=== PATIENT | female | born 1930 | race Caucasian/White ===

== ENCOUNTER 2018-06-17 11:48 | Emergency (ER) | payer MEDICARE, BC ==
--- NOTE | 2018-06-17 12:19 | EDM.PDOC ---
ED HPI GENERAL MEDICAL PROBLEM - General Chief Complaint: Upper Extremity Injury/Pain Stated Complaint: PT' LT ARM HURTS Time Seen by Provider: 06/17/18 11:54 Source of Information: Reports: Patient, Family History Limitations: Reports: No Limitations - History of Present Illness INITIAL COMMENTS - FREE TEXT/NARRATIVE: HISTORY AND PHYSICAL: History of present illness: Patient is 87-year-old female here with complaint of left wrist injury. She states that yesterday she was playing with her Thai bulldog when she must have tripped and she jammed her hand somehow, likely against the wall. She states that she did not fall and that she caught herself with a handrail. She denies any dizziness or syncope preceding the incident. Patient denies hitting her head. She denies any chest pain, shortness of breath, diaphoresis, dizziness , lightheadedness, nausea, vomiting, diarrhea, abdominal pain, black or bloody stools. She has a history of atrial fibrillation, CAD, hypertension, anemia. Patient sees Dr. Emanuel Constantino. Review of systems: As per history of present illness and below otherwise all systems reviewed and negative. Past medical history: As per history of present illness and as reviewed below otherwise noncontributory. Surgical history: As per history of present illness and as reviewed below otherwise noncontributory. Social history: No reported history of drug or alcohol abuse. Family history: As per history of present illness and as reviewed below otherwise noncontributory. Physical exam: General: Patient sitting comfortably in no acute distress and nontoxic appearing HEENT: Atraumatic, normocephalic, pupils reactive, negative for conjunctival pallor or scleral icterus, mucous membranes moist, throat clear, neck supple, nontender, trachea midline. No meningeal signs. Lungs: Clear to auscultation, breath sounds equal bilaterally, chest nontender. Heart: S1S2, irregular negative for clicks, rubs,systolic murmur noted Abdomen: Soft, nondistended, nontender. Negative for masses or hepatosplenomegaly. Negative for costovertebral tenderness. Pelvis: Stable nontender. 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: Deferred. Rectal: Deferred. Extremity: The left hand is swollen from wrist to fingers but most prominent at the radial side of the wrist. She had no tenderness in the hand or fingers but pain to palpation of the distal radius. Normal ROM of fingers. Pain with flexion and extension of the wrist. negative for cords or calf pain. Neurovascular unremarkable. Neuro: Awake, alert, oriented. Cranial nerves II through XII unremarkable. Cerebellum unremarkable. Motor and sensory unremarkable throughout. Exam nonfocal. Notes: Diagnostics CBC, CMP, UA, UC, EKG, left wrist x-ray Therapeutics: Left wrist splint Prescriptions: None Impression: Left distal radius and ulnar fracture Plan: 1. Ice, elevate, and motrin as needed 2. Follow up with orthopedics in the next week. Please see your primary care provider regarding your anemia. 3. Return to ED as needed as discussed. Definitive disposition and diagnosis as appropriate pending reevaluation and review of above. left wrist Pain Score (Numeric/FACES): 5 - Related Data Allergies Allergy/AdvReac Type Severity Reaction Status Date / Time adhesive tape Allergy Rash Verified 06/17/18 11:55 amoxicillin Allergy Hives Verified 06/17/18 11:55 latex Allergy Rash Verified 06/17/18 11:55 Penicillins Allergy Hives Verified 06/17/18 11:55 metal Allergy Rash Uncoded 06/17/18 11:55 Home Meds: Home Meds Aspirin [Adult Low Dose Aspirin EC] 4 tab PO DAILY 10/23/16 [History] Dextran 70/Hypromellose [Artificial Tears] 1 drop EYEBOTH BID 10/23/16 [History] Furosemide 1 tab PO DAILY 10/23/16 [History] Isosorbide Mononitrate 10 mg PO BID 10/23/16 [History] Lisinopril 1 tab PO DAILY 10/23/16 [History] Sertraline HCl 1 tab PO DAILY 10/23/16 [History] Simvastatin [Zocor] 1 tab PO BEDTIME 10/23/16 [History] Spironolactone [Aldactone] 1 tab PO DAILY 10/23/16 [History] Vit B12/Fa/Pyridoxine HCl/AA15 [Glycotrol] 500 mcg PO DAILY 10/23/16 [History] Warfarin [Coumadin] 1 tab PO ASDIRECTED 10/23/16 [History] Warfarin [Coumadin] 1 tab PO DAILY 10/23/16 [History] Past Medical History HEENT History: Reports: Cataract Other HEENT History: wears glasses, has upper denture Cardiovascular History: Reports: Afib, CAD, High Cholesterol, Hypertension, [place], Other (See Below) Other Cardiovascular History: hx of bradycardia Respiratory History: Reports: Sleep Apnea Other Respiratory History: uses CPAP Gastrointestinal History: Reports: None 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 History: Reports: None 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: Musculoskeletal History: Reports: Arthritis, Fracture 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, hx of fx left hip and right wrist Neurological History: Reports: None Psychiatric History: Reports: Anxiety, Depression Endocrine/Metabolic History: Reports: None Hematologic History: Reports: None Immunologic History: Reports: None Oncologic (Cancer) History: Reports: None Other Dermatologic History: very sensitive to scented lotions, gets a rash - Infectious Disease History Infectious Disease History: Reports: Chicken Pox, Measles, Mumps - Past Surgical History Head Surgeries/Procedures: Reports: None HEENT Surgical History: Reports: Cataract Surgery Cardiovascular Surgical History: Reports: Coronary Artery Bypass GI Surgical History: Reports: None Female Surgical History: Reports: None Endocrine Surgical History: Reports: None Neurological Surgical History: Reports: None Musculoskeletal Surgical History: Reports: Hip Replacement Oncologic Surgical History: Reports: None Dermatological Surgical History: Reports: None Social & Family History - Family History Family Medical History: Noncontributory - Tobacco Use Smoking Status *Q: Never Smoker - Recreational Drug Use Recreational Drug Use: No Review of Systems - Review of Systems Review Of Systems: ROS reveals no pertinent complaints other than HPI. ED EXAM, GENERAL - Physical Exam Exam: See Below (see dictation) Course - Vital Signs Last Recorded V/S: Last Vital Signs Temp 35.9 C 06/17/18 11:55 Pulse 64 06/17/18 11:55 Resp 18 06/17/18 11:55 BP 139/50 L 06/17/18 11:55 Pulse Ox 95 06/17/18 11:55 - Orders/Labs/Meds Orders: Active Orders 24 hr Category Date Time Status EKG Documentation Completion [RC] STAT Care 06/17/18 12:17 Active CULTURE URINE [RM] Stat Lab 06/17/18 12:20 Ordered UA W/MICROSCOPIC [URIN] Stat Lab 06/17/18 12:20 Ordered Labs: Laboratory Tests 06/17/18 06/17/18 06/17/18 Range/Units 12:20 12:40 12:40 WBC 6.58 (4.0-11.0) K/uL RBC 3.32 L (4.30-5.90) M/uL Hgb 9.0 L (12.0-16.0) g/dL Hct 28.4 L (36.0-46.0) % MCV 85.5 (80.0-98.0) fL MCH 27.1 (27.0-32.0) pg MCHC 31.7 (31.0-37.0) g/dL RDW Std Deviation 54.0 (28.0-62.0) fl RDW Coeff of Aleksandr 17 H (11.0-15.0) % Plt Count 165 (150-400) K/uL MPV 9.20 (7.40-12.00) fL Neut % (Auto) 64.5 (48.0-80.0) % Lymph % (Auto) 20.2 (16.0-40.0) % [place] % (Auto) 14.4 (0.0-15.0) % Eos % (Auto) 0.6 (0.0-7.0) % Baso % (Auto) 0.3 (0.0-1.5) % Neut # (Auto) 4.2 (1.4-5.7) K/uL Lymph # (Auto) 1.3 (0.6-2.4) K/uL [place] # (Auto) 1.0 H (0.0-0.8) K/uL Eos # (Auto) 0.0 (0.0-0.7) K/uL Baso # (Auto) 0.0 (0.0-0.1) K/uL Nucleated RBC % 0.0 /100WBC Nucleated RBCs # 0 K/uL INR Sodium 139 (136-145) mmol/L Potassium 4.3 (3.5-5.1) mmol/L Chloride 105 (98-107) mmol/L Carbon Dioxide 21.7 (21.0-32.0) mmol/L BUN 23 H (7.0-18.0) mg/dL Creatinine 1.2 H (0.6-1.0) mg/dL Est Cr Clr Drug Dosing 25.39 mL/min Estimated GFR (MDRD) 42.6 ml/min Glucose 107 H (74-106) mg/dL Calcium 9.0 (8.5-10.1) mg/dL Total Bilirubin 0.7 (0.2-1.0) mg/dL AST 17 (15-37) IU/L ALT 14 (14-63) IU/L Alkaline Phosphatase 96 (46-116) U/L Troponin I < 0.050 (0.000-0.056) ng/mL Total Protein 7.3 (6.4-8.2) g/dL Albumin 3.6 (3.4-5.0) g/dL Globulin 3.7 H (2.0-3.5) g/dL Albumin/Globulin Ratio 1.0 L (1.3-2.8) Urine Color YELLOW Urine Appearance CLEAR Urine pH 5.5 (5.0-8.0) Ur Specific [place] 1.010 (1.001-1.035) Urine Protein NEGATIVE (NEGATIVE) mg/dL Urine Glucose (UA) NEGATIVE (NEGATIVE) mg/dL Urine Ketones NEGATIVE (NEGATIVE) mg/dL Urine Occult Blood NEGATIVE (NEGATIVE) Urine Nitrite NEGATIVE (NEGATIVE) Urine Bilirubin NEGATIVE (NEGATIVE) Urine Urobilinogen 0.2 (<2.0) EU/dL Ur Leukocyte Esterase NEGATIVE (NEGATIVE) Urine RBC 0-1 (0-2/HPF) Urine WBC 0-1 (0-5/HPF) Ur Epithelial Cells RARE (NONE-FEW) Urine Bacteria RARE (NEGATIVE) 06/17/18 Range/Units 13:55 WBC (4.0-11.0) K/uL RBC (4.30-5.90) M/uL Hgb (12.0-16.0) g/dL Hct (36.0-46.0) % MCV (80.0-98.0) fL MCH (27.0-32.0) pg MCHC (31.0-37.0) g/dL RDW Std Deviation (28.0-62.0) fl RDW Coeff of Aleksandr (11.0-15.0) % Plt Count (150-400) K/uL MPV (7.40-12.00) fL Neut % (Auto) (48.0-80.0) % Lymph % (Auto) (16.0-40.0) % [place] % (Auto) (0.0-15.0) % Eos % (Auto) (0.0-7.0) % Baso % (Auto) (0.0-1.5) % Neut # (Auto) (1.4-5.7) K/uL Lymph # (Auto) (0.6-2.4) K/uL [place] # (Auto) (0.0-0.8) K/uL Eos # (Auto) (0.0-0.7) K/uL Baso # (Auto) (0.0-0.1) K/uL Nucleated RBC % /100WBC Nucleated RBCs # K/uL INR 1.75 Sodium (136-145) mmol/L Potassium (3.5-5.1) mmol/L Chloride (98-107) mmol/L Carbon Dioxide (21.0-32.0) mmol/L BUN (7.0-18.0) mg/dL Creatinine (0.6-1.0) mg/dL Est Cr Clr Drug Dosing mL/min Estimated GFR (MDRD) ml/min Glucose (74-106) mg/dL Calcium (8.5-10.1) mg/dL Total Bilirubin (0.2-1.0) mg/dL AST (15-37) IU/L ALT (14-63) IU/L Alkaline Phosphatase (46-116) U/L Troponin I (0.000-0.056) ng/mL Total Protein (6.4-8.2) g/dL Albumin (3.4-5.0) g/dL Globulin (2.0-3.5) g/dL Albumin/Globulin Ratio (1.3-2.8) Urine Color Urine Appearance Urine pH (5.0-8.0) Ur Specific [place] (1.001-1.035) Urine Protein (NEGATIVE) mg/dL Urine Glucose (UA) (NEGATIVE) mg/dL Urine Ketones (NEGATIVE) mg/dL Urine Occult Blood (NEGATIVE) Urine Nitrite (NEGATIVE) Urine Bilirubin (NEGATIVE) Urine Urobilinogen (<2.0) EU/dL Ur Leukocyte Esterase (NEGATIVE) Urine RBC (0-2/HPF) Urine WBC (0-5/HPF) Ur Epithelial Cells (NONE-FEW) Urine Bacteria (NEGATIVE) Departure - Departure Time of Disposition: 14:22 Disposition: Home, Self-Care 01 Condition: Good Clinical Impression: Left wrist fracture - Discharge Information Referrals: PCP,None [Primary Care Provider] - Forms: ED Department Discharge Additional Instructions: The following information is given to patients seen in the emergency department who are being discharged to home. This information is to outline your options for follow-up care. We provide all patients seen in our emergency department with a follow-up referral. The need for follow-up, as well as the timing and circumstances, are variable depending upon the specifics of your emergency department visit. If you don't have a primary care physician on staff, we will provide you with a referral. We always advise you to contact your personal physician following an emergency department visit to inform them of the circumstance of the visit and for follow-up with them and/or the need for any referrals to a consulting specialist. The emergency department will also refer you to a specialist when appropriate. This referral assures that you have the opportunity for follow-up care with a specialist. All of these measure are taken in an effort to provide you with optimal care, which includes your follow-up. Under all circumstances we always encourage you to contact your private physician who remains a resource for coordinating your care. When calling for follow-up care, please make the office aware that this follow-up is from your recent emergency room visit. If for any reason you are refused follow-up, please contact the [facility] Emergency Department at and asked to speak to the emergency department charge nurse. [facility] [address], [facility] [address] [place] [address] [place] [address] 1. Ice, elevate, and motrin as needed 2. Follow up with orthopedics in the next week. Please see your primary care provider regarding your anemia. 3. Return to ED as needed as discussed. - My Orders Last 24 Hours: My Active Orders 06/17/18 12:17 EKG Documentation Completion [RC] STAT 06/17/18 12:20 CULTURE URINE [RM] Stat UA W/MICROSCOPIC [URIN] Stat - Assessment/Plan Last 24 Hours: My Active Orders 06/17/18 12:17 EKG Documentation Completion [RC] STAT 06/17/18 12:20 CULTURE URINE [RM] Stat UA W/MICROSCOPIC [URIN] Stat
--- NOTE | 2018-06-17 13:07 | CR ---
EXAM DATE: 06/17/18 PATIENT'S AGE: 87 Patient: PETER BRIAN Facility: [place], [place] Site . Site : [id number] Study: XRay Extremity Left WRIST [id number]/[id number] 12:42:17 PM Ordering Physician: Doctor Chaparro Final Report: INDICATION: Pain. COMPARISON: None. FINDINGS: Distal intra-articular transverse fracture is noted of the left radius with fracture fragment overlap of approximately 0.8 cm. There is an associated ulnar styloid fracture. The bones diffusely demineralized and degenerative changes are noted of the of the left wrist, particularly the left 1st metacarpal/carpal joint space. The soft tissues are swollen/edematous and metallic clips overlie the radial artery. Impression : 1. Distal intra-articular left radial fracture with associated ulnar styloid fracture. 2. Bony demineralization and degenerative changes left wrist. Dictated by Agnes Turner MD @ Jun 17 2018 12:46PM (Electronic Signature) Report Signed by Proxy. XENA
[2018-06-17 14:03] LABS: CHLORIDE,CL 105 mmol/L (98-107); SODIUM,NA 139 mmol/L (136-145)
[2018-06-17 14:34] VITALS: BP 119/63
== END 2018-06-17 14:28 | disposition home or self-care (01) ==
LOC: MW.ED 11:48
DX: S52.572A Other intraarticular fracture of lower end of left radius, initial encounter for closed fracture (principal); S52.612A Displaced fracture of left ulna styloid process, initial encounter for closed fracture; I10 Essential (primary) hypertension; Z88.0 Allergy status to penicillin; Z88.1 Allergy status to other antibiotic agents; Z91.040 Latex allergy status; Z91.09 Other allergy status, other than to drugs and biological substances; Z79.82 Long term (current) use of aspirin; Z79.01 Long term (current) use of anticoagulants; Z79.899 Other long term (current) drug therapy; W23.1XXA Caught, crushed, jammed, or pinched between stationary objects, initial encounter
CPT/HCPCS: 36415; 73100-26-LT; 73100-LT; 80053; 81001; 84484; 85025; 85610; 87086; 93005; 99284-25

== ENCOUNTER 2018-11-17 21:08 | Inpatient (IN) | payer MEDICARE, BC ==
--- NOTE | 2018-11-17 21:22 | EDM.PDOC ---
<Lopez Garcia E - Last Filed: 11/17/18 22:10> ED HPI GENERAL MEDICAL PROBLEM - General Chief Complaint: Lower Extremity Injury/Pain Stated Complaint: FELL Time Seen by Provider: 11/17/18 21:19 Source of Information: Reports: Patient History Limitations: Reports: No Limitations - History of Present Illness INITIAL COMMENTS - FREE TEXT/NARRATIVE: HISTORY AND PHYSICAL: Fall - Trauma Alert was called on this patient. Dr Navarro was involved in this case. History of present illness: Patient is an 88-year-old female who presents to the emergency room with complaints of right upper thigh and hip pain post fall. Patient was going up the stairs when she tripped over her dog landing forward on the stairs. She denies hitting her head or any loss of consciousness. She states she has broken her left hip previously and believes that the pain is similar that she is now experiencing on the right. She denies any numbness or tingling to the affected extremity. She does take Coumadin and follows closely with Dr. Emanuel Constantino at [facility]. She denies any fever, chills, chest pain, shortness of breath or cough. Denies any GI or symptoms. Review of systems: As per history of present illness and below otherwise all systems reviewed and negative. Past medical history: As per history of present illness and as reviewed below otherwise noncontributory. Surgical history: As per history of present illness and as reviewed below otherwise noncontributory. Social history: See social history for further information Family history: As per history of present illness and as reviewed below otherwise noncontributory. Physical exam: General: Well-developed and well-nourished 88-year-old female. Alert and oriented. Nontoxic appearing and in no acute distress. HEENT: Nontender with palpation, normocephalic, pupils equal and reactive bilaterally, negative for conjunctival pallor or scleral icterus, mucous membranes moist, TMs normal bilaterally, throat clear, neck supple, nontender, trachea midline. No drooling or trismus noted. No meningeal signs. No hot potato voice noted. Lungs: Clear to auscultation, breath sounds equal bilaterally, chest nontender. Heart: S1S2, regular rate and rhythm without overt murmur Abdomen: Soft, nondistended, nontender. Negative for masses or hepatosplenomegaly. Negative for costovertebral tenderness. Pelvis: Stable nontender. 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: Deferred. Rectal: Deferred. Skin: Intact, warm, dry. No lesions or rashes noted. Extremities: Pain to the right lateral hip going into her groin. Shortening and external rotation noted of right leg. Strong pedal pulses. +CMS of the lower extremity. No knee, tib-fib, ankle or foot pain. She is negative for cords or calf pain. Neurovascular unremarkable. C-spine/Back: No pinpoint vertebral tenderness upon palpation. No crepitus, step -offs or obvious deformities. She is able to move all 4 extremities. Denies any numbness or tingling to her distal extremities. Denies any urinary or fecal incontinence. Neuro: Awake, alert, oriented. Cranial nerves II through XII unremarkable. Cerebellum unremarkable. Motor and sensory unremarkable throughout. Exam nonfocal. Notes: Due to the patient's age and mechanism of injury along with her Coumadin, I am going to CT her head and neck for thoroughness. Head CT shows no acute findings, mild maxillary sinus disease. Dr Quick was consulted on this case. Dr Navarro has been briefed on this patient and will follow the patient's labs. Diagnostics: Head CT, cervical spine CT, right hip/pelvis, CBC, CMP, PT/INR Therapeutics: IV morphine, Zofran, Elevated and positioned for comfort Definitive disposition and diagnosis as appropriate pending reevaluation and review of above. Right Upper Leg Pain Score (Numeric/FACES): 8 - Related Data Allergies Allergy/AdvReac Type Severity Reaction Status Date / Time adhesive tape Allergy Rash Verified 11/17/18 21:13 amoxicillin Allergy Hives Verified 11/17/18 21:13 latex Allergy Rash Verified 11/17/18 21:13 Penicillins Allergy Hives Verified 11/17/18 21:13 metal Allergy Rash Uncoded 11/17/18 21:13 Home Meds: Home Meds Aspirin [Adult Low Dose Aspirin EC] 4 tab PO DAILY 10/23/16 [History] Dextran 70/Hypromellose [Artificial Tears] 1 drop EYEBOTH BID 10/23/16 [History] Furosemide 1 tab PO DAILY 10/23/16 [History] Isosorbide Mononitrate 10 mg PO BID 10/23/16 [History] Lisinopril 1 tab PO DAILY 10/23/16 [History] Sertraline HCl 1 tab PO DAILY 10/23/16 [History] Simvastatin [Zocor] 1 tab PO BEDTIME 10/23/16 [History] Spironolactone [Aldactone] 25 mg PO DAILY 10/23/16 [History] Vit B12/Fa/Pyridoxine HCl/AA15 [Glycotrol] 500 mcg PO DAILY 10/23/16 [History] Warfarin [Coumadin] 6 mg PO DAILY 10/23/16 [History] Past Medical History HEENT History: Reports: Cataract Other HEENT History: wears glasses, has upper denture Cardiovascular History: Reports: Afib, CAD, High Cholesterol, Hypertension, [place], Other (See Below) Other Cardiovascular History: hx of bradycardia Respiratory History: Reports: Sleep Apnea Other Respiratory History: uses CPAP Gastrointestinal History: Reports: None 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 History: Reports: 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: Musculoskeletal History: Reports: Arthritis, Fracture 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, hx of fx left hip and right wrist Neurological History: Reports: None Psychiatric History: Reports: Anxiety, Depression Endocrine/Metabolic History: Reports: None Hematologic History: Reports: None Immunologic History: Reports: None Oncologic (Cancer) History: Reports: None Other Dermatologic History: very sensitive to scented lotions, gets a rash - Infectious Disease History Infectious Disease History: Reports: Chicken Pox, Measles, Mumps - Past Surgical History Head Surgeries/Procedures: Reports: None HEENT Surgical History: Reports: Cataract Surgery Cardiovascular Surgical History: Reports: Coronary Artery Bypass GI Surgical History: Reports: None Female Surgical History: Reports: None Endocrine Surgical History: Reports: None Neurological Surgical History: Reports: None Musculoskeletal Surgical History: Reports: Hip Replacement Oncologic Surgical History: Reports: None Dermatological Surgical History: Reports: None Social & Family History - Family History Family Medical History: Noncontributory - Tobacco Use Smoking Status *Q: Never Smoker - Recreational Drug Use Recreational Drug Use: No Review of Systems - Review of Systems Review Of Systems: ROS reveals no pertinent complaints other than HPI. ED EXAM, GENERAL - Physical Exam Exam: See Below (See dictation) Course - Vital Signs Last Recorded V/S: Last Vital Signs Temp 97.3 F 11/17/18 21:09 Pulse 58 L 11/17/18 21:09 Resp 18 11/17/18 21:09 BP 163/52 H 11/17/18 21:09 Pulse Ox 97 11/17/18 21:09 - Orders/Labs/Meds Orders: Active Orders 24 hr Category Date Time Status Admission Status [Patient Status] [ADT] Stat ADT 11/17/18 21:54 Active EKG Documentation Completion [RC] STAT Care 11/17/18 23:56 Active Sodium Chloride 0.9% [Normal Saline] 1,000 ml Med 11/17/18 23:45 Active IV STAT Sodium Chloride 0.9% [Saline Flush] Med 11/17/18 21:54 Active 10 ml FLUSH ASDIRECTED PRN Sodium Chloride 0.9% [Saline Flush] Med 11/17/18 21:54 Active 2.5 ml FLUSH ASDIRECTED PRN Saline Lock Insert [OM.PC] Stat Oth 11/17/18 21:54 Ordered Medication Orders Sodium Chloride (Normal Saline) 1,000 mls @ 125 mls/hr IV STAT [place] Sodium Chloride (Saline Flush) 10 ml FLUSH ASDIRECTED PRN PRN Reason: Keep Vein Open Sodium Chloride (Saline Flush) 2.5 ml FLUSH ASDIRECTED PRN PRN Reason: Keep Vein Open Labs: Laboratory Tests 11/17/18 11/17/18 11/17/18 Range/Units 22:38 22:38 22:55 WBC 7.57 (4.0-11.0) K/uL RBC 3.57 L (4.30-5.90) M/uL Hgb 11.0 L (12.0-16.0) g/dL Hct 34.5 L (36.0-46.0) % MCV 96.6 (80.0-98.0) fL MCH 30.8 (27.0-32.0) pg MCHC 31.9 (31.0-37.0) g/dL RDW Std Deviation 52.8 (28.0-62.0) fl RDW Coeff of Aleksandr 15 (11.0-15.0) % Plt Count 144 L (150-400) K/uL MPV 10.10 (7.40-12.00) fL Neut % (Auto) 67.3 (48.0-80.0) % Lymph % (Auto) 20.5 (16.0-40.0) % [place] % (Auto) 9.4 (0.0-15.0) % Eos % (Auto) 2.4 (0.0-7.0) % Baso % (Auto) 0.4 (0.0-1.5) % Neut # (Auto) 5.1 (1.4-5.7) K/uL Lymph # (Auto) 1.6 (0.6-2.4) K/uL [place] # (Auto) 0.7 (0.0-0.8) K/uL Eos # (Auto) 0.2 (0.0-0.7) K/uL Baso # (Auto) 0.0 (0.0-0.1) K/uL Nucleated RBC % 0.0 /100WBC Nucleated RBCs # 0 K/uL INR 1.14 Sodium 141 (136-145) mmol/L Potassium 4.7 (3.5-5.1) mmol/L Chloride 108 H (98-107) mmol/L Carbon Dioxide 22.0 (21.0-32.0) mmol/L BUN 33 H (7.0-18.0) mg/dL Creatinine 1.6 H (0.6-1.0) mg/dL Est Cr Clr Drug Dosing 18.69 mL/min Estimated GFR (MDRD) 30.5 ml/min Glucose 125 H (74-106) mg/dL Calcium 9.5 (8.5-10.1) mg/dL Total Bilirubin 0.5 (0.2-1.0) mg/dL AST 13 L (15-37) IU/L ALT 9 L (14-63) IU/L Alkaline Phosphatase 73 (46-116) U/L Total Protein 7.0 (6.4-8.2) g/dL Albumin 3.8 (3.4-5.0) g/dL Globulin 3.2 (2.6-4.0) g/dL Albumin/Globulin Ratio 1.2 (0.9-1.6) Meds: Medications Generic Name Dose Route Start Last Admin Trade Name Freq PRN Reason Stop Dose Admin Sodium Chloride 1,000 mls @ 125 mls/hr 11/17/18 23:45 Normal Saline IV STAT [place] Sodium Chloride 10 ml 11/17/18 21:54 Saline Flush FLUSH ASDIRECTED PRN Keep Vein Open Sodium Chloride 2.5 ml 11/17/18 21:54 Saline Flush FLUSH ASDIRECTED PRN Keep Vein Open Discontinued Medications Generic Name Dose Route Start Last Admin Trade Name Jd PRN Reason Stop Dose Admin Morphine Sulfate 2 mg 11/17/18 22:09 11/17/18 22:42 Morphine IVPUSH 11/17/18 22:10 2 mg ONETIME ONE Administration Ondansetron HCl 4 mg 11/17/18 22:09 11/17/18 22:41 Zofran IVPUSH 11/17/18 22:10 4 mg ONETIME ONE Administration Departure - Departure Disposition: Refer to Observation Clinical Impression: Intertrochanteric fracture, hip - Discharge Information Referrals: Emanuel Constantino MD [Primary Care Provider] - Forms: ED Department Discharge - My Orders Last 24 Hours: My Active Orders 11/17/18 23:45 Sodium Chloride 0.9% [Normal Saline] 1,000 ml IV STAT 11/17/18 23:56 EKG Documentation Completion [RC] STAT - Assessment/Plan Last 24 Hours: My Active Orders 11/17/18 23:45 Sodium Chloride 0.9% [Normal Saline] 1,000 ml IV STAT 11/17/18 23:56 EKG Documentation Completion [RC] STAT <Mario Alberto Navarro - Last Filed: 11/18/18 00:08> ED HPI GENERAL MEDICAL PROBLEM - History of Present Illness INITIAL COMMENTS - FREE TEXT/NARRATIVE: I've seen and examined the patient and agree with the above Patient does have an intertrochanteric fracture on the right Spoken with Dr. Quick as well as Dr. Stein patient will be admitted nothing by mouth after midnight Departure - Departure Time of Disposition: 00:08 Condition: Fair
[2018-11-17] MEDS ORDERED: Sodium Chloride 0.9% 10 ML Syringe FLUSH PRN (21:54)
[2018-11-17] MEDS ORDERED: Sodium Chloride 0.9% 2.5 ML Syringe FLUSH PRN (21:54)
--- NOTE | 2018-11-17 22:05 | CT ---
INDICATION: Fall. Pain TECHNIQUE: CT head without contrast. COMPARISON: None available FINDINGS: There is age-related cortical atrophy with proportionate ventriculomegaly. There is no mass effect or midline shift. 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 White matter hypodensities are suggestive of chronic small vessel ischemic changes. There is no loss of myers-white differentiation. There is no evidence of an acute intracranial hemorrhage. No acute calvarial fracture is seen. There is moderate right maxillary sinus mucosal thickening with an air-fluid level, and an apparent mucosal retention cyst or polyp in the left maxillary sinus. There is opacification of some right mastoid tip air cells. Post cataract surgery changes are seen. IMPRESSION: No evidence of an acute intracranial hemorrhage, mass effect or loss of myers-white differentiation. Atrophy and chronic ischemic changes with old infarcts. Maxillary sinus disease with a right maxillary sinus air-fluid level. Dictated by Emmanuel Gruber MD @ 11/17/2018 10:03:47 PM Please note that all CT scans at this facility use dose modulation, iterative reconstruction, and/or weight-based dosing when appropriate to reduce radiation dose to as low as reasonably achievable. Dictated by: Emmanuel Gruber MD @ 11/17/2018 22:03:53 (Electronically Signed)
[2018-11-17] MEDS ORDERED: Ondansetron 4 MG/2 ML SDV IVPUSH ONE (22:09)
[2018-11-17] MEDS ORDERED: Morphine 2 MG/ML Syringe IVPUSH ONE (22:09)
--- NOTE | 2018-11-17 22:15 | CR ---
Indication: Pain after fall Technique: Pelvis and right hip 3 views Comparison: None Findings: Bones: There is an intertrochanteric fracture of the right proximal femur with 9 millimeters posterior displacement of the distal fracture fragment. Joint spaces: No dislocation right hip. Status post left total hip replacement. Soft tissues: Unremarkable. Impression: Intertrochanteric fracture right proximal femur with mild posterior displacement. Dictated by Paxton Pang MD @ Nov 17 2018 10:11PM Signed by Dr. Paxton Pang @ Nov 17 2018 10:13PM
--- NOTE | 2018-11-17 22:24 | CT ---
INDICATION: Pain after fall TECHNIQUE: CT cervical spine without contrast. COMPARISON: None FINDINGS: Vertebral alignment: Alignment is normal. Vertebrae: Osteopenia. There are no fractures or suspicious bony lesions. There is partial bony fusion of C2 and C3. Discs and facet joints: There are moderate to severe multilevel degenerative disc and facet changes. Extraspinal findings: Paraspinous soft tissues are unremarkable. IMPRESSION: 1. No sign of acute injury. 2. Multilevel degenerative spondylosis. Please note that all CT scans at this facility use dose modulation, iterative reconstruction, and/or weight-based dosing when appropriate to reduce radiation dose to as low as reasonably achievable. Dictated by Agnes Garcia MD @ Nov 17 2018 10:19PM Signed by Dr. Agnes Garcia @ Nov 17 2018 10:23PM
[2018-11-17] MEDS ORDERED: Sodium Chloride 0.9% 1,000 ML IV SCH (23:45)
[2018-11-18] MEDS ORDERED: Ondansetron 4 MG/2 ML SDV IVPUSH PRN (00:43)
[2018-11-18] MEDS ORDERED: Acetaminophen 325 MG Tab PO PRN (00:43)
[2018-11-18] MEDS ORDERED: HYDROmorphone 2 MG/ML SDV IVPUSH PRN (00:43)
[2018-11-18] MEDS ORDERED: Heparin Sodium 5,000 Units/ML Vial SUBCUT SCH ×2 (00:45→09:30)
--- NOTE | 2018-11-18 00:56 | PCM.HP ---
H&P History of Present Illness - General Date of Service: 11/18/18 Admit Problem/Dx: Admission Diagnosis/Problem Admission Diagnosis/Problem Traumatic AND/OR non-traumatic injury Source of Information: Patient - History of Present Illness Initial Comments - Free Text/Narative: Patient is a 88-year-old female with a history of chronic atrial fibrillation on Coumadin, history of myocardial infarction, status post CABG as per patient, and a high blood pressure who presented to the ER with right hip pain immediately after fall this afternoon at about 8:30. Pt was going to up the stairs when she tripped over her dog landing forward on hte stairs. She denies hitting her head or any loss of consciousness. She denies any numbness or tingling to the affected leg. Patient also denies of headache, dizziness, chest pain, shortness of breath, abdominal pain, nausea, vomiting, or change in vision. In the ER, x-ray showed right femur fracture. Duration of Symptoms: Reports: Day(s): Quality: Reports: Dull Right Upper Leg Pain Score (Numeric/FACES): 8 - Related Data Allergies/Adverse Reactions: Allergies Allergy/AdvReac Type Severity Reaction Status Date / Time adhesive tape Allergy Rash Verified 11/17/18 21:13 amoxicillin Allergy Hives Verified 11/17/18 21:13 latex Allergy Rash Verified 11/17/18 21:13 Penicillins Allergy Hives Verified 11/17/18 21:13 metal Allergy Rash Uncoded 11/17/18 21:13 Home Medications: Home Meds Aspirin [Adult Low Dose Aspirin EC] 4 tab PO DAILY 10/23/16 [History] Dextran 70/Hypromellose [Artificial Tears] 1 drop EYEBOTH BID 10/23/16 [History] Furosemide 1 tab PO DAILY 10/23/16 [History] Isosorbide Mononitrate 10 mg PO BID 10/23/16 [History] Lisinopril 1 tab PO DAILY 10/23/16 [History] Sertraline HCl 1 tab PO DAILY 10/23/16 [History] Simvastatin [Zocor] 1 tab PO BEDTIME 10/23/16 [History] Spironolactone [Aldactone] 25 mg PO DAILY 10/23/16 [History] Vit B12/Fa/Pyridoxine HCl/AA15 [Glycotrol] 500 mcg PO DAILY 10/23/16 [History] Warfarin [Coumadin] 6 mg PO DAILY 10/23/16 [History] Past Medical History HEENT History: Reports: Cataract Other HEENT History: wears glasses, has upper denture Cardiovascular History: Reports: Afib, CAD, High Cholesterol, Hypertension, MO, Other (See Below) Other Cardiovascular History: hx of bradycardia Respiratory History: Reports: Sleep Apnea Other Respiratory History: uses CPAP Gastrointestinal History: Reports: None 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 History: Reports: None 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: Musculoskeletal History: Reports: Arthritis, Fracture 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, hx of fx left hip and right wrist Neurological History: Reports: None Psychiatric History: Reports: Anxiety, Depression Endocrine/Metabolic History: Reports: None Hematologic History: Reports: None Immunologic History: Reports: None Oncologic (Cancer) History: Reports: None Other Dermatologic History: very sensitive to scented lotions, gets a rash - Infectious Disease History Infectious Disease History: Reports: Chicken Pox, Measles, Mumps - Past Surgical History Head Surgeries/Procedures: Reports: None HEENT Surgical History: Reports: Cataract Surgery Cardiovascular Surgical History: Reports: Coronary Artery Bypass GI Surgical History: Reports: None Female Surgical History: Reports: None Endocrine Surgical History: Reports: None Neurological Surgical History: Reports: None Musculoskeletal Surgical History: Reports: Hip Replacement Oncologic Surgical History: Reports: None Dermatological Surgical History: Reports: None Social & Family History - Family History Family Medical History: Noncontributory (Mother had diabetes and heart disease; father had a heart disease) - Tobacco Use Smoking Status *Q: Never Smoker - Recreational Drug Use Recreational Drug Use: No H&P Review of Systems - Review of Systems: Review Of Systems: See Below General: Reports: No Symptoms, Other HEENT: Reports: No Symptoms Pulmonary: Reports: No Symptoms Cardiovascular: Reports: No Symptoms Gastrointestinal: Reports: No Symptoms Musculoskeletal: Reports: Other (Rather significant) Skin: Reports: No Symptoms Psychiatric: Reports: No Symptoms Neurological: Reports: No Symptoms Hematologic/Lymphatic: Reports: No Symptoms Exam - Exam Exam: See Below - Vital Signs Vital Signs: Last Vital Signs Temp 36.3 C 11/17/18 21:09 Pulse 58 L 11/17/18 21:09 Resp 18 11/17/18 21:09 BP 163/52 H 11/17/18 21:09 Pulse Ox 97 11/17/18 21:09 Weight: 62.142 kg - Exam Quality Assessment: DVT Prophylaxis General: Alert, Oriented, Cooperative HEENT: Conjunctiva Clear, EOMI, Pupils Equal, Pupils Reactive Neck: Supple, Trachea Midline, Full Range of Motion Lungs: Clear to Auscultation, Normal Respiratory Effort Cardiovascular: Normal S1, Normal S2, Irregular Rhythm GI/Abdominal Exam: Normal Bowel Sounds, Soft, Non-Tender, No Organomegaly Extremities: Other (Right hip edema and tenderness. both feet warm and sensation intact) Neurological: Cranial Nerves Intact, Reflexes Equal Bilateral, Strength Equal Bilateral Neuro Extensive - Mental Status: Normal Mood/Affect Neuro Extensive - Motor, Sensory, Reflexes: CN II-XII Intact, Normal Reflexes - Patient Data Lab Results Last 24 hrs: Laboratory Results - last 24 hr 11/17/18 11/17/18 11/17/18 Range/Units 22:38 22:38 22:55 WBC 7.57 (4.0-11.0) K/uL RBC 3.57 L (4.30-5.90) M/uL Hgb 11.0 L (12.0-16.0) g/dL Hct 34.5 L (36.0-46.0) % MCV 96.6 (80.0-98.0) fL MCH 30.8 (27.0-32.0) pg MCHC 31.9 (31.0-37.0) g/dL RDW Std Deviation 52.8 (28.0-62.0) fl RDW Coeff of Aleksandr 15 (11.0-15.0) % Plt Count 144 L (150-400) K/uL MPV 10.10 (7.40-12.00) fL Neut % (Auto) 67.3 (48.0-80.0) % Lymph % (Auto) 20.5 (16.0-40.0) % [place] % (Auto) 9.4 (0.0-15.0) % Eos % (Auto) 2.4 (0.0-7.0) % Baso % (Auto) 0.4 (0.0-1.5) % Neut # (Auto) 5.1 (1.4-5.7) K/uL Lymph # (Auto) 1.6 (0.6-2.4) K/uL [place] # (Auto) 0.7 (0.0-0.8) K/uL Eos # (Auto) 0.2 (0.0-0.7) K/uL Baso # (Auto) 0.0 (0.0-0.1) K/uL Nucleated RBC % 0.0 /100WBC Nucleated RBCs # 0 K/uL INR 1.14 Sodium 141 (136-145) mmol/L Potassium 4.7 (3.5-5.1) mmol/L Chloride 108 H (98-107) mmol/L Carbon Dioxide 22.0 (21.0-32.0) mmol/L BUN 33 H (7.0-18.0) mg/dL Creatinine 1.6 H (0.6-1.0) mg/dL Est Cr Clr Drug Dosing 18.69 mL/min Estimated GFR (MDRD) 30.5 ml/min Glucose 125 H (74-106) mg/dL Calcium 9.5 (8.5-10.1) mg/dL Total Bilirubin 0.5 (0.2-1.0) mg/dL AST 13 L (15-37) IU/L ALT 9 L (14-63) IU/L Alkaline Phosphatase 73 (46-116) U/L Total Protein 7.0 (6.4-8.2) g/dL Albumin 3.8 (3.4-5.0) g/dL Globulin 3.2 (2.6-4.0) g/dL Albumin/Globulin Ratio 1.2 (0.9-1.6) Result Diagrams: 11/17/18 22:38 11/17/18 22:38 Problem List Initiated/Reviewed/Updated: Yes Orders Last 24hrs: Active Orders 24 hr Category Date Time Status Admission Status [Patient Status] [ADT] Stat ADT 11/17/18 21:54 Active Admission Status [Patient Status] [ADT] Stat ADT 11/18/18 00:08 Active Intake and Output [RC] QSHIFT Care 11/18/18 00:44 Ordered Oxygen Therapy [RC] PRN Care 11/18/18 00:43 Ordered Up ad Tammy [RC] ASDIRECTED Care 11/18/18 00:43 Ordered VTE/DVT Education [RC] PER UNIT ROUTINE Care 11/18/18 00:43 Ordered Vital Signs [RC] Q4H Care 11/18/18 00:43 Ordered Nothing per Oral After Midnight Diet [DIET] Diet 11/18/18 Dinner Ordered Nothing per Oral Now Diet [DIET] Diet 11/18/18 Breakfast Ordered CBC WITH AUTO DIFF [HEME] AM Lab 11/18/18 05:11 Ordered CBC WITH AUTO DIFF [HEME] AM Lab 11/19/18 05:11 Ordered CBC WITH AUTO DIFF [HEME] AM Lab 11/20/18 05:11 Ordered CBC WITH AUTO DIFF [HEME] AM Lab 11/21/18 05:11 Ordered CKMB [CHEM] AM Lab 11/18/18 05:11 Ordered COMPREHENSIVE METABOLIC PN,CMP [CHEM] AM Lab 11/18/18 05:11 Ordered COMPREHENSIVE METABOLIC PN,CMP [CHEM] AM Lab 11/19/18 05:11 Ordered COMPREHENSIVE METABOLIC PN,CMP [CHEM] AM Lab 11/20/18 05:11 Ordered COMPREHENSIVE METABOLIC PN,CMP [CHEM] AM Lab 11/21/18 05:11 Ordered Acetaminophen [Tylenol] Med 11/18/18 00:43 Ordered 650 mg PO Q4H PRN Dextran 70/Hypromellose [Artificial Tears] Med 11/18/18 01:00 Ordered 1 drop EYEBOTH BID HYDROmorphone [Dilaudid] Med 11/18/18 00:43 Ordered 0.5 mg IVPUSH Q4H PRN Heparin Sodium Med 11/18/18 00:45 Ordered 5,000 units SUBCUT Q8H Isosorbide Mononitrate Med 11/18/18 01:00 Ordered 10 mg PO BID Ondansetron [Zofran] Med 11/18/18 00:43 Ordered 4 mg IVPUSH Q4H PRN Sertraline [Zoloft] Med 11/18/18 01:00 Ordered 1 tab PO DAILY Simvastatin [Zocor] Med 11/18/18 21:00 Ordered 1 tab PO BEDTIME Sodium Chloride 0.9% [Normal Saline] 1,000 ml Med 11/18/18 00:45 Ordered IV ASDIRECTED Sodium Chloride 0.9% [Normal Saline] 1,000 ml Med 11/17/18 23:45 Active IV STAT Sodium Chloride 0.9% [Saline Flush] Med 11/17/18 21:54 Active 10 ml FLUSH ASDIRECTED PRN Sodium Chloride 0.9% [Saline Flush] Med 11/17/18 21:54 Active 2.5 ml FLUSH ASDIRECTED PRN Spironolactone [Aldactone] Med 11/18/18 01:00 Ordered 25 mg PO DAILY Vit B12/Fa/Pyridoxine HCl/AA15 [Glycotrol] Med 11/18/18 01:00 Ordered 500 mcg PO DAILY oxyCODONE Med 11/18/18 00:43 Ordered 5 mg PO Q4H PRN Saline Lock Insert [OM.PC] Stat Oth 11/17/18 21:54 Ordered Resuscitation Status Routine Resus Stat 11/18/18 00:43 Ordered Medication Orders Acetaminophen (Tylenol) 650 mg PO Q4H PRN PRN Reason: Pain (Mild 1-3)/fever Heparin Sodium (Porcine) (Heparin Sodium) 5,000 units SUBCUT Q8H [place] Hydromorphone HCl (Dilaudid) 0.5 mg IVPUSH Q4H PRN PRN Reason: Pain (severe 7-10) Sodium Chloride (Normal Saline) 1,000 mls @ 125 mls/hr IV STAT [place] Last Admin: 11/18/18 00:36 Dose: 125 mls/hr Sodium Chloride (Normal Saline) 1,000 mls @ 50 mls/hr IV ASDIRECTED [place] Ondansetron HCl (Zofran) 4 mg IVPUSH Q4H PRN PRN Reason: Nausea/Vomiting Oxycodone HCl (Oxycodone) 5 mg PO Q4H PRN PRN Reason: Pain (moderate 4-6) Sodium Chloride (Saline Flush) 10 ml FLUSH ASDIRECTED PRN PRN Reason: Keep Vein Open Sodium Chloride (Saline Flush) 2.5 ml FLUSH ASDIRECTED PRN PRN Reason: Keep Vein Open Assessment/Plan Comment:: Assessment: Acute closed right hip fracture Chronic atrial fibrillation on coumadin Subtherapeutic INR CAD, hx of MO, s/p CABG as per Patient Mechanical fall HTN Anemia Thrombocytopenia [place] Plan: Admitted to [facility] Vital signs IVF npo after midnight Orth consulted Held coumadin, lasix and aspirin Continue spironolactone, imdur, DVT prophylaxis Heparin CODE STATUS: full
[2018-11-18] MEDS: oxyCODONE 5 MG Tab PO PRN ×2 (02:28→22:16)
[2018-11-18] MEDS: Sertraline 50 MG Tab PO SCH ×2 (02:29→11:26)
[2018-11-18] MEDS: Spironolactone 25 MG Tab PO SCH ×2 (02:29→11:26)
[2018-11-18] MEDS ORDERED: HYDROmorphone 1 MG/ML Syringe IV PRN (02:30)
[2018-11-18] MEDS: Carboxymethylcellulose Sodium 0.5% Ophth Soln 0.4 ML UD Box of 30 EYEBOTH SCH ×3 (02:30→21:26)
--- NOTE | 2018-11-18 09:20 | PCM.PN ---
- General Info Date of Service: 11/18/18 Subjective Update: 88F admitted for R proximal femur fracture. Ortho has been consulted. Patient has no complaints currently aside from pain at the hip region. - Review of Systems General: Reports: Other (negative except for HPI) - Patient Data Vitals - Most Recent: Last Vital Signs Temp 36.4 C 11/18/18 05:00 Pulse 57 L 11/18/18 05:00 Resp 17 11/18/18 05:00 BP 112/52 L 11/18/18 05:00 Pulse Ox 93 L 11/18/18 05:00 Weight - Most Recent: 62.142 kg I&O - Last 24 Hours: Intake & Output 11/17/18 11/18/18 11/18/18 22:59 06:59 14:59 Output Total 300 Balance -300 Lab Results Last 24 Hours: Laboratory Results - last 24 hr 11/17/18 11/17/18 11/17/18 Range/Units 22:38 22:38 22:55 WBC 7.57 (4.0-11.0) K/uL RBC 3.57 L (4.30-5.90) M/uL Hgb 11.0 L (12.0-16.0) g/dL Hct 34.5 L (36.0-46.0) % MCV 96.6 (80.0-98.0) fL MCH 30.8 (27.0-32.0) pg MCHC 31.9 (31.0-37.0) g/dL RDW Std Deviation 52.8 (28.0-62.0) fl RDW Coeff of Aleksandr 15 (11.0-15.0) % Plt Count 144 L (150-400) K/uL MPV 10.10 (7.40-12.00) fL Neut % (Auto) 67.3 (48.0-80.0) % Lymph % (Auto) 20.5 (16.0-40.0) % [place] % (Auto) 9.4 (0.0-15.0) % Eos % (Auto) 2.4 (0.0-7.0) % Baso % (Auto) 0.4 (0.0-1.5) % Neut # (Auto) 5.1 (1.4-5.7) K/uL Lymph # (Auto) 1.6 (0.6-2.4) K/uL [place] # (Auto) 0.7 (0.0-0.8) K/uL Eos # (Auto) 0.2 (0.0-0.7) K/uL Baso # (Auto) 0.0 (0.0-0.1) K/uL Nucleated RBC % 0.0 /100WBC Nucleated RBCs # 0 K/uL INR 1.14 Sodium 141 (136-145) mmol/L Potassium 4.7 (3.5-5.1) mmol/L Chloride 108 H (98-107) mmol/L Carbon Dioxide 22.0 (21.0-32.0) mmol/L BUN 33 H (7.0-18.0) mg/dL Creatinine 1.6 H (0.6-1.0) mg/dL Est Cr Clr Drug Dosing 18.69 mL/min Estimated GFR (MDRD) 30.5 ml/min Glucose 125 H (74-106) mg/dL Calcium 9.5 (8.5-10.1) mg/dL Total Bilirubin 0.5 (0.2-1.0) mg/dL AST 13 L (15-37) IU/L ALT 9 L (14-63) IU/L Alkaline Phosphatase 73 (46-116) U/L CK-MB (CK-2) (0-3.6) ng/mL Total Protein 7.0 (6.4-8.2) g/dL Albumin 3.8 (3.4-5.0) g/dL Globulin 3.2 (2.6-4.0) g/dL Albumin/Globulin Ratio 1.2 (0.9-1.6) 11/18/18 11/18/18 Range/Units 05:00 05:00 WBC 8.64 (4.0-11.0) K/uL RBC 3.15 L (4.30-5.90) M/uL Hgb 9.9 L (12.0-16.0) g/dL Hct 30.6 L (36.0-46.0) % MCV 97.1 (80.0-98.0) fL MCH 31.4 (27.0-32.0) pg MCHC 32.4 (31.0-37.0) g/dL RDW Std Deviation 53.2 (28.0-62.0) fl RDW Coeff of Aleksandr 15 (11.0-15.0) % Plt Count 137 L (150-400) K/uL MPV 10.00 (7.40-12.00) fL Neut % (Auto) 79.7 (48.0-80.0) % Lymph % (Auto) 11.9 L (16.0-40.0) % [place] % (Auto) 8.3 (0.0-15.0) % Eos % (Auto) 0.0 (0.0-7.0) % Baso % (Auto) 0.1 (0.0-1.5) % Neut # (Auto) 6.9 H (1.4-5.7) K/uL Lymph # (Auto) 1.0 (0.6-2.4) K/uL [place] # (Auto) 0.7 (0.0-0.8) K/uL Eos # (Auto) 0.0 (0.0-0.7) K/uL Baso # (Auto) 0.0 (0.0-0.1) K/uL Nucleated RBC % 0.0 /100WBC Nucleated RBCs # 0 K/uL INR Sodium 143 (136-145) mmol/L Potassium 4.8 (3.5-5.1) mmol/L Chloride 110 H (98-107) mmol/L Carbon Dioxide 22.6 (21.0-32.0) mmol/L BUN 29 H (7.0-18.0) mg/dL Creatinine 1.4 H (0.6-1.0) mg/dL Est Cr Clr Drug Dosing 21.39 mL/min Estimated GFR (MDRD) 35.6 ml/min Glucose 136 H (74-106) mg/dL Calcium 9.4 (8.5-10.1) mg/dL Total Bilirubin 0.5 (0.2-1.0) mg/dL AST 11 L (15-37) IU/L ALT 8 L (14-63) IU/L Alkaline Phosphatase 58 (46-116) U/L CK-MB (CK-2) 1.2 (0-3.6) ng/mL Total Protein 6.3 L (6.4-8.2) g/dL Albumin 3.4 (3.4-5.0) g/dL Globulin 2.9 (2.6-4.0) g/dL Albumin/Globulin Ratio 1.2 (0.9-1.6) Med Orders - Current: Current Medications Acetaminophen (Tylenol) 650 mg PO Q4H PRN PRN Reason: Pain (Mild 1-3)/fever Artificial Tears (Refresh Plus 0.5%) 0 each EYEBOTH BID [facility] Last Admin: 11/18/18 02:30 Dose: 1 drop Hydromorphone HCl (Dilaudid) 0.5 mg IV Q4H PRN PRN Reason: Pain (severe 7-10) Last Admin: 11/18/18 06:26 Dose: 0.5 mg Sodium Chloride (Normal Saline) 1,000 mls @ 50 mls/hr IV ASDIRECTED [facility] Non-Formulary Medication (Isosorbide Mononitrate) 10 mg PO BID [facility] Non-Formulary Medication (Vit B12/Fa/Pyridoxine Hcl/Aa15 [Glycotrol]) 500 mcg PO DAILY [facility] Ondansetron HCl (Zofran) 4 mg IVPUSH Q4H PRN PRN Reason: Nausea/Vomiting Oxycodone HCl (Oxycodone) 5 mg PO Q4H PRN PRN Reason: Pain (moderate 4-6) Last Admin: 11/18/18 02:28 Dose: 5 mg Sertraline HCl (Zoloft) 50 mg PO DAILY [facility] Last Admin: 11/18/18 02:29 Dose: 50 mg Simvastatin (Zocor) 40 mg PO BEDTIME [facility] Sodium Chloride (Saline Flush) 10 ml FLUSH ASDIRECTED PRN PRN Reason: Keep Vein Open Sodium Chloride (Saline Flush) 2.5 ml FLUSH ASDIRECTED PRN PRN Reason: Keep Vein Open Spironolactone (Aldactone) 25 mg PO DAILY [facility] Last Admin: 11/18/18 02:29 Dose: 25 mg Discontinued Medications Heparin Sodium (Porcine) (Heparin Sodium) 5,000 units SUBCUT Q8H [facility] Last Admin: 11/18/18 01:20 Dose: Not Given Hydromorphone HCl (Dilaudid) 0.5 mg IVPUSH Q4H PRN PRN Reason: Pain (severe 7-10) Sodium Chloride (Normal Saline) 1,000 mls @ 125 mls/hr IV STAT [place] Last Admin: 11/18/18 00:36 Dose: 125 mls/hr Morphine Sulfate (Morphine) 2 mg IVPUSH ONETIME ONE Stop: 11/17/18 22:10 Last Admin: 11/17/18 22:42 Dose: 2 mg Ondansetron HCl (Zofran) 4 mg IVPUSH ONETIME ONE Stop: 11/17/18 22:10 Last Admin: 11/17/18 22:41 Dose: 4 mg - Exam General: Alert, Oriented HEENT: Pupils Equal, Pupils Reactive, EOMI, Mucous Membr. Moist/[place] Neck: Supple Lungs: Clear to Auscultation, Normal Respiratory Effort Cardiovascular: Regular Rate, Regular Rhythm GI/Abdominal Exam: Normal Bowel Sounds, Soft, Non-Tender, No Organomegaly, No Distention, No Abnormal Bruit, No Mass, Pelvis Stable Extremities: Other (R externally rotated leg and shortened. distal pulses intact. sensation intact) - Problem List Review Problem List Initiated/Reviewed/Updated: Yes - My Orders Last 24 Hours: My Active Orders 11/18/18 00:08 Admission Status [Patient Status] [ADT] Routine 11/18/18 08:44 Echo Comp wo Cont [US] Urgent 11/18/18 09:05 Notify Provider Consults [RC] ASDIRECTED Consult to Physician [CONS] Routine - Plan Plan:: Assessment: #1. Acute closed R hip fracture #2. Hx of Atrial fibrillation on coumadin. Hx of CAD, CABG. #3. Subtherapeutic INR #4. Possible underlying CHF #5. Thrombocytopenia Plan: #1. Obtain echocardiogram, consult cardiology for clearance prior to surgery. #2. Orthopedics on board. #3. Continue heparin for DVT prophylaxis for now given the patient's hx of A. Fib and subtherapeutic INR. #4. Follow up on echocardiogram results and proceed accordingly.
--- NOTE | 2018-11-18 11:05 | PCM.CONS ---
H&P History of Present Illness - General Date of Service: 11/18/18 Admit Problem/Dx: Admission Diagnosis/Problem Right hip fracture Source of Information: Patient History Limitations: Reports: No Limitations - History of Present Illness Initial Comments - Free Text/Narative: Patient is an 88-year-old female who is an independent ambulator. She states she was going up some stairs yesterday when she tripped on a dog. She states she fell, landing on her right hip. She complained of immediate pain. She denies any other injury or loss of consciousness. She did call EMS and was taken to the emergency room. X-rays were obtained which showed a right intertrochanteric hip fracture. She was subsequently admitted for evaluation. She denies any previous history of right hip pain. She denies distal paralysis or paresthesias. She has been recently seen in the orthopedic clinic for a wrist fracture. This has healed uneventfully. She does have a previous history of a left hip fracture which was treated with a hemiarthroplasty. She states this was performed approximately 10 years ago. She has done well with the left and has had no complaints. She is on Coumadin for her atrial fibrillation however her INR shows a subtherapeutic level. Quality: Reports: Sharp, Stabbing Improves with: Reports: Immobilization Worsens with: Reports: Movement Context: Reports: Trauma Associated Symptoms: Reports: No Other Symptoms Right Upper Leg Pain Score (Numeric/FACES): 8 Right Hip Pain Score (Numeric/FACES): 8 - Related Data Allergies/Adverse Reactions: Allergies Allergy/AdvReac Type Severity Reaction Status Date / Time adhesive tape Allergy Rash Verified 11/17/18 21:13 amoxicillin Allergy Hives Verified 11/17/18 21:13 latex Allergy Rash Verified 11/17/18 21:13 Penicillins Allergy Hives Verified 11/17/18 21:13 metal Allergy Rash Uncoded 11/17/18 21:13 Home Medications: Home Meds Aspirin [Adult Low Dose Aspirin EC] 4 tab PO DAILY 10/23/16 [History] Dextran 70/Hypromellose [Artificial Tears] 1 drop EYEBOTH BID 10/23/16 [History] Furosemide 1 tab PO DAILY 10/23/16 [History] Isosorbide Mononitrate 10 mg PO BID 10/23/16 [History] Lisinopril 1 tab PO DAILY 10/23/16 [History] Sertraline HCl 1 tab PO DAILY 10/23/16 [History] Simvastatin [Zocor] 1 tab PO BEDTIME 10/23/16 [History] Spironolactone [Aldactone] 25 mg PO DAILY 10/23/16 [History] Vit B12/Fa/Pyridoxine HCl/AA15 [Glycotrol] 500 mcg PO DAILY 10/23/16 [History] Warfarin [Coumadin] 6 mg PO DAILY 10/23/16 [History] Past Medical History HEENT History: Reports: Cataract Other HEENT History: wears glasses, has upper denture Cardiovascular History: Reports: Afib, CAD, High Cholesterol, Hypertension, [place], Other (See Below) Other Cardiovascular History: hx of bradycardia Respiratory History: Reports: Sleep Apnea Other Respiratory History: uses CPAP Gastrointestinal History: Reports: None 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 History: Reports: None 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 TENDER 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: 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: Musculoskeletal History: Reports: Arthritis, Fracture 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, hx of fx left hip and right wrist Neurological History: Reports: None Psychiatric History: Reports: Anxiety, Depression Endocrine/Metabolic History: Reports: None Hematologic History: Reports: None Immunologic History: Reports: None Oncologic (Cancer) History: Reports: None Other Dermatologic History: very sensitive to scented lotions, gets a rash - Infectious Disease History Infectious Disease History: Reports: Chicken Pox, Measles, Mumps - Past Surgical History Head Surgeries/Procedures: Reports: None HEENT Surgical History: Reports: Cataract Surgery Cardiovascular Surgical History: Reports: Coronary Artery Bypass GI Surgical History: Reports: None Female Surgical History: Reports: None Endocrine Surgical History: Reports: None Neurological Surgical History: Reports: None Musculoskeletal Surgical History: Reports: Hip Replacement (left hip hemiarthroplasty for fracture) Oncologic Surgical History: Reports: None Dermatological Surgical History: Reports: None Social & Family History - Family History Family Medical History: Noncontributory - Tobacco Use Smoking Status *Q: Never Smoker - Caffeine Use Caffeine Use: Reports: Coffee - Recreational Drug Use Recreational Drug Use: No - Living Situation & Occupation Living situation: Reports: with Family ([place] H&P Review of Systems - Review of Systems: Review Of Systems: See Below General: Reports: No Symptoms HEENT: Reports: No Symptoms Pulmonary: Reports: No Symptoms Cardiovascular: Reports: No Symptoms Gastrointestinal: Reports: No Symptoms 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: Reports: No Symptoms Skin: Reports: No Symptoms Psychiatric: Reports: No Symptoms Neurological: Reports: No Symptoms Hematologic/Lymphatic: Reports: No Symptoms Immunologic: Reports: No Symptoms Exam - Exam Exam: See Below - Vital Signs Vital Signs: Last Vital Signs Temp 97.9 F 11/18/18 09:00 Pulse 58 L 11/18/18 09:00 Resp 20 11/18/18 09:00 BP 113/58 L 11/18/18 09:00 Pulse Ox 92 L 11/18/18 09:00 Weight: 62.142 kg - Exam General: Alert, Oriented, 4 HEENT: Conjunctiva Clear, Hearing Intact, Nares Patent Neck: Supple, Trachea Midline, 2 Lungs: Normal Respiratory Effort Cardiovascular: Irregular Rhythm GI/Abdominal Exam: Soft Physical Exam Comments:: Exam of the right lower extremity shows the lower extremity be shortened and externally rotated. The skin integrity is intact. She does complain of pain in the right hip region with gentle log rolling of the hip. She has no palpable tenderness around the knee or ankle. AT/EHL/gastroc 5/5. Sensation grossly intact. DP/PT pulses 2+. - Patient Data Lab Results Last 24 hrs: Laboratory Results - last 24 hr 11/17/18 11/17/18 11/17/18 Range/Units 22:38 22:38 22:55 WBC 7.57 (4.0-11.0) K/uL RBC 3.57 L (4.30-5.90) M/uL Hgb 11.0 L (12.0-16.0) g/dL Hct 34.5 L (36.0-46.0) % MCV 96.6 (80.0-98.0) fL MCH 30.8 (27.0-32.0) pg MCHC 31.9 (31.0-37.0) g/dL RDW Std Deviation 52.8 (28.0-62.0) fl RDW Coeff of Aleksandr 15 (11.0-15.0) % Plt Count 144 L (150-400) K/uL MPV 10.10 (7.40-12.00) fL Neut % (Auto) 67.3 (48.0-80.0) % Lymph % (Auto) 20.5 (16.0-40.0) % [place] % (Auto) 9.4 (0.0-15.0) % Eos % (Auto) 2.4 (0.0-7.0) % Baso % (Auto) 0.4 (0.0-1.5) % Neut # (Auto) 5.1 (1.4-5.7) K/uL Lymph # (Auto) 1.6 (0.6-2.4) K/uL [place] # (Auto) 0.7 (0.0-0.8) K/uL Eos # (Auto) 0.2 (0.0-0.7) K/uL Baso # (Auto) 0.0 (0.0-0.1) K/uL Nucleated RBC % 0.0 /100WBC Nucleated RBCs # 0 K/uL INR 1.14 Sodium 141 (136-145) mmol/L Potassium 4.7 (3.5-5.1) mmol/L Chloride 108 H (98-107) mmol/L Carbon Dioxide 22.0 (21.0-32.0) mmol/L BUN 33 H (7.0-18.0) mg/dL Creatinine 1.6 H (0.6-1.0) mg/dL Est Cr Clr Drug Dosing 18.69 mL/min Estimated GFR (MDRD) 30.5 ml/min Glucose 125 H (74-106) mg/dL Calcium 9.5 (8.5-10.1) mg/dL Total Bilirubin 0.5 (0.2-1.0) mg/dL AST 13 L (15-37) IU/L ALT 9 L (14-63) IU/L Alkaline Phosphatase 73 (46-116) U/L CK-MB (CK-2) (0-3.6) ng/mL Total Protein 7.0 (6.4-8.2) g/dL Albumin 3.8 (3.4-5.0) g/dL Globulin 3.2 (2.6-4.0) g/dL Albumin/Globulin Ratio 1.2 (0.9-1.6) 11/18/18 11/18/18 Range/Units 05:00 05:00 WBC 8.64 (4.0-11.0) K/uL RBC 3.15 L (4.30-5.90) M/uL Hgb 9.9 L (12.0-16.0) g/dL Hct 30.6 L (36.0-46.0) % MCV 97.1 (80.0-98.0) fL MCH 31.4 (27.0-32.0) pg MCHC 32.4 (31.0-37.0) g/dL RDW Std Deviation 53.2 (28.0-62.0) fl RDW Coeff of Aleksandr 15 (11.0-15.0) % Plt Count 137 L (150-400) K/uL MPV 10.00 (7.40-12.00) fL Neut % (Auto) 79.7 (48.0-80.0) % Lymph % (Auto) 11.9 L (16.0-40.0) % [place] % (Auto) 8.3 (0.0-15.0) % Eos % (Auto) 0.0 (0.0-7.0) % Baso % (Auto) 0.1 (0.0-1.5) % Neut # (Auto) 6.9 H (1.4-5.7) K/uL Lymph # (Auto) 1.0 (0.6-2.4) K/uL [place] # (Auto) 0.7 (0.0-0.8) K/uL Eos # (Auto) 0.0 (0.0-0.7) K/uL Baso # (Auto) 0.0 (0.0-0.1) K/uL Nucleated RBC % 0.0 /100WBC Nucleated RBCs # 0 K/uL INR Sodium 143 (136-145) mmol/L Potassium 4.8 (3.5-5.1) mmol/L Chloride 110 H (98-107) mmol/L Carbon Dioxide 22.6 (21.0-32.0) mmol/L BUN 29 H (7.0-18.0) mg/dL Creatinine 1.4 H (0.6-1.0) mg/dL Est Cr Clr Drug Dosing 21.39 mL/min Estimated GFR (MDRD) 35.6 ml/min Glucose 136 H (74-106) mg/dL Calcium 9.4 (8.5-10.1) mg/dL Total Bilirubin 0.5 (0.2-1.0) mg/dL AST 11 L (15-37) IU/L ALT 8 L (14-63) IU/L Alkaline Phosphatase 58 (46-116) U/L CK-MB (CK-2) 1.2 (0-3.6) ng/mL Total Protein 6.3 L (6.4-8.2) g/dL Albumin 3.4 (3.4-5.0) g/dL Globulin 2.9 (2.6-4.0) g/dL Albumin/Globulin Ratio 1.2 (0.9-1.6) Result Diagrams: 11/18/18 05:00 11/18/18 05:00 Imaging Impressions Last 24 hrs: X-rays of the right hip and pelvis were reviewed. This does show evidence of a prior left hip hemiarthroplasty. There is a displaced right intertrochanteric hip fracture. Consult PN Assessment/Plan Procedures: Procedures APPLICATION OF FOREARM CAST (07/16/18) APPLY FOREARM SPLINT (06/17/18) ASSAY OF TROPONIN QUANT (06/17/18) COMPLETE CBC W/AUTO DIFF WBC (06/17/18) COMPREHEN METABOLIC PANEL (06/17/18) ELECTROCARDIOGRAM TRACING (06/17/18) EMERGENCY DEPT VISIT (06/17/18) EXC TR-EXT B9+COMPA 1.1-2 CM (10/25/16) OFFICE/OUTPATIENT VISIT EST (11/03/18) POLYSOM 6/> YRS 4/> GUERDA (02/10/14) POLYSOM 6/>YRS CPAP 4/> PARM (02/16/14) PROTHROMBIN TIME (06/17/18) ROUTINE VENIPUNCTURE (06/17/18) TISSUE EXAM BY PATHOLOGIST (10/25/16) URINALYSIS AUTO W/SCOPE (06/17/18) URINE CULTURE/COLONY COUNT (06/17/18) X-RAY EXAM OF WRIST (11/03/18) (1) Intertrochanteric fracture, hip SNOMED Code(s): 674878569 Code(s): S72.143A - DISPLACED INTERTROCHANTERIC FRACTURE OF UNSP FEMUR, INIT Current Visit: Yes Problem List Initiated/Reviewed/Updated: Yes Plan: At this time treatment options were discussed with the patient. With the displacement of the fracture, I'm recommending that she undergo closed reduction of the right hip with insertion of a cephalo-medullary nail. The procedure along with postoperative course was discussed. Risks of the procedure were discussed which include, but are not limited to, infection, neurovascular injury, stiffness, continued pain, blood clots, need for future surgery, hardware irritation, medical complications including , and anesthetic complications. Patient seems to understand these risks and would like to proceed with surgery. Will plan on scheduling it when she obtains full medical evaluation. She does have extensive medical comorbidities. We will be able to restart her Coumadin on postoperative day #1. She will need social service evaluation for consideration of usp placement following the procedure.
[2018-11-18] MEDS ORDERED: Clindamycin Phosphate in D5W 600 MG in Premix Bag 50 BAG IV ONE ×2 (11:11)
[2018-11-18] MEDS: CYANOCOBALAMIN 500 MCG PO SCH (12:56)
--- NOTE | 2018-11-18 14:12 | CONS ---
DATE OF CONSULTATION: DATE OF : 1930 PRIMARY CARE PHYSICIAN: Emanuel Constantino M.D. 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 She came into the hospital at this time with a right hip pain after the fall this afternoon. She tripped over her dog landing on the stairs. Denied any trauma or the syncope. The x-ray in the emergency room showed a right femur fracture. She was seen by Orthopedics, recommended urgent right total hip replacement, and then she consulted me for cardiac clearance. PAST MEDICAL HISTORY: Including CAD, status post CABG in 2013; chronic atrial fibrillation, on Coumadin; permanent atrial fibrillation; hypertension; sleep apnea; high cholesterol; and history of WI. MEDICATIONS: Home medications includin. Aspirin 4. 2. Lasix 1 tablet p.o. daily. 3. Isosorbide 10 mg twice a day. 4. Lisinopril 1 tablet p.o. once a day. 5. Simvastatin 1 tablet p.o. once a day. 6. Aldactone 25 mg once a day. 7. Coumadin. SOCIAL HISTORY: She denies smoking, drug use, or alcohol consumption. FAMILY HISTORY: None pertinent. REVIEW OF SYSTEMS: Indicated in the HPI, otherwise, has been negative. PHYSICAL EXAMINATION: VITAL SIGNS: Initial blood pressure 139/62, current blood pressure is 116/56; heart rate is 50 to 60; O2 saturation is 93% on room air; respirations are 17 to 20; and temperature 36.3. HEENT: No pallor. No jaundice. No JVD. HEART: Normal. S1 and S2. No murmur. Totally irregular. LUNGS: Clear. ABDOMEN: Soft and nontender. Bowel sounds are present. No hepatosplenomegaly. PELVIC: The right hip is tender, swollen, and painful. INVESTIGATIONS: The x-ray of the right hip fracture. CBC showed WBC 8, hematocrit 30, and platelets 137. INR 1.1. Sodium 143, potassium 4.8, chloride 110, bicarb 22. BUN 29; creatinine 1.4, and the last one was in May of last year 1.2; glucose 136. Liver function test is normal. A telemetry showed atrial fibrillation. An echo prelim report showing preserved ejection fraction 55% to 60% and also mild TR, mild MR, RV dilatation; but RV systolic function is normal. ASSESSMENT AND PLAN: This is an 88-year-old female with history of high cholesterol; hypertension; history of myocardial infarction and triple-vessel disease, status post coronary artery bypass grafting in 2013; presented to the hospital with mechanical fall with a right hip fracture requiring the urgent hip fracture, consulted to me for cardiac clearance. The echo prelim report showed preserved ejection fraction, not in heart failure on my examination, and there is no significant valve disease that prevents her from having a surgery. Due to the urgent nature of the hip surgery, she should go ahead and have the surgery done. She should not wait for the cardiac testing, and I explained to her the risk from WI or from having this surgery, [id number] risk; but I personally think she should not wait to have the cardiac testing prior to the surgery due to the urgent nature of the surgery. Other than that, after this surgery, if she is cleared from a surgical standpoint, the Coumadin should be resumed as soon as possible; and her cardiac medication including the Lasix and isosorbide 10 mg as well as Aldactone and also lisinopril should be continued and resumed as soon as possible as well. KAREN / DANIEL /[id number]
--- NOTE | 2018-11-18 15:19 | PCM.PREANE ---
Preanesthetic Assessment - Anesthesia/Transfusion/Family Hx Anesthesia History: Prior Anesthesia Without Reaction Family History of Anesthesia Reaction: No Transfusion History: No Prior Transfusion(s) Intubation History: Unknown - Review of Systems General: No Symptoms Pulmonary: No Symptoms Cardiovascular: No Symptoms Gastrointestinal: No Symptoms Neurological: No Symptoms Other: Reports: None - Physical Assessment O2 Sat by Pulse Oximetry: 93 Respiratory Rate: 16 Vital Signs: Last Vital Signs Temp 36.7 C 11/18/18 12:35 Pulse 57 L 11/18/18 12:35 Resp 16 11/18/18 12:35 BP 116/56 L 11/18/18 12:35 Pulse Ox 93 L 11/18/18 12:35 Height: 1.55 m Weight: 62.142 kg ASA Class: 3 Mental Status: Alert & Oriented x3 Airway Class: Mallampati = 2 Dentition: Reports: Normal Dentition (grinded teeth at the bottom), Dentures ( upper) Thyro-Mental Finger Breadths: 3 Mouth Opening Finger Breadths: 2 ROM/Head Extension: Limited/Partial Lungs: Clear to Auscultation, Normal Respiratory Effort Cardiovascular: Irregular Rhythm - Lab Values: Laboratory Last Values WBC 8.64 K/uL (4.0-11.0) 11/18/18 05:00 RBC 3.15 M/uL (4.30-5.90) L 11/18/18 05:00 Hgb 9.9 g/dL (12.0-16.0) L 11/18/18 05:00 Hct 30.6 % (36.0-46.0) L 11/18/18 05:00 MCV 97.1 fL (80.0-98.0) 11/18/18 05:00 MCH 31.4 pg (27.0-32.0) 11/18/18 05:00 MCHC 32.4 g/dL (31.0-37.0) 11/18/18 05:00 RDW Std Deviation 53.2 fl (28.0-62.0) 11/18/18 05:00 RDW Coeff of Aleksandr 15 % (11.0-15.0) 11/18/18 05:00 Plt Count 137 K/uL (150-400) L 11/18/18 05:00 MPV 10.00 fL (7.40-12.00) 11/18/18 05:00 Neut % (Auto) 79.7 % (48.0-80.0) 11/18/18 05:00 Lymph % (Auto) 11.9 % (16.0-40.0) L 11/18/18 05:00 [place] % (Auto) 8.3 % (0.0-15.0) 11/18/18 05:00 Eos % (Auto) 0.0 % (0.0-7.0) 11/18/18 05:00 Baso % (Auto) 0.1 % (0.0-1.5) 11/18/18 05:00 Neut # (Auto) 6.9 K/uL (1.4-5.7) H 11/18/18 05:00 Lymph # (Auto) 1.0 K/uL (0.6-2.4) 11/18/18 05:00 [place] # (Auto) 0.7 K/uL (0.0-0.8) 11/18/18 05:00 Eos # (Auto) 0.0 K/uL (0.0-0.7) 11/18/18 05:00 Baso # (Auto) 0.0 K/uL (0.0-0.1) 11/18/18 05:00 Nucleated RBC % 0.0 /100WBC 11/18/18 05:00 Nucleated RBCs # 0 K/uL 11/18/18 05:00 INR 1.14 11/17/18 22:55 Sodium 143 mmol/L (136-145) 11/18/18 05:00 Potassium 4.8 mmol/L (3.5-5.1) 11/18/18 05:00 Chloride 110 mmol/L (98-107) H 11/18/18 05:00 Carbon Dioxide 22.6 mmol/L (21.0-32.0) 11/18/18 05:00 BUN 29 mg/dL (7.0-18.0) H 11/18/18 05:00 Creatinine 1.4 mg/dL (0.6-1.0) H 11/18/18 05:00 Est Cr Clr Drug Dosing 21.39 mL/min 11/18/18 05:00 Estimated GFR (MDRD) 35.6 ml/min 11/18/18 05:00 Glucose 136 mg/dL (74-106) H 11/18/18 05:00 Calcium 9.4 mg/dL (8.5-10.1) 11/18/18 05:00 Total Bilirubin 0.5 mg/dL (0.2-1.0) 11/18/18 05:00 AST 11 IU/L (15-37) L 11/18/18 05:00 ALT 8 IU/L (14-63) L 11/18/18 05:00 Alkaline Phosphatase 58 U/L (46-116) 11/18/18 05:00 CK-MB (CK-2) 1.2 ng/mL (0-3.6) 11/18/18 05:00 Total Protein 6.3 g/dL (6.4-8.2) L 11/18/18 05:00 Albumin 3.4 g/dL (3.4-5.0) 11/18/18 05:00 Globulin 2.9 g/dL (2.6-4.0) 11/18/18 05:00 Albumin/Globulin Ratio 1.2 (0.9-1.6) 11/18/18 05:00 Urine Color YELLOW 11/18/18 12:31 Urine Appearance CLEAR 11/18/18 12:31 Urine pH 5.5 (5.0-8.0) 11/18/18 12:31 Ur Specific [place] 1.025 (1.001-1.035) 11/18/18 12:31 Urine Protein 30 mg/dL (NEGATIVE) H 11/18/18 12:31 Urine Glucose (UA) NEGATIVE mg/dL (NEGATIVE) 11/18/18 12:31 Urine Ketones NEGATIVE mg/dL (NEGATIVE) 11/18/18 12:31 Urine Occult Blood LARGE (NEGATIVE) H 11/18/18 12:31 Urine Nitrite NEGATIVE (NEGATIVE) 11/18/18 12:31 Urine Bilirubin NEGATIVE (NEGATIVE) 11/18/18 12:31 Urine Urobilinogen 0.2 EU/dL (<2.0) 11/18/18 12:31 Ur Leukocyte Esterase SMALL (NEGATIVE) H 11/18/18 12:31 Urine RBC 20-25 (0-2/HPF) 11/18/18 12:31 Urine WBC 11-13 (0-5/HPF) 11/18/18 12:31 Ur Epithelial Cells FEW (NONE-FEW) 11/18/18 12:31 Urine Bacteria FEW (NEGATIVE) 11/18/18 12:31 Blood Type A POSITIVE 11/18/18 11:28 Antibody Screen NEGATIVE 11/18/18 11:28 - Allergies Allergies/Adverse Reactions: Allergies Allergy/AdvReac Type Severity Reaction Status Date / Time adhesive tape Allergy Rash Verified 11/17/18 21:13 amoxicillin Allergy Hives Verified 11/17/18 21:13 latex Allergy Rash Verified 11/17/18 21:13 Penicillins Allergy Hives Verified 11/17/18 21:13 metal Allergy Rash Uncoded 11/17/18 21:13 - Blood Blood Available: No - Anesthesia Plan Pre-Op Medication Ordered: None - Acknowledgements Anesthesia Type Planned: General Anesthesia Pt an Appropriate Candidate for the Planned Anesthesia: Yes Alternatives and Risks of Anesthesia Discussed w Pt/Guardian: Yes Pt/Guardian Understands and Agrees with Anesthesia Plan: Yes PreAnesthesia Questionnaire HEENT History: Reports: Cataract Other HEENT History: wears glasses, has upper denture Cardiovascular History: Reports: Afib, CAD, High Cholesterol, Hypertension, [place], Other (See Below) Other Cardiovascular History: hx of bradycardia Respiratory History: Reports: Sleep Apnea Other Respiratory History: uses CPAP Gastrointestinal History: Reports: None 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 History: Reports: None GAUGER DELIVERY History: Reports: Musculoskeletal History: Reports: Arthritis, Fracture (rt hip fracture at present time) 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, hx of fx left hip and right wrist Neurological History: Reports: None Psychiatric History: Reports: Anxiety, Depression Endocrine/Metabolic History: Reports: None Hematologic History: Reports: Anemia (H/H 11/34.5, platelets 144) Immunologic History: Reports: None Oncologic (Cancer) History: Reports: None Other Dermatologic History: very sensitive to scented lotions, gets a rash - Infectious Disease History Infectious Disease History: Reports: Chicken Pox, Measles, Mumps - Past Surgical History Head Surgeries/Procedures: Reports: None HEENT Surgical History: Reports: Cataract Surgery Cardiovascular Surgical History: Reports: Coronary Artery Bypass (x3 05/2014) GI Surgical History: Reports: None Female Surgical History: Reports: None Endocrine Surgical History: Reports: None Neurological Surgical History: Reports: None Musculoskeletal Surgical History: Reports: Hip Replacement (left hip hemiarthroplasty for fracture 2008 per patient) Oncologic Surgical History: Reports: None Dermatological Surgical History: Reports: None - SUBSTANCE USE Smoking Status *Q: Never Smoker Recreational Drug Use History: No - HOME MEDS Home Medications: Home Meds Aspirin [Adult Low Dose Aspirin EC] 4 tab PO DAILY 10/23/16 [History] Dextran 70/Hypromellose [Artificial Tears] 1 drop EYEBOTH BID 10/23/16 [History] Furosemide 1 tab PO DAILY 10/23/16 [History] Isosorbide Mononitrate 10 mg PO BID 10/23/16 [History] Lisinopril 1 tab PO DAILY 10/23/16 [History] Sertraline HCl 1 tab PO DAILY 10/23/16 [History] Simvastatin [Zocor] 1 tab PO BEDTIME 10/23/16 [History] Spironolactone [Aldactone] 25 mg PO DAILY 10/23/16 [History] Vit B12/Fa/Pyridoxine HCl/AA15 [Glycotrol] 500 mcg PO DAILY 10/23/16 [History] Warfarin [Coumadin] 6 mg PO DAILY 10/23/16 [History] - CURRENT (IN HOUSE) MEDS Current Meds: Current Medications Acetaminophen (Tylenol) 650 mg PO Q4H PRN PRN Reason: Pain (Mild 1-3)/fever Artificial Tears (Refresh Plus 0.5%) 0 each EYEBOTH BID [facility] Last Admin: 11/18/18 11:27 Dose: 1 drop Hydromorphone HCl (Dilaudid) 0.5 mg IV Q4H PRN PRN Reason: Pain (severe 7-10) Last Admin: 11/18/18 06:26 Dose: 0.5 mg Sodium Chloride (Normal Saline) 1,000 mls @ 50 mls/hr IV ASDIRECTED [facility] Ondansetron HCl (Zofran) 4 mg IVPUSH Q4H PRN PRN Reason: Nausea/Vomiting Oxycodone HCl (Oxycodone) 5 mg PO Q4H PRN PRN Reason: Pain (moderate 4-6) Last Admin: 11/18/18 02:28 Dose: 5 mg Isosorbide (Mononitrate 10 Mg) 1 each PO BID [facility] Last Admin: 11/18/18 12:57 Dose: Not Given Vit B12/Fa/Pyridoxine Hcl/Aa15 [Glycotrol] 500 Mcg 1 each PO DAILY [facility] Last Admin: 11/18/18 12:56 Dose: Not Given Sertraline HCl (Zoloft) 50 mg PO DAILY [facility] Last Admin: 11/18/18 11:26 Dose: Not Given Simvastatin (Zocor) 40 mg PO BEDTIME [facility] Sodium Chloride (Saline Flush) 10 ml FLUSH ASDIRECTED PRN PRN Reason: Keep Vein Open Sodium Chloride (Saline Flush) 2.5 ml FLUSH ASDIRECTED PRN PRN Reason: Keep Vein Open Spironolactone (Aldactone) 25 mg PO DAILY [facility] Last Admin: 11/18/18 11:26 Dose: Not Given Discontinued Medications Heparin Sodium (Porcine) (Heparin Sodium) 5,000 units SUBCUT Q8H [facility] Last Admin: 11/18/18 01:20 Dose: Not Given Heparin Sodium (Porcine) (Heparin Sodium) 5,000 units SUBCUT Q8H [facility] Last Admin: 11/18/18 11:28 Dose: Not Given Hydromorphone HCl (Dilaudid) 0.5 mg IVPUSH Q4H PRN PRN Reason: Pain (severe 7-10) Sodium Chloride (Normal Saline) 1,000 mls @ 125 mls/hr IV STAT [facility] Last Admin: 11/18/18 00:36 Dose: 125 mls/hr Clindamycin Phosphate 600 mg/ (Premix) 50 mls @ 100 mls/hr IV ONETIME ONE Stop: 11/18/18 11:40 Morphine Sulfate (Morphine) 2 mg IVPUSH ONETIME ONE Stop: 11/17/18 22:10 Last Admin: 11/17/18 22:42 Dose: 2 mg Ondansetron HCl (Zofran) 4 mg IVPUSH ONETIME ONE Stop: 11/17/18 22:10 Last Admin: 11/17/18 22:41 Dose: 4 mg
[2018-11-18] MEDS ORDERED: fentaNYL 100 MCG/2 ML SDV IVPUSH PRN (15:43)
[2018-11-18] MEDS ORDERED: HYDROmorphone 1 MG/ML Syringe IVPUSH PRN (15:43)
[2018-11-18] MEDS ORDERED: Meperidine PF 25 MG/ML Syringe IVPUSH SCH (15:45)
[2018-11-18] MEDS ORDERED: Ondansetron 4 MG/2 ML SDV IVPUSH SCH (15:45)
[2018-11-18] MEDS: cefTRIAXone 1 GM in Sodium Chloride 0.9% 50 ML IV SCH (17:08)
[2018-11-18] MEDS ORDERED: Lidocaine 2% 5 ML SDV ONE (17:42)
[2018-11-18] MEDS ORDERED: Rocuronium 10 MG/ML 10 ML Syringe ONE (17:42)
[2018-11-18] MEDS ORDERED: Ondansetron 4 MG/2 ML SDV ONE (17:42)
[2018-11-18] MEDS ORDERED: Succinylcholine 200 MG/10 ML MDV ONE (17:42)
[2018-11-18] MEDS ORDERED: Midazolam 1 MG/ML 2 ML SDV ONE (17:43)
[2018-11-18] MEDS ORDERED: fentaNYL 250 MCG/5 ML SDV ONE (17:43)
[2018-11-18] MEDS ORDERED: Propofol 200 MG/20 ML SDV ONE (17:43)
[2018-11-18] MEDS ORDERED: Clindamycin Phosphate in D5W 50 ML ONE (17:55)
--- NOTE | 2018-11-18 20:22 | PCM.OPNOTE ---
- General Post-Op/Procedure Note Date of Surgery/Procedure: 11/18/18 Operative Procedure(s): R hip CM nail Post-Op Diagnosis: R IT hip fracture Anesthesia Technique: General ET Tube Primary Surgeon: Dedra Quick Circle Edger: Stefany Fernandez in mLs: 100 Condition: Good Free Text/Narrative:: #[id number] Intake & Output 11/18/18 11/18/18 11/18/18 06:59 14:59 22:59 Intake Total 740 Output Total 300 400 Balance -300 340
--- NOTE | 2018-11-18 20:44 | PCM.POSTAN ---
POST ANESTHESIA ASSESSMENT - MENTAL STATUS Mental Status: Alert, Oriented - VITAL SIGNS Pulse Rate: 66 SaO2: 99 Resp Rate: 12 Blood Pressure: 136/58 - RESPIRATORY Respiratory Status: Respiratory Rate WNL, Airway Patent, O2 Saturation Stable - CARDIOVASCULAR CV Status: Pulse Rate WNL, Blood Pressure Stable - GASTROINTESTINAL GI Status: No Symptoms - PAIN Pain Score: 1 - POST OP HYDRATION Hydration Status: Adequate & Stable
[2018-11-18] MEDS: Simvastatin 40 MG Tab PO SCH (21:26)
[2018-11-19] MEDS: Sodium Chloride 0.9% 1,000 ML IV SCH ×2 (00:39→22:52)
--- NOTE | 2018-11-19 01:51 | OR ---
SURGEON: Dedra Quick MD DATE OF PROCEDURE: 11/18/2018 PREOPERATIVE DIAGNOSIS: Right intertrochanteric hip fracture, unstable. POSTOPERATIVE DIAGNOSIS: Right intertrochanteric hip fracture, unstable. PROCEDURE: Closed reduction of right hip with insertion of cephalomedullary nail STOVE TENDER: Stefany Fernandez PA-C. ANESTHESIA: General. ESTIMATED BLOOD LOSS: 100 mL. TOURNIQUET TIME: 0 minutes. COMPLICATIONS: None. DVT PROPHYLAXIS: PAS boot to the nonoperative leg. IMPLANTS USED: Beverly 125 degree short gamma nail with 95 mm lag screw and 35 mm x 5.0 mm distal interlocking screw. BRIEF HISTORY: Any is an 88-year-old female who tripped going upstairs yesterday. She complained of pain in her right hip. She was evaluated in the emergency room and was admitted with the diagnosis of a right intertrochanteric hip fracture. Due to the displaced and unstable nature of the fracture, I did recommend surgical intervention. The risks and goals of the procedure were discussed with the patient and were documented preoperatively. She did have a preoperative medical evaluation by the hospitalist as well as the portfolio assistant and it was felt that she was stable to undergo surgical treatment. DESCRIPTION OF PROCEDURE: The patient was properly identified and brought to the operating room. General anesthesia was administered on her hospital bed. She was then transferred to the fracture table. A well-padded perineal post was placed between her legs. The right foot was padded well and placed into a fracture/traction boot. The left lower extremity was placed in a well leg garcia with the hip and knee flexed to approximately 90 degrees. Gentle abduction was also performed. She was carefully put into this position due to her known history of a previous left hip hemiarthroplasty. Once the fracture was brought out to length, the right lower extremity was adducted and internally rotated. C-arm imaging confirmed acceptable reduction of the fracture. It was noted that the greater trochanter was somewhat displaced and elected to keep this in place. The right lower extremity was then prepped in the standard fashion using ChloraPrep solution. It was then sterilely draped. An incision was made just superior and slightly posterior to the greater trochanter. The subcutaneous tissues and fascia were incised. The tip of the greater trochanter was palpated. A guide pin was then placed just posterior to the center portion of the tip of the greater trochanter. Its position was checked with C-arm fluoroscopy and once acceptable position was achieved, it was passed into the proximal femur. It was then over reamed with an 11 mm entry reamer. We elected to proceed with a short nail. This was assembled to the insertion device on the back table. The short nail was then inserted without difficulty. The lag screw trocar was then placed. A skin incision was made and the subcutaneous and fascial tissue was spread with a Moreno scissor. The guide pin and cannula were then passed down to the bone. A guide pin was then placed in a proper position, both in the AP and lateral planes. It was then measured. I elected to proceed with a 95 mm lag screw. This was over drilled with the triple reamer. The lag screw was then placed without difficulty. It was locked in place with the set screw to the gregorio. I then turned my attention to the distal interlocking screw. The insertion guide was adjusted and a triple cannula was placed through the insertion guide. A small incision was made distally and the soft tissue and iliotibial band was spread with the Moreno scissors. The triple cannula was then placed next to the bone. A drill was used and a 35 mm x 5.0 mm screw was then placed without difficulty. Final C-arm images confirmed acceptable reduction of the fracture with good placement of the hardware. The wounds were then copiously irrigated with saline solution. The insertion device was removed. The subcutaneous tissues were closed with 2-0 Vicryl and the skin was closed with norm. Aquacel dressings were placed over this. Traction was released from the right lower extremity and she was transferred from the fracture table to the hospital bed. She was awakened from her anesthetic and transferred to the recovery room. All needle and sponge counts were correct. DREAD / DANIEL /[id number]
[2018-11-19] MEDS: Clindamycin Phosphate in D5W 600 MG in Premix Bag 1 BAG IV SCH ×4 (02:43→09:08)
[2018-11-19] MEDS: oxyCODONE 5 MG Tab PO PRN ×3 (05:35→17:53)
--- NOTE | 2018-11-19 08:18 | PCM.SURGPN ---
<Stefany Fernandez R - Last Filed: 11/19/18 08:14> - General Info Date of Service: 11/19/18 Date of Surgery/Procedure: 11/18/18 POD#: 1 Functional Status: Reports: Pain Controlled, Tolerating Diet - Review of Systems General: Reports: No Symptoms Pulmonary: Denies: Shortness of Breath Cardiovascular: Denies: Chest Pain, Palpitations Gastrointestinal: Denies: Nausea, Vomiting Systems Review Comment:: pt up in bed eating breakfast tolerating PO intake well pain controlled with PO pain medications has not been OOB yet no specific concerns today d/w case management that family would like her to return home vs SNF placement for rehab - Patient Data Vitals - Most Recent: Last Vital Signs Temp 99.1 F 11/19/18 07:00 Pulse 63 11/19/18 07:00 Resp 18 11/19/18 07:00 BP 106/53 L 11/19/18 07:00 Pulse Ox 93 L 11/19/18 07:00 Weight - Most Recent: 62.142 kg I&O - Last 24 Hours: Intake & Output 11/18/18 11/19/18 11/19/18 22:59 06:59 14:59 Intake Total 1440 720 Output Total 400 300 Balance 1040 420 Lab Results Last 24 Hrs: Laboratory Results - last 24 hr 11/18/18 11/18/18 11/19/18 Range/Units 11:28 12:31 05:28 WBC 8.93 (4.0-11.0) K/uL RBC 2.80 L (4.30-5.90) M/uL Hgb 8.7 L (12.0-16.0) g/dL Hct 27.7 L (36.0-46.0) % MCV 98.9 H (80.0-98.0) fL MCH 31.1 (27.0-32.0) pg MCHC 31.4 (31.0-37.0) g/dL RDW Std Deviation 55.4 (28.0-62.0) fl RDW Coeff of Aleksandr 15 (11.0-15.0) % Plt Count 108 L (150-400) K/uL MPV 9.60 (7.40-12.00) fL Neut % (Auto) 73.7 (48.0-80.0) % Lymph % (Auto) 13.4 L (16.0-40.0) % [place] % (Auto) 12.0 (0.0-15.0) % Eos % (Auto) 0.8 (0.0-7.0) % Baso % (Auto) 0.1 (0.0-1.5) % Neut # (Auto) 6.6 H (1.4-5.7) K/uL Lymph # (Auto) 1.2 (0.6-2.4) K/uL [place] # (Auto) 1.1 H (0.0-0.8) K/uL Eos # (Auto) 0.1 (0.0-0.7) K/uL Baso # (Auto) 0.0 (0.0-0.1) K/uL Nucleated RBC % 0.0 /100WBC Nucleated RBCs # 0 K/uL Sodium (136-145) mmol/L Potassium (3.5-5.1) mmol/L Chloride (98-107) mmol/L Carbon Dioxide (21.0-32.0) mmol/L BUN (7.0-18.0) mg/dL Creatinine (0.6-1.0) mg/dL Est Cr Clr Drug Dosing mL/min Estimated GFR (MDRD) ml/min Glucose (74-106) mg/dL Calcium (8.5-10.1) mg/dL Total Bilirubin (0.2-1.0) mg/dL AST (15-37) IU/L ALT (14-63) IU/L Alkaline Phosphatase (46-116) U/L Total Protein (6.4-8.2) g/dL Albumin (3.4-5.0) g/dL Globulin (2.6-4.0) g/dL Albumin/Globulin Ratio (0.9-1.6) Urine Color YELLOW Urine Appearance CLEAR Urine pH 5.5 (5.0-8.0) Ur Specific [place] 1.025 (1.001-1.035) Urine Protein 30 H (NEGATIVE) mg/dL Urine Glucose (UA) NEGATIVE (NEGATIVE) mg/dL Urine Ketones NEGATIVE (NEGATIVE) mg/dL Urine Occult Blood LARGE H (NEGATIVE) Urine Nitrite NEGATIVE (NEGATIVE) Urine Bilirubin NEGATIVE (NEGATIVE) Urine Urobilinogen 0.2 (<2.0) EU/dL Ur Leukocyte Esterase SMALL H (NEGATIVE) Urine RBC 20-25 (0-2/HPF) Urine WBC 11-13 (0-5/HPF) Ur Epithelial Cells FEW (NONE-FEW) Urine Bacteria FEW (NEGATIVE) Blood Type A POSITIVE Antibody Screen NEGATIVE Crossmatch See Detail 11/19/18 Range/Units 05:28 WBC (4.0-11.0) K/uL RBC (4.30-5.90) M/uL Hgb (12.0-16.0) g/dL Hct (36.0-46.0) % MCV (80.0-98.0) fL MCH (27.0-32.0) pg MCHC (31.0-37.0) g/dL RDW Std Deviation (28.0-62.0) fl RDW Coeff of Aleksandr (11.0-15.0) % Plt Count (150-400) K/uL MPV (7.40-12.00) fL Neut % (Auto) (48.0-80.0) % Lymph % (Auto) (16.0-40.0) % [place] % (Auto) (0.0-15.0) % Eos % (Auto) (0.0-7.0) % Baso % (Auto) (0.0-1.5) % Neut # (Auto) (1.4-5.7) K/uL Lymph # (Auto) (0.6-2.4) K/uL [place] # (Auto) (0.0-0.8) K/uL Eos # (Auto) (0.0-0.7) K/uL Baso # (Auto) (0.0-0.1) K/uL Nucleated RBC % /100WBC Nucleated RBCs # K/uL Sodium 142 (136-145) mmol/L Potassium 4.7 (3.5-5.1) mmol/L Chloride 110 H (98-107) mmol/L Carbon Dioxide 22.2 (21.0-32.0) mmol/L BUN 23 H (7.0-18.0) mg/dL Creatinine 1.1 H (0.6-1.0) mg/dL Est Cr Clr Drug Dosing 27.22 mL/min Estimated GFR (MDRD) 47.0 ml/min Glucose 124 H (74-106) mg/dL Calcium 8.8 (8.5-10.1) mg/dL Total Bilirubin 0.8 (0.2-1.0) mg/dL AST 13 L (15-37) IU/L ALT 7 L (14-63) IU/L Alkaline Phosphatase 52 (46-116) U/L Total Protein 5.8 L (6.4-8.2) g/dL Albumin 3.0 L (3.4-5.0) g/dL Globulin 2.8 (2.6-4.0) g/dL Albumin/Globulin Ratio 1.1 (0.9-1.6) Urine Color Urine Appearance Urine pH (5.0-8.0) Ur Specific [place] (1.001-1.035) Urine Protein (NEGATIVE) mg/dL Urine Glucose (UA) (NEGATIVE) mg/dL Urine Ketones (NEGATIVE) mg/dL Urine Occult Blood (NEGATIVE) Urine Nitrite (NEGATIVE) Urine Bilirubin (NEGATIVE) Urine Urobilinogen (<2.0) EU/dL Ur Leukocyte Esterase (NEGATIVE) Urine RBC (0-2/HPF) Urine WBC (0-5/HPF) Ur Epithelial Cells (NONE-FEW) Urine Bacteria (NEGATIVE) Blood Type Antibody Screen Crossmatch Med Orders - Current: Current Medications Acetaminophen (Tylenol) 650 mg PO Q4H PRN PRN Reason: Pain (Mild 1-3)/fever Artificial Tears (Refresh Plus 0.5%) 0 each EYEBOTH BID [facility] Last Admin: 11/18/18 21:26 Dose: 1 drop Hydromorphone HCl (Dilaudid) 0.5 mg IV Q4H PRN PRN Reason: Pain (severe 7-10) Last Admin: 11/18/18 06:26 Dose: 0.5 mg Sodium Chloride (Normal Saline) 1,000 mls @ 50 mls/hr IV ASDIRECTED [facility] Last Admin: 11/19/18 00:39 Dose: 50 mls/hr Ceftriaxone Sodium 1 gm/ (Sodium Chloride) 50 mls @ 100 mls/hr IV Q24H [facility] Last Admin: 11/18/18 17:08 Dose: 100 mls/hr Clindamycin Phosphate 600 mg/ (Premix) 50 mls @ 100 mls/hr IV Q8H [facility] Stop: 11/19/18 10:29 Last Admin: 11/19/18 02:43 Dose: 100 mls/hr Morphine Sulfate (Morphine) 1 - 2 mg IVPUSH Q3H PRN PRN Reason: Pain Ondansetron HCl (Zofran) 4 mg IVPUSH Q4H PRN PRN Reason: Nausea/Vomiting Oxycodone HCl (Oxycodone) 5 mg PO Q4H PRN PRN Reason: Pain (moderate 4-6) Last Admin: 11/19/18 05:35 Dose: 5 mg Isosorbide (Mononitrate 10 Mg) 1 each PO BID [facility] Last Admin: 11/18/18 22:03 Dose: Not Given Vit B12/Fa/Pyridoxine Hcl/Aa15 [Glycotrol] 500 Mcg 1 each PO DAILY [facility] Last Admin: 11/18/18 12:56 Dose: Not Given Sertraline HCl (Zoloft) 50 mg PO DAILY [facility] Last Admin: 11/18/18 11:26 Dose: Not Given Simvastatin (Zocor) 40 mg PO BEDTIME [facility] Last Admin: 11/18/18 21:26 Dose: 40 mg Sodium Chloride (Saline Flush) 10 ml FLUSH ASDIRECTED PRN PRN Reason: Keep Vein Open Sodium Chloride (Saline Flush) 2.5 ml FLUSH ASDIRECTED PRN PRN Reason: Keep Vein Open Spironolactone (Aldactone) 25 mg PO DAILY [facility] Last Admin: 11/18/18 11:26 Dose: Not Given Discontinued Medications Fentanyl (Sublimaze) 25 mcg IVPUSH Q5M PRN PRN Reason: Pain (severe 7-10) Stop: 11/19/18 15:44 Fentanyl (Sublimaze) Confirm Administered Dose 250 mcg .ROUTE .STK-MED ONE Stop: 11/18/18 17:44 Heparin Sodium (Porcine) (Heparin Sodium) 5,000 units SUBCUT Q8H [facility] Last Admin: 11/18/18 01:20 Dose: Not Given Heparin Sodium (Porcine) (Heparin Sodium) 5,000 units SUBCUT Q8H [facility] Last Admin: 11/18/18 11:28 Dose: Not Given Hydromorphone HCl (Dilaudid) 0.5 mg IVPUSH Q4H PRN PRN Reason: Pain (severe 7-10) Hydromorphone HCl (Dilaudid) 0.25 mg IVPUSH Q10M PRN PRN Reason: Pain (severe 7-10) Stop: 11/19/18 15:44 Sodium Chloride (Normal Saline) 1,000 mls @ 125 mls/hr IV STAT [place] Last Admin: 11/18/18 00:36 Dose: 125 mls/hr Clindamycin Phosphate 600 mg/ (Premix) 50 mls @ 100 mls/hr IV ONETIME ONE Stop: 11/18/18 11:40 Last Admin: 11/18/18 18:00 Dose: Not Given Clindamycin Phosphate (Cleocin In D5w) Confirm Administered Dose 50 mls @ as directed .ROUTE .STK-MED ONE Stop: 11/18/18 17:56 Last Admin: 11/18/18 17:59 Dose: 100 mls/hr Lidocaine (Xylocaine-Mpf 2%) Confirm Administered Dose 5 ml .ROUTE .STK-MED ONE Stop: 11/18/18 17:43 Meperidine HCl (Demerol) 12.5 mg IVPUSH .ONCE [place] Midazolam HCl (Versed 1 Mg/Ml) Confirm Administered Dose 2 mg .ROUTE .STK-MED ONE Stop: 11/18/18 17:44 Morphine Sulfate (Morphine) 2 mg IVPUSH ONETIME ONE Stop: 11/17/18 22:10 Last Admin: 11/17/18 22:42 Dose: 2 mg Ondansetron HCl (Zofran) 4 mg IVPUSH ONETIME ONE Stop: 11/17/18 22:10 Last Admin: 11/17/18 22:41 Dose: 4 mg Ondansetron HCl (Zofran) 4 mg IVPUSH .ONCE [place] Ondansetron HCl (Zofran) Confirm Administered Dose 4 mg .ROUTE .STK-MED ONE Stop: 11/18/18 17:43 Propofol (Diprivan 20 Ml) Confirm Administered Dose 200 mg .ROUTE .STK-MED ONE Stop: 11/18/18 17:44 Rocuronium [place]ar[place] (Zemuron) Confirm Administered Dose 100 mg .ROUTE .STK-MED ONE Stop: 11/18/18 17:43 Succinylcholine Chloride (Quelicin) Confirm Administered Dose 200 mg .ROUTE .STK -MED ONE Stop: 11/18/18 17:43 - Exam Wound/Incisions: Dressing Dry and Intact, Drainage (minimal shadowing to aquacel dressing) General: Alert, Oriented Cardiovascular: Regular Rate, Regular Rhythm Extremities: Other (exam RLE - at/ehl/gastroc 5/5, dp 2+, sensation intact distally, thigh/calf soft) Physical Findings Comment:: vss, afeb uo 700mL hgb 8.7 - Problem List Review Problem List Initiated/Reviewed/Updated: Yes - My Orders Last 24 Hours: Active Orders 24 hr Category Date Time Status Antiembolic Devices [RC] PER UNIT ROUTINE Care 11/18/18 20:14 Active Neurovascular Check [RC] BID Care 11/18/18 20:13 Active Notify Provider Consults [RC] ASDIRECTED Care 11/18/18 09:05 Active Consult to Physician [CONS] Routine Cons 11/18/18 09:05 Active PT Evaluation and Treatment [CONS] Routine Cons 11/18/18 20:13 Active Echo Comp wo Cont [US] Stat Exams 11/18/18 09:47 Taken Fluoroscopy [Fluoro Up To 1Hr] [CR] Routine Exams 11/18/18 19:34 Taken CBC WITH AUTO DIFF [HEME] AM Lab 11/20/18 05:11 Ordered CBC WITH AUTO DIFF [HEME] AM Lab 11/21/18 05:11 Ordered COMPREHENSIVE METABOLIC PN,CMP [CHEM] AM Lab 11/20/18 05:11 Ordered COMPREHENSIVE METABOLIC PN,CMP [CHEM] AM Lab 11/21/18 05:11 Ordered CULTURE URINE [RM] Routine Lab 11/18/18 12:31 Received HEMOGLOBIN/HEMATOCRIT,HH [HEME] DAILY Lab 11/20/18 06:00 Ordered RED BLOOD CELLS LP [BBK] Stat Lab 11/18/18 11:28 Results TYPE AND SCREEN [BBK] Routine Lab 11/18/18 11:28 Results Clindamycin Phosphate in D5W [Cleocin in D5W] 600 mg Med 11/19/18 02:00 Active Premix Bag 1 bag IV Q8H Morphine Med 11/18/18 20:13 Active 1 - 2 mg IVPUSH Q3H PRN Patient's Own Medication [Ptom] Med 11/18/18 09:00 Active 1 each PO DAILY Simvastatin [Zocor] Med 11/18/18 21:00 Active 40 mg PO BEDTIME cefTRIAXone [Rocephin] 1 gm Med 11/18/18 16:30 Active Sodium Chloride 0.9% [Normal Saline] 50 ml IV Q24H Ice Therapy [OM.PC] Routine Oth 11/18/18 20:13 Ordered Sequential Compression Device [OM.PC] Routine Oth 11/18/18 20:13 Ordered Medication Orders Acetaminophen (Tylenol) 650 mg PO Q4H PRN PRN Reason: Pain (Mild 1-3)/fever Artificial Tears (Refresh Plus 0.5%) 0 each EYEBOTH BID [facility] Last Admin: 11/18/18 21:26 Dose: 1 drop Admin: 11/18/18 11:27 Dose: 1 drop Admin: 11/18/18 02:30 Dose: 1 drop Hydromorphone HCl (Dilaudid) 0.5 mg IV Q4H PRN PRN Reason: Pain (severe 7-10) Last Admin: 11/18/18 06:26 Dose: 0.5 mg Sodium Chloride (Normal Saline) 1,000 mls @ 50 mls/hr IV ASDIRECTED [facility] Last Admin: 11/19/18 00:39 Dose: 50 mls/hr Ceftriaxone Sodium 1 gm/ (Sodium Chloride) 50 mls @ 100 mls/hr IV Q24H [facility] Last Admin: 11/18/18 17:08 Dose: 100 mls/hr Clindamycin Phosphate 600 mg/ (Premix) 50 mls @ 100 mls/hr IV Q8H [facility] Stop: 11/19/18 10:29 Last Admin: 11/19/18 02:43 Dose: 100 mls/hr Morphine Sulfate (Morphine) 1 - 2 mg IVPUSH Q3H PRN PRN Reason: Pain Ondansetron HCl (Zofran) 4 mg IVPUSH Q4H PRN PRN Reason: Nausea/Vomiting Oxycodone HCl (Oxycodone) 5 mg PO Q4H PRN PRN Reason: Pain (moderate 4-6) Last Admin: 11/19/18 05:35 Dose: 5 mg Admin: 11/18/18 22:16 Dose: 5 mg Admin: 11/18/18 02:28 Dose: 5 mg Isosorbide (Mononitrate 10 Mg) 1 each PO BID [facility] Last Admin: 11/18/18 22:03 Dose: Admin: 11/18/18 12:57 Dose: Admin: 11/18/18 12:56 Dose: Vit B12/Fa/Pyridoxine Hcl/Aa15 [Glycotrol] 500 Mcg 1 each PO DAILY [facility] Last Admin: 11/18/18 12:56 Dose: Sertraline HCl (Zoloft) 50 mg PO DAILY [facility] Last Admin: 11/18/18 11:26 Dose: Admin: 11/18/18 02:29 Dose: 50 mg Simvastatin (Zocor) 40 mg PO BEDTIME [facility] Last Admin: 11/18/18 21:26 Dose: 40 mg Sodium Chloride (Saline Flush) 10 ml FLUSH ASDIRECTED PRN PRN Reason: Keep Vein Open Sodium Chloride (Saline Flush) 2.5 ml FLUSH ASDIRECTED PRN PRN Reason: Keep Vein Open Spironolactone (Aldactone) 25 mg PO DAILY [facility] Last Admin: 11/18/18 11:26 Dose: Admin: 11/18/18 02:29 Dose: 25 mg - Assessment Assessment (Free Text/Narrative):: POD#1 CR IM nail R hip anemia - Plan Plan (Free Text/Narrative):: continue pain management continue home coumadin as DVT prophylaxis PT today, WBAT RLE with FWW will continue to follow during hospital course <Dedra Quick R - Last Filed: 11/19/18 14:12> - Patient Data Vitals - Most Recent: Last Vital Signs Temp 99.1 F 11/19/18 11:00 Pulse 60 11/19/18 11:00 Resp 16 11/19/18 11:00 BP 104/52 L 11/19/18 11:00 Pulse Ox 91 L 11/19/18 11:00 I&O - Last 24 Hours: Intake & Output 11/18/18 11/19/18 11/19/18 22:59 06:59 14:59 Intake Total 1440 720 Output Total 400 300 Balance 1040 420 Lab Results Last 24 Hrs: Laboratory Results - last 24 hr 11/18/18 11/19/18 11/19/18 Range/Units 11:28 05:28 05:28 WBC 8.93 (4.0-11.0) K/uL RBC 2.80 L (4.30-5.90) M/uL Hgb 8.7 L (12.0-16.0) g/dL Hct 27.7 L (36.0-46.0) % MCV 98.9 H (80.0-98.0) fL MCH 31.1 (27.0-32.0) pg MCHC 31.4 (31.0-37.0) g/dL RDW Std Deviation 55.4 (28.0-62.0) fl RDW Coeff of Aleksandr 15 (11.0-15.0) % Plt Count 108 L (150-400) K/uL MPV 9.60 (7.40-12.00) fL Neut % (Auto) 73.7 (48.0-80.0) % Lymph % (Auto) 13.4 L (16.0-40.0) % [place] % (Auto) 12.0 (0.0-15.0) % Eos % (Auto) 0.8 (0.0-7.0) % Baso % (Auto) 0.1 (0.0-1.5) % Neut # (Auto) 6.6 H (1.4-5.7) K/uL Lymph # (Auto) 1.2 (0.6-2.4) K/uL [place] # (Auto) 1.1 H (0.0-0.8) K/uL Eos # (Auto) 0.1 (0.0-0.7) K/uL Baso # (Auto) 0.0 (0.0-0.1) K/uL Nucleated RBC % 0.0 /100WBC Nucleated RBCs # 0 K/uL Sodium 142 (136-145) mmol/L Potassium 4.7 (3.5-5.1) mmol/L Chloride 110 H (98-107) mmol/L Carbon Dioxide 22.2 (21.0-32.0) mmol/L BUN 23 H (7.0-18.0) mg/dL Creatinine 1.1 H (0.6-1.0) mg/dL Est Cr Clr Drug Dosing 27.22 mL/min Estimated GFR (MDRD) 47.0 ml/min Glucose 124 H (74-106) mg/dL Calcium 8.8 (8.5-10.1) mg/dL Total Bilirubin 0.8 (0.2-1.0) mg/dL AST 13 L (15-37) IU/L ALT 7 L (14-63) IU/L Alkaline Phosphatase 52 (46-116) U/L Total Protein 5.8 L (6.4-8.2) g/dL Albumin 3.0 L (3.4-5.0) g/dL Globulin 2.8 (2.6-4.0) g/dL Albumin/Globulin Ratio 1.1 (0.9-1.6) Blood Type A POSITIVE Antibody Screen NEGATIVE Crossmatch See Detail Med Orders - Current: Current Medications Acetaminophen (Tylenol) 650 mg PO Q4H PRN PRN Reason: Pain (Mild 1-3)/fever Artificial Tears (Refresh Plus 0.5%) 0 each EYEBOTH BID [facility] Last Admin: 11/19/18 09:07 Dose: 2 drop Heparin Sodium (Porcine) (Heparin Sodium) 5,000 units SUBCUT Q8H [facility] Last Admin: 11/19/18 09:27 Dose: 5,000 units Hydromorphone HCl (Dilaudid) 0.5 mg IV Q4H PRN PRN Reason: Pain (severe 7-10) Last Admin: 11/18/18 06:26 Dose: 0.5 mg Sodium Chloride (Normal Saline) 1,000 mls @ 50 mls/hr IV ASDIRECTED [facility] Last Admin: 11/19/18 00:39 Dose: 50 mls/hr Ceftriaxone Sodium 1 gm/ (Sodium Chloride) 50 mls @ 100 mls/hr IV Q24H [facility] Last Admin: 11/18/18 17:08 Dose: 100 mls/hr Morphine Sulfate (Morphine) 1 - 2 mg IVPUSH Q3H PRN PRN Reason: Pain Last Admin: 11/19/18 12:23 Dose: 1 mg Ondansetron HCl (Zofran) 4 mg IVPUSH Q4H PRN PRN Reason: Nausea/Vomiting Oxycodone HCl (Oxycodone) 5 mg PO Q4H PRN PRN Reason: Pain (moderate 4-6) Last Admin: 11/19/18 13:36 Dose: 5 mg Vit B12 500 Mcg 1 each PO DAILY [facility] Last Admin: 11/19/18 13:36 Dose: 1 each Isosorbide (Mononitrate 10 Mg) 1 each PO BID [facility] Sertraline HCl (Zoloft) 50 mg PO DAILY [facility] Last Admin: 11/19/18 09:07 Dose: 50 mg Simvastatin (Zocor) 40 mg PO BEDTIME [facility] Last Admin: 11/18/18 21:26 Dose: 40 mg Sodium Chloride (Saline Flush) 10 ml FLUSH ASDIRECTED PRN PRN Reason: Keep Vein Open Sodium Chloride (Saline Flush) 2.5 ml FLUSH ASDIRECTED PRN PRN Reason: Keep Vein Open Spironolactone (Aldactone) 25 mg PO DAILY [facility] Last Admin: 11/19/18 09:07 Dose: 25 mg Warfarin Sodium (Coumadin) 6 mg PO DAILY@1400 [facility] Last Admin: 11/19/18 13:37 Dose: 6 mg Discontinued Medications Fentanyl (Sublimaze) 25 mcg IVPUSH Q5M PRN PRN Reason: Pain (severe 7-10) Stop: 11/19/18 15:44 Fentanyl (Sublimaze) Confirm Administered Dose 250 mcg .ROUTE .STK-MED ONE Stop: 11/18/18 17:44 Heparin Sodium (Porcine) (Heparin Sodium) 5,000 units SUBCUT Q8H [facility] Last Admin: 11/18/18 01:20 Dose: Not Given Heparin Sodium (Porcine) (Heparin Sodium) 5,000 units SUBCUT Q8H [facility] Last Admin: 11/18/18 11:28 Dose: Not Given Hydromorphone HCl (Dilaudid) 0.5 mg IVPUSH Q4H PRN PRN Reason: Pain (severe 7-10) Hydromorphone HCl (Dilaudid) 0.25 mg IVPUSH Q10M PRN PRN Reason: Pain (severe 7-10) Stop: 11/19/18 15:44 Sodium Chloride (Normal Saline) 1,000 mls @ 125 mls/hr IV STAT [facility] Last Admin: 11/18/18 00:36 Dose: 125 mls/hr Clindamycin Phosphate 600 mg/ (Premix) 50 mls @ 100 mls/hr IV ONETIME ONE Stop: 11/18/18 11:40 Last Admin: 11/18/18 18:00 Dose: Not Given Clindamycin Phosphate (Cleocin In D5w) Confirm Administered Dose 50 mls @ as directed .ROUTE .STK-MED ONE Stop: 11/18/18 17:56 Last Admin: 11/18/18 17:59 Dose: 100 mls/hr Clindamycin Phosphate 600 mg/ (Premix) 50 mls @ 100 mls/hr IV Q8H [facility] Stop: 11/19/18 10:29 Last Admin: 11/19/18 09:08 Dose: 100 mls/hr Lidocaine (Xylocaine-Mpf 2%) Confirm Administered Dose 5 ml .ROUTE .STK-MED ONE Stop: 11/18/18 17:43 Meperidine HCl (Demerol) 12.5 mg IVPUSH .ONCE [place] Midazolam HCl (Versed 1 Mg/Ml) Confirm Administered Dose 2 mg .ROUTE .STK-MED ONE Stop: 11/18/18 17:44 Morphine Sulfate (Morphine) 2 mg IVPUSH ONETIME ONE Stop: 11/17/18 22:10 Last Admin: 11/17/18 22:42 Dose: 2 mg Ondansetron HCl (Zofran) 4 mg IVPUSH ONETIME ONE Stop: 11/17/18 22:10 Last Admin: 11/17/18 22:41 Dose: 4 mg Ondansetron HCl (Zofran) 4 mg IVPUSH .ONCE [facility] Ondansetron HCl (Zofran) Confirm Administered Dose 4 mg .ROUTE .STK-MED ONE Stop: 11/18/18 17:43 Isosorbide (Mononitrate 10 Mg) 1 each PO BID [facility] Last Admin: 11/19/18 09:14 Dose: Not Given Vit B12 500 Mcg 1 each PO DAILY [facility] Last Admin: 11/19/18 09:14 Dose: Not Given Propofol (Diprivan 20 Ml) Confirm Administered Dose 200 mg .ROUTE .STK-MED ONE Stop: 11/18/18 17:44 Rocuronium [place]ar[place] (Zemuron) Confirm Administered Dose 100 mg .ROUTE .STK-MED ONE Stop: 11/18/18 17:43 Succinylcholine Chloride (Quelicin) Confirm Administered Dose 200 mg .ROUTE .STK -MED ONE Stop: 11/18/18 17:43 - Problem List & Annotations (1) Intertrochanteric fracture, hip SNOMED Code(s): 333888937 Code(s): S72.143A - DISPLACED INTERTROCHANTERIC FRACTURE OF UNSP FEMUR, INIT Status: Acute Current Visit: Yes - My Orders Last 24 Hours: Active Orders 24 hr Category Date Time Status Antiembolic Devices [RC] PER UNIT ROUTINE Care 11/18/18 20:14 Active Neurovascular Check [RC] BID Care 11/18/18 20:13 Active Remove Sp[place]y Catheter [Urinary Catheter Removal] [RC] Care 11/19/18 09:29 Active Per Unit Routine Telemetry Monitoring [Cardiac Monitoring] [RC] . Care 11/19/18 08:46 Active DIRECTED PT Evaluation and Treatment [CONS] Routine Cons 11/18/18 20:13 Active CBC WITH AUTO DIFF [HEME] AM Lab 11/20/18 05:11 Ordered CBC WITH AUTO DIFF [HEME] AM Lab 11/21/18 05:11 Ordered COMPREHENSIVE METABOLIC PN,CMP [CHEM] AM Lab 11/20/18 05:11 Ordered COMPREHENSIVE METABOLIC PN,CMP [CHEM] AM Lab 11/21/18 05:11 Ordered HEMOGLOBIN/HEMATOCRIT,HH [HEME] DAILY Lab 11/20/18 06:00 Ordered HEMOGLOBIN/HEMATOCRIT,HH [HEME] Routine Lab 11/19/18 15:00 Ordered INR,PT,PROTHROMBIN TIME [COAG] AM Lab 11/20/18 05:11 Ordered Heparin Sodium Med 11/19/18 09:00 Active 5,000 units SUBCUT Q8H Morphine Med 11/18/18 20:13 Active 1 - 2 mg IVPUSH Q3H PRN Patient's Own Medication [Ptom] Med 11/19/18 21:00 Active 1 each PO BID Patient's Own Medication [Ptom] Med 11/19/18 13:00 Active 1 each PO DAILY Simvastatin [Zocor] Med 11/18/18 21:00 Active 40 mg PO BEDTIME Warfarin [Coumadin] Med 11/19/18 14:00 Active 6 mg PO DAILY@1400 cefTRIAXone [Rocephin] 1 gm Med 11/18/18 16:30 Active Sodium Chloride 0.9% [Normal Saline] 50 ml IV Q24H Ice Therapy [OM.PC] Routine Oth 11/18/18 20:13 Ordered Sequential Compression Device [OM.PC] Routine Oth 11/18/18 20:13 Ordered Medication Orders Acetaminophen (Tylenol) 650 mg PO Q4H PRN PRN Reason: Pain (Mild 1-3)/fever Artificial Tears (Refresh Plus 0.5%) 0 each EYEBOTH BID [place] Last Admin: 11/19/18 09:07 Dose: 2 drop Admin: 11/18/18 21:26 Dose: 1 drop Admin: 11/18/18 11:27 Dose: 1 drop Admin: 11/18/18 02:30 Dose: 1 drop Heparin Sodium (Porcine) (Heparin Sodium) 5,000 units SUBCUT Q8H [facility] Last Admin: 11/19/18 09:27 Dose: 5,000 units Hydromorphone HCl (Dilaudid) 0.5 mg IV Q4H PRN PRN Reason: Pain (severe 7-10) Last Admin: 11/18/18 06:26 Dose: 0.5 mg Sodium Chloride (Normal Saline) 1,000 mls @ 50 mls/hr IV ASDIRECTED [facility] Last Admin: 11/19/18 00:39 Dose: 50 mls/hr Ceftriaxone Sodium 1 gm/ (Sodium Chloride) 50 mls @ 100 mls/hr IV Q24H [facility] Last Admin: 11/18/18 17:08 Dose: 100 mls/hr Morphine Sulfate (Morphine) 1 - 2 mg IVPUSH Q3H PRN PRN Reason: Pain Last Admin: 11/19/18 12:23 Dose: 1 mg Ondansetron HCl (Zofran) 4 mg IVPUSH Q4H PRN PRN Reason: Nausea/Vomiting Oxycodone HCl (Oxycodone) 5 mg PO Q4H PRN PRN Reason: Pain (moderate 4-6) Last Admin: 11/19/18 13:36 Dose: 5 mg Admin: 11/19/18 05:35 Dose: 5 mg Admin: 11/18/18 22:16 Dose: 5 mg Admin: 11/18/18 02:28 Dose: 5 mg Vit B12 500 Mcg 1 each PO DAILY [facility] Last Admin: 11/19/18 13:36 Dose: 1 each Isosorbide (Mononitrate 10 Mg) 1 each PO BID [facility] Sertraline HCl (Zoloft) 50 mg PO DAILY [facility] Last Admin: 11/19/18 09:07 Dose: 50 mg Admin: 11/18/18 11:26 Dose: Admin: 11/18/18 02:29 Dose: 50 mg Simvastatin (Zocor) 40 mg PO BEDTIME [facility] Last Admin: 11/18/18 21:26 Dose: 40 mg Sodium Chloride (Saline Flush) 10 ml FLUSH ASDIRECTED PRN PRN Reason: Keep Vein Open Sodium Chloride (Saline Flush) 2.5 ml FLUSH ASDIRECTED PRN PRN Reason: Keep Vein Open Spironolactone (Aldactone) 25 mg PO DAILY [facility] Last Admin: 11/19/18 09:07 Dose: 25 mg Admin: 11/18/18 11:26 Dose: Admin: 11/18/18 02:29 Dose: 25 mg Warfarin Sodium (Coumadin) 6 mg PO DAILY@1400 [facility] Last Admin: 11/19/18 13:37 Dose: 6 mg
[2018-11-19] MEDS: Sertraline 50 MG Tab PO SCH (09:07)
[2018-11-19] MEDS: Spironolactone 25 MG Tab PO SCH (09:07)
[2018-11-19] MEDS: Carboxymethylcellulose Sodium 0.5% Ophth Soln 0.4 ML UD Box of 30 EYEBOTH SCH ×2 (09:07→20:58)
[2018-11-19] MEDS: CYANOCOBALAMIN 500 MCG PO SCH ×2 (09:14→13:36)
[2018-11-19] MEDS: Heparin Sodium 5,000 Units/ML Vial SUBCUT SCH ×2 (09:27→17:03)
--- NOTE | 2018-11-19 10:29 | PCM.PN ---
- General Info Date of Service: 11/19/18 Subjective Update: Feels comfortable this morning. Seen sitting in chair. Has no complaints, denying chest pain, shortness of breath. - Review of Systems General: Reports: Other (negative except for hpi) - Patient Data Vitals - Most Recent: Last Vital Signs Temp 37.3 C 11/19/18 07:00 Pulse 63 11/19/18 07:00 Resp 18 11/19/18 07:00 BP 106/53 L 11/19/18 07:00 Pulse Ox 93 L 11/19/18 07:00 Weight - Most Recent: 62.142 kg I&O - Last 24 Hours: Intake & Output 11/18/18 11/19/18 11/19/18 22:59 06:59 14:59 Intake Total 1440 720 Output Total 400 300 Balance 1040 420 Lab Results Last 24 Hours: Laboratory Results - last 24 hr 11/18/18 11/18/18 11/19/18 Range/Units 11:28 12:31 05:28 WBC 8.93 (4.0-11.0) K/uL RBC 2.80 L (4.30-5.90) M/uL Hgb 8.7 L (12.0-16.0) g/dL Hct 27.7 L (36.0-46.0) % MCV 98.9 H (80.0-98.0) fL MCH 31.1 (27.0-32.0) pg MCHC 31.4 (31.0-37.0) g/dL RDW Std Deviation 55.4 (28.0-62.0) fl RDW Coeff of Aleksandr 15 (11.0-15.0) % Plt Count 108 L (150-400) K/uL MPV 9.60 (7.40-12.00) fL Neut % (Auto) 73.7 (48.0-80.0) % Lymph % (Auto) 13.4 L (16.0-40.0) % [place] % (Auto) 12.0 (0.0-15.0) % Eos % (Auto) 0.8 (0.0-7.0) % Baso % (Auto) 0.1 (0.0-1.5) % Neut # (Auto) 6.6 H (1.4-5.7) K/uL Lymph # (Auto) 1.2 (0.6-2.4) K/uL [place] # (Auto) 1.1 H (0.0-0.8) K/uL Eos # (Auto) 0.1 (0.0-0.7) K/uL Baso # (Auto) 0.0 (0.0-0.1) K/uL Nucleated RBC % 0.0 /100WBC Nucleated RBCs # 0 K/uL Sodium (136-145) mmol/L Potassium (3.5-5.1) mmol/L Chloride (98-107) mmol/L Carbon Dioxide (21.0-32.0) mmol/L BUN (7.0-18.0) mg/dL Creatinine (0.6-1.0) mg/dL Est Cr Clr Drug Dosing mL/min Estimated GFR (MDRD) ml/min Glucose (74-106) mg/dL Calcium (8.5-10.1) mg/dL Total Bilirubin (0.2-1.0) mg/dL AST (15-37) IU/L ALT (14-63) IU/L Alkaline Phosphatase (46-116) U/L Total Protein (6.4-8.2) g/dL Albumin (3.4-5.0) g/dL Globulin (2.6-4.0) g/dL Albumin/Globulin Ratio (0.9-1.6) Urine Color YELLOW Urine Appearance CLEAR Urine pH 5.5 (5.0-8.0) Ur Specific [place] 1.025 (1.001-1.035) Urine Protein 30 H (NEGATIVE) mg/dL Urine Glucose (UA) NEGATIVE (NEGATIVE) mg/dL Urine Ketones NEGATIVE (NEGATIVE) mg/dL Urine Occult Blood LARGE H (NEGATIVE) Urine Nitrite NEGATIVE (NEGATIVE) Urine Bilirubin NEGATIVE (NEGATIVE) Urine Urobilinogen 0.2 (<2.0) EU/dL Ur Leukocyte Esterase SMALL H (NEGATIVE) Urine RBC 20-25 (0-2/HPF) Urine WBC 11-13 (0-5/HPF) Ur Epithelial Cells FEW (NONE-FEW) Urine Bacteria FEW (NEGATIVE) Blood Type A POSITIVE Antibody Screen NEGATIVE Crossmatch See Detail 11/19/18 Range/Units 05:28 WBC (4.0-11.0) K/uL RBC (4.30-5.90) M/uL Hgb (12.0-16.0) g/dL Hct (36.0-46.0) % MCV (80.0-98.0) fL MCH (27.0-32.0) pg MCHC (31.0-37.0) g/dL RDW Std Deviation (28.0-62.0) fl RDW Coeff of Aleksandr (11.0-15.0) % Plt Count (150-400) K/uL MPV (7.40-12.00) fL Neut % (Auto) (48.0-80.0) % Lymph % (Auto) (16.0-40.0) % [place] % (Auto) (0.0-15.0) % Eos % (Auto) (0.0-7.0) % Baso % (Auto) (0.0-1.5) % Neut # (Auto) (1.4-5.7) K/uL Lymph # (Auto) (0.6-2.4) K/uL [place] # (Auto) (0.0-0.8) K/uL Eos # (Auto) (0.0-0.7) K/uL Baso # (Auto) (0.0-0.1) K/uL Nucleated RBC % /100WBC Nucleated RBCs # K/uL Sodium 142 (136-145) mmol/L Potassium 4.7 (3.5-5.1) mmol/L Chloride 110 H (98-107) mmol/L Carbon Dioxide 22.2 (21.0-32.0) mmol/L BUN 23 H (7.0-18.0) mg/dL Creatinine 1.1 H (0.6-1.0) mg/dL Est Cr Clr Drug Dosing 27.22 mL/min Estimated GFR (MDRD) 47.0 ml/min Glucose 124 H (74-106) mg/dL Calcium 8.8 (8.5-10.1) mg/dL Total Bilirubin 0.8 (0.2-1.0) mg/dL AST 13 L (15-37) IU/L ALT 7 L (14-63) IU/L Alkaline Phosphatase 52 (46-116) U/L Total Protein 5.8 L (6.4-8.2) g/dL Albumin 3.0 L (3.4-5.0) g/dL Globulin 2.8 (2.6-4.0) g/dL Albumin/Globulin Ratio 1.1 (0.9-1.6) Urine Color Urine Appearance Urine pH (5.0-8.0) Ur Specific [place] (1.001-1.035) Urine Protein (NEGATIVE) mg/dL Urine Glucose (UA) (NEGATIVE) mg/dL Urine Ketones (NEGATIVE) mg/dL Urine Occult Blood (NEGATIVE) Urine Nitrite (NEGATIVE) Urine Bilirubin (NEGATIVE) Urine Urobilinogen (<2.0) EU/dL Ur Leukocyte Esterase (NEGATIVE) Urine RBC (0-2/HPF) Urine WBC (0-5/HPF) Ur Epithelial Cells (NONE-FEW) Urine Bacteria (NEGATIVE) Blood Type Antibody Screen Crossmatch Med Orders - Current: Current Medications Acetaminophen (Tylenol) 650 mg PO Q4H PRN PRN Reason: Pain (Mild 1-3)/fever Artificial Tears (Refresh Plus 0.5%) 0 each EYEBOTH BID [facility] Last Admin: 11/19/18 09:07 Dose: 2 drop Heparin Sodium (Porcine) (Heparin Sodium) 5,000 units SUBCUT Q8H [facility] Last Admin: 11/19/18 09:27 Dose: 5,000 units Hydromorphone HCl (Dilaudid) 0.5 mg IV Q4H PRN PRN Reason: Pain (severe 7-10) Last Admin: 11/18/18 06:26 Dose: 0.5 mg Sodium Chloride (Normal Saline) 1,000 mls @ 50 mls/hr IV ASDIRECTED [facility] Last Admin: 11/19/18 00:39 Dose: 50 mls/hr Ceftriaxone Sodium 1 gm/ (Sodium Chloride) 50 mls @ 100 mls/hr IV Q24H [facility] Last Admin: 11/18/18 17:08 Dose: 100 mls/hr Clindamycin Phosphate 600 mg/ (Premix) 50 mls @ 100 mls/hr IV Q8H [facility] Stop: 11/19/18 10:29 Last Admin: 11/19/18 09:08 Dose: 100 mls/hr Morphine Sulfate (Morphine) 1 - 2 mg IVPUSH Q3H PRN PRN Reason: Pain Ondansetron HCl (Zofran) 4 mg IVPUSH Q4H PRN PRN Reason: Nausea/Vomiting Oxycodone HCl (Oxycodone) 5 mg PO Q4H PRN PRN Reason: Pain (moderate 4-6) Last Admin: 11/19/18 05:35 Dose: 5 mg Isosorbide (Mononitrate 10 Mg) 1 each PO BID [facility] Last Admin: 11/19/18 09:14 Dose: Not Given Vit B12/Fa/Pyridoxine Hcl/Aa15 [Glycotrol] 500 Mcg 1 each PO DAILY [facility] Last Admin: 11/19/18 09:14 Dose: Not Given Sertraline HCl (Zoloft) 50 mg PO DAILY [facility] Last Admin: 11/19/18 09:07 Dose: 50 mg Simvastatin (Zocor) 40 mg PO BEDTIME [facility] Last Admin: 11/18/18 21:26 Dose: 40 mg Sodium Chloride (Saline Flush) 10 ml FLUSH ASDIRECTED PRN PRN Reason: Keep Vein Open Sodium Chloride (Saline Flush) 2.5 ml FLUSH ASDIRECTED PRN PRN Reason: Keep Vein Open Spironolactone (Aldactone) 25 mg PO DAILY [facility] Last Admin: 11/19/18 09:07 Dose: 25 mg Warfarin Sodium (Coumadin) 6 mg PO DAILY@1400 [facility] Discontinued Medications Fentanyl (Sublimaze) 25 mcg IVPUSH Q5M PRN PRN Reason: Pain (severe 7-10) Stop: 11/19/18 15:44 Fentanyl (Sublimaze) Confirm Administered Dose 250 mcg .ROUTE .STK-MED ONE Stop: 11/18/18 17:44 Heparin Sodium (Porcine) (Heparin Sodium) 5,000 units SUBCUT Q8H [facility] Last Admin: 11/18/18 01:20 Dose: Not Given Heparin Sodium (Porcine) (Heparin Sodium) 5,000 units SUBCUT Q8H [facility] Last Admin: 11/18/18 11:28 Dose: Not Given Hydromorphone HCl (Dilaudid) 0.5 mg IVPUSH Q4H PRN PRN Reason: Pain (severe 7-10) Hydromorphone HCl (Dilaudid) 0.25 mg IVPUSH Q10M PRN PRN Reason: Pain (severe 7-10) Stop: 11/19/18 15:44 Sodium Chloride (Normal Saline) 1,000 mls @ 125 mls/hr IV STAT [facility] Last Admin: 11/18/18 00:36 Dose: 125 mls/hr Clindamycin Phosphate 600 mg/ (Premix) 50 mls @ 100 mls/hr IV ONETIME ONE Stop: 11/18/18 11:40 Last Admin: 11/18/18 18:00 Dose: Not Given Clindamycin Phosphate (Cleocin In D5w) Confirm Administered Dose 50 mls @ as directed .ROUTE .STK-MED ONE Stop: 11/18/18 17:56 Last Admin: 11/18/18 17:59 Dose: 100 mls/hr Lidocaine (Xylocaine-Mpf 2%) Confirm Administered Dose 5 ml .ROUTE .STK-MED ONE Stop: 11/18/18 17:43 Meperidine HCl (Demerol) 12.5 mg IVPUSH .ONCE [place] Midazolam HCl (Versed 1 Mg/Ml) Confirm Administered Dose 2 mg .ROUTE .STK-MED ONE Stop: 11/18/18 17:44 Morphine Sulfate (Morphine) 2 mg IVPUSH ONETIME ONE Stop: 11/17/18 22:10 Last Admin: 11/17/18 22:42 Dose: 2 mg Ondansetron HCl (Zofran) 4 mg IVPUSH ONETIME ONE Stop: 11/17/18 22:10 Last Admin: 11/17/18 22:41 Dose: 4 mg Ondansetron HCl (Zofran) 4 mg IVPUSH .ONCE [place] Ondansetron HCl (Zofran) Confirm Administered Dose 4 mg .ROUTE .STK-MED ONE Stop: 11/18/18 17:43 Propofol (Diprivan 20 Ml) Confirm Administered Dose 200 mg .ROUTE .STK-MED ONE Stop: 11/18/18 17:44 Rocuronium [employer] (Zemuron) Confirm Administered Dose 100 mg .ROUTE .STK-MED ONE Stop: 11/18/18 17:43 Succinylcholine Chloride (Quelicin) Confirm Administered Dose 200 mg .ROUTE .STK -MED ONE Stop: 11/18/18 17:43 - Exam General: Alert, Oriented Lungs: Clear to Auscultation, Normal Respiratory Effort Cardiovascular: Regular Rate, Regular Rhythm GI/Abdominal Exam: Normal Bowel Sounds, Soft, Non-Tender, No Organomegaly, No Distention, No Abnormal Bruit, No Mass, Pelvis Stable Extremities: Non-Tender, No Pedal Edema, Normal Capillary Refill Peripheral Pulses: 2+: Dorsalis Pedis (L), Dorsalis Pedis (R) Skin: Warm, Dry, Intact Psy/Mental Status: Alert, Normal Affect, Normal Mood - Problem List Review Problem List Initiated/Reviewed/Updated: Yes - My Orders Last 24 Hours: My Active Orders 11/18/18 09:47 Echo Comp wo Cont [US] Stat - Plan Plan:: Assessment: #1. Post-op day 1 R hip fixation #2. Post-op anemia #3. History of A. Fib, CAD, CABG Plan: #1. Will repeat an H/H this afternoon. Consider transfusion if Hgb <8 #2. Start heparin and coumadin. Will DC heparin once INR in therapeutic range #3. Patient/family would prefer the patient go home rather than SNF upon discharge #4. Anticipate discharge 1-2 days.
--- NOTE | 2018-11-19 10:53 | CR ---
EXAMINATION: Right hip HISTORY: Fracture COMPARISON: 11/17/2018 TECHNIQUE: 4 fluoroscopic images provided. 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
[2018-11-19] MEDS: Morphine 2 MG/ML Syringe IVPUSH PRN ×2 (12:23→21:26)
[2018-11-19] MEDS: Warfarin 2 MG Tab PO SCH (13:37)
[2018-11-19] MEDS: cefTRIAXone 1 GM in Sodium Chloride 0.9% 50 ML IV SCH (17:03)
[2018-11-19] MEDS: Simvastatin 40 MG Tab PO SCH (20:58)
[2018-11-20] MEDS: Heparin Sodium 5,000 Units/ML Vial SUBCUT SCH ×3 (00:49→17:41)
[2018-11-20] MEDS: oxyCODONE 5 MG Tab PO PRN ×4 (05:51→19:21)
[2018-11-20] MEDS: Morphine 2 MG/ML Syringe IVPUSH PRN (06:03)
--- NOTE | 2018-11-20 08:20 | PCM.SURGPN ---
- General Info Date of Service: 11/20/18 POD#: 2 Functional Status: Reports: Pain Controlled - Review of Systems General: Reports: No Symptoms HEENT: Reports: No Symptoms Pulmonary: Reports: No Symptoms Cardiovascular: Reports: No Symptoms Gastrointestinal: Reports: No Symptoms 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: Reports: No Symptoms Musculoskeletal: Reports: Leg Pain Skin: Reports: No Symptoms Neurological: Reports: No Symptoms Psychiatric: Reports: No Symptoms Systems Review Comment:: Patient sitting up in chair. States pain is well controlled with meds. Has been progressing with PT. No other complaints. - Patient Data Vitals - Most Recent: Last Vital Signs Temp 99.5 F 11/20/18 07:00 Pulse 65 11/20/18 07:00 Resp 18 11/20/18 07:00 BP 114/70 11/20/18 07:00 Pulse Ox 93 L 11/20/18 07:00 Weight - Most Recent: 62.142 kg I&O - Last 24 Hours: Intake & Output 11/19/18 11/20/18 11/20/18 22:59 06:59 14:59 Intake Total 1500 460 Output Total 75 500 Balance 1425 -40 Lab Results Last 24 Hrs: Laboratory Results - last 24 hr 11/19/18 11/20/18 11/20/18 Range/Units 15:10 04:50 04:50 WBC 10.42 (4.0-11.0) K/uL RBC 2.55 L (4.30-5.90) M/uL Hgb 8.9 L 8.0 L (12.0-16.0) g/dL Hct 27.9 L 25.3 L (36.0-46.0) % MCV 99.2 H (80.0-98.0) fL MCH 31.4 (27.0-32.0) pg MCHC 31.6 (31.0-37.0) g/dL RDW Std Deviation 53.8 (28.0-62.0) fl RDW Coeff of Aleksandr 15 (11.0-15.0) % Plt Count 107 L (150-400) K/uL MPV 10.30 (7.40-12.00) fL Neut % (Auto) 69.1 (48.0-80.0) % Lymph % (Auto) 15.4 L (16.0-40.0) % [place] % (Auto) 14.6 (0.0-15.0) % Eos % (Auto) 0.7 (0.0-7.0) % Baso % (Auto) 0.2 (0.0-1.5) % Neut # (Auto) 7.2 H (1.4-5.7) K/uL Lymph # (Auto) 1.6 (0.6-2.4) K/uL [place] # (Auto) 1.5 H (0.0-0.8) K/uL Eos # (Auto) 0.1 (0.0-0.7) K/uL Baso # (Auto) 0.0 (0.0-0.1) K/uL Nucleated RBC % 0.0 /100WBC Nucleated RBCs # 0 K/uL INR Sodium 139 (136-145) mmol/L Potassium 4.9 (3.5-5.1) mmol/L Chloride 107 (98-107) mmol/L Carbon Dioxide 22.4 (21.0-32.0) mmol/L BUN 29 H (7.0-18.0) mg/dL Creatinine 1.3 H (0.6-1.0) mg/dL Est Cr Clr Drug Dosing 23.03 mL/min Estimated GFR (MDRD) 38.7 ml/min Glucose 117 H (74-106) mg/dL Calcium 8.4 L (8.5-10.1) mg/dL Total Bilirubin 0.6 (0.2-1.0) mg/dL AST 14 L (15-37) IU/L ALT 9 L (14-63) IU/L Alkaline Phosphatase 51 (46-116) U/L Total Protein 5.2 L (6.4-8.2) g/dL Albumin 2.7 L (3.4-5.0) g/dL Globulin 2.5 L (2.6-4.0) g/dL Albumin/Globulin Ratio 1.1 (0.9-1.6) 11/20/18 Range/Units 04:50 WBC (4.0-11.0) K/uL RBC (4.30-5.90) M/uL Hgb (12.0-16.0) g/dL Hct (36.0-46.0) % MCV (80.0-98.0) fL MCH (27.0-32.0) pg MCHC (31.0-37.0) g/dL RDW Std Deviation (28.0-62.0) fl RDW Coeff of Aleksandr (11.0-15.0) % Plt Count (150-400) K/uL MPV (7.40-12.00) fL Neut % (Auto) (48.0-80.0) % Lymph % (Auto) (16.0-40.0) % [place] % (Auto) (0.0-15.0) % Eos % (Auto) (0.0-7.0) % Baso % (Auto) (0.0-1.5) % Neut # (Auto) (1.4-5.7) K/uL Lymph # (Auto) (0.6-2.4) K/uL [place] # (Auto) (0.0-0.8) K/uL Eos # (Auto) (0.0-0.7) K/uL Baso # (Auto) (0.0-0.1) K/uL Nucleated RBC % /100WBC Nucleated RBCs # K/uL INR 1.15 Sodium (136-145) mmol/L Potassium (3.5-5.1) mmol/L Chloride (98-107) mmol/L Carbon Dioxide (21.0-32.0) mmol/L BUN (7.0-18.0) mg/dL Creatinine (0.6-1.0) mg/dL Est Cr Clr Drug Dosing mL/min Estimated GFR (MDRD) ml/min Glucose (74-106) mg/dL Calcium (8.5-10.1) mg/dL Total Bilirubin (0.2-1.0) mg/dL AST (15-37) IU/L ALT (14-63) IU/L Alkaline Phosphatase (46-116) U/L Total Protein (6.4-8.2) g/dL Albumin (3.4-5.0) g/dL Globulin (2.6-4.0) g/dL Albumin/Globulin Ratio (0.9-1.6) Med Orders - Current: Current Medications Acetaminophen (Tylenol) 650 mg PO Q4H PRN PRN Reason: Pain (Mild 1-3)/fever Artificial Tears (Refresh Plus 0.5%) 0 each EYEBOTH BID [facility] Last Admin: 11/19/18 20:58 Dose: 1 drop Heparin Sodium (Porcine) (Heparin Sodium) 5,000 units SUBCUT Q8H [facility] Last Admin: 11/20/18 00:49 Dose: Not Given Hydromorphone HCl (Dilaudid) 0.5 mg IV Q4H PRN PRN Reason: Pain (severe 7-10) Last Admin: 11/18/18 06:26 Dose: 0.5 mg Sodium Chloride (Normal Saline) 1,000 mls @ 50 mls/hr IV ASDIRECTED [facility] Last Admin: 11/19/18 22:52 Dose: 50 mls/hr Ceftriaxone Sodium 1 gm/ (Sodium Chloride) 50 mls @ 100 mls/hr IV Q24H [facility] Last Admin: 11/19/18 17:03 Dose: 100 mls/hr Morphine Sulfate (Morphine) 1 - 2 mg IVPUSH Q3H PRN PRN Reason: Pain Last Admin: 11/20/18 06:03 Dose: 2 mg Ondansetron HCl (Zofran) 4 mg IVPUSH Q4H PRN PRN Reason: Nausea/Vomiting Oxycodone HCl (Oxycodone) 5 mg PO Q4H PRN PRN Reason: Pain (moderate 4-6) Last Admin: 11/20/18 05:51 Dose: 5 mg Vit B12 500 Mcg 1 each PO DAILY [facility] Last Admin: 11/19/18 13:36 Dose: 1 each Isosorbide (Mononitrate 10 Mg) 1 each PO BID [facility] Last Admin: 11/19/18 20:59 Dose: 1 each Sertraline HCl (Zoloft) 50 mg PO DAILY [facility] Last Admin: 11/19/18 09:07 Dose: 50 mg Simvastatin (Zocor) 40 mg PO BEDTIME [facility] Last Admin: 11/19/18 20:58 Dose: 40 mg Sodium Chloride (Saline Flush) 10 ml FLUSH ASDIRECTED PRN PRN Reason: Keep Vein Open Sodium Chloride (Saline Flush) 2.5 ml FLUSH ASDIRECTED PRN PRN Reason: Keep Vein Open Spironolactone (Aldactone) 25 mg PO DAILY [facility] Last Admin: 11/19/18 09:07 Dose: 25 mg Warfarin Sodium (Coumadin) 6 mg PO DAILY@1400 [facility] Last Admin: 11/19/18 13:37 Dose: 6 mg Discontinued Medications Fentanyl (Sublimaze) 25 mcg IVPUSH Q5M PRN PRN Reason: Pain (severe 7-10) Stop: 11/19/18 15:44 Fentanyl (Sublimaze) Confirm Administered Dose 250 mcg .ROUTE .STK-MED ONE Stop: 11/18/18 17:44 Heparin Sodium (Porcine) (Heparin Sodium) 5,000 units SUBCUT Q8H [facility] Last Admin: 11/18/18 01:20 Dose: Not Given Heparin Sodium (Porcine) (Heparin Sodium) 5,000 units SUBCUT Q8H [facility] Last Admin: 11/18/18 11:28 Dose: Not Given Hydromorphone HCl (Dilaudid) 0.5 mg IVPUSH Q4H PRN PRN Reason: Pain (severe 7-10) Hydromorphone HCl (Dilaudid) 0.25 mg IVPUSH Q10M PRN PRN Reason: Pain (severe 7-10) Stop: 11/19/18 15:44 Sodium Chloride (Normal Saline) 1,000 mls @ 125 mls/hr IV STAT [facility] Last Admin: 11/18/18 00:36 Dose: 125 mls/hr Clindamycin Phosphate 600 mg/ (Premix) 50 mls @ 100 mls/hr IV ONETIME ONE Stop: 11/18/18 11:40 Last Admin: 11/18/18 18:00 Dose: Not Given Clindamycin Phosphate (Cleocin In D5w) Confirm Administered Dose 50 mls @ as directed .ROUTE .STK-MED ONE Stop: 11/18/18 17:56 Last Admin: 11/18/18 17:59 Dose: 100 mls/hr Clindamycin Phosphate 600 mg/ (Premix) 50 mls @ 100 mls/hr IV Q8H [facility] Stop: 11/19/18 10:29 Last Admin: 11/19/18 09:08 Dose: 100 mls/hr Lidocaine (Xylocaine-Mpf 2%) Confirm Administered Dose 5 ml .ROUTE .STK-MED ONE Stop: 11/18/18 17:43 Meperidine HCl (Demerol) 12.5 mg IVPUSH .ONCE [facility] Midazolam HCl (Versed 1 Mg/Ml) Confirm Administered Dose 2 mg .ROUTE .STK-MED ONE Stop: 11/18/18 17:44 Morphine Sulfate (Morphine) 2 mg IVPUSH ONETIME ONE Stop: 11/17/18 22:10 Last Admin: 11/17/18 22:42 Dose: 2 mg Ondansetron HCl (Zofran) 4 mg IVPUSH ONETIME ONE Stop: 11/17/18 22:10 Last Admin: 11/17/18 22:41 Dose: 4 mg Ondansetron HCl (Zofran) 4 mg IVPUSH .ONCE [place] Ondansetron HCl (Zofran) Confirm Administered Dose 4 mg .ROUTE .STK-MED ONE Stop: 11/18/18 17:43 Isosorbide (Mononitrate 10 Mg) 1 each PO BID [facility] Last Admin: 11/19/18 09:14 Dose: Not Given Vit B12 500 Mcg 1 each PO DAILY [facility] Last Admin: 11/19/18 09:14 Dose: Not Given Propofol (Diprivan 20 Ml) Confirm Administered Dose 200 mg .ROUTE .STK-MED ONE Stop: 11/18/18 17:44 Rocuronium [place] (Zemuron) Confirm Administered Dose 100 mg .ROUTE .STK-MED ONE Stop: 11/18/18 17:43 Succinylcholine Chloride (Quelicin) Confirm Administered Dose 200 mg .ROUTE .STK -MED ONE Stop: 11/18/18 17:43 - Exam General: Alert, Oriented Neck: Supple Lungs: Normal Respiratory Effort Neurological: No New Focal Deficit Psy/Mental Status: Alert, Normal Affect, Normal Mood Physical Findings Comment:: Exam of RLE shows dressings intact. Small amount of serosanguinous drainage on dressing. Thigh soft. No calf TTP. AT/EHL/gastroc 5/5. Sensation intact. DP 2+. - Problem List & Annotations (1) Intertrochanteric fracture, hip SNOMED Code(s): 999632994 Code(s): S72.143A - DISPLACED INTERTROCHANTERIC FRACTURE OF UNSP FEMUR, INIT Status: Acute Current Visit: Yes - Problem List Review Problem List Initiated/Reviewed/Updated: Yes - My Orders Last 24 Hours: Active Orders 24 hr Category Date Time Status Remove Spivey Catheter [Urinary Catheter Removal] [] Care 11/19/18 09:29 Active Per Unit Routine Telemetry Monitoring [Cardiac Monitoring] [RC] Q8H Care 11/19/18 08:46 Active CBC WITH AUTO DIFF [HEME] AM Lab 11/21/18 05:11 Ordered COMPREHENSIVE METABOLIC PN,CMP [CHEM] AM Lab 11/21/18 05:11 Ordered Heparin Sodium Med 11/19/18 09:00 Active 5,000 units SUBCUT Q8H Patient's Own Medication [Ptom] Med 11/19/18 21:00 Active 1 each PO BID Patient's Own Medication [Ptom] Med 11/19/18 13:00 Active 1 each PO DAILY Warfarin [Coumadin] Med 11/19/18 14:00 Active 6 mg PO DAILY@1400 Transfuse PRBC [Transfuse Red Blood Cells] [COMM] Oth 11/20/18 08:03 Ordered Routine Medication Orders Acetaminophen (Tylenol) 650 mg PO Q4H PRN PRN Reason: Pain (Mild 1-3)/fever Artificial Tears (Refresh Plus 0.5%) 0 each EYEBOTH BID [facility] Last Admin: 11/19/18 20:58 Dose: 1 drop Admin: 11/19/18 09:07 Dose: 2 drop Admin: 11/18/18 21:26 Dose: 1 drop Admin: 11/18/18 11:27 Dose: 1 drop Admin: 11/18/18 02:30 Dose: 1 drop Heparin Sodium (Porcine) (Heparin Sodium) 5,000 units SUBCUT Q8H [facility] Last Admin: 11/20/18 00:49 Dose: Admin: 11/19/18 17:03 Dose: 5,000 units Admin: 11/19/18 09:27 Dose: 5,000 units Hydromorphone HCl (Dilaudid) 0.5 mg IV Q4H PRN PRN Reason: Pain (severe 7-10) Last Admin: 11/18/18 06:26 Dose: 0.5 mg Sodium Chloride (Normal Saline) 1,000 mls @ 50 mls/hr IV ASDIRECTED [facility] Last Admin: 11/19/18 22:52 Dose: 50 mls/hr Infusion: 11/19/18 20:39 Dose: 50 mls/hr Admin: 11/19/18 00:39 Dose: 50 mls/hr Ceftriaxone Sodium 1 gm/ (Sodium Chloride) 50 mls @ 100 mls/hr IV Q24H [facility] Last Admin: 11/19/18 17:03 Dose: 100 mls/hr Infusion: 11/18/18 17:38 Dose: 100 mls/hr Admin: 11/18/18 17:08 Dose: 100 mls/hr Morphine Sulfate (Morphine) 1 - 2 mg IVPUSH Q3H PRN PRN Reason: Pain Last Admin: 11/20/18 06:03 Dose: 2 mg Admin: 11/19/18 21:26 Dose: 2 mg Admin: 11/19/18 12:23 Dose: 1 mg Ondansetron HCl (Zofran) 4 mg IVPUSH Q4H PRN PRN Reason: Nausea/Vomiting Oxycodone HCl (Oxycodone) 5 mg PO Q4H PRN PRN Reason: Pain (moderate 4-6) Last Admin: 11/20/18 05:51 Dose: 5 mg Admin: 11/19/18 17:53 Dose: 5 mg Admin: 11/19/18 13:36 Dose: 5 mg Admin: 11/19/18 05:35 Dose: 5 mg Admin: 11/18/18 22:16 Dose: 5 mg Admin: 11/18/18 02:28 Dose: 5 mg Vit B12 500 Mcg 1 each PO DAILY [facility] Last Admin: 11/19/18 13:36 Dose: 1 each Isosorbide (Mononitrate 10 Mg) 1 each PO BID [facility] Last Admin: 11/19/18 20:59 Dose: 1 each Sertraline HCl (Zoloft) 50 mg PO DAILY [facility] Last Admin: 11/19/18 09:07 Dose: 50 mg Admin: 11/18/18 11:26 Dose: Admin: 11/18/18 02:29 Dose: 50 mg Simvastatin (Zocor) 40 mg PO BEDTIME [facility] Last Admin: 11/19/18 20:58 Dose: 40 mg Admin: 11/18/18 21:26 Dose: 40 mg Sodium Chloride (Saline Flush) 10 ml FLUSH ASDIRECTED PRN PRN Reason: Keep Vein Open Sodium Chloride (Saline Flush) 2.5 ml FLUSH ASDIRECTED PRN PRN Reason: Keep Vein Open Spironolactone (Aldactone) 25 mg PO DAILY [facility] Last Admin: 11/19/18 09:07 Dose: 25 mg Admin: 11/18/18 11:26 Dose: Admin: 11/18/18 02:29 Dose: 25 mg Warfarin Sodium (Coumadin) 6 mg PO DAILY@1400 [place] Last Admin: 11/19/18 13:37 Dose: 6 mg - Plan Plan (Free Text/Narrative):: 1. continue PT and mobilization--WBAT RLE 2. DVT prophylaxis--resumed home Coumadin, PAS boots 3. continue current pain meds 4. acute posthemorrhagic anemia (hgb 8.0)--medicine has ordered blood transfusion today 5. OK to discharge after blood transfusion from ortho standpoint--may need home health care 6. Ortho will sign off, as patient is stable orthopedically--follow up instructions in discharge plan--please reconsult or call if any questions/ concerns
[2018-11-20] MEDS: Spironolactone 25 MG Tab PO SCH (08:38)
[2018-11-20] MEDS: Sertraline 50 MG Tab PO SCH (08:38)
[2018-11-20] MEDS: Carboxymethylcellulose Sodium 0.5% Ophth Soln 0.4 ML UD Box of 30 EYEBOTH SCH ×2 (08:40→21:07)
[2018-11-20] MEDS: CYANOCOBALAMIN 500 MCG PO SCH (08:41)
[2018-11-20] MEDS: Lisinopril 10 MG Tab PO SCH (08:49)
--- NOTE | 2018-11-20 09:30 | PCM.PN ---
<Gary Osei - Last Filed: 11/20/18 09:29> - General Info Date of Service: 11/20/18 Subjective Update: Feels comfortable today, denying pain, sob, bleeding. - Review of Systems General: Reports: Other (see hpi, otherwise negative ) - Patient Data Vitals - Most Recent: Last Vital Signs Temp 37.5 C 11/20/18 09:17 Pulse 67 11/20/18 09:17 Resp 18 11/20/18 09:17 BP 144/61 H 11/20/18 09:17 Pulse Ox 92 L 11/20/18 09:17 Weight - Most Recent: 62.142 kg I&O - Last 24 Hours: Intake & Output 11/19/18 11/20/18 11/20/18 22:59 06:59 14:59 Intake Total 1500 460 0 Output Total 75 500 Balance 1425 -40 0 Lab Results Last 24 Hours: Laboratory Results - last 24 hr 11/18/18 11/19/18 11/20/18 Range/Units 11:28 15:10 04:50 WBC 10.42 (4.0-11.0) K/uL RBC 2.55 L (4.30-5.90) M/uL Hgb 8.9 L 8.0 L (12.0-16.0) g/dL Hct 27.9 L 25.3 L (36.0-46.0) % MCV 99.2 H (80.0-98.0) fL MCH 31.4 (27.0-32.0) pg MCHC 31.6 (31.0-37.0) g/dL RDW Std Deviation 53.8 (28.0-62.0) fl RDW Coeff of Aleksandr 15 (11.0-15.0) % Plt Count 107 L (150-400) K/uL MPV 10.30 (7.40-12.00) fL Neut % (Auto) 69.1 (48.0-80.0) % Lymph % (Auto) 15.4 L (16.0-40.0) % Sully % (Auto) 14.6 (0.0-15.0) % Eos % (Auto) 0.7 (0.0-7.0) % Baso % (Auto) 0.2 (0.0-1.5) % Neut # (Auto) 7.2 H (1.4-5.7) K/uL Lymph # (Auto) 1.6 (0.6-2.4) K/uL Sully # (Auto) 1.5 H (0.0-0.8) K/uL Eos # (Auto) 0.1 (0.0-0.7) K/uL Baso # (Auto) 0.0 (0.0-0.1) K/uL Nucleated RBC % 0.0 /100WBC Nucleated RBCs # 0 K/uL INR Sodium (136-145) mmol/L Potassium (3.5-5.1) mmol/L Chloride (98-107) mmol/L Carbon Dioxide (21.0-32.0) mmol/L BUN (7.0-18.0) mg/dL Creatinine (0.6-1.0) mg/dL Est Cr Clr Drug Dosing mL/min Estimated GFR (MDRD) ml/min Glucose (74-106) mg/dL Calcium (8.5-10.1) mg/dL Total Bilirubin (0.2-1.0) mg/dL AST (15-37) IU/L ALT (14-63) IU/L Alkaline Phosphatase (46-116) U/L Total Protein (6.4-8.2) g/dL Albumin (3.4-5.0) g/dL Globulin (2.6-4.0) g/dL Albumin/Globulin Ratio (0.9-1.6) Blood Type A POSITIVE Antibody Screen NEGATIVE Crossmatch See Detail 11/20/18 11/20/18 Range/Units 04:50 04:50 WBC (4.0-11.0) K/uL RBC (4.30-5.90) M/uL Hgb (12.0-16.0) g/dL Hct (36.0-46.0) % MCV (80.0-98.0) fL MCH (27.0-32.0) pg MCHC (31.0-37.0) g/dL RDW Std Deviation (28.0-62.0) fl RDW Coeff of Aleksandr (11.0-15.0) % Plt Count (150-400) K/uL MPV (7.40-12.00) fL Neut % (Auto) (48.0-80.0) % Lymph % (Auto) (16.0-40.0) % Sully % (Auto) (0.0-15.0) % Eos % (Auto) (0.0-7.0) % Baso % (Auto) (0.0-1.5) % Neut # (Auto) (1.4-5.7) K/uL Lymph # (Auto) (0.6-2.4) K/uL Sully # (Auto) (0.0-0.8) K/uL Eos # (Auto) (0.0-0.7) K/uL Baso # (Auto) (0.0-0.1) K/uL Nucleated RBC % /100WBC Nucleated RBCs # K/uL INR 1.15 Sodium 139 (136-145) mmol/L Potassium 4.9 (3.5-5.1) mmol/L Chloride 107 (98-107) mmol/L Carbon Dioxide 22.4 (21.0-32.0) mmol/L BUN 29 H (7.0-18.0) mg/dL Creatinine 1.3 H (0.6-1.0) mg/dL Est Cr Clr Drug Dosing 23.03 mL/min Estimated GFR (MDRD) 38.7 ml/min Glucose 117 H (74-106) mg/dL Calcium 8.4 L (8.5-10.1) mg/dL Total Bilirubin 0.6 (0.2-1.0) mg/dL AST 14 L (15-37) IU/L ALT 9 L (14-63) IU/L Alkaline Phosphatase 51 (46-116) U/L Total Protein 5.2 L (6.4-8.2) g/dL Albumin 2.7 L (3.4-5.0) g/dL Globulin 2.5 L (2.6-4.0) g/dL Albumin/Globulin Ratio 1.1 (0.9-1.6) Blood Type Antibody Screen Crossmatch Sunil Results Last 24 Hours: Microbiology 11/18/18 12:31 Urine Culture - Final Urine, Clean Catch No Growth Med Orders - Current: Current Medications Acetaminophen (Tylenol) 650 mg PO Q4H PRN PRN Reason: Pain (Mild 1-3)/fever Artificial Tears (Refresh Plus 0.5%) 0 each EYEBOTH BID [facility] Last Admin: 11/20/18 08:40 Dose: 1 drop Heparin Sodium (Porcine) (Heparin Sodium) 5,000 units SUBCUT Q8H [facility] Last Admin: 11/20/18 08:44 Dose: 5,000 units Hydromorphone HCl (Dilaudid) 0.5 mg IV Q4H PRN PRN Reason: Pain (severe 7-10) Last Admin: 11/18/18 06:26 Dose: 0.5 mg Sodium Chloride (Normal Saline) 1,000 mls @ 50 mls/hr IV ASDIRECTED [facility] Last Admin: 11/19/18 22:52 Dose: 50 mls/hr Ceftriaxone Sodium 1 gm/ (Sodium Chloride) 50 mls @ 100 mls/hr IV Q24H [facility] Last Admin: 11/19/18 17:03 Dose: 100 mls/hr Lisinopril (Prinivil) 10 mg PO DAILY [facility] Last Admin: 11/20/18 08:49 Dose: 10 mg Morphine Sulfate (Morphine) 1 - 2 mg IVPUSH Q3H PRN PRN Reason: Pain Last Admin: 11/20/18 06:03 Dose: 2 mg Ondansetron HCl (Zofran) 4 mg IVPUSH Q4H PRN PRN Reason: Nausea/Vomiting Oxycodone HCl (Oxycodone) 5 mg PO Q4H PRN PRN Reason: Pain (moderate 4-6) Last Admin: 11/20/18 05:51 Dose: 5 mg Vit B12 500 Mcg 1 each PO DAILY [facility] Last Admin: 11/20/18 08:41 Dose: 1 each Isosorbide (Mononitrate 10 Mg) 1 each PO BID [facility] Last Admin: 11/20/18 08:41 Dose: 1 each Sertraline HCl (Zoloft) 50 mg PO DAILY [facility] Last Admin: 11/20/18 08:38 Dose: 50 mg Simvastatin (Zocor) 40 mg PO BEDTIME [facility] Last Admin: 11/19/18 20:58 Dose: 40 mg Sodium Chloride (Saline Flush) 10 ml FLUSH ASDIRECTED PRN PRN Reason: Keep Vein Open Sodium Chloride (Saline Flush) 2.5 ml FLUSH ASDIRECTED PRN PRN Reason: Keep Vein Open Spironolactone (Aldactone) 25 mg PO DAILY [facility] Last Admin: 11/20/18 08:38 Dose: 25 mg Warfarin Sodium (Coumadin) 6 mg PO DAILY@1400 [facility] Last Admin: 11/19/18 13:37 Dose: 6 mg Discontinued Medications Fentanyl (Sublimaze) 25 mcg IVPUSH Q5M PRN PRN Reason: Pain (severe 7-10) Stop: 11/19/18 15:44 Fentanyl (Sublimaze) Confirm Administered Dose 250 mcg .ROUTE .STK-MED ONE Stop: 11/18/18 17:44 Heparin Sodium (Porcine) (Heparin Sodium) 5,000 units SUBCUT Q8H [facility] Last Admin: 11/18/18 01:20 Dose: Not Given Heparin Sodium (Porcine) (Heparin Sodium) 5,000 units SUBCUT Q8H [facility] Last Admin: 11/18/18 11:28 Dose: Not Given Hydromorphone HCl (Dilaudid) 0.5 mg IVPUSH Q4H PRN PRN Reason: Pain (severe 7-10) Hydromorphone HCl (Dilaudid) 0.25 mg IVPUSH Q10M PRN PRN Reason: Pain (severe 7-10) Stop: 11/19/18 15:44 Sodium Chloride (Normal Saline) 1,000 mls @ 125 mls/hr IV STAT [facility] Last Admin: 11/18/18 00:36 Dose: 125 mls/hr Clindamycin Phosphate 600 mg/ (Premix) 50 mls @ 100 mls/hr IV ONETIME ONE Stop: 11/18/18 11:40 Last Admin: 11/18/18 18:00 Dose: Not Given Clindamycin Phosphate (Cleocin In D5w) Confirm Administered Dose 50 mls @ as directed .ROUTE .STK-MED ONE Stop: 11/18/18 17:56 Last Admin: 11/18/18 17:59 Dose: 100 mls/hr Clindamycin Phosphate 600 mg/ (Premix) 50 mls @ 100 mls/hr IV Q8H [facility] Stop: 11/19/18 10:29 Last Admin: 11/19/18 09:08 Dose: 100 mls/hr Lidocaine (Xylocaine-Mpf 2%) Confirm Administered Dose 5 ml .ROUTE .STK-MED ONE Stop: 11/18/18 17:43 Meperidine HCl (Demerol) 12.5 mg IVPUSH .ONCE [place] Midazolam HCl (Versed 1 Mg/Ml) Confirm Administered Dose 2 mg .ROUTE .STK-MED ONE Stop: 11/18/18 17:44 Morphine Sulfate (Morphine) 2 mg IVPUSH ONETIME ONE Stop: 11/17/18 22:10 Last Admin: 11/17/18 22:42 Dose: 2 mg Ondansetron HCl (Zofran) 4 mg IVPUSH ONETIME ONE Stop: 11/17/18 22:10 Last Admin: 11/17/18 22:41 Dose: 4 mg Ondansetron HCl (Zofran) 4 mg IVPUSH .[place] Ondansetron HCl (Zofran) Confirm Administered Dose 4 mg .ROUTE .STK-MED ONE Stop: 11/18/18 17:43 Isosorbide (Mononitrate 10 Mg) 1 each PO BID [facility] Last Admin: 11/19/18 09:14 Dose: Not Given Vit B12 500 Mcg 1 each PO DAILY [facility] Last Admin: 11/19/18 09:14 Dose: Not Given Propofol (Diprivan 20 Ml) Confirm Administered Dose 200 mg .ROUTE .STK-MED ONE Stop: 11/18/18 17:44 Rocuronium Dewitt (Zemuron) Confirm Administered Dose 100 mg .ROUTE .STK-MED ONE Stop: 11/18/18 17:43 Succinylcholine Chloride (Quelicin) Confirm Administered Dose 200 mg .ROUTE .STK -MED ONE Stop: 11/18/18 17:43 - Exam General: Alert, Oriented HEENT: Pupils Equal, Pupils Reactive, EOMI, Mucous Membr. Moist/Platter Neck: Supple Lungs: Clear to Auscultation, Normal Respiratory Effort Cardiovascular: Regular Rate, Regular Rhythm GI/Abdominal Exam: Normal Bowel Sounds, Soft, Non-Tender, No Organomegaly, No Distention, No Abnormal Bruit, No Mass, Pelvis Stable Extremities: Normal Inspection, Normal Range of Motion, Non-Tender, No Pedal Edema, Normal Capillary Refill, Other (trace pedal edema ) Skin: Warm, Dry, Intact Psy/Mental Status: Alert, Normal Affect, Normal Mood - Problem List Review Problem List Initiated/Reviewed/Updated: Yes - My Orders Last 24 Hours: My Active Orders 11/20/18 09:00 Lisinopril [Prinivil] 10 mg PO DAILY - Plan Plan:: Assessment: #1. Post-op day 1 R hip fixation #2. Post-op anemia #3. History of A. Fib, CAD, CABG Plan: #1. Transfuse 2 units PRBC - recheck h/h after #2. Resume lisinopril, lasix home doses #3. Re-evaluate tomorrow, patient appears to be comfortable. Family would prefer patient to be discharged home vs. SNF. <John Howard - Last Filed: 11/20/18 16:30> - General Info Subjective Update: I have examined the patient independently of resident medical officer. I have discussed the case with the resident. I agree with the assessment and plan of care as outlined for this patient. Please see orders. - Patient Data Vitals - Most Recent: Last Vital Signs Temp 37.5 C 11/20/18 15:52 Pulse 65 11/20/18 15:52 Resp 20 11/20/18 15:52 BP 108/66 11/20/18 15:52 Pulse Ox 95 11/20/18 15:52 I&O - Last 24 Hours: Intake & Output 11/20/18 11/20/18 11/20/18 06:59 14:59 22:59 Intake Total 460 1249 1374 Output Total 500 200 Balance -40 1249 1174 Lab Results Last 24 Hours: Laboratory Results - last 24 hr 11/18/18 11/20/18 11/20/18 Range/Units 11:28 04:50 04:50 WBC 10.42 (4.0-11.0) K/uL RBC 2.55 L (4.30-5.90) M/uL Hgb 8.0 L (12.0-16.0) g/dL Hct 25.3 L (36.0-46.0) % MCV 99.2 H (80.0-98.0) fL MCH 31.4 (27.0-32.0) pg MCHC 31.6 (31.0-37.0) g/dL RDW Std Deviation 53.8 (28.0-62.0) fl RDW Coeff of Aleksandr 15 (11.0-15.0) % Plt Count 107 L (150-400) K/uL MPV 10.30 (7.40-12.00) fL Neut % (Auto) 69.1 (48.0-80.0) % Lymph % (Auto) 15.4 L (16.0-40.0) % Sully % (Auto) 14.6 (0.0-15.0) % Eos % (Auto) 0.7 (0.0-7.0) % Baso % (Auto) 0.2 (0.0-1.5) % Neut # (Auto) 7.2 H (1.4-5.7) K/uL Lymph # (Auto) 1.6 (0.6-2.4) K/uL Sully # (Auto) 1.5 H (0.0-0.8) K/uL Eos # (Auto) 0.1 (0.0-0.7) K/uL Baso # (Auto) 0.0 (0.0-0.1) K/uL Nucleated RBC % 0.0 /100WBC Nucleated RBCs # 0 K/uL INR Sodium 139 (136-145) mmol/L Potassium 4.9 (3.5-5.1) mmol/L Chloride 107 (98-107) mmol/L Carbon Dioxide 22.4 (21.0-32.0) mmol/L BUN 29 H (7.0-18.0) mg/dL Creatinine 1.3 H (0.6-1.0) mg/dL Est Cr Clr Drug Dosing 23.03 mL/min Estimated GFR (MDRD) 38.7 ml/min Glucose 117 H (74-106) mg/dL Calcium 8.4 L (8.5-10.1) mg/dL Total Bilirubin 0.6 (0.2-1.0) mg/dL AST 14 L (15-37) IU/L ALT 9 L (14-63) IU/L Alkaline Phosphatase 51 (46-116) U/L Total Protein 5.2 L (6.4-8.2) g/dL Albumin 2.7 L (3.4-5.0) g/dL Globulin 2.5 L (2.6-4.0) g/dL Albumin/Globulin Ratio 1.1 (0.9-1.6) Blood Type A POSITIVE Antibody Screen NEGATIVE Crossmatch See Detail 11/20/18 Range/Units 04:50 WBC (4.0-11.0) K/uL RBC (4.30-5.90) M/uL Hgb (12.0-16.0) g/dL Hct (36.0-46.0) % MCV (80.0-98.0) fL MCH (27.0-32.0) pg MCHC (31.0-37.0) g/dL RDW Std Deviation (28.0-62.0) fl RDW Coeff of Aleksandr (11.0-15.0) % Plt Count (150-400) K/uL MPV (7.40-12.00) fL Neut % (Auto) (48.0-80.0) % Lymph % (Auto) (16.0-40.0) % Sully % (Auto) (0.0-15.0) % Eos % (Auto) (0.0-7.0) % Baso % (Auto) (0.0-1.5) % Neut # (Auto) (1.4-5.7) K/uL Lymph # (Auto) (0.6-2.4) K/uL Sully # (Auto) (0.0-0.8) K/uL Eos # (Auto) (0.0-0.7) K/uL Baso # (Auto) (0.0-0.1) K/uL Nucleated RBC % /100WBC Nucleated RBCs # K/uL INR 1.15 Sodium (136-145) mmol/L Potassium (3.5-5.1) mmol/L Chloride (98-107) mmol/L Carbon Dioxide (21.0-32.0) mmol/L BUN (7.0-18.0) mg/dL Creatinine (0.6-1.0) mg/dL Est Cr Clr Drug Dosing mL/min Estimated GFR (MDRD) ml/min Glucose (74-106) mg/dL Calcium (8.5-10.1) mg/dL Total Bilirubin (0.2-1.0) mg/dL AST (15-37) IU/L ALT (14-63) IU/L Alkaline Phosphatase (46-116) U/L Total Protein (6.4-8.2) g/dL Albumin (3.4-5.0) g/dL Globulin (2.6-4.0) g/dL Albumin/Globulin Ratio (0.9-1.6) Blood Type Antibody Screen Crossmatch Sunil Results Last 24 Hours: Microbiology 11/18/18 12:31 Urine Culture - Final Urine, Clean Catch No Growth Med Orders - Current: Current Medications Acetaminophen (Tylenol) 650 mg PO Q4H PRN PRN Reason: Pain (Mild 1-3)/fever Artificial Tears (Refresh Plus 0.5%) 0 each EYEBOTH BID [facility] Last Admin: 11/20/18 08:40 Dose: 1 drop Furosemide (Lasix) 40 mg PO DAILY [facility] Last Admin: 11/20/18 10:09 Dose: 40 mg Heparin Sodium (Porcine) (Heparin Sodium) 5,000 units SUBCUT Q8H [facility] Last Admin: 11/20/18 08:44 Dose: 5,000 units Hydromorphone HCl (Dilaudid) 0.5 mg IV Q4H PRN PRN Reason: Pain (severe 7-10) Last Admin: 11/18/18 06:26 Dose: 0.5 mg Sodium Chloride (Normal Saline) 1,000 mls @ 50 mls/hr IV ASDIRECTED [facility] Last Admin: 11/19/18 22:52 Dose: 50 mls/hr Ceftriaxone Sodium 1 gm/ (Sodium Chloride) 50 mls @ 100 mls/hr IV Q24H [facility] Last Admin: 11/19/18 17:03 Dose: 100 mls/hr Lisinopril (Prinivil) 10 mg PO DAILY [facility] Last Admin: 11/20/18 08:49 Dose: 10 mg Morphine Sulfate (Morphine) 1 - 2 mg IVPUSH Q3H PRN PRN Reason: Pain Last Admin: 11/20/18 06:03 Dose: 2 mg Ondansetron HCl (Zofran) 4 mg IVPUSH Q4H PRN PRN Reason: Nausea/Vomiting Oxycodone HCl (Oxycodone) 5 mg PO Q4H PRN PRN Reason: Pain (moderate 4-6) Last Admin: 11/20/18 14:05 Dose: 5 mg Vit B12 500 Mcg 1 each PO DAILY [facility] Last Admin: 11/20/18 08:41 Dose: 1 each Isosorbide (Mononitrate 10 Mg) 1 each PO BID [facility] Last Admin: 11/20/18 08:41 Dose: 1 each Sertraline HCl (Zoloft) 50 mg PO DAILY [facility] Last Admin: 11/20/18 08:38 Dose: 50 mg Simvastatin (Zocor) 40 mg PO BEDTIME [facility] Last Admin: 11/19/18 20:58 Dose: 40 mg Sodium Chloride (Saline Flush) 10 ml FLUSH ASDIRECTED PRN PRN Reason: Keep Vein Open Sodium Chloride (Saline Flush) 2.5 ml FLUSH ASDIRECTED PRN PRN Reason: Keep Vein Open Spironolactone (Aldactone) 25 mg PO DAILY [facility] Last Admin: 11/20/18 08:38 Dose: 25 mg Warfarin Sodium (Coumadin) 6 mg PO DAILY@1400 [facility] Last Admin: 11/20/18 14:04 Dose: 6 mg Discontinued Medications Fentanyl (Sublimaze) 25 mcg IVPUSH Q5M PRN PRN Reason: Pain (severe 7-10) Stop: 11/19/18 15:44 Fentanyl (Sublimaze) Confirm Administered Dose 250 mcg .ROUTE .STK-MED ONE Stop: 11/18/18 17:44 Heparin Sodium (Porcine) (Heparin Sodium) 5,000 units SUBCUT Q8H [facility] Last Admin: 11/18/18 01:20 Dose: Not Given Heparin Sodium (Porcine) (Heparin Sodium) 5,000 units SUBCUT Q8H [facility] Last Admin: 11/18/18 11:28 Dose: Not Given Hydromorphone HCl (Dilaudid) 0.5 mg IVPUSH Q4H PRN PRN Reason: Pain (severe 7-10) Hydromorphone HCl (Dilaudid) 0.25 mg IVPUSH Q10M PRN PRN Reason: Pain (severe 7-10) Stop: 11/19/18 15:44 Sodium Chloride (Normal Saline) 1,000 mls @ 125 mls/hr IV STAT [facility] Last Admin: 11/18/18 00:36 Dose: 125 mls/hr Clindamycin Phosphate 600 mg/ (Premix) 50 mls @ 100 mls/hr IV ONETIME ONE Stop: 11/18/18 11:40 Last Admin: 11/18/18 18:00 Dose: Not Given Clindamycin Phosphate (Cleocin In D5w) Confirm Administered Dose 50 mls @ as directed .ROUTE .STK-MED ONE Stop: 11/18/18 17:56 Last Admin: 11/18/18 17:59 Dose: 100 mls/hr Clindamycin Phosphate 600 mg/ (Premix) 50 mls @ 100 mls/hr IV Q8H [facility] Stop: 11/19/18 10:29 Last Admin: 11/19/18 09:08 Dose: 100 mls/hr Lidocaine (Xylocaine-Mpf 2%) Confirm Administered Dose 5 ml .ROUTE .STK-MED ONE Stop: 11/18/18 17:43 Meperidine HCl (Demerol) 12.5 mg IVPUSH .ONCE [place] Midazolam HCl (Versed 1 Mg/Ml) Confirm Administered Dose 2 mg .ROUTE .STK-MED ONE Stop: 11/18/18 17:44 Morphine Sulfate (Morphine) 2 mg IVPUSH ONETIME ONE Stop: 11/17/18 22:10 Last Admin: 11/17/18 22:42 Dose: 2 mg Ondansetron HCl (Zofran) 4 mg IVPUSH ONETIME ONE Stop: 11/17/18 22:10 Last Admin: 11/17/18 22:41 Dose: 4 mg Ondansetron HCl (Zofran) 4 mg IVPUSH .[place] Ondansetron HCl (Zofran) Confirm Administered Dose 4 mg .ROUTE .STK-MED ONE Stop: 11/18/18 17:43 Isosorbide (Mononitrate 10 Mg) 1 each PO BID [facility] Last Admin: 11/19/18 09:14 Dose: Not Given Vit B12 500 Mcg 1 each PO DAILY [facility] Last Admin: 11/19/18 09:14 Dose: Not Given Propofol (Diprivan 20 Ml) Confirm Administered Dose 200 mg .ROUTE .STK-MED ONE Stop: 11/18/18 17:44 Rocuronium Dewitt (Zemuron) Confirm Administered Dose 100 mg .ROUTE .STK-MED ONE Stop: 11/18/18 17:43 Succinylcholine Chloride (Quelicin) Confirm Administered Dose 200 mg .ROUTE .STK -MED ONE Stop: 11/18/18 17:43
[2018-11-20] MEDS: Furosemide 40 MG Tab PO SCH (10:09)
[2018-11-20] MEDS: Warfarin 2 MG Tab PO SCH (14:04)
[2018-11-20] MEDS: cefTRIAXone 1 GM in Sodium Chloride 0.9% 50 ML IV SCH (17:34)
[2018-11-20] MEDS: Simvastatin 40 MG Tab PO SCH (21:07)
[2018-11-21] MEDS: Heparin Sodium 5,000 Units/ML Vial SUBCUT SCH ×3 (00:33→17:08)
[2018-11-21] MEDS: oxyCODONE 5 MG Tab PO PRN ×4 (00:34→22:42)
[2018-11-21] MEDS: Sodium Chloride 0.9% 1,000 ML IV SCH ×2 (00:38→22:28)
[2018-11-21] MEDS: Furosemide 40 MG Tab PO SCH (08:05)
[2018-11-21] MEDS: Spironolactone 25 MG Tab PO SCH (08:05)
[2018-11-21] MEDS: Lisinopril 10 MG Tab PO SCH (08:05)
[2018-11-21] MEDS: CYANOCOBALAMIN 500 MCG PO SCH (08:06)
[2018-11-21] MEDS: Sertraline 50 MG Tab PO SCH (08:08)
[2018-11-21] MEDS: Carboxymethylcellulose Sodium 0.5% Ophth Soln 0.4 ML UD Box of 30 EYEBOTH SCH ×2 (08:08→21:03)
--- NOTE | 2018-11-21 09:24 | PCM.PN ---
<Gary Osei - Last Filed: 11/21/18 09:29> - General Info Date of Service: 11/21/18 Subjective Update: She feels well today. Says shes only pain when she bears weight on her leg. Otherwise denies fever, chills, sob, chest pain. She was given 2 units of PRBC yesterday. Hgb this morning is 9.8 - Review of Systems General: Reports: Other (see hpi) - Patient Data Vitals - Most Recent: Last Vital Signs Temp 36.9 C 11/21/18 08:00 Pulse 75 11/21/18 08:00 Resp 18 11/21/18 08:00 BP 132/61 11/21/18 08:05 Pulse Ox 92 L 11/21/18 08:00 Weight - Most Recent: 62.142 kg I&O - Last 24 Hours: Intake & Output 11/20/18 11/21/18 11/21/18 22:59 06:59 14:59 Intake Total 1374 1299 Output Total 200 300 Balance 1174 999 Lab Results Last 24 Hours: Laboratory Results - last 24 hr 11/18/18 11/20/18 11/21/18 Range/Units 11:28 17:10 06:43 WBC 10.74 (4.0-11.0) K/uL RBC 3.24 L (4.30-5.90) M/uL Hgb 10.6 L 9.8 L (12.0-16.0) g/dL Hct 32.3 L 30.7 L (36.0-46.0) % MCV 94.8 (80.0-98.0) fL MCH 30.2 (27.0-32.0) pg MCHC 31.9 (31.0-37.0) g/dL RDW Std Deviation 57.2 (28.0-62.0) fl RDW Coeff of Aleksandr 17 H (11.0-15.0) % Plt Count 111 L (150-400) K/uL MPV 9.70 (7.40-12.00) fL Neut % (Auto) 63.9 (48.0-80.0) % Lymph % (Auto) 21.1 (16.0-40.0) % [place] % (Auto) 12.6 (0.0-15.0) % Eos % (Auto) 2.2 (0.0-7.0) % Baso % (Auto) 0.2 (0.0-1.5) % Neut # (Auto) 6.9 H (1.4-5.7) K/uL Lymph # (Auto) 2.3 (0.6-2.4) K/uL [place] # (Auto) 1.4 H (0.0-0.8) K/uL Eos # (Auto) 0.2 (0.0-0.7) K/uL Baso # (Auto) 0.0 (0.0-0.1) K/uL Nucleated RBC % 0.0 /100WBC Nucleated RBCs # 0 K/uL INR Sodium (136-145) mmol/L Potassium (3.5-5.1) mmol/L Chloride (98-107) mmol/L Carbon Dioxide (21.0-32.0) mmol/L BUN (7.0-18.0) mg/dL Creatinine (0.6-1.0) mg/dL Est Cr Clr Drug Dosing mL/min Estimated GFR (MDRD) ml/min Glucose (74-106) mg/dL Calcium (8.5-10.1) mg/dL Total Bilirubin (0.2-1.0) mg/dL AST (15-37) IU/L ALT (14-63) IU/L Alkaline Phosphatase (46-116) U/L Total Protein (6.4-8.2) g/dL Albumin (3.4-5.0) g/dL Globulin (2.6-4.0) g/dL Albumin/Globulin Ratio (0.9-1.6) Blood Type A POSITIVE Antibody Screen NEGATIVE Crossmatch See Detail 11/21/18 11/21/18 Range/Units 06:43 08:48 WBC (4.0-11.0) K/uL RBC (4.30-5.90) M/uL Hgb (12.0-16.0) g/dL Hct (36.0-46.0) % MCV (80.0-98.0) fL MCH (27.0-32.0) pg MCHC (31.0-37.0) g/dL RDW Std Deviation (28.0-62.0) fl RDW Coeff of Aleksandr (11.0-15.0) % Plt Count (150-400) K/uL MPV (7.40-12.00) fL Neut % (Auto) (48.0-80.0) % Lymph % (Auto) (16.0-40.0) % [place] % (Auto) (0.0-15.0) % Eos % (Auto) (0.0-7.0) % Baso % (Auto) (0.0-1.5) % Neut # (Auto) (1.4-5.7) K/uL Lymph # (Auto) (0.6-2.4) K/uL [place] # (Auto) (0.0-0.8) K/uL Eos # (Auto) (0.0-0.7) K/uL Baso # (Auto) (0.0-0.1) K/uL Nucleated RBC % /100WBC Nucleated RBCs # K/uL INR 1.22 Sodium 135 L (136-145) mmol/L Potassium 4.8 (3.5-5.1) mmol/L Chloride 104 (98-107) mmol/L Carbon Dioxide 21.0 (21.0-32.0) mmol/L BUN 38 H (7.0-18.0) mg/dL Creatinine 1.7 H (0.6-1.0) mg/dL Est Cr Clr Drug Dosing 17.61 mL/min Estimated GFR (MDRD) 28.4 ml/min Glucose 103 (74-106) mg/dL Calcium 8.6 (8.5-10.1) mg/dL Total Bilirubin 0.7 (0.2-1.0) mg/dL AST 14 L (15-37) IU/L ALT 9 L (14-63) IU/L Alkaline Phosphatase 52 (46-116) U/L Total Protein 6.0 L (6.4-8.2) g/dL Albumin 2.7 L (3.4-5.0) g/dL Globulin 3.3 (2.6-4.0) g/dL Albumin/Globulin Ratio 0.8 L (0.9-1.6) Blood Type Antibody Screen Crossmatch Sunil Results Last 24 Hours: Microbiology 11/18/18 12:31 Urine Culture - Final Urine, Clean Catch No Growth Med Orders - Current: Current Medications Acetaminophen (Tylenol) 650 mg PO Q4H PRN PRN Reason: Pain (Mild 1-3)/fever Artificial Tears (Refresh Plus 0.5%) 0 each EYEBOTH BID [facility] Last Admin: 11/21/18 08:08 Dose: 1 drop Heparin Sodium (Porcine) (Heparin Sodium) 5,000 units SUBCUT Q8H [facility] Last Admin: 11/21/18 08:05 Dose: 5,000 units Hydromorphone HCl (Dilaudid) 0.5 mg IV Q4H PRN PRN Reason: Pain (severe 7-10) Last Admin: 11/18/18 06:26 Dose: 0.5 mg Sodium Chloride (Normal Saline) 1,000 mls @ 50 mls/hr IV ASDIRECTED [facility] Last Admin: 11/21/18 00:38 Dose: 50 mls/hr Ceftriaxone Sodium 1 gm/ (Sodium Chloride) 50 mls @ 100 mls/hr IV Q24H [facility] Last Admin: 11/20/18 17:34 Dose: 100 mls/hr Lisinopril (Prinivil) 10 mg PO DAILY [facility] Last Admin: 11/21/18 08:05 Dose: 10 mg Morphine Sulfate (Morphine) 1 - 2 mg IVPUSH Q3H PRN PRN Reason: Pain Last Admin: 11/20/18 06:03 Dose: 2 mg Ondansetron HCl (Zofran) 4 mg IVPUSH Q4H PRN PRN Reason: Nausea/Vomiting Oxycodone HCl (Oxycodone) 5 mg PO Q4H PRN PRN Reason: Pain (moderate 4-6) Last Admin: 11/21/18 05:48 Dose: 5 mg Vit B12 500 Mcg 1 each PO DAILY [facility] Last Admin: 11/21/18 08:06 Dose: 1 each Isosorbide (Mononitrate 10 Mg) 1 each PO BID [facility] Last Admin: 11/21/18 08:06 Dose: 1 each Sertraline HCl (Zoloft) 50 mg PO DAILY [facility] Last Admin: 11/21/18 08:08 Dose: 50 mg Simvastatin (Zocor) 40 mg PO BEDTIME [facility] Last Admin: 11/20/18 21:07 Dose: 40 mg Sodium Chloride (Saline Flush) 10 ml FLUSH ASDIRECTED PRN PRN Reason: Keep Vein Open Sodium Chloride (Saline Flush) 2.5 ml FLUSH ASDIRECTED PRN PRN Reason: Keep Vein Open Spironolactone (Aldactone) 25 mg PO DAILY [facility] Last Admin: 11/21/18 08:05 Dose: 25 mg Warfarin Sodium (Coumadin) 6 mg PO DAILY@1400 [facility] Last Admin: 11/20/18 14:04 Dose: 6 mg Discontinued Medications Fentanyl (Sublimaze) 25 mcg IVPUSH Q5M PRN PRN Reason: Pain (severe 7-10) Stop: 11/19/18 15:44 Fentanyl (Sublimaze) Confirm Administered Dose 250 mcg .ROUTE .STK-MED [facility] Stop: 11/18/18 17:44 Furosemide (Lasix) 40 mg PO DAILY [facility] Last Admin: 11/21/18 08:05 Dose: 40 mg Heparin Sodium (Porcine) (Heparin Sodium) 5,000 units SUBCUT Q8H [facility] Last Admin: 11/18/18 01:20 Dose: Not Given Heparin Sodium (Porcine) (Heparin Sodium) 5,000 units SUBCUT Q8H [facility] Last Admin: 11/18/18 11:28 Dose: Not Given Hydromorphone HCl (Dilaudid) 0.5 mg IVPUSH Q4H PRN PRN Reason: Pain (severe 7-10) Hydromorphone HCl (Dilaudid) 0.25 mg IVPUSH Q10M PRN PRN Reason: Pain (severe 7-10) Stop: 11/19/18 15:44 Sodium Chloride (Normal Saline) 1,000 mls @ 125 mls/hr IV STAT [facility] Last Admin: 11/18/18 00:36 Dose: 125 mls/hr Clindamycin Phosphate 600 mg/ (Premix) 50 mls @ 100 mls/hr IV ONETIME ONE Stop: 11/18/18 11:40 Last Admin: 11/18/18 18:00 Dose: Not Given Clindamycin Phosphate (Cleocin In D5w) Confirm Administered Dose 50 mls @ as directed .ROUTE .STK-MED ONE Stop: 11/18/18 17:56 Last Admin: 11/18/18 17:59 Dose: 100 mls/hr Clindamycin Phosphate 600 mg/ (Premix) 50 mls @ 100 mls/hr IV Q8H [facility] Stop: 11/19/18 10:29 Last Admin: 11/19/18 09:08 Dose: 100 mls/hr Lidocaine (Xylocaine-Mpf 2%) Confirm Administered Dose 5 ml .ROUTE .ST-MED ONE Stop: 11/18/18 17:43 Meperidine HCl (Demerol) 12.5 mg IVPUSH .ONCE [place] Midazolam HCl (Versed 1 Mg/Ml) Confirm Administered Dose 2 mg .ROUTE .STK-MED ONE Stop: 11/18/18 17:44 Morphine Sulfate (Morphine) 2 mg IVPUSH ONETIME ONE Stop: 11/17/18 22:10 Last Admin: 11/17/18 22:42 Dose: 2 mg Ondansetron HCl (Zofran) 4 mg IVPUSH ONETIME ONE Stop: 11/17/18 22:10 Last Admin: 11/17/18 22:41 Dose: 4 mg Ondansetron HCl (Zofran) 4 mg IVPUSH .[place] Ondansetron HCl (Zofran) Confirm Administered Dose 4 mg .ROUTE .ST-MED ONE Stop: 11/18/18 17:43 Isosorbide (Mononitrate 10 Mg) 1 each PO BID [facility] Last Admin: 11/19/18 09:14 Dose: Not Given Vit B12 500 Mcg 1 each PO DAILY [facility] Last Admin: 11/19/18 09:14 Dose: Not Given Propofol (Diprivan 20 Ml) Confirm Administered Dose 200 mg .ROUTE .STK-MED ONE Stop: 11/18/18 17:44 Rocuronium [place] (Zemuron) Confirm Administered Dose 100 mg .ROUTE .STK-MED ONE Stop: 11/18/18 17:43 Succinylcholine Chloride (Quelicin) Confirm Administered Dose 200 mg .ROUTE .ST -MED ONE Stop: 11/18/18 17:43 - Exam General: Alert, Oriented HEENT: Pupils Equal, Pupils Reactive, EOMI, Mucous Membr. Moist/[place] Neck: Supple Lungs: Clear to Auscultation, Normal Respiratory Effort Cardiovascular: Regular Rate, Regular Rhythm GI/Abdominal Exam: Normal Bowel Sounds, Soft, Non-Tender, No Organomegaly, No Distention, No Abnormal Bruit, No Mass, Pelvis Stable Back Exam: Normal Inspection, Full Range of Motion Extremities: Other (trace pedal edema ) Peripheral Pulses: 2+: Dorsalis Pedis (L), Dorsalis Pedis (R) Psy/Mental Status: Alert, Normal Affect, Normal Mood - Problem List Review Problem List Initiated/Reviewed/Updated: Yes - My Orders Last 24 Hours: My Active Orders 11/20/18 09:00 Lisinopril [Prinivil] 10 mg PO DAILY 11/20/18 11:10 Communication Order [RC] ROUTINE 11/22/18 05:11 BASIC METABOLIC PANEL,BMP [CHEM] AM HEMOGLOBIN/HEMATOCRIT,HH [HEME] AM INR,PT,PROTHROMBIN TIME [COAG] AM - Plan Plan:: Assessment: #1. Post-op day 3 R hip fixation #2. Post-op anemia #3. Acute on chronic kidney disease #4. Subtherapeutic INR #5. History of A. Fib, CAD, CABG, CKD Plan: #1. Hold lasix and lisinopril given [place]. Strict I's and O's. #2. Continue heparin and coumadin. Will increase coumadin to 8mg today. #3. H/H, BMP, PT/INR tomorrow AM #4. Will be discharged home with home health when ready for discharge. <John Howard - Last Filed: 11/21/18 13:19> - General Info Admission Dx/Problem (Free Text): I have seen and examined the patient independently of medical claims representative. I agree with the assessment and plan of care as outlined by the medical claims representative. Please see orders. - Patient Data Vitals - Most Recent: Last Vital Signs Temp 36.9 C 11/21/18 08:00 Pulse 75 11/21/18 08:00 Resp 18 11/21/18 08:00 BP 132/61 11/21/18 08:05 Pulse Ox 92 L 11/21/18 08:00 I&O - Last 24 Hours: Intake & Output 11/20/18 11/21/18 11/21/18 22:59 06:59 14:59 Intake Total 1374 1299 Output Total 200 300 Balance 1174 999 Lab Results Last 24 Hours: Laboratory Results - last 24 hr 11/18/18 11/20/18 11/21/18 Range/Units 11:28 17:10 06:43 WBC 10.74 (4.0-11.0) K/uL RBC 3.24 L (4.30-5.90) M/uL Hgb 10.6 L 9.8 L (12.0-16.0) g/dL Hct 32.3 L 30.7 L (36.0-46.0) % MCV 94.8 (80.0-98.0) fL MCH 30.2 (27.0-32.0) pg MCHC 31.9 (31.0-37.0) g/dL RDW Std Deviation 57.2 (28.0-62.0) fl RDW Coeff of Aleksandr 17 H (11.0-15.0) % Plt Count 111 L (150-400) K/uL MPV 9.70 (7.40-12.00) fL Neut % (Auto) 63.9 (48.0-80.0) % Lymph % (Auto) 21.1 (16.0-40.0) % [place] % (Auto) 12.6 (0.0-15.0) % Eos % (Auto) 2.2 (0.0-7.0) % Baso % (Auto) 0.2 (0.0-1.5) % Neut # (Auto) 6.9 H (1.4-5.7) K/uL Lymph # (Auto) 2.3 (0.6-2.4) K/uL [place] # (Auto) 1.4 H (0.0-0.8) K/uL Eos # (Auto) 0.2 (0.0-0.7) K/uL Baso # (Auto) 0.0 (0.0-0.1) K/uL Nucleated RBC % 0.0 /100WBC Nucleated RBCs # 0 K/uL INR Sodium (136-145) mmol/L Potassium (3.5-5.1) mmol/L Chloride (98-107) mmol/L Carbon Dioxide (21.0-32.0) mmol/L BUN (7.0-18.0) mg/dL Creatinine (0.6-1.0) mg/dL Est Cr Clr Drug Dosing mL/min Estimated GFR (MDRD) ml/min Glucose (74-106) mg/dL Calcium (8.5-10.1) mg/dL Total Bilirubin (0.2-1.0) mg/dL AST (15-37) IU/L ALT (14-63) IU/L Alkaline Phosphatase (46-116) U/L Total Protein (6.4-8.2) g/dL Albumin (3.4-5.0) g/dL Globulin (2.6-4.0) g/dL Albumin/Globulin Ratio (0.9-1.6) Blood Type A POSITIVE Antibody Screen NEGATIVE Crossmatch See Detail 11/21/18 11/21/18 Range/Units 06:43 08:48 WBC (4.0-11.0) K/uL RBC (4.30-5.90) M/uL Hgb (12.0-16.0) g/dL Hct (36.0-46.0) % MCV (80.0-98.0) fL MCH (27.0-32.0) pg MCHC (31.0-37.0) g/dL RDW Std Deviation (28.0-62.0) fl RDW Coeff of Aleksandr (11.0-15.0) % Plt Count (150-400) K/uL MPV (7.40-12.00) fL Neut % (Auto) (48.0-80.0) % Lymph % (Auto) (16.0-40.0) % [place] % (Auto) (0.0-15.0) % Eos % (Auto) (0.0-7.0) % Baso % (Auto) (0.0-1.5) % Neut # (Auto) (1.4-5.7) K/uL Lymph # (Auto) (0.6-2.4) K/uL [place] # (Auto) (0.0-0.8) K/uL Eos # (Auto) (0.0-0.7) K/uL Baso # (Auto) (0.0-0.1) K/uL Nucleated RBC % /100WBC Nucleated RBCs # K/uL INR 1.22 Sodium 135 L (136-145) mmol/L Potassium 4.8 (3.5-5.1) mmol/L Chloride 104 (98-107) mmol/L Carbon Dioxide 21.0 (21.0-32.0) mmol/L BUN 38 H (7.0-18.0) mg/dL Creatinine 1.7 H (0.6-1.0) mg/dL Est Cr Clr Drug Dosing 17.61 mL/min Estimated GFR (MDRD) 28.4 ml/min Glucose 103 (74-106) mg/dL Calcium 8.6 (8.5-10.1) mg/dL Total Bilirubin 0.7 (0.2-1.0) mg/dL AST 14 L (15-37) IU/L ALT 9 L (14-63) IU/L Alkaline Phosphatase 52 (46-116) U/L Total Protein 6.0 L (6.4-8.2) g/dL Albumin 2.7 L (3.4-5.0) g/dL Globulin 3.3 (2.6-4.0) g/dL Albumin/Globulin Ratio 0.8 L (0.9-1.6) Blood Type Antibody Screen Crossmatch Sunil Results Last 24 Hours: Microbiology 11/18/18 12:31 Urine Culture - Final Urine, Clean Catch No Growth Med Orders - Current: Current Medications Acetaminophen (Tylenol) 650 mg PO Q4H PRN PRN Reason: Pain (Mild 1-3)/fever Artificial Tears (Refresh Plus 0.5%) 0 each EYEBOTH BID [facility] Last Admin: 11/21/18 08:08 Dose: 1 drop Heparin Sodium (Porcine) (Heparin Sodium) 5,000 units SUBCUT Q8H [facility] Last Admin: 11/21/18 08:05 Dose: 5,000 units Hydromorphone HCl (Dilaudid) 0.5 mg IV Q4H PRN PRN Reason: Pain (severe 7-10) Last Admin: 11/18/18 06:26 Dose: 0.5 mg Sodium Chloride (Normal Saline) 1,000 mls @ 50 mls/hr IV ASDIRECTED [facility] Last Admin: 11/21/18 00:38 Dose: 50 mls/hr Ceftriaxone Sodium 1 gm/ (Sodium Chloride) 50 mls @ 100 mls/hr IV Q24H [facility] Last Admin: 11/20/18 17:34 Dose: 100 mls/hr Morphine Sulfate (Morphine) 1 - 2 mg IVPUSH Q3H PRN PRN Reason: Pain Last Admin: 11/20/18 06:03 Dose: 2 mg Ondansetron HCl (Zofran) 4 mg IVPUSH Q4H PRN PRN Reason: Nausea/Vomiting Oxycodone HCl (Oxycodone) 5 mg PO Q4H PRN PRN Reason: Pain (moderate 4-6) Last Admin: 11/21/18 05:48 Dose: 5 mg Vit B12 500 Mcg 1 each PO DAILY [facility] Last Admin: 11/21/18 08:06 Dose: 1 each Isosorbide (Mononitrate 10 Mg) 1 each PO BID [facility] Last Admin: 11/21/18 08:06 Dose: 1 each Sertraline HCl (Zoloft) 50 mg PO DAILY [facility] Last Admin: 11/21/18 08:08 Dose: 50 mg Simvastatin (Zocor) 40 mg PO BEDTIME [facility] Last Admin: 11/20/18 21:07 Dose: 40 mg Sodium Chloride (Saline Flush) 10 ml FLUSH ASDIRECTED PRN PRN Reason: Keep Vein Open Sodium Chloride (Saline Flush) 2.5 ml FLUSH ASDIRECTED PRN PRN Reason: Keep Vein Open Spironolactone (Aldactone) 25 mg PO DAILY [facility] Last Admin: 11/21/18 08:05 Dose: 25 mg Warfarin Sodium (Coumadin) 8 mg PO DAILY@1400 [facility] Discontinued Medications Fentanyl (Sublimaze) 25 mcg IVPUSH Q5M PRN PRN Reason: Pain (severe 7-10) Stop: 11/19/18 15:44 Fentanyl (Sublimaze) Confirm Administered Dose 250 mcg .ROUTE .[facility]-MED ONE Stop: 11/18/18 17:44 Furosemide (Lasix) 40 mg PO DAILY [facility] Last Admin: 11/21/18 08:05 Dose: 40 mg Heparin Sodium (Porcine) (Heparin Sodium) 5,000 units SUBCUT Q8H [facility] Last Admin: 11/18/18 01:20 Dose: Not Given Heparin Sodium (Porcine) (Heparin Sodium) 5,000 units SUBCUT Q8H [facility] Last Admin: 11/18/18 11:28 Dose: Not Given Hydromorphone HCl (Dilaudid) 0.5 mg IVPUSH Q4H PRN PRN Reason: Pain (severe 7-10) Hydromorphone HCl (Dilaudid) 0.25 mg IVPUSH Q10M PRN PRN Reason: Pain (severe 7-10) Stop: 11/19/18 15:44 Sodium Chloride (Normal Saline) 1,000 mls @ 125 mls/hr IV STAT [facility] Last Admin: 11/18/18 00:36 Dose: 125 mls/hr Clindamycin Phosphate 600 mg/ (Premix) 50 mls @ 100 mls/hr IV ONETIME ONE Stop: 11/18/18 11:40 Last Admin: 11/18/18 18:00 Dose: Not Given Clindamycin Phosphate (Cleocin In D5w) Confirm Administered Dose 50 mls @ as directed .ROUTE .STK-MED ONE Stop: 11/18/18 17:56 Last Admin: 11/18/18 17:59 Dose: 100 mls/hr Clindamycin Phosphate 600 mg/ (Premix) 50 mls @ 100 mls/hr IV Q8H [facility] Stop: 11/19/18 10:29 Last Admin: 11/19/18 09:08 Dose: 100 mls/hr Lidocaine (Xylocaine-Mpf 2%) Confirm Administered Dose 5 ml .ROUTE .STK-MED ONE Stop: 11/18/18 17:43 Lisinopril (Prinivil) 10 mg PO DAILY [facility] Last Admin: 11/21/18 08:05 Dose: 10 mg Meperidine HCl (Demerol) 12.5 mg IVPUSH .[place] Midazolam HCl (Versed 1 Mg/Ml) Confirm Administered Dose 2 mg .ROUTE .STK-MED ONE Stop: 11/18/18 17:44 Morphine Sulfate (Morphine) 2 mg IVPUSH ONETIME ONE Stop: 11/17/18 22:10 Last Admin: 11/17/18 22:42 Dose: 2 mg Ondansetron HCl (Zofran) 4 mg IVPUSH ONETIME ONE Stop: 11/17/18 22:10 Last Admin: 11/17/18 22:41 Dose: 4 mg Ondansetron HCl (Zofran) 4 mg IVPUSH .[place] Ondansetron HCl (Zofran) Confirm Administered Dose 4 mg .ROUTE .STK-MED ONE Stop: 11/18/18 17:43 Isosorbide (Mononitrate 10 Mg) 1 each PO BID [facility] Last Admin: 11/19/18 09:14 Dose: Not Given Vit B12 500 Mcg 1 each PO DAILY [facility] Last Admin: 11/19/18 09:14 Dose: Not Given Propofol (Diprivan 20 Ml) Confirm Administered Dose 200 mg .ROUTE .STK-MED ONE Stop: 11/18/18 17:44 Rocuronium [place] (Zemuron) Confirm Administered Dose 100 mg .ROUTE .STK-MED ONE Stop: 11/18/18 17:43 Succinylcholine Chloride (Quelicin) Confirm Administered Dose 200 mg .ROUTE .STK -MED ONE Stop: 11/18/18 17:43 Warfarin Sodium (Coumadin) 6 mg PO DAILY@1400 [place] Last Admin: 11/20/18 14:04 Dose: 6 mg
[2018-11-21] MEDS: Warfarin 2 MG Tab PO SCH (14:08)
[2018-11-21] MEDS: cefTRIAXone 1 GM in Sodium Chloride 0.9% 50 ML IV SCH (17:24)
[2018-11-21] MEDS: Simvastatin 40 MG Tab PO SCH (21:03)
[2018-11-22] MEDS: Heparin Sodium 5,000 Units/ML Vial SUBCUT SCH ×3 (01:26→16:29)
--- NOTE | 2018-11-22 06:44 | PCM.PN ---
- General Info Date of Service: 11/22/18 Subjective Update: The patient is a 88-year-old lady who had been admitted to acute hospitalization on November 18, 2018. This is secondary to a fall with subsequent right intertrochanteric hip fracture. She is currently postop day # 3. The patient says that she has been feeling better. She has not been ambulating as well as she should. The patient is still having pain in her right hip. She otherwise has been tolerating her diet. She has no other complaints. Functional Status: Reports: Pain Controlled, Tolerating Diet - Review of Systems General: Reports: Weakness HEENT: Reports: No Symptoms Pulmonary: Reports: No Symptoms Cardiovascular: Reports: No Symptoms Gastrointestinal: Reports: No Symptoms 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: Reports: No Symptoms Musculoskeletal: Reports: Leg Pain Skin: Reports: No Symptoms Neurological: Reports: No Symptoms Psychiatric: Reports: No Symptoms - Patient Data Vitals - Most Recent: Last Vital Signs Temp 36.9 C 11/22/18 04:00 Pulse 60 11/22/18 04:00 Resp 18 11/22/18 04:00 BP 97/55 L 11/22/18 04:00 Pulse Ox 93 L 11/22/18 04:00 Weight - Most Recent: 62.142 kg I&O - Last 24 Hours: Intake & Output 11/21/18 11/21/18 11/22/18 14:59 22:59 06:59 Intake Total 1365 300 Output Total 1200 500 Balance 165 -200 Lab Results Last 24 Hours: Laboratory Results - last 24 hr 11/21/18 11/21/18 11/21/18 Range/Units 06:43 06:43 08:48 WBC 10.74 (4.0-11.0) K/uL RBC 3.24 L (4.30-5.90) M/uL Hgb 9.8 L (12.0-16.0) g/dL Hct 30.7 L (36.0-46.0) % MCV 94.8 (80.0-98.0) fL MCH 30.2 (27.0-32.0) pg MCHC 31.9 (31.0-37.0) g/dL RDW Std Deviation 57.2 (28.0-62.0) fl RDW Coeff of Aleksandr 17 H (11.0-15.0) % Plt Count 111 L (150-400) K/uL MPV 9.70 (7.40-12.00) fL Neut % (Auto) 63.9 (48.0-80.0) % Lymph % (Auto) 21.1 (16.0-40.0) % [place] % (Auto) 12.6 (0.0-15.0) % Eos % (Auto) 2.2 (0.0-7.0) % Baso % (Auto) 0.2 (0.0-1.5) % Neut # (Auto) 6.9 H (1.4-5.7) K/uL Lymph # (Auto) 2.3 (0.6-2.4) K/uL [place] # (Auto) 1.4 H (0.0-0.8) K/uL Eos # (Auto) 0.2 (0.0-0.7) K/uL Baso # (Auto) 0.0 (0.0-0.1) K/uL Nucleated RBC % 0.0 /100WBC Nucleated RBCs # 0 K/uL INR 1.22 Sodium 135 L (136-145) mmol/L Potassium 4.8 (3.5-5.1) mmol/L Chloride 104 (98-107) mmol/L Carbon Dioxide 21.0 (21.0-32.0) mmol/L BUN 38 H (7.0-18.0) mg/dL Creatinine 1.7 H (0.6-1.0) mg/dL Est Cr Clr Drug Dosing 17.61 mL/min Estimated GFR (MDRD) 28.4 ml/min Glucose 103 (74-106) mg/dL Calcium 8.6 (8.5-10.1) mg/dL Total Bilirubin 0.7 (0.2-1.0) mg/dL AST 14 L (15-37) IU/L ALT 9 L (14-63) IU/L Alkaline Phosphatase 52 (46-116) U/L Total Protein 6.0 L (6.4-8.2) g/dL Albumin 2.7 L (3.4-5.0) g/dL Globulin 3.3 (2.6-4.0) g/dL Albumin/Globulin Ratio 0.8 L (0.9-1.6) 0211/22/18 11/22/18 Range/Units 06:08 06:08 06:08 WBC (4.0-11.0) K/uL RBC (4.30-5.90) M/uL Hgb 8.8 L (12.0-16.0) g/dL Hct 26.9 L (36.0-46.0) % MCV (80.0-98.0) fL MCH (27.0-32.0) pg MCHC (31.0-37.0) g/dL RDW Std Deviation (28.0-62.0) fl RDW Coeff of Aleksandr (11.0-15.0) % Plt Count (150-400) K/uL MPV (7.40-12.00) fL Neut % (Auto) (48.0-80.0) % Lymph % (Auto) (16.0-40.0) % [place] % (Auto) (0.0-15.0) % Eos % (Auto) (0.0-7.0) % Baso % (Auto) (0.0-1.5) % Neut # (Auto) (1.4-5.7) K/uL Lymph # (Auto) (0.6-2.4) K/uL [place] # (Auto) (0.0-0.8) K/uL Eos # (Auto) (0.0-0.7) K/uL Baso # (Auto) (0.0-0.1) K/uL Nucleated RBC % /100WBC Nucleated RBCs # K/uL INR 1.60 Sodium 135 L (136-145) mmol/L Potassium 4.5 (3.5-5.1) mmol/L Chloride 106 (98-107) mmol/L Carbon Dioxide 20.8 L (21.0-32.0) mmol/L BUN 45 H (7.0-18.0) mg/dL Creatinine 1.6 H (0.6-1.0) mg/dL Est Cr Clr Drug Dosing 18.71 mL/min Estimated GFR (MDRD) 30.5 ml/min Glucose 105 (74-106) mg/dL Calcium 8.5 (8.5-10.1) mg/dL Total Bilirubin (0.2-1.0) mg/dL AST (15-37) IU/L ALT (14-63) IU/L Alkaline Phosphatase (46-116) U/L Total Protein (6.4-8.2) g/dL Albumin (3.4-5.0) g/dL Globulin (2.6-4.0) g/dL Albumin/Globulin Ratio (0.9-1.6) Med Orders - Current: Current Medications Acetaminophen (Tylenol) 650 mg PO Q4H PRN PRN Reason: Pain (Mild 1-3)/fever Artificial Tears (Refresh Plus 0.5%) 0 each EYEBOTH BID [facility] Last Admin: 11/21/18 21:03 Dose: 1 drop Heparin Sodium (Porcine) (Heparin Sodium) 5,000 units SUBCUT Q8H [facility] Last Admin: 11/22/18 01:26 Dose: 5,000 units Hydromorphone HCl (Dilaudid) 0.5 mg IV Q4H PRN PRN Reason: Pain (severe 7-10) Last Admin: 11/18/18 06:26 Dose: 0.5 mg Sodium Chloride (Normal Saline) 1,000 mls @ 50 mls/hr IV ASDIRECTED [facility] Last Admin: 11/21/18 22:28 Dose: 50 mls/hr Ceftriaxone Sodium 1 gm/ (Sodium Chloride) 50 mls @ 100 mls/hr IV Q24H [facility] Last Admin: 11/21/18 17:24 Dose: 100 mls/hr Morphine Sulfate (Morphine) 1 - 2 mg IVPUSH Q3H PRN PRN Reason: Pain Last Admin: 11/20/18 06:03 Dose: 2 mg Ondansetron HCl (Zofran) 4 mg IVPUSH Q4H PRN PRN Reason: Nausea/Vomiting Oxycodone HCl (Oxycodone) 5 mg PO Q4H PRN PRN Reason: Pain (moderate 4-6) Last Admin: 11/21/18 22:42 Dose: 5 mg Vit B12 500 Mcg 1 each PO DAILY [facility] Last Admin: 11/21/18 08:06 Dose: 1 each Isosorbide (Mononitrate 10 Mg) 1 each PO BID [facility] Last Admin: 11/21/18 21:03 Dose: 1 each Sertraline HCl (Zoloft) 50 mg PO DAILY [facility] Last Admin: 11/21/18 08:08 Dose: 50 mg Simvastatin (Zocor) 40 mg PO BEDTIME [facility] Last Admin: 11/21/18 21:03 Dose: 40 mg Sodium Chloride (Saline Flush) 10 ml FLUSH ASDIRECTED PRN PRN Reason: Keep Vein Open Sodium Chloride (Saline Flush) 2.5 ml FLUSH ASDIRECTED PRN PRN Reason: Keep Vein Open Spironolactone (Aldactone) 25 mg PO DAILY [facility] Last Admin: 11/21/18 08:05 Dose: 25 mg Warfarin Sodium (Coumadin) 8 mg PO DAILY@1400 [facility] Last Admin: 11/21/18 14:08 Dose: 8 mg Discontinued Medications Fentanyl (Sublimaze) 25 mcg IVPUSH Q5M PRN PRN Reason: Pain (severe 7-10) Stop: 11/19/18 15:44 Fentanyl (Sublimaze) Confirm Administered Dose 250 mcg .ROUTE .[facility]-MED ONE Stop: 11/18/18 17:44 Furosemide (Lasix) 40 mg PO DAILY [facility] Last Admin: 11/21/18 08:05 Dose: 40 mg Heparin Sodium (Porcine) (Heparin Sodium) 5,000 units SUBCUT Q8H [facility] Last Admin: 11/18/18 01:20 Dose: Not Given Heparin Sodium (Porcine) (Heparin Sodium) 5,000 units SUBCUT Q8H [facility] Last Admin: 11/18/18 11:28 Dose: Not Given Hydromorphone HCl (Dilaudid) 0.5 mg IVPUSH Q4H PRN PRN Reason: Pain (severe 7-10) Hydromorphone HCl (Dilaudid) 0.25 mg IVPUSH Q10M PRN PRN Reason: Pain (severe 7-10) Stop: 11/19/18 15:44 Sodium Chloride (Normal Saline) 1,000 mls @ 125 mls/hr IV STAT [facility] Last Admin: 11/18/18 00:36 Dose: 125 mls/hr Clindamycin Phosphate 600 mg/ (Premix) 50 mls @ 100 mls/hr IV ONETIME ONE Stop: 11/18/18 11:40 Last Admin: 11/18/18 18:00 Dose: Not Given Clindamycin Phosphate (Cleocin In D5w) Confirm Administered Dose 50 mls @ as directed .ROUTE .STK-MED ONE Stop: 11/18/18 17:56 Last Admin: 11/18/18 17:59 Dose: 100 mls/hr Clindamycin Phosphate 600 mg/ (Premix) 50 mls @ 100 mls/hr IV Q8H [facility] Stop: 11/19/18 10:29 Last Admin: 11/19/18 09:08 Dose: 100 mls/hr Lidocaine (Xylocaine-Mpf 2%) Confirm Administered Dose 5 ml .ROUTE .STK-MED ONE Stop: 11/18/18 17:43 Lisinopril (Prinivil) 10 mg PO DAILY [facility] Last Admin: 11/21/18 08:05 Dose: 10 mg Meperidine HCl (Demerol) 12.5 mg IVPUSH .[place]CE [place] Midazolam HCl (Versed 1 Mg/Ml) Confirm Administered Dose 2 mg .ROUTE .K-MED ONE Stop: 11/18/18 17:44 Morphine Sulfate (Morphine) 2 mg IVPUSH ONETIME ONE Stop: 11/17/18 22:10 Last Admin: 11/17/18 22:42 Dose: 2 mg Ondansetron HCl (Zofran) 4 mg IVPUSH ONETIME ONE Stop: 11/17/18 22:10 Last Admin: 11/17/18 22:41 Dose: 4 mg Ondansetron HCl (Zofran) 4 mg IVPUSH .[facility] [place] Ondansetron HCl (Zofran) Confirm Administered Dose 4 mg .ROUTE .[facility]-MED ONE Stop: 11/18/18 17:43 Isosorbide (Mononitrate 10 Mg) 1 each PO BID [facility] Last Admin: 11/19/18 09:14 Dose: Not Given Vit B12 500 Mcg 1 each PO DAILY [facility] Last Admin: 11/19/18 09:14 Dose: Not Given Propofol (Diprivan 20 Ml) Confirm Administered Dose 200 mg .ROUTE .STK-MED ONE Stop: 11/18/18 17:44 Rocuronium [place] ([place]) Confirm Administered Dose 100 mg .ROUTE .STK-MED ONE Stop: 11/18/18 17:43 Succinylcholine Chloride (Quelicin) Confirm Administered Dose 200 mg .ROUTE .STK -MED ONE Stop: 11/18/18 17:43 Warfarin Sodium (Coumadin) 6 mg PO DAILY@1400 [facility] Last Admin: 11/20/18 14:04 Dose: 6 mg - Exam Quality Assessment: No: Supplemental Oxygen General: Alert, Oriented, Cooperative, No Acute Distress HEENT: Pupils Equal, Pupils Reactive, EOMI Neck: Supple, Trachea Midline Lungs: Clear to Auscultation, Normal Respiratory Effort Cardiovascular: Regular Rate, Murmurs. No: Regular Rhythm GI/Abdominal Exam: Normal Bowel Sounds, Soft, Non-Tender, No Distention (Female) Exam: Deferred Back Exam: Normal Inspection (Kyphosis). No: Full Range of Motion Extremities: Normal Inspection, Other (Dressing clean and dry). No: Normal Range of Motion Skin: Warm, Dry, Intact Wound/Incisions: Healing Well, Dressing Dry and Intact Neurological: No New Focal Deficit Psy/Mental Status: Alert, Normal Affect - Problem List & Annotations (1) Intertrochanteric fracture, hip SNOMED Code(s): 850142252 Code(s): S72.143A - DISPLACED INTERTROCHANTERIC FRACTURE OF UNSP FEMUR, INIT Status: Acute Priority: High Current Visit: Yes (2) CAD (coronary artery disease), autologous vein bypass graft SNOMED Code(s): 410025140, 319320819 Code(s): I25.810 - ATHEROSCLEROSIS OF CABG W/O ANGINA PECTORIS Status: Chronic Priority: High Current Visit: Yes Qualifiers: Associated angina: without angina Qualified Code(s): I25.810 - Atherosclerosis of coronary artery bypass graft(s) without angina pectoris (3) Hypertension SNOMED Code(s): 16881187 Code(s): I10 - ESSENTIAL (PRIMARY) HYPERTENSION Status: Chronic Priority : High Current Visit: Yes Qualifiers: Hypertension type: essential hypertension Qualified Code(s): I10 - Essential (primary) hypertension (4) 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 SNOMED Code(s): 840360792 Code(s): N18.3 - CHRONIC KIDNEY DISEASE, STAGE 3 (MODERATE); D63.1 - ANEMIA IN CHRONIC KIDNEY DISEASE Status: Chronic Priority: High Current Visit: Yes (5) Chronic kidney disease (CKD), stage III (moderate) SNOMED Code(s): 443894493 Code(s): N18.3 - CHRONIC KIDNEY DISEASE, STAGE 3 (MODERATE) Status: Chronic Priority: High Current Visit: Yes (6) Atrial fibrillation SNOMED Code(s): 12040577 Code(s): I48.91 - UNSPECIFIED ATRIAL FIBRILLATION Status: Chronic Priority: High Current Visit: Yes Qualifiers: Atrial fibrillation type: chronic Qualified Code(s): I48.2 - Chronic atrial fibrillation - Problem List Review Problem List Initiated/Reviewed/Updated: Yes - Plan Plan:: Assessment: #1. Post-op day 3 R hip fixation #2. Post-op anemia #3. Acute on chronic kidney disease #4. Subtherapeutic INR #5. History of A. Fib, CAD, CABG, CKD Plan: #1. Hold lasix and lisinopril given TIAGO. Strict I's and O's. #2. Continue heparin and coumadin. Will increase coumadin to 8mg today. #3. H/H, BMP, PT/INR tomorrow AM #4. Will be discharged home with home health when ready for discharge. The patient is currently postoperative day #4 right hip fixation. She has been doing well and has been tolerating diet. She has not been exercising or walking as much as she should be. Physical therapy will follow. The patient's pain is controlled and she will be maintained on her current pain medication. The patient hasn't also been known to be anemic and as a result of this ordered repeat laboratory testings in the morning. If her hemoglobin has dropped below 7.0 g/dL we'll consider transfusion. She is currently not symptomatic. All her medication be renally dosed. Her INR is also not therapeutic for her atrial fibrillation and she has been recommended to have 10 mg of Coumadin tonight. I' ve ordered a repeat INR. Orthopedics is already signed off and will follow her as an outpatient. The patient has been encouraged to ambulate. She will continue on her diet as tolerated.
[2018-11-22] MEDS: Sertraline 50 MG Tab PO SCH (09:10)
[2018-11-22] MEDS: Spironolactone 25 MG Tab PO SCH (09:10)
[2018-11-22] MEDS: CYANOCOBALAMIN 500 MCG PO SCH (09:11)
[2018-11-22] MEDS: Carboxymethylcellulose Sodium 0.5% Ophth Soln 0.4 ML UD Box of 30 EYEBOTH SCH ×2 (09:13→20:52)
[2018-11-22] MEDS: oxyCODONE 5 MG Tab PO PRN ×3 (09:55→19:12)
[2018-11-22] MEDS: Warfarin 10 MG Tab PO SCH (14:30)
[2018-11-22] MEDS ORDERED: Docusate Sodium 100 MG Cap PO PRN (16:13)
[2018-11-22] MEDS: cefTRIAXone 1 GM in Sodium Chloride 0.9% 50 ML IV SCH (16:25)
[2018-11-22] MEDS: Simvastatin 40 MG Tab PO SCH (20:51)
[2018-11-23] MEDS: Sodium Chloride 0.9% 1,000 ML IV SCH (00:25)
[2018-11-23] MEDS: Heparin Sodium 5,000 Units/ML Vial SUBCUT SCH ×3 (00:31→16:46)
[2018-11-23] MEDS: oxyCODONE 5 MG Tab PO PRN ×2 (02:23→06:46)
[2018-11-23] MEDS: Carboxymethylcellulose Sodium 0.5% Ophth Soln 0.4 ML UD Box of 30 EYEBOTH SCH ×2 (08:35→20:48)
[2018-11-23] MEDS: Sertraline 50 MG Tab PO SCH (08:35)
[2018-11-23] MEDS: Spironolactone 25 MG Tab PO SCH (08:35)
[2018-11-23] MEDS: CYANOCOBALAMIN 500 MCG PO SCH (08:36)
--- NOTE | 2018-11-23 09:40 | PCM.DCSUM1 ---
<Gary Osei - Last Filed: 11/23/18 09:41> Discharge Summary - Hospital Course Free Text/Narrative:: Admission date: 11/18/2018 Discharge date: 11/23/2018 Admission diagnosis: #1. R hip fracture #2. History of A. Fib, chronic anticoagulation w/coumadin, HLD, CHF #3. subtherapeutic INR Discharge diagnosis: #1. R hip fracture s/p closed R hip fixation #2. Therapeutic INR on coumadin #3. History of A. Fib, CHF, HLD #4. Post-operative anemia #5. Therapeutic INR Disposition: Home with home health #1. Homebound - patient is unable to ambulate more than 20 feet before considerable pain. She is unsteady and a fall risk, needing to utilize a walker to ambulate safely. Weakness and deconditioning due to hospitalization and hip fracture is present. #2. Need for skilled service - PT strengthening due to weakness from recent hospitalization, s/p R hip surgery. OT - home safety evaluation for functional safety in home, assess/initiate plan for improvement for cognition issues. #3. Dr. Constantino - PCP will continue to follow the client for HH upon discharge. Hospital course: 88F with the medical history as mentioned above was admitted after having a fall resulting in an intratrochanteric fracture of R hip. Surgery completed by. Dr. Quick, orthopedics. Patient's length cardiac hx required cardiology clearance, which was approved. She did well with the surgery. Patient did have post-operative anemia w/Hgb of 8.0. I transfused her 2 units, w/recheck >10. Upon discharge, her hgb was 9.2. She did have IV fluids running. I recommend that she get a H/H within 1 week of discharge to be ordered by PCP. She was discharged home w/ home health - to continue PT at home. Follow up with orthopedics have been arranged. - Discharge Data Discharge Date: 11/23/18 Discharge Disposition: Home, W Home Health Agency 06 Condition: Good - Patient Summary/Data Operative Procedure(s) Performed: R hip CM nail Consults: Consultations 11/18/18 03:17 Consult to Physician [CONS] Routine 11/18/18 09:05 Consult to Physician [CONS] Routine 11/18/18 20:13 PT Evaluation and Treatment [CONS] Routine - Patient Instructions Diet: Heart Healthy Diet Activity: No Strenuous Activities Activity, Other: WBAT RLE Driving: Do Not Drive Showering/Bathing: May Shower Notify Provider of: Fever, Increased Pain, Swelling and Redness, Drainage, Nausea and/or Vomiting - Discharge Plan Prescriptions/Med Rec: oxyCODONE 5 mg PO Q4H PRN #10 tablet PRN Reason: Pain (Moderate 4-6) Home Medications: Home Meds Aspirin [Adult Low Dose Aspirin EC] 4 tab PO DAILY 10/23/16 [History] Furosemide 1 tab PO DAILY 10/23/16 [History] Isosorbide Mononitrate 10 mg PO BID 10/23/16 [History] Lisinopril 1 tab PO DAILY 10/23/16 [History] Sertraline HCl 1 tab PO DAILY 10/23/16 [History] Simvastatin [Zocor] 1 tab PO BEDTIME 10/23/16 [History] Spironolactone [Aldactone] 25 mg PO DAILY 10/23/16 [History] Warfarin [Coumadin] 6 mg PO DAILY 10/23/16 [History] oxyCODONE 5 mg PO Q4H PRN #10 tablet 11/23/18 [Rx] Patient Handouts: Open Reduction and Internal Fixation for Hip Fracture, Care After, Oxycodone tablets or capsules Referrals: Dedra Quick MD [Physician] - 12/31/18 2:00 pm Emanuel Constantino MD [Primary Care Provider] - 11/30/18 10:30 am Stefany Fernandez PA [Physician [employer]arf[employer] Clerk] - 12/01/18 2:40 pm - Discharge Summary/Plan Comment DC Time >30 min.: No - Patient Data Vitals - Most Recent: Last Vital Signs Temp 36.8 C 11/23/18 08:00 Pulse 60 11/23/18 08:00 Resp 14 11/23/18 08:00 BP 90/53 L 11/23/18 08:00 Pulse Ox 93 L 11/23/18 08:00 Weight - Most Recent: 62.142 kg I&O - Last 24 hours: Intake & Output 11/22/18 11/23/18 11/23/18 22:59 06:59 14:59 Intake Total 959 1399 Output Total 600 500 Balance 359 899 Lab Results - Last 24 hrs: Laboratory Results - last 24 hr 11/23/18 11/23/18 11/23/18 Range/Units 05:56 05:56 05:56 WBC 7.49 (4.0-11.0) K/uL RBC 2.97 L (4.30-5.90) M/uL Hgb 9.2 L (12.0-16.0) g/dL Hct 28.3 L (36.0-46.0) % MCV 95.3 (80.0-98.0) fL MCH 31.0 (27.0-32.0) pg MCHC 32.5 (31.0-37.0) g/dL RDW Std Deviation 54.0 (28.0-62.0) fl RDW Coeff of Aleksandr 16 H (11.0-15.0) % Plt Count 150 (150-400) K/uL MPV 9.50 (7.40-12.00) fL Neut % (Auto) 62.2 (48.0-80.0) % Lymph % (Auto) 19.4 (16.0-40.0) % Mayes % (Auto) 15.2 H (0.0-15.0) % Eos % (Auto) 2.9 (0.0-7.0) % Baso % (Auto) 0.3 (0.0-1.5) % Neut # (Auto) 4.7 (1.4-5.7) K/uL Lymph # (Auto) 1.5 (0.6-2.4) K/uL Mayes # (Auto) 1.1 H (0.0-0.8) K/uL Eos # (Auto) 0.2 (0.0-0.7) K/uL Baso # (Auto) 0.0 (0.0-0.1) K/uL Nucleated RBC % 0.0 /100WBC Nucleated RBCs # 0 K/uL INR 2.09 Sodium 137 (136-145) mmol/L Potassium 4.9 (3.5-5.1) mmol/L Chloride 106 (98-107) mmol/L Carbon Dioxide 20.9 L (21.0-32.0) mmol/L BUN 47 H (7.0-18.0) mg/dL Creatinine 1.5 H (0.6-1.0) mg/dL Est Cr Clr Drug Dosing 19.96 mL/min Estimated GFR (MDRD) 32.8 ml/min Glucose 104 (74-106) mg/dL Calcium 8.8 (8.5-10.1) mg/dL Med Orders - Current: Current Medications Acetaminophen (Tylenol) 650 mg PO Q4H PRN PRN Reason: Pain (Mild 1-3)/fever Artificial Tears (Refresh Plus 0.5%) 0 each EYEBOTH BID [facility] Last Admin: 11/23/18 08:35 Dose: 1 drop Docusate Sodium (Colace) 100 mg PO DAILY PRN PRN Reason: Constipation Last Admin: 11/22/18 16:31 Dose: 100 mg Heparin Sodium (Porcine) (Heparin Sodium) 5,000 units SUBCUT Q8H [facility] Last Admin: 11/23/18 08:34 Dose: 5,000 units Hydromorphone HCl (Dilaudid) 0.5 mg IV Q4H PRN PRN Reason: Pain (severe 7-10) Last Admin: 11/18/18 06:26 Dose: 0.5 mg Sodium Chloride (Normal Saline) 1,000 mls @ 50 mls/hr IV ASDIRECTED [facility] Last Admin: 11/23/18 00:25 Dose: 50 mls/hr Ceftriaxone Sodium 1 gm/ (Sodium Chloride) 50 mls @ 100 mls/hr IV Q24H [facility] Last Admin: 11/22/18 16:25 Dose: 100 mls/hr Morphine Sulfate (Morphine) 1 - 2 mg IVPUSH Q3H PRN PRN Reason: Pain Last Admin: 11/20/18 06:03 Dose: 2 mg Ondansetron HCl (Zofran) 4 mg IVPUSH Q4H PRN PRN Reason: Nausea/Vomiting Oxycodone HCl (Oxycodone) 5 mg PO Q4H PRN PRN Reason: Pain (moderate 4-6) Last Admin: 11/23/18 06:46 Dose: 5 mg Vit B12 500 Mcg 1 each PO DAILY [facility] Last Admin: 11/23/18 08:36 Dose: 1 each Isosorbide (Mononitrate 10 Mg) 1 each PO BID [facility] Last Admin: 11/23/18 08:36 Dose: 1 each Sertraline HCl (Zoloft) 50 mg PO DAILY [facility] Last Admin: 11/23/18 08:35 Dose: 50 mg Simvastatin (Zocor) 40 mg PO BEDTIME [facility] Last Admin: 11/22/18 20:51 Dose: 40 mg Sodium Chloride (Saline Flush) 10 ml FLUSH ASDIRECTED PRN PRN Reason: Keep Vein Open Sodium Chloride (Saline Flush) 2.5 ml FLUSH ASDIRECTED PRN PRN Reason: Keep Vein Open Spironolactone (Aldactone) 25 mg PO DAILY [facility] Last Admin: 11/23/18 08:35 Dose: 25 mg Warfarin Sodium (Coumadin) 8 mg PO DAILY@1400 [facility] Last Admin: 11/21/18 14:08 Dose: 8 mg Warfarin Sodium (Coumadin) 10 mg PO DAILY@1400 [facility] Last Admin: 11/22/18 14:30 Dose: 10 mg Discontinued Medications Artificial Tears (Refresh Plus 0.5%) 0 each EYEBOTH BID [facility] Last Admin: 11/22/18 20:52 Dose: 1 drop Fentanyl (Sublimaze) 25 mcg IVPUSH Q5M PRN PRN Reason: Pain (severe 7-10) Stop: 11/19/18 15:44 Fentanyl (Sublimaze) Confirm Administered Dose 250 mcg .ROUTE .STK-MED ONE Stop: 11/18/18 17:44 Furosemide (Lasix) 40 mg PO DAILY [facility] Last Admin: 11/21/18 08:05 Dose: 40 mg Heparin Sodium (Porcine) (Heparin Sodium) 5,000 units SUBCUT Q8H [facility] Last Admin: 11/18/18 01:20 Dose: Not Given Heparin Sodium (Porcine) (Heparin Sodium) 5,000 units SUBCUT Q8H [facility] Last Admin: 11/18/18 11:28 Dose: Not Given Hydromorphone HCl (Dilaudid) 0.5 mg IVPUSH Q4H PRN PRN Reason: Pain (severe 7-10) Hydromorphone HCl (Dilaudid) 0.25 mg IVPUSH Q10M PRN PRN Reason: Pain (severe 7-10) Stop: 11/19/18 15:44 Sodium Chloride (Normal Saline) 1,000 mls @ 125 mls/hr IV STAT [facility] Last Admin: 11/18/18 00:36 Dose: 125 mls/hr Clindamycin Phosphate 600 mg/ (Premix) 50 mls @ 100 mls/hr IV ONETIME ONE Stop: 11/18/18 11:40 Last Admin: 11/18/18 18:00 Dose: Not Given Clindamycin Phosphate (Cleocin In D5w) Confirm Administered Dose 50 mls @ as directed .ROUTE .STK-MED ONE Stop: 11/18/18 17:56 Last Admin: 11/18/18 17:59 Dose: 100 mls/hr Clindamycin Phosphate 600 mg/ (Premix) 50 mls @ 100 mls/hr IV Q8H [facility] Stop: 11/19/18 10:29 Last Admin: 11/19/18 09:08 Dose: 100 mls/hr Lidocaine (Xylocaine-Mpf 2%) Confirm Administered Dose 5 ml .ROUTE .STK-MED ONE Stop: 11/18/18 17:43 Lisinopril (Prinivil) 10 mg PO DAILY [facility] Last Admin: 11/21/18 08:05 Dose: 10 mg Meperidine HCl (Demerol) 12.5 mg IVPUSH .ONCE [place] Midazolam HCl (Versed 1 Mg/Ml) Confirm Administered Dose 2 mg .ROUTE .STK-MED ONE Stop: 11/18/18 17:44 Morphine Sulfate (Morphine) 2 mg IVPUSH ONETIME ONE Stop: 11/17/18 22:10 Last Admin: 11/17/18 22:42 Dose: 2 mg Ondansetron HCl (Zofran) 4 mg IVPUSH ONETIME ONE Stop: 11/17/18 22:10 Last Admin: 11/17/18 22:41 Dose: 4 mg Ondansetron HCl (Zofran) 4 mg IVPUSH .ONCE [place] Ondansetron HCl (Zofran) Confirm Administered Dose 4 mg .ROUTE .STK-MED ONE Stop: 11/18/18 17:43 Isosorbide (Mononitrate 10 Mg) 1 each PO BID [facility] Last Admin: 11/19/18 09:14 Dose: Not Given Vit B12 500 Mcg 1 each PO DAILY [facility] Last Admin: 11/19/18 09:14 Dose: Not Given Propofol (Diprivan 20 Ml) Confirm Administered Dose 200 mg .ROUTE .STK-MED ONE Stop: 11/18/18 17:44 Rocuronium Wendell (Zemuron) Confirm Administered Dose 100 mg .ROUTE .STK-MED ONE Stop: 11/18/18 17:43 Succinylcholine Chloride (Quelicin) Confirm Administered Dose 200 mg .ROUTE .STK -MED ONE Stop: 11/18/18 17:43 Warfarin Sodium (Coumadin) 6 mg PO DAILY@1400 [place] Last Admin: 11/20/18 14:04 Dose: 6 mg <John Howard - Last Filed: 11/23/18 11:42> Discharge Summary - Hospital Course HPI Initial Comments: I have seen and examined the patient independently of back office medical assistant. I agree with the assessment and plan of care as outlined for this patient by the resident. Please see orders. The patient due to her physical deconditioning and recent surgery she will be home bound and home health is recommended for her continued recovery. - Discharge Diagnosis/Problem(s) (1) Intertrochanteric fracture, hip SNOMED Code(s): 454221573 ICD Code: S72.143A - DISPLACED INTERTROCHANTERIC FRACTURE OF UNSP FEMUR, INIT Status: Acute Priority: High Current Visit: Yes (2) CAD (coronary artery disease), autologous vein bypass graft SNOMED Code(s): 303536971, 674586242 ICD Code: I25.810 - ATHEROSCLEROSIS OF CABG W/O ANGINA PECTORIS Status: Chronic Priority: High Current Visit: Yes Qualifiers: Associated angina: without angina Qualified Code(s): I25.810 - Atherosclerosis of coronary artery bypass graft(s) without angina pectoris (3) Hypertension SNOMED Code(s): 88986861 ICD Code: I10 - ESSENTIAL (PRIMARY) HYPERTENSION Status: Chronic Priority : High Current Visit: Yes Qualifiers: Hypertension type: essential hypertension Qualified Code(s): I10 - Essential (primary) hypertension (4) 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 SNOMED Code(s): 801993238 ICD Code: N18.3 - CHRONIC KIDNEY DISEASE, STAGE 3 (MODERATE); D63.1 - ANEMIA IN CHRONIC KIDNEY DISEASE Status: Chronic Priority: High Current Visit: Yes (5) Chronic kidney disease (CKD), stage III (moderate) SNOMED Code(s): 686634309 ICD Code: N18.3 - CHRONIC KIDNEY DISEASE, STAGE 3 (MODERATE) Status: Chronic Priority: High Current Visit: Yes (6) Atrial fibrillation SNOMED Code(s): 12512687 ICD Code: I48.91 - UNSPECIFIED ATRIAL FIBRILLATION Status: Chronic Priority: High Current Visit: Yes Qualifiers: Atrial fibrillation type: chronic Qualified Code(s): I48.2 - Chronic atrial fibrillation - Patient Summary/Data Consults: Consultations 11/18/18 03:17 Consult to Physician [CONS] Routine 11/18/18 09:05 Consult to Physician [CONS] Routine 11/18/18 20:13 PT Evaluation and Treatment [CONS] Routine 11/23/18 10:03 Consult to Home Health [CONS] Routine - Patient Data Vitals - Most Recent: Last Vital Signs Temp 36.8 C 11/23/18 08:00 Pulse 60 11/23/18 08:00 Resp 14 11/23/18 08:00 BP 90/53 L 11/23/18 08:00 Pulse Ox 93 L 11/23/18 08:00 I&O - Last 24 hours: Intake & Output 11/22/18 11/23/18 11/23/18 22:59 06:59 14:59 Intake Total 959 1399 Output Total 600 500 Balance 359 899 Lab Results - Last 24 hrs: Laboratory Results - last 24 hr 11/23/18 11/23/18 11/23/18 Range/Units 05:56 05:56 05:56 WBC 7.49 (4.0-11.0) K/uL RBC 2.97 L (4.30-5.90) M/uL Hgb 9.2 L (12.0-16.0) g/dL Hct 28.3 L (36.0-46.0) % MCV 95.3 (80.0-98.0) fL MCH 31.0 (27.0-32.0) pg MCHC 32.5 (31.0-37.0) g/dL RDW Std Deviation 54.0 (28.0-62.0) fl RDW Coeff of Aleksandr 16 H (11.0-15.0) % Plt Count 150 (150-400) K/uL MPV 9.50 (7.40-12.00) fL Neut % (Auto) 62.2 (48.0-80.0) % Lymph % (Auto) 19.4 (16.0-40.0) % Mayes % (Auto) 15.2 H (0.0-15.0) % Eos % (Auto) 2.9 (0.0-7.0) % Baso % (Auto) 0.3 (0.0-1.5) % Neut # (Auto) 4.7 (1.4-5.7) K/uL Lymph # (Auto) 1.5 (0.6-2.4) K/uL Mayes # (Auto) 1.1 H (0.0-0.8) K/uL Eos # (Auto) 0.2 (0.0-0.7) K/uL Baso # (Auto) 0.0 (0.0-0.1) K/uL Nucleated RBC % 0.0 /100WBC Nucleated RBCs # 0 K/uL INR 2.09 Sodium 137 (136-145) mmol/L Potassium 4.9 (3.5-5.1) mmol/L Chloride 106 (98-107) mmol/L Carbon Dioxide 20.9 L (21.0-32.0) mmol/L BUN 47 H (7.0-18.0) mg/dL Creatinine 1.5 H (0.6-1.0) mg/dL Est Cr Clr Drug Dosing 19.96 mL/min Estimated GFR (MDRD) 32.8 ml/min Glucose 104 (74-106) mg/dL Calcium 8.8 (8.5-10.1) mg/dL Med Orders - Current: Current Medications Acetaminophen (Tylenol) 650 mg PO Q4H PRN PRN Reason: Pain (Mild 1-3)/fever Artificial Tears (Refresh Plus 0.5%) 0 each EYEBOTH BID [facility] Last Admin: 11/23/18 08:35 Dose: 1 drop Docusate Sodium (Colace) 100 mg PO DAILY PRN PRN Reason: Constipation Last Admin: 11/22/18 16:31 Dose: 100 mg Heparin Sodium (Porcine) (Heparin Sodium) 5,000 units SUBCUT Q8H [facility] Last Admin: 11/23/18 08:34 Dose: 5,000 units Hydromorphone HCl (Dilaudid) 0.5 mg IV Q4H PRN PRN Reason: Pain (severe 7-10) Last Admin: 11/18/18 06:26 Dose: 0.5 mg Sodium Chloride (Normal Saline) 1,000 mls @ 50 mls/hr IV ASDIRECTED [facility] Last Admin: 11/23/18 00:25 Dose: 50 mls/hr Ceftriaxone Sodium 1 gm/ (Sodium Chloride) 50 mls @ 100 mls/hr IV Q24H [facility] Last Admin: 11/22/18 16:25 Dose: 100 mls/hr Morphine Sulfate (Morphine) 1 - 2 mg IVPUSH Q3H PRN PRN Reason: Pain Last Admin: 11/20/18 06:03 Dose: 2 mg Ondansetron HCl (Zofran) 4 mg IVPUSH Q4H PRN PRN Reason: Nausea/Vomiting Oxycodone HCl (Oxycodone) 5 mg PO Q4H PRN PRN Reason: Pain (moderate 4-6) Last Admin: 11/23/18 06:46 Dose: 5 mg Vit B12 500 Mcg 1 each PO DAILY [facility] Last Admin: 11/23/18 08:36 Dose: 1 each Isosorbide (Mononitrate 10 Mg) 1 each PO BID [facility] Last Admin: 11/23/18 08:36 Dose: 1 each Sertraline HCl (Zoloft) 50 mg PO DAILY [facility] Last Admin: 11/23/18 08:35 Dose: 50 mg Simvastatin (Zocor) 40 mg PO BEDTIME [facility] Last Admin: 11/22/18 20:51 Dose: 40 mg Sodium Chloride (Saline Flush) 10 ml FLUSH ASDIRECTED PRN PRN Reason: Keep Vein Open Sodium Chloride (Saline Flush) 2.5 ml FLUSH ASDIRECTED PRN PRN Reason: Keep Vein Open Spironolactone (Aldactone) 25 mg PO DAILY [facility] Last Admin: 11/23/18 08:35 Dose: 25 mg Warfarin Sodium (Coumadin) 8 mg PO DAILY@1400 [facility] Last Admin: 11/21/18 14:08 Dose: 8 mg Warfarin Sodium (Coumadin) 10 mg PO DAILY@1400 [facility] Last Admin: 11/22/18 14:30 Dose: 10 mg Discontinued Medications Artificial Tears (Refresh Plus 0.5%) 0 each EYEBOTH BID [facility] Last Admin: 11/22/18 20:52 Dose: 1 drop Fentanyl (Sublimaze) 25 mcg IVPUSH Q5M PRN PRN Reason: Pain (severe 7-10) Stop: 11/19/18 15:44 Fentanyl (Sublimaze) Confirm Administered Dose 250 mcg .ROUTE .STK-MED ONE Stop: 11/18/18 17:44 Furosemide (Lasix) 40 mg PO DAILY [facility] Last Admin: 11/21/18 08:05 Dose: 40 mg Heparin Sodium (Porcine) (Heparin Sodium) 5,000 units SUBCUT Q8H [facility] Last Admin: 11/18/18 01:20 Dose: Not Given Heparin Sodium (Porcine) (Heparin Sodium) 5,000 units SUBCUT Q8H [facility] Last Admin: 11/18/18 11:28 Dose: Not Given Hydromorphone HCl (Dilaudid) 0.5 mg IVPUSH Q4H PRN PRN Reason: Pain (severe 7-10) Hydromorphone HCl (Dilaudid) 0.25 mg IVPUSH Q10M PRN PRN Reason: Pain (severe 7-10) Stop: 11/19/18 15:44 Sodium Chloride (Normal Saline) 1,000 mls @ 125 mls/hr IV STAT [facility] Last Admin: 11/18/18 00:36 Dose: 125 mls/hr Clindamycin Phosphate 600 mg/ (Premix) 50 mls @ 100 mls/hr IV ONETIME ONE Stop: 11/18/18 11:40 Last Admin: 11/18/18 18:00 Dose: Not Given Clindamycin Phosphate (Cleocin In D5w) Confirm Administered Dose 50 mls @ as directed .ROUTE .STK-MED ONE Stop: 11/18/18 17:56 Last Admin: 11/18/18 17:59 Dose: 100 mls/hr Clindamycin Phosphate 600 mg/ (Premix) 50 mls @ 100 mls/hr IV Q8H [facility] Stop: 11/19/18 10:29 Last Admin: 11/19/18 09:08 Dose: 100 mls/hr Lidocaine (Xylocaine-Mpf 2%) Confirm Administered Dose 5 ml .ROUTE .STK-MED ONE Stop: 11/18/18 17:43 Lisinopril (Prinivil) 10 mg PO DAILY [facility] Last Admin: 11/21/18 08:05 Dose: 10 mg Meperidine HCl (Demerol) 12.5 mg IVPUSH .ONCE [facility] Midazolam HCl (Versed 1 Mg/Ml) Confirm Administered Dose 2 mg .ROUTE .STK-MED ONE Stop: 11/18/18 17:44 Morphine Sulfate (Morphine) 2 mg IVPUSH ONETIME ONE Stop: 11/17/18 22:10 Last Admin: 11/17/18 22:42 Dose: 2 mg Ondansetron HCl (Zofran) 4 mg IVPUSH ONETIME ONE Stop: 11/17/18 22:10 Last Admin: 11/17/18 22:41 Dose: 4 mg Ondansetron HCl (Zofran) 4 mg IVPUSH .ONCE [facility] Ondansetron HCl (Zofran) Confirm Administered Dose 4 mg .ROUTE .STK-MED ONE Stop: 11/18/18 17:43 Isosorbide (Mononitrate 10 Mg) 1 each PO BID [facility] Last Admin: 11/19/18 09:14 Dose: Not Given Vit B12 500 Mcg 1 each PO DAILY [facility] Last Admin: 11/19/18 09:14 Dose: Not Given Propofol (Diprivan 20 Ml) Confirm Administered Dose 200 mg .ROUTE .STK-MED ONE Stop: 11/18/18 17:44 Rocuronium [place] (Zemuron) Confirm Administered Dose 100 mg .ROUTE .STK-MED ONE Stop: 11/18/18 17:43 Succinylcholine Chloride (Quelicin) Confirm Administered Dose 200 mg .ROUTE .STK -MED ONE Stop: 11/18/18 17:43 Warfarin Sodium (Coumadin) 6 mg PO DAILY@1400 [facility] Last Admin: 11/20/18 14:04 Dose: 6 mg
[2018-11-23] MEDS: Warfarin 10 MG Tab PO SCH (13:24)
--- NOTE | 2018-11-23 15:02 | ECHO ---
EXAM DATE: 11/18/18 PATIENT'S AGE: 88 The echocardiogram report can be seen in this patient's EMR (Electronic Medical Record) in the Reports section. The report has also been scanned into PACs. [employer]
[2018-11-23] MEDS: cefTRIAXone 1 GM in Sodium Chloride 0.9% 50 ML IV SCH (15:43)
[2018-11-23] MEDS: Simvastatin 40 MG Tab PO SCH (20:47)
[2018-11-24] MEDS: Heparin Sodium 5,000 Units/ML Vial SUBCUT SCH ×2 (01:02→08:49)
[2018-11-24 08:25] VITALS: BP 153/67
[2018-11-24] MEDS: CYANOCOBALAMIN 500 MCG PO SCH (08:49)
[2018-11-24] MEDS: Spironolactone 25 MG Tab PO SCH (08:49)
[2018-11-24] MEDS: Sertraline 50 MG Tab PO SCH (08:49)
[2018-11-24] MEDS: Carboxymethylcellulose Sodium 0.5% Ophth Soln 0.4 ML UD Box of 30 EYEBOTH SCH (08:50)
--- NOTE | 2018-11-24 09:35 | PCM.DCSUM1 ---
<Gary Osei - Last Filed: 11/24/18 09:32> Discharge Summary - Hospital Course Free Text/Narrative:: Admission date: 11/18/2018 Discharge date: 11/24/2018 Admission diagnosis: #1. R hip fracture #2. History of A. Fib, chronic anticoagulation w/coumadin, HLD, CHF #3. subtherapeutic INR Discharge diagnosis: #1. R hip fracture s/p closed R hip fixation #2. Therapeutic INR on coumadin #3. History of A. Fib, CHF, HLD #4. Post-operative anemia #5. Therapeutic INR Disposition: Home with home health #1. Homebound - patient is unable to ambulate more than 20 feet before considerable pain. She is unsteady and a fall risk, needing to utilize a walker to ambulate safely. Weakness and deconditioning due to hospitalization and hip fracture is present. #2. Need for skilled service - PT strengthening due to weakness from recent hospitalization, s/p R hip surgery. OT - home safety evaluation for functional safety in home, assess/initiate plan for improvement for cognition issues. #3. Dr. Constantino - PCP will continue to follow the client for HH upon discharge. Hospital course: 88F with the medical history as mentioned above was admitted after having a fall resulting in an intratrochanteric fracture of R hip. Surgery completed by. Dr. Quick, orthopedics. Patient's length cardiac hx required cardiology clearance, which was approved. She did well with the surgery. Patient did have post-operative anemia w/Hgb of 8.0. I transfused her 2 units, w/recheck >10. Upon discharge, her hgb was 9.2. She did have IV fluids running. I recommend that she get a H/H within 1 week of discharge to be ordered by PCP. She was discharged home w/ home health - to continue PT at home. Follow up with orthopedics have been arranged. Update: Patient was planned to be discharged yesterday. However, after working with PT, it was strongly recommended that have a stay at a SNF for rehabilitation secondary to her deconditioning. This was told to the patient and the family. Despite this, patient and family decided that they would like to go home. Patient and family were told that they are running the risk of further complications at home including another fall, and further fractures. Given her risk factors, she is considered to be at high risk for multiple complications, including possible . Family understands and would prefer to go home. An application form was given to the family for [facility] should they decide to change their mind. - Discharge Data Discharge Date: 11/24/18 Discharge Disposition: Home, W Home Health Agency 06 Condition: Good - Patient Summary/Data Operative Procedure(s) Performed: R hip CM nail Consults: Consultations 11/18/18 03:17 Consult to Physician [CONS] Routine 11/18/18 09:05 Consult to Physician [CONS] Routine 11/18/18 20:13 PT Evaluation and Treatment [CONS] Routine 11/23/18 10:03 Consult to Home Health [CONS] Routine - Patient Instructions Diet: Heart Healthy Diet Activity: No Strenuous Activities Activity, Other: WBAT RLE Driving: Do Not Drive Showering/Bathing: May Shower Notify Provider of: Fever, Increased Pain, Swelling and Redness, Drainage, Nausea and/or Vomiting - Discharge Plan Home Medications: Home Meds Aspirin [Adult Low Dose Aspirin EC] 4 tab PO DAILY 10/23/16 [History] Furosemide 1 tab PO DAILY 10/23/16 [History] Isosorbide Mononitrate 10 mg PO BID 10/23/16 [History] Lisinopril 1 tab PO DAILY 10/23/16 [History] Sertraline HCl 1 tab PO DAILY 10/23/16 [History] Simvastatin [Zocor] 1 tab PO BEDTIME 10/23/16 [History] Spironolactone [Aldactone] 25 mg PO DAILY 10/23/16 [History] Warfarin [Coumadin] 6 mg PO DAILY 10/23/16 [History] Patient Handouts: Open Reduction and Internal Fixation for Hip Fracture, Care After, Acetaminophen; Hydrocodone tablets or capsules Referrals: Dedra Quick MD [Physician] - 12/31/18 2:00 pm Emanuel Constantino MD [Primary Care Provider] - 11/30/18 10:30 am Stefany Fernandez PA [Physician Advanced Practice Registered Nurse] - 12/01/18 2:40 pm - Discharge Summary/Plan Comment DC Time >30 min.: Yes - Patient Data Vitals - Most Recent: Last Vital Signs Temp 36.9 C 11/24/18 08:00 Pulse 65 11/24/18 08:00 Resp 16 11/24/18 08:00 BP 153/67 H 11/24/18 08:00 Pulse Ox 65 L 11/24/18 08:00 Weight - Most Recent: 62.142 kg I&O - Last 24 hours: Intake & Output 11/23/18 11/24/18 11/24/18 22:59 06:59 14:59 Intake Total 840 560 Output Total 450 700 Balance 390 -140 Lab Results - Last 24 hrs: Laboratory Results - last 24 hr 11/24/18 11/24/18 11/24/18 Range/Units 05:55 05:55 07:30 WBC 6.83 (4.0-11.0) K/uL RBC 3.05 L (4.30-5.90) M/uL Hgb 9.5 L (12.0-16.0) g/dL Hct 29.1 L (36.0-46.0) % MCV 95.4 (80.0-98.0) fL MCH 31.1 (27.0-32.0) pg MCHC 32.6 (31.0-37.0) g/dL RDW Std Deviation 53.2 (28.0-62.0) fl RDW Coeff of Aleksandr 15 (11.0-15.0) % Plt Count 153 (150-400) K/uL MPV 9.50 (7.40-12.00) fL Add Manual Diff YES Neutrophils % (Manual) 60 (48.0-80.0) % Lymphocytes % (Manual) 30 (16.0-40.0) % Monocytes % (Manual) 6 (0.0-15.0) % Eosinophils % (Manual) 3 (0.0-7.0) % Basophils % (Manual) 1 (0.0-1.5) % Nucleated RBC % 0.0 /100WBC Absolute Seg Neuts 4.1 (1.4-5.7) Lymphocytes # (Manual) 2.0 (0.6-2.4) Monocytes # (Manual) 0.4 (0.0-0.8) Eosinophils # (Manual) 0.2 (0.0-0.7) Basophils # (Manual) 0.1 (0.0-0.1) Nucleated RBCs # 0 K/uL INR 3.58 Sodium 136 (136-145) mmol/L Potassium 5.0 (3.5-5.1) mmol/L Chloride 106 (98-107) mmol/L Carbon Dioxide 20.0 L (21.0-32.0) mmol/L BUN 39 H (7.0-18.0) mg/dL Creatinine 1.2 H (0.6-1.0) mg/dL Est Cr Clr Drug Dosing 24.95 mL/min Estimated GFR (MDRD) 42.5 ml/min Glucose 107 H (74-106) mg/dL Calcium 9.0 (8.5-10.1) mg/dL Total Bilirubin 0.7 (0.2-1.0) mg/dL AST 18 (15-37) IU/L ALT 9 L (14-63) IU/L Alkaline Phosphatase 58 (46-116) U/L Total Protein 6.0 L (6.4-8.2) g/dL Albumin 2.6 L (3.4-5.0) g/dL Globulin 3.4 (2.6-4.0) g/dL Albumin/Globulin Ratio 0.8 L (0.9-1.6) Med Orders - Current: Current Medications Acetaminophen (Tylenol) 650 mg PO Q4H PRN PRN Reason: Pain (Mild 1-3)/fever Artificial Tears (Refresh Plus 0.5%) 0 each EYEBOTH BID [facility] Last Admin: 11/24/18 08:50 Dose: 1 drop Docusate Sodium (Colace) 100 mg PO DAILY PRN PRN Reason: Constipation Last Admin: 11/22/18 16:31 Dose: 100 mg Heparin Sodium (Porcine) (Heparin Sodium) 5,000 units SUBCUT Q8H [facility] Last Admin: 11/24/18 08:49 Dose: 5,000 units Hydromorphone HCl (Dilaudid) 0.5 mg IV Q4H PRN PRN Reason: Pain (severe 7-10) Last Admin: 11/18/18 06:26 Dose: 0.5 mg Ceftriaxone Sodium 1 gm/ (Sodium Chloride) 50 mls @ 100 mls/hr IV Q24H [facility] Last Admin: 11/23/18 15:43 Dose: 100 mls/hr Morphine Sulfate (Morphine) 1 - 2 mg IVPUSH Q3H PRN PRN Reason: Pain Last Admin: 11/20/18 06:03 Dose: 2 mg Ondansetron HCl (Zofran) 4 mg IVPUSH Q4H PRN PRN Reason: Nausea/Vomiting Oxycodone HCl (Oxycodone) 5 mg PO Q4H PRN PRN Reason: Pain (moderate 4-6) Last Admin: 11/23/18 06:46 Dose: 5 mg Vit B12 500 Mcg 1 each PO DAILY [facility] Last Admin: 11/24/18 08:49 Dose: 1 each Isosorbide (Mononitrate 10 Mg) 1 each PO BID [facility] Last Admin: 11/24/18 08:50 Dose: 1 each Sertraline HCl (Zoloft) 50 mg PO DAILY [facility] Last Admin: 11/24/18 08:49 Dose: 50 mg Simvastatin (Zocor) 40 mg PO BEDTIME [facility] Last Admin: 11/23/18 20:47 Dose: 40 mg Sodium Chloride (Saline Flush) 10 ml FLUSH ASDIRECTED PRN PRN Reason: Keep Vein Open Sodium Chloride (Saline Flush) 2.5 ml FLUSH ASDIRECTED PRN PRN Reason: Keep Vein Open Spironolactone (Aldactone) 25 mg PO DAILY [facility] Last Admin: 11/24/18 08:49 Dose: 25 mg Warfarin Sodium (Coumadin) 8 mg PO DAILY@1400 [facility] Last Admin: 11/21/18 14:08 Dose: 8 mg Discontinued Medications Artificial Tears (Refresh Plus 0.5%) 0 each EYEBOTH BID [facility] Last Admin: 11/22/18 20:52 Dose: 1 drop Fentanyl (Sublimaze) 25 mcg IVPUSH Q5M PRN PRN Reason: Pain (severe 7-10) Stop: 11/19/18 15:44 Fentanyl (Sublimaze) Confirm Administered Dose 250 mcg .ROUTE .STK-MED ONE Stop: 11/18/18 17:44 Furosemide (Lasix) 40 mg PO DAILY [facility] Last Admin: 11/21/18 08:05 Dose: 40 mg Heparin Sodium (Porcine) (Heparin Sodium) 5,000 units SUBCUT Q8H [facility] Last Admin: 11/18/18 01:20 Dose: Not Given Heparin Sodium (Porcine) (Heparin Sodium) 5,000 units SUBCUT Q8H [facility] Last Admin: 11/18/18 11:28 Dose: Not Given Hydromorphone HCl (Dilaudid) 0.5 mg IVPUSH Q4H PRN PRN Reason: Pain (severe 7-10) Hydromorphone HCl (Dilaudid) 0.25 mg IVPUSH Q10M PRN PRN Reason: Pain (severe 7-10) Stop: 11/19/18 15:44 Sodium Chloride (Normal Saline) 1,000 mls @ 125 mls/hr IV STAT [facility] Last Admin: 11/18/18 00:36 Dose: 125 mls/hr Sodium Chloride (Normal Saline) 1,000 mls @ 50 mls/hr IV ASDIRECTED [facility] Last Admin: 11/23/18 00:25 Dose: 50 mls/hr Clindamycin Phosphate 600 mg/ (Premix) 50 mls @ 100 mls/hr IV ONETIME ONE Stop: 11/18/18 11:40 Last Admin: 11/18/18 18:00 Dose: Not Given Clindamycin Phosphate (Cleocin In D5w) Confirm Administered Dose 50 mls @ as directed .ROUTE .STK-MED ONE Stop: 11/18/18 17:56 Last Admin: 11/18/18 17:59 Dose: 100 mls/hr Clindamycin Phosphate 600 mg/ (Premix) 50 mls @ 100 mls/hr IV Q8H [facility] Stop: 11/19/18 10:29 Last Admin: 11/19/18 09:08 Dose: 100 mls/hr Lidocaine (Xylocaine-Mpf 2%) Confirm Administered Dose 5 ml .ROUTE .STK-MED ONE Stop: 11/18/18 17:43 Lisinopril (Prinivil) 10 mg PO DAILY [facility] Last Admin: 11/21/18 08:05 Dose: 10 mg Meperidine HCl (Demerol) 12.5 mg IVPUSH .ONCE [facility] Midazolam HCl (Versed 1 Mg/Ml) Confirm Administered Dose 2 mg .ROUTE .STK-MED ONE Stop: 11/18/18 17:44 Morphine Sulfate (Morphine) 2 mg IVPUSH ONETIME ONE Stop: 11/17/18 22:10 Last Admin: 11/17/18 22:42 Dose: 2 mg Ondansetron HCl (Zofran) 4 mg IVPUSH ONETIME ONE Stop: 11/17/18 22:10 Last Admin: 11/17/18 22:41 Dose: 4 mg Ondansetron HCl (Zofran) 4 mg IVPUSH .ONCE [place] Ondansetron HCl (Zofran) Confirm Administered Dose 4 mg .ROUTE .STK-MED ONE Stop: 11/18/18 17:43 Isosorbide (Mononitrate 10 Mg) 1 each PO BID [facility] Last Admin: 11/19/18 09:14 Dose: Not Given Vit B12 500 Mcg 1 each PO DAILY [facility] Last Admin: 11/19/18 09:14 Dose: Not Given Propofol (Diprivan 20 Ml) Confirm Administered Dose 200 mg .ROUTE .STK-MED ONE Stop: 11/18/18 17:44 Rocuronium [place] (Zemuron) Confirm Administered Dose 100 mg .ROUTE .STK-MED ONE Stop: 11/18/18 17:43 Succinylcholine Chloride (Quelicin) Confirm Administered Dose 200 mg .ROUTE .STK -MED ONE Stop: 11/18/18 17:43 Warfarin Sodium (Coumadin) 6 mg PO DAILY@1400 [facility] Last Admin: 11/20/18 14:04 Dose: 6 mg Warfarin Sodium (Coumadin) 10 mg PO DAILY@1400 [facility] Last Admin: 11/23/18 13:24 Dose: 10 mg <John Howard - Last Filed: 11/24/18 15:47> Discharge Summary - Hospital Course Free Text/Narrative:: I have seen and examined the patient independently of medical lead. I agree with the assessment and plan of care as outlined for this patient by the resident. Please see orders. residential home was refused by the patient and family. The patient due to her physical deconditioning and recent surgery she will be home bound and home health is recommended for her continued recovery. - Discharge Diagnosis/Problem(s) (1) Intertrochanteric fracture, hip SNOMED Code(s): 198507398 ICD Code: S72.143A - DISPLACED INTERTROCHANTERIC FRACTURE OF UNSP FEMUR, INIT Status: Acute Priority: High (2) CAD (coronary artery disease), autologous vein bypass graft SNOMED Code(s): 112193883, 681847522 ICD Code: I25.810 - ATHEROSCLEROSIS OF CABG W/O ANGINA PECTORIS Status: Chronic Priority: High Qualifiers: Associated angina: without angina Qualified Code(s): I25.810 - Atherosclerosis of coronary artery bypass graft(s) without angina pectoris (3) Hypertension SNOMED Code(s): 61974857 ICD Code: I10 - ESSENTIAL (PRIMARY) HYPERTENSION Status: Chronic Priority : High Qualifiers: Hypertension type: essential hypertension Qualified Code(s): I10 - Essential (primary) hypertension (4) 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 SNOMED Code(s): 471703505 ICD Code: N18.3 - CHRONIC KIDNEY DISEASE, STAGE 3 (MODERATE); D63.1 - ANEMIA IN CHRONIC KIDNEY DISEASE Status: Chronic Priority: High (5) Chronic kidney disease (CKD), stage III (moderate) SNOMED Code(s): 056977801 ICD Code: N18.3 - CHRONIC KIDNEY DISEASE, STAGE 3 (MODERATE) Status: Chronic Priority: High (6) Atrial fibrillation SNOMED Code(s): 35161644 ICD Code: I48.91 - UNSPECIFIED ATRIAL FIBRILLATION Status: Chronic Priority: High Qualifiers: Atrial fibrillation type: chronic Qualified Code(s): I48.2 - Chronic atrial fibrillation - Patient Summary/Data Consults: Consultations 11/18/18 03:17 Consult to Physician [CONS] Routine 11/18/18 09:05 Consult to Physician [CONS] Routine 11/18/18 20:13 PT Evaluation and Treatment [CONS] Routine 11/23/18 10:03 Consult to Home Health [CONS] Routine - Patient Data Vitals - Most Recent: Last Vital Signs Temp 36.9 C 11/24/18 08:00 Pulse 65 11/24/18 08:00 Resp 16 11/24/18 08:00 BP 153/67 H 11/24/18 08:00 Pulse Ox 96 11/24/18 08:00 I&O - Last 24 hours: Intake & Output 11/24/18 11/24/18 11/24/18 06:59 14:59 22:59 Intake Total 560 Output Total 700 Balance -140 Lab Results - Last 24 hrs: Laboratory Results - last 24 hr 11/24/18 11/24/18 11/24/18 Range/Units 05:55 05:55 07:30 WBC 6.83 (4.0-11.0) K/uL RBC 3.05 L (4.30-5.90) M/uL Hgb 9.5 L (12.0-16.0) g/dL Hct 29.1 L (36.0-46.0) % MCV 95.4 (80.0-98.0) fL MCH 31.1 (27.0-32.0) pg MCHC 32.6 (31.0-37.0) g/dL RDW Std Deviation 53.2 (28.0-62.0) fl RDW Coeff of Aleksandr 15 (11.0-15.0) % Plt Count 153 (150-400) K/uL MPV 9.50 (7.40-12.00) fL Add Manual Diff YES Neutrophils % (Manual) 60 (48.0-80.0) % Lymphocytes % (Manual) 30 (16.0-40.0) % Monocytes % (Manual) 6 (0.0-15.0) % Eosinophils % (Manual) 3 (0.0-7.0) % Basophils % (Manual) 1 (0.0-1.5) % Nucleated RBC % 0.0 /100WBC Absolute Seg Neuts 4.1 (1.4-5.7) Lymphocytes # (Manual) 2.0 (0.6-2.4) Monocytes # (Manual) 0.4 (0.0-0.8) Eosinophils # (Manual) 0.2 (0.0-0.7) Basophils # (Manual) 0.1 (0.0-0.1) Nucleated RBCs # 0 K/uL INR 3.58 Sodium 136 (136-145) mmol/L Potassium 5.0 (3.5-5.1) mmol/L Chloride 106 (98-107) mmol/L Carbon Dioxide 20.0 L (21.0-32.0) mmol/L BUN 39 H (7.0-18.0) mg/dL Creatinine 1.2 H (0.6-1.0) mg/dL Est Cr Clr Drug Dosing 24.95 mL/min Estimated GFR (MDRD) 42.5 ml/min Glucose 107 H (74-106) mg/dL Calcium 9.0 (8.5-10.1) mg/dL Total Bilirubin 0.7 (0.2-1.0) mg/dL AST 18 (15-37) IU/L ALT 9 L (14-63) IU/L Alkaline Phosphatase 58 (46-116) U/L Total Protein 6.0 L (6.4-8.2) g/dL Albumin 2.6 L (3.4-5.0) g/dL Globulin 3.4 (2.6-4.0) g/dL Albumin/Globulin Ratio 0.8 L (0.9-1.6) Med Orders - Current: Current Medications Discontinued Medications Acetaminophen (Tylenol) 650 mg PO Q4H PRN PRN Reason: Pain (Mild 1-3)/fever Artificial Tears (Refresh Plus 0.5%) 0 each EYEBOTH BID [facility] Last Admin: 11/22/18 20:52 Dose: 1 drop Artificial Tears (Refresh Plus 0.5%) 0 each EYEBOTH BID [facility] Last Admin: 11/24/18 08:50 Dose: 1 drop Docusate Sodium (Colace) 100 mg PO DAILY PRN PRN Reason: Constipation Last Admin: 11/22/18 16:31 Dose: 100 mg Fentanyl (Sublimaze) 25 mcg IVPUSH Q5M PRN PRN Reason: Pain (severe 7-10) Stop: 11/19/18 15:44 Fentanyl (Sublimaze) Confirm Administered Dose 250 mcg .ROUTE .STK-MED ONE Stop: 11/18/18 17:44 Furosemide (Lasix) 40 mg PO DAILY [facility] Last Admin: 11/21/18 08:05 Dose: 40 mg Heparin Sodium (Porcine) (Heparin Sodium) 5,000 units SUBCUT Q8H [facility] Last Admin: 11/18/18 01:20 Dose: Not Given Heparin Sodium (Porcine) (Heparin Sodium) 5,000 units SUBCUT Q8H [facility] Last Admin: 11/18/18 11:28 Dose: Not Given Heparin Sodium (Porcine) (Heparin Sodium) 5,000 units SUBCUT Q8H [facility] Last Admin: 11/24/18 08:49 Dose: 5,000 units Hydromorphone HCl (Dilaudid) 0.5 mg IVPUSH Q4H PRN PRN Reason: Pain (severe 7-10) Hydromorphone HCl (Dilaudid) 0.5 mg IV Q4H PRN PRN Reason: Pain (severe 7-10) Last Admin: 11/18/18 06:26 Dose: 0.5 mg Hydromorphone HCl (Dilaudid) 0.25 mg IVPUSH Q10M PRN PRN Reason: Pain (severe 7-10) Stop: 11/19/18 15:44 Sodium Chloride (Normal Saline) 1,000 mls @ 125 mls/hr IV STAT [facility] Last Admin: 11/18/18 00:36 Dose: 125 mls/hr Sodium Chloride (Normal Saline) 1,000 mls @ 50 mls/hr IV ASDIRECTED [facility] Last Admin: 11/23/18 00:25 Dose: 50 mls/hr Clindamycin Phosphate 600 mg/ (Premix) 50 mls @ 100 mls/hr IV ONETIME ONE Stop: 11/18/18 11:40 Last Admin: 11/18/18 18:00 Dose: Not Given Ceftriaxone Sodium 1 gm/ (Sodium Chloride) 50 mls @ 100 mls/hr IV Q24H [facility] Last Admin: 11/23/18 15:43 Dose: 100 mls/hr Clindamycin Phosphate (Cleocin In D5w) Confirm Administered Dose 50 mls @ as directed .ROUTE .STK-MED ONE Stop: 11/18/18 17:56 Last Admin: 11/18/18 17:59 Dose: 100 mls/hr Clindamycin Phosphate 600 mg/ (Premix) 50 mls @ 100 mls/hr IV Q8H [facility] Stop: 11/19/18 10:29 Last Admin: 11/19/18 09:08 Dose: 100 mls/hr Lidocaine (Xylocaine-Mpf 2%) Confirm Administered Dose 5 ml .ROUTE .STK-MED ONE Stop: 11/18/18 17:43 Lisinopril (Prinivil) 10 mg PO DAILY [facility] Last Admin: 11/21/18 08:05 Dose: 10 mg Meperidine HCl (Demerol) 12.5 mg IVPUSH .ONCE [facility] Midazolam HCl (Versed 1 Mg/Ml) Confirm Administered Dose 2 mg .ROUTE .STK-MED ONE Stop: 11/18/18 17:44 Morphine Sulfate (Morphine) 2 mg IVPUSH ONETIME ONE Stop: 11/17/18 22:10 Last Admin: 11/17/18 22:42 Dose: 2 mg Morphine Sulfate (Morphine) 1 - 2 mg IVPUSH Q3H PRN PRN Reason: Pain Last Admin: 11/20/18 06:03 Dose: 2 mg Ondansetron HCl (Zofran) 4 mg IVPUSH ONETIME ONE Stop: 11/17/18 22:10 Last Admin: 11/17/18 22:41 Dose: 4 mg Ondansetron HCl (Zofran) 4 mg IVPUSH Q4H PRN PRN Reason: Nausea/Vomiting Ondansetron HCl (Zofran) 4 mg IVPUSH .ONCE [place] Ondansetron HCl (Zofran) Confirm Administered Dose 4 mg .ROUTE .STK-MED ONE Stop: 11/18/18 17:43 Oxycodone HCl (Oxycodone) 5 mg PO Q4H PRN PRN Reason: Pain (moderate 4-6) Last Admin: 11/23/18 06:46 Dose: 5 mg Isosorbide (Mononitrate 10 Mg) 1 each PO BID [facility] Last Admin: 11/19/18 09:14 Dose: Not Given Vit B12 500 Mcg 1 each PO DAILY [facility] Last Admin: 11/19/18 09:14 Dose: Not Given Vit B12 500 Mcg 1 each PO DAILY [facility] Last Admin: 11/24/18 08:49 Dose: 1 each Isosorbide (Mononitrate 10 Mg) 1 each PO BID [facility] Last Admin: 11/24/18 08:50 Dose: 1 each Propofol (Diprivan 20 Ml) Confirm Administered Dose 200 mg .ROUTE .STK-MED ONE Stop: 11/18/18 17:44 Rocuronium [place] (Zemuron) Confirm Administered Dose 100 mg .ROUTE .STK-MED ONE Stop: 11/18/18 17:43 Sertraline HCl (Zoloft) 50 mg PO DAILY [facility] Last Admin: 11/24/18 08:49 Dose: 50 mg Simvastatin (Zocor) 40 mg PO BEDTIME [facility] Last Admin: 11/23/18 20:47 Dose: 40 mg Sodium Chloride (Saline Flush) 10 ml FLUSH ASDIRECTED PRN PRN Reason: Keep Vein Open Sodium Chloride (Saline Flush) 2.5 ml FLUSH ASDIRECTED PRN PRN Reason: Keep Vein Open Spironolactone (Aldactone) 25 mg PO DAILY [facility] Last Admin: 11/24/18 08:49 Dose: 25 mg Succinylcholine Chloride (Quelicin) Confirm Administered Dose 200 mg .ROUTE .STK -MED ONE Stop: 11/18/18 17:43 Warfarin Sodium (Coumadin) 6 mg PO DAILY@1400 [facility] Last Admin: 11/20/18 14:04 Dose: 6 mg Warfarin Sodium (Coumadin) 8 mg PO DAILY@1400 [facility] Last Admin: 11/24/18 13:10 Dose: 8 mg Warfarin Sodium (Coumadin) 10 mg PO DAILY@1400 [facility] Last Admin: 11/23/18 13:24 Dose: 10 mg
[2018-11-24] MEDS: Warfarin 2 MG Tab PO SCH (13:10)
== END 2018-11-24 15:00 | disposition home health service (06) | DRG 481 ==
LOC: MW.ED 21:08 → MW.MS 11-18 00:19
PROVIDERS: ADMIT Internal Medicine; ATTEND Internal Medicine
PROC: 0QS636Z Reposition Right Upper Femur with Intramedullary Internal Fixation Device, Percutaneous Approach (ICD-10-PCS; principal; 2018-11-18)
PROC: 30233N1 Transfusion of Nonautologous Red Blood Cells into Peripheral Vein, Percutaneous Approach (ICD-10-PCS; 2018-11-20)
DX: S72.141A Displaced intertrochanteric fracture of right femur, initial encounter for closed fracture (principal); I48.1 Persistent atrial fibrillation; I48.91 Unspecified atrial fibrillation; N17.9 Acute kidney failure, unspecified; I13.0 Hypertensive heart and chronic kidney disease with heart failure and stage 1 through stage 4 chronic kidney disease, or unspecified chronic kidney disease; I10 Essential (primary) hypertension; D62 Acute posthemorrhagic anemia; W01.0XXA Fall on same level from slipping, tripping and stumbling without subsequent striking against object, initial encounter; I50.9 Heart failure, unspecified; D63.1 Anemia in chronic kidney disease; E78.5 Hyperlipidemia, unspecified; N18.3 Chronic kidney disease, stage 3 (moderate); I25.10 Atherosclerotic heart disease of native coronary artery without angina pectoris; R79.1 Abnormal coagulation profile; E78.00 Pure hypercholesterolemia, unspecified; D69.6 Thrombocytopenia, unspecified; G47.30 Sleep apnea, unspecified; M15.9 Polyosteoarthritis, unspecified; M25.551 Pain in right hip; I48.2 Chronic atrial fibrillation; F41.9 Anxiety disorder, unspecified; F32.9 Major depressive disorder, single episode, unspecified; I25.2 Old myocardial infarction; Z95.1 Presence of aortocoronary bypass graft; Z96.642 Presence of left artificial hip joint; Z79.01 Long term (current) use of anticoagulants; Z88.1 Allergy status to other antibiotic agents; Z91.040 Latex allergy status; Z88.0 Allergy status to penicillin; Z91.048 Other nonmedicinal substance allergy status; Z79.82 Long term (current) use of aspirin; Z79.899 Other long term (current) drug therapy
CPT/HCPCS: 36415; 70450; 72125; 73502; 80053; 85025; 85610; 96374; 96375; 99285; J2270; J2405; 01200; 36430; 51702; 76000; 76000-26; 80048; 81001; 82553; 85014; 85018; 86850; 86900; 86901; 86920; 86921; 86922; 87086; 93005; 93306; 97110-GP; 97161-GP; 97530-GP; 99284; A9270-GY; C1713; C1769; J0330; J0696; J1170; J1644; J2001; J2250; J2704; J3010; J3490; J7040; J7050; P9016

== ENCOUNTER 2020-02-05 10:57 | Emergency (ER) | payer MEDICARE, BC ==
--- NOTE | 2020-02-05 11:54 | EDM.PDOC ---
ED HPI GENERAL MEDICAL PROBLEM - General Chief Complaint: ENT Problem Stated Complaint: NOSE BLEED Time Seen by Provider: 02/05/20 11:20 Source of Information: Reports: Patient History Limitations: Reports: No Limitations - History of Present Illness INITIAL COMMENTS - FREE TEXT/NARRATIVE: HISTORY AND PHYSICAL: History of present illness: Patient is an 89-year-old female presents to the ED with complaint of nose bleed. She states she scratched the inside of her right nostril yesterday and it bled for a little while but she was able to make it stop. She states this morning it started bleeding again and started coming out of the left nostril as well. She denies injury, headache, dizziness, syncope, chest pain, shortness of breath. Patient is on warfarin for atrial fibrillation. Review of systems: As per history of present illness and below otherwise all systems reviewed and negative. Past medical history: As per history of present illness and as reviewed below otherwise noncontributory. Surgical history: As per history of present illness and as reviewed below otherwise noncontributory. Social history: No reported history of drug or alcohol abuse. Family history: As per history of present illness and as reviewed below otherwise noncontributory. Physical exam: General: Patient sitting comfortably in no acute distress and nontoxic appearing HEENT: Epistaxis of the right nostril, unable to visualize source of bleeding. Atraumatic, normocephalic, pupils reactive, negative for conjunctival pallor or scleral icterus, mucous membranes moist, throat clear, neck supple, nontender, trachea midline. No meningeal signs. Lungs: Clear to auscultation, breath sounds equal bilaterally, chest nontender. Heart: S1S2, regular, negative for clicks, rubs, or overt murmur. Abdomen: Soft, nondistended, nontender. Negative for masses or hepatosplenomegaly. Negative for costovertebral tenderness. No rigidity, rebound , guarding. Pelvis: Stable nontender. 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: Deferred. Rectal: Deferred. Extremities: Atraumatic, negative for cords or calf pain. Neurovascular unremarkable. Neuro: Awake, alert, oriented. Cranial nerves II through XII unremarkable. Cerebellum unremarkable. Motor and sensory unremarkable throughout. Exam nonfocal. Notes: 7.5cm Rhino rocket was soaked in TXA and placed in to the patient's right nostril. Diagnostics: CBC, PT/INR Therapeutics: Nasal packing Prescriptions: none Impression: Epistaxis Plan: Follow-up with primary care provider on Friday to have packing removed. If you are unable to get into your primary care provider you may return to the ER as discussed. Return to ER sooner as needed as discussed. Definitive disposition and diagnosis as appropriate pending reevaluation and review of above. - Related Data Allergies Allergy/AdvReac Type Severity Reaction Status Date / Time adhesive tape Allergy Rash Verified 02/05/20 11:16 amoxicillin Allergy Hives Verified 02/05/20 11:16 latex Allergy Rash Verified 02/05/20 11:16 Penicillins Allergy Hives Verified 02/05/20 11:16 metal Allergy Rash Uncoded 02/05/20 11:16 Home Meds: Home Meds Aspirin [Adult Low Dose Aspirin EC] 4 tab PO DAILY 10/23/16 [History] Furosemide 1 tab PO DAILY 10/23/16 [History] Isosorbide Mononitrate 10 mg PO BID 10/23/16 [History] Lisinopril 1 tab PO DAILY 10/23/16 [History] Sertraline HCl 1 tab PO DAILY 10/23/16 [History] Simvastatin [Zocor] 1 tab PO BEDTIME 10/23/16 [History] Spironolactone [Aldactone] 25 mg PO DAILY 10/23/16 [History] Warfarin [Coumadin] 6 mg PO DAILY 10/23/16 [History] Past Medical History HEENT History: Reports: Cataract Other HEENT History: wears glasses, has upper denture Cardiovascular History: Reports: Afib, CAD, High Cholesterol, Hypertension, [place], Other (See Below) Other Cardiovascular History: hx of bradycardia Respiratory History: Reports: Sleep Apnea Other Respiratory History: uses CPAP Gastrointestinal History: Reports: None 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 History: Reports: 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: Musculoskeletal History: Reports: Arthritis, Fracture 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, hx of fx left hip and right wrist Neurological History: Reports: None Psychiatric History: Reports: Anxiety, Depression Endocrine/Metabolic History: Reports: None Hematologic History: Reports: Anemia Immunologic History: Reports: None Oncologic (Cancer) History: Reports: None Other Dermatologic History: very sensitive to scented lotions, gets a rash - Infectious Disease History Infectious Disease History: Reports: None - Past Surgical History Head Surgeries/Procedures: Reports: None HEENT Surgical History: Reports: Cataract Surgery Cardiovascular Surgical History: Reports: Coronary Artery Bypass GI Surgical History: Reports: None Female Surgical History: Reports: None Endocrine Surgical History: Reports: None Neurological Surgical History: Reports: None Musculoskeletal Surgical History: Reports: Hip Replacement Oncologic Surgical History: Reports: None Dermatological Surgical History: Reports: None Social & Family History - Family History Family Medical History: Noncontributory - Tobacco Use Smoking Status *Q: Never Smoker - Caffeine Use Caffeine Use: Reports: Coffee - Recreational Drug Use Recreational Drug Use: No - Living Situation & Occupation Living situation: Reports: with Family (lives with daughter in [facility]) ED ROS ENT - Review of Systems Review Of Systems: Comprehensive ROS is negative, except as noted in HPI. ED EXAM, ENT - Physical Exam Exam: See Below (see dictation) ED ENT PROCEDURES - Epistaxis Procedure Indication: Epistaxis Recent anticoagulants/antiplatlets: Yes Uncontrolled HTN: No Recent septal/nasal surgery: No Site of bleeding: Right Nare, Anterior Clearing of clots: Patient Blew Nose Ice pack to area: No Chemical cautery: Other (TXA ) Anterior Packing: Inflatable Nasal Tampon Posterior packing: Long Nasal Tampon Complications: No Course - Vital Signs Last Recorded V/S: Last Vital Signs Temp 97.3 F 02/05/20 11:17 Pulse 74 02/05/20 12:28 Resp 17 02/05/20 12:28 BP 127/85 02/05/20 13:43 Pulse Ox 98 02/05/20 12:28 - Orders/Labs/Meds Labs: Laboratory Tests 02/05/20 02/05/20 Range/Units 11:26 11:26 WBC 6.46 (4.0-11.0) K/uL RBC 3.13 L (4.30-5.90) M/uL Hgb 9.8 L (12.0-16.0) g/dL Hct 31.5 L (36.0-46.0) % MCV 100.6 H (80.0-98.0) fL MCH 31.3 (27.0-32.0) pg MCHC 31.1 (31.0-37.0) g/dL RDW Std Deviation 54.3 (28.0-62.0) fl RDW Coeff of Aleksandr 15 (11.0-15.0) % Plt Count 163 (150-400) K/uL MPV 9.30 (7.40-12.00) fL Neut % (Auto) 72.8 (48.0-80.0) % Lymph % (Auto) 20.0 (16.0-40.0) % Garvin % (Auto) 5.4 (0.0-15.0) % Eos % (Auto) 1.5 (0.0-7.0) % Baso % (Auto) 0.3 (0.0-1.5) % Neut # (Auto) 4.7 (1.4-5.7) K/uL Lymph # (Auto) 1.3 (0.6-2.4) K/uL Garvin # (Auto) 0.4 (0.0-0.8) K/uL Eos # (Auto) 0.1 (0.0-0.7) K/uL Baso # (Auto) 0.0 (0.0-0.1) K/uL Nucleated RBC % 0.0 /100WBC Nucleated RBCs # 0 K/uL INR 2.13 Meds: Medications Discontinued Medications Generic Name Dose Route Start Last Admin Trade Name Freq PRN Reason Stop Dose Admin Tranexamic Acid 1,000 mg 02/05/20 11:43 02/05/20 12:45 Cyklokapron TOP 02/05/20 11:53 1,000 mg ONETIME ONE Administration Departure - Departure Time of Disposition: 12:44 Disposition: Home, Self-Care 01 Condition: Good Clinical Impression: Epistaxis - Discharge Information Instructions: Nosebleed, [id number] Referrals: Emanuel Constantino MD [Primary Care Provider] - Forms: ED Department Discharge Additional Instructions: The following information is given to patients seen in the emergency department who are being discharged to home. This information is to outline your options for follow-up care. We provide all patients seen in our emergency department with a follow-up referral. The need for follow-up, as well as the timing and circumstances, are variable depending upon the specifics of your emergency department visit. If you don't have a primary care physician on staff, we will provide you with a referral. We always advise you to contact your personal physician following an emergency department visit to inform them of the circumstance of the visit and for follow-up with them and/or the need for any referrals to a consulting specialist. The emergency department will also refer you to a specialist when appropriate. This referral assures that you have the opportunity for follow-up care with a specialist. All of these measure are taken in an effort to provide you with optimal care, which includes your follow-up. Under all circumstances we always encourage you to contact your private physician who remains a resource for coordinating your care. When calling for follow-up care, please make the office aware that this follow-up is from your recent emergency room visit. If for any reason you are refused follow-up, please contact the [facility] Emergency Department at and asked to speak to the emergency department charge nurse. [facility] [address] [place] [id number] [id number] Follow-up with primary care provider on Friday to have packing removed. If you are unable to get into your primary care provider you may return to the ER as discussed. Return to ER sooner as needed as discussed. Sepsis Event Note - Evaluation Sepsis Screening Result: No Definite Risk - Focused Exam Vital Signs: Vital Signs Temp Pulse Resp BP Pulse Ox 02/05/20 13:43 127/85 02/05/20 12:28 74 17 149/87 H 98 02/05/20 11:17 97.3 F 81 18 138/75 98 Date Exam was Performed: 02/05/20 Time Exam was Performed: 13:46
[2020-02-05 12:29] VITALS: PULSE 74
[2020-02-05 13:44] VITALS: BP 127/85
== END 2020-02-05 13:44 | disposition home or self-care (01) ==
LOC: MW.ED 10:57
DX: R04.0 Epistaxis (principal); I10 Essential (primary) hypertension; I25.10 Atherosclerotic heart disease of native coronary artery without angina pectoris; I48.91 Unspecified atrial fibrillation; E78.00 Pure hypercholesterolemia, unspecified; I25.2 Old myocardial infarction; M19.90 Unspecified osteoarthritis, unspecified site; F41.9 Anxiety disorder, unspecified; F32.9 Major depressive disorder, single episode, unspecified; Z95.1 Presence of aortocoronary bypass graft; Z88.1 Allergy status to other antibiotic agents; Z88.0 Allergy status to penicillin; Z91.040 Latex allergy status; Z91.048 Other nonmedicinal substance allergy status; Z79.82 Long term (current) use of aspirin; Z79.899 Other long term (current) drug therapy; Z79.01 Long term (current) use of anticoagulants
CPT/HCPCS: 30901; 30903; 36415; 85025; 85610; 99282; 99283-25

== ENCOUNTER 2020-02-07 09:35 | Emergency (ER) | payer MEDICARE, BC ==
--- NOTE | 2020-02-07 10:32 | EDM.PDOC ---
ED HPI GENERAL MEDICAL PROBLEM - General Chief Complaint: ENT Problem Stated Complaint: TUBE TAKEN OUT Time Seen by Provider: 02/07/20 09:41 Source of Information: Reports: Patient History Limitations: Reports: No Limitations - History of Present Illness INITIAL COMMENTS - FREE TEXT/NARRATIVE: 89-year-old female presents the emergency room for recheck of epistaxis. Patient had a Rhino Rocket placed 3 days ago and is here for reevaluation and possible removal of Rhino Rocket. Patient denies any history of bleeding Duration: Day(s): (3) Location: Reports: Head Quality: Reports: Other (Will bleeding periods status post Rhino Rocket) Severity: Mild Improves with: Reports: None Worsens with: Reports: None Associated Symptoms: Reports: No Other Symptoms - Related Data Allergies Allergy/AdvReac Type Severity Reaction Status Date / Time adhesive tape Allergy Rash Verified 02/07/20 09:47 amoxicillin Allergy Hives Verified 02/07/20 09:47 latex Allergy Rash Verified 02/07/20 09:47 Penicillins Allergy Hives Verified 02/07/20 09:47 metal Allergy Rash Uncoded 02/07/20 09:47 Home Meds: Home Meds Aspirin [Adult Low Dose Aspirin EC] 4 tab PO DAILY 10/23/16 [History] Furosemide 1 tab PO DAILY 10/23/16 [History] Isosorbide Mononitrate 10 mg PO BID 10/23/16 [History] Lisinopril 1 tab PO DAILY 10/23/16 [History] Sertraline HCl 1 tab PO DAILY 10/23/16 [History] Simvastatin [Zocor] 1 tab PO BEDTIME 10/23/16 [History] Spironolactone [Aldactone] 25 mg PO DAILY 10/23/16 [History] Warfarin [Coumadin] 6 mg PO DAILY 10/23/16 [History] Past Medical History HEENT History: Reports: Cataract Other HEENT History: wears glasses, has upper denture Cardiovascular History: Reports: Afib, CAD, High Cholesterol, Hypertension, [place], Other (See Below) Other Cardiovascular History: History of Bradycardia Respiratory History: Reports: Sleep Apnea Other Respiratory History: uses CPAP Gastrointestinal History: Reports: None 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 History: Reports: 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: Musculoskeletal History: Reports: Arthritis, Fracture 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, hx of fx left hip and right wrist Neurological History: Reports: None Psychiatric History: Reports: Anxiety, Depression Endocrine/Metabolic History: Reports: None Hematologic History: Reports: Anemia Immunologic History: Reports: None Oncologic (Cancer) History: Reports: None Other Dermatologic History: very sensitive to scented lotions, gets a rash - Infectious Disease History Infectious Disease History: Reports: Measles, Mumps, Rubella - Past Surgical History Head Surgeries/Procedures: Reports: None HEENT Surgical History: Reports: Cataract Surgery Cardiovascular Surgical History: Reports: Coronary Artery Bypass GI Surgical History: Reports: None Female Surgical History: Reports: None Endocrine Surgical History: Reports: None Neurological Surgical History: Reports: None Musculoskeletal Surgical History: Reports: Hip Replacement Oncologic Surgical History: Reports: None Dermatological Surgical History: Reports: None Social & Family History - Family History Family Medical History: Noncontributory - Tobacco Use Smoking Status *Q: Never Smoker Second Hand Smoke Exposure: Yes - Caffeine Use Caffeine Use: Reports: Coffee - Recreational Drug Use Recreational Drug Use: No - Living Situation & Occupation Living situation: Reports: with Family (lives with daughter in [facility]) ED ROS ENT - Review of Systems Review Of Systems: See Below Constitutional: Reports: No Symptoms HEENT: Reports: Other (Has Rhino Rocket in no evidence of bleeding) Respiratory: Reports: No Symptoms Cardiovascular: Reports: No Symptoms Endocrine: Reports: No Symptoms GI/Abdominal: Reports: No Symptoms : Reports: No Symptoms Musculoskeletal: Reports: No Symptoms Skin: Reports: No Symptoms Neurological: Reports: No Symptoms Psychiatric: Reports: No Symptoms Hematologic/Lymphatic: Reports: No Symptoms Immunologic: Reports: No Symptoms ED EXAM, ENT - Physical Exam Exam: See Below Exam Limited By: No Limitations General Appearance: Alert, WD/WN, No Apparent Distress Eye Exam: Bilateral Eye: Normal Fundi, Normal Inspection Ears: Normal External Exam, Normal Canal Nose: Normal Inspection, Normal Mucousa, No Blood (Negative bleeding after removal of Rhino Rocket.) Mouth/Throat: Normal Inspection, Normal Gums, Normal Oropharynx, Normal Teeth Head: Atraumatic, Normocephalic Neck: Normal Inspection, Supple Respiratory/Chest: No Respiratory Distress, Lungs Clear Cardiovascular: Normal Peripheral Pulses, Regular Rate, Rhythm, No Murmur GI/Abdominal: Normal Bowel Sounds, Soft (Female) Exam: Deferred Rectal (Female) Exam: Decreased Rectal Tone Back: Normal Inspection Extremities: Normal Inspection Neurological: Alert, Oriented, CN II-XII Intact, Normal Reflexes Psychiatric: Normal Affect, Normal Mood Skin: Warm, Dry, Intact, Normal Color Lymphatic: No Adenopathy Course - Vital Signs Text/Narrative:: Removal of Rhino Rocket. The patient has no evidence of bleeding. Will discharge the patient to her primary care physician without any problems. Patient is happy with no distress Last Recorded V/S: Last Vital Signs Temp 98.2 F 02/07/20 09:49 Pulse 68 02/07/20 09:49 Resp 14 02/07/20 09:49 BP 111/46 L 02/07/20 09:49 Pulse Ox 93 L 02/07/20 09:49 Departure - Departure Time of Disposition: 10:37 Disposition: Home, Self-Care 01 Condition: Good Clinical Impression: Epistaxis - Discharge Information Referrals: Denzel Constantino MD [Primary Care Provider] - Sepsis Event Note - Evaluation Sepsis Screening Result: No Definite Risk - Focused Exam Vital Signs: Vital Signs Temp Pulse Resp BP Pulse Ox 02/07/20 09:49 98.2 F 68 14 111/46 L 93 L Date Exam was Performed: 02/07/20 Time Exam was Performed: 10:26
[2020-02-07 11:10] VITALS: BP 100/53; PULSE 62
== END 2020-02-07 11:10 | disposition home or self-care (01) ==
LOC: MW.ED 09:35
DX: R04.0 Epistaxis (principal); I48.91 Unspecified atrial fibrillation; I25.10 Atherosclerotic heart disease of native coronary artery without angina pectoris; I10 Essential (primary) hypertension; I25.2 Old myocardial infarction; M19.90 Unspecified osteoarthritis, unspecified site; E78.00 Pure hypercholesterolemia, unspecified; F41.9 Anxiety disorder, unspecified; F32.9 Major depressive disorder, single episode, unspecified; Z79.82 Long term (current) use of aspirin; Z79.899 Other long term (current) drug therapy; Z91.09 Other allergy status, other than to drugs and biological substances; Z88.1 Allergy status to other antibiotic agents; Z88.0 Allergy status to penicillin; Z91.040 Latex allergy status; Z79.01 Long term (current) use of anticoagulants
CPT/HCPCS: 99282

== ENCOUNTER 2020-03-11 18:33 | Emergency (ER) | payer MEDICARE, BC ==
[2020-03-11] MEDS ORDERED: Tranexamic Acid 1,000 MG in Sodium Chloride 0.9% 500 ML IV ONE (19:18)
--- NOTE | 2020-03-11 19:21 | EDM.PDOC ---
ED HPI GENERAL MEDICAL PROBLEM - General Chief Complaint: ENT Problem Stated Complaint: BLOODY NOSE Time Seen by Provider: 03/11/20 19:19 Source of Information: Reports: Patient History Limitations: Reports: No Limitations - History of Present Illness INITIAL COMMENTS - FREE TEXT/NARRATIVE: HISTORY AND PHYSICAL: History of present illness: Patient is an 89-year-old female presents to the ED for a nose bleed. She states it started this evening when she stood up to go to dinner. She states it started in the right nostril but has been coming out of both nostrils and she states she has swallowed a couple of blood clots. She does have a tendency to pick her nose which her daughter had called the front worker and informed them of this. She does take Coumadin for history of atrial fibrillation. She denies any chest pain, shortness of breath, dizziness, headache, nausea, vomiting. Patient had epistaxis 1 month ago requiring rhino-rocket. Review of systems: As per history of present illness and below otherwise all systems reviewed and negative. Past medical history: As per history of present illness and as reviewed below otherwise noncontributory. Surgical history: As per history of present illness and as reviewed below otherwise noncontributory. Social history: No reported history of drug or alcohol abuse. Family history: As per history of present illness and as reviewed below otherwise noncontributory. Physical exam: General: Patient sitting comfortably in no acute distress and nontoxic appearing HEENT: mild epistaxis from the right anterior nares. There is dried blood in the left nare noted. Atraumatic, normocephalic, pupils reactive, negative for conjunctival pallor or scleral icterus, mucous membranes moist, throat clear, neck supple, nontender, trachea midline. No meningeal signs. Lungs: Clear to auscultation, breath sounds equal bilaterally, chest nontender. Heart: S1S2, regular, negative for clicks, rubs, or overt murmur. Abdomen: Soft, nondistended, nontender. Negative for masses or hepatosplenomegaly. Negative for costovertebral tenderness. No rigidity, rebound , guarding. Pelvis: Stable nontender. 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: Deferred. Rectal: Deferred. Extremities: Atraumatic, negative for cords or calf pain. Neurovascular unremarkable. Neuro: Awake, alert, oriented. Cranial nerves II through XII unremarkable. Cerebellum unremarkable. Motor and sensory unremarkable throughout. Exam nonfocal. Notes: A nasal clamp was placed on patient's nose for about 20 minutes while she had lab drawn and awaiting lab results. Clamp was removed and patient continued to have bleeding. A 7.5 rhino rocket soaked in txa was placed in the right nostril without any complications. Bleeding controlled. INR is in therapeutic range. H & H is 9.6 and 34, anemia appears to be chronic based on previous labs. Platelets wnl. Diagnostics: PT/INR, CBC Impression: Epistaxis Plan: No picking, sneezing, blowing nose, hot liquids as instructed Follow up on Tuesday 03/13 for packing removal Return to ED as needed as discussed Definitive disposition and diagnosis as appropriate pending reevaluation and review of above. - Related Data Allergies Allergy/AdvReac Type Severity Reaction Status Date / Time adhesive tape Allergy Rash Verified 03/11/20 18:47 amoxicillin Allergy Hives Verified 03/11/20 18:47 latex Allergy Rash Verified 03/11/20 18:47 Penicillins Allergy Hives Verified 03/11/20 18:47 metal Allergy Rash Uncoded 03/11/20 18:47 Home Meds: Home Meds Aspirin [Adult Low Dose Aspirin EC] 4 tab PO DAILY 10/23/16 [History] Furosemide 1 tab PO DAILY 10/23/16 [History] Isosorbide Mononitrate 10 mg PO BID 10/23/16 [History] Lisinopril 1 tab PO DAILY 10/23/16 [History] Sertraline HCl 1 tab PO DAILY 10/23/16 [History] Simvastatin [Zocor] 1 tab PO BEDTIME 10/23/16 [History] Spironolactone [Aldactone] 25 mg PO DAILY 10/23/16 [History] Warfarin [Coumadin] 6 mg PO DAILY 10/23/16 [History] Past Medical History HEENT History: Reports: Cataract Other HEENT History: wears glasses, has upper denture Cardiovascular History: Reports: Afib, CAD, High Cholesterol, Hypertension, [place], Other (See Below) Other Cardiovascular History: History of Bradycardia Respiratory History: Reports: Sleep Apnea Other Respiratory History: uses CPAP Gastrointestinal History: Reports: None 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 History: Reports: 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: Musculoskeletal History: Reports: Arthritis, Fracture 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, hx of fx left hip and right wrist Neurological History: Reports: None Psychiatric History: Reports: Anxiety, Depression Endocrine/Metabolic History: Reports: None Hematologic History: Reports: Anemia Immunologic History: Reports: None Oncologic (Cancer) History: Reports: None Other Dermatologic History: very sensitive to scented lotions, gets a rash - Infectious Disease History Infectious Disease History: Reports: Measles, Mumps, Rubella - Past Surgical History Head Surgeries/Procedures: Reports: None HEENT Surgical History: Reports: Cataract Surgery Cardiovascular Surgical History: Reports: Coronary Artery Bypass GI Surgical History: Reports: None Female Surgical History: Reports: None Endocrine Surgical History: Reports: None Neurological Surgical History: Reports: None Musculoskeletal Surgical History: Reports: Hip Replacement Oncologic Surgical History: Reports: None Dermatological Surgical History: Reports: None Social & Family History - Family History Family Medical History: Noncontributory - Tobacco Use Smoking Status *Q: Never Smoker - Caffeine Use Caffeine Use: Reports: Coffee - Recreational Drug Use Recreational Drug Use: No - Living Situation & Occupation Living situation: Reports: with Family (lives with daughter in [facility]) ED ROS ENT - Review of Systems Review Of Systems: Comprehensive ROS is negative, except as noted in HPI. ED EXAM, ENT - Physical Exam Exam: See Below (see dictation) Course - Vital Signs Last Recorded V/S: Last Vital Signs Temp 97.1 F 03/11/20 20:11 Pulse 62 03/11/20 20:11 Resp 18 03/11/20 20:11 BP 140/55 L 03/11/20 20:11 Pulse Ox 92 L 03/11/20 20:11 - Orders/Labs/Meds Labs: Laboratory Tests 03/11/20 03/11/20 Range/Units 19:13 19:13 WBC 6.20 (4.0-11.0) K/uL RBC 3.14 L (4.30-5.90) M/uL Hgb 9.6 L (12.0-16.0) g/dL Hct 31.4 L (36.0-46.0) % MCV 100.0 H (80.0-98.0) fL MCH 30.6 (27.0-32.0) pg MCHC 30.6 L (31.0-37.0) g/dL RDW Std Deviation 54.6 (28.0-62.0) fl RDW Coeff of Aleksandr 15 (11.0-15.0) % Plt Count 193 (150-400) K/uL MPV 9.30 (7.40-12.00) fL Neut % (Auto) 62.7 (48.0-80.0) % Lymph % (Auto) 25.3 (16.0-40.0) % [place] % (Auto) 9.5 (0.0-15.0) % Eos % (Auto) 2.3 (0.0-7.0) % Baso % (Auto) 0.2 (0.0-1.5) % Neut # (Auto) 3.9 (1.4-5.7) K/uL Lymph # (Auto) 1.6 (0.6-2.4) K/uL [place] # (Auto) 0.6 (0.0-0.8) K/uL Eos # (Auto) 0.1 (0.0-0.7) K/uL Baso # (Auto) 0.0 (0.0-0.1) K/uL Nucleated RBC % 0.0 /100WBC Nucleated RBCs # 0 K/uL INR 2.79 Meds: Medications Discontinued Medications Generic Name Dose Route Start Last Admin Trade Name Freq PRN Reason Stop Dose Admin Tranexamic Acid 1,000 mg/ 510 mls @ 62.5 mls/hr 03/11/20 19:18 03/11/20 19:25 Sodium Chloride IV 03/12/20 03:27 Not Given ONETIME ONE Tranexamic Acid 1,000 mg 03/11/20 19:23 03/11/20 19:43 Cyklokapron .XX 03/11/20 19:24 1,000 mg ONETIME ONE Administration Tranexamic Acid Confirm 03/11/20 19:23 03/11/20 19:27 Cyklokapron Administered 03/11/20 19:24 Not Given Dose 1,000 mg .ROUTE .STK-MED ONE Departure - Departure Time of Disposition: 19:58 Disposition: Home, Self-Care 01 Condition: Good Clinical Impression: Epistaxis - Discharge Information Instructions: Nosebleed, [id number] Referrals: Emanuel Constantino MD [Primary Care Provider] - Forms: ED Department Discharge Additional Instructions: The following information is given to patients seen in the emergency department who are being discharged to home. This information is to outline your options for follow-up care. We provide all patients seen in our emergency department with a follow-up referral. The need for follow-up, as well as the timing and circumstances, are variable depending upon the specifics of your emergency department visit. If you don't have a primary care physician on staff, we will provide you with a referral. We always advise you to contact your personal physician following an emergency department visit to inform them of the circumstance of the visit and for follow-up with them and/or the need for any referrals to a consulting specialist. The emergency department will also refer you to a specialist when appropriate. This referral assures that you have the opportunity for follow-up care with a specialist. All of these measure are taken in an effort to provide you with optimal care, which includes your follow-up. Under all circumstances we always encourage you to contact your private physician who remains a resource for coordinating your care. When calling for follow-up care, please make the office aware that this follow-up is from your recent emergency room visit. If for any reason you are refused follow-up, please contact the [facility] Emergency Department at and asked to speak to the emergency department charge nurse. [facility] [address] [place] [id number] [address] [facility] ENT - Dr. Roberts [address] [address] [place] [address] No picking, sneezing, blowing nose, hot liquids as instructed Follow up on Tuesday 03/13 for packing removal Return to ED as needed as discussed Sepsis Event Note - Evaluation Sepsis Screening Result: No Definite Risk - Focused Exam Vital Signs: Vital Signs Temp Pulse Resp BP Pulse Ox 03/11/20 20:11 97.1 F 62 18 140/55 L 92 L 03/11/20 18:48 97.2 F 67 18 161/66 H 91 L Date Exam was Performed: 03/11/20 Time Exam was Performed: 20:53
[2020-03-11 20:23] VITALS: BP 140/55; PULSE 62
== END 2020-03-11 20:11 | disposition home or self-care (01) ==
LOC: MW.ED 18:33
DX: R04.0 Epistaxis (principal); I48.91 Unspecified atrial fibrillation; I25.10 Atherosclerotic heart disease of native coronary artery without angina pectoris; I25.2 Old myocardial infarction; E78.00 Pure hypercholesterolemia, unspecified; I10 Essential (primary) hypertension; F41.9 Anxiety disorder, unspecified; F32.9 Major depressive disorder, single episode, unspecified; Z79.01 Long term (current) use of anticoagulants; Z88.0 Allergy status to penicillin; Z88.1 Allergy status to other antibiotic agents; Z91.048 Other nonmedicinal substance allergy status; Z91.040 Latex allergy status; Z79.82 Long term (current) use of aspirin; Z79.899 Other long term (current) drug therapy
CPT/HCPCS: 30903; 36415; 85025; 85610; 99282; 99283-25

== ENCOUNTER 2020-03-13 10:20 | Emergency (ER) | payer MEDICARE, BC ==
--- NOTE | 2020-03-13 10:27 | EDM.PDOC ---
ED HPI GENERAL MEDICAL PROBLEM - General Stated Complaint: TAKE TUBE OUT OF NOSE Time Seen by Provider: 03/13/20 10:22 Source of Information: Reports: Patient History Limitations: Reports: No Limitations - History of Present Illness INITIAL COMMENTS - FREE TEXT/NARRATIVE: HISTORY AND PHYSICAL: History of present illness: Patient is an 89-year-old female who presents to the emergency room requesting to have a Rhino rocket removed that was placed on 03/11/2020. She had a spontaneous nosebleed and a 7.5 Rhino Rocket that was soaked in TXA was placed in the right nare. Patient denies any fever, chills, headache, change in vision , syncope or near syncope. Denies any chest pain, back pain, shortness of breath or cough. Denies any GI or symptoms. Review of systems: As per history of present illness and below otherwise all systems reviewed and negative. Past medical history: As per history of present illness and as reviewed below otherwise noncontributory. Surgical history: As per history of present illness and as reviewed below otherwise noncontributory. Social history: See social history for further information Family history: As per history of present illness and as reviewed below otherwise noncontributory. Physical exam: General: Well-developed and well-nourished 89-year-old female. Alert and oriented. Nontoxic-appearing and in no acute distress. HEENT: Atraumatic, normocephalic, pupils equal and reactive bilaterally, negative for conjunctival pallor or scleral icterus, mucous membranes moist, after the Rhino Rocket was removed from the right nare there is no bleeding, TMs normal bilaterally, throat clear, neck supple, nontender, trachea midline. No drooling or trismus noted. No meningeal signs. No hot potato voice noted. Lungs: Clear to auscultation, breath sounds equal bilaterally, chest nontender. Heart: S1S2, regular rate and rhythm without overt murmur Abdomen: Soft, nondistended, nontender. Skin: Intact, warm, dry. No lesions or rashes noted. Extremities: Atraumatic, moves all extremities per self without difficulty or deficits. Neurovascular unremarkable. Neuro: Awake, alert, oriented. Cranial nerves II through XII unremarkable. Cerebellum unremarkable. Motor and sensory unremarkable throughout. Exam nonfocal. Notes: Physical exam is within normal limits. She has no current complaints or concerns with her ER visit other than requesting to have the Rhino Rocket removed from right nare. The Rhino rocket was removed without any difficulty. She sat and waited for approximately 20 to 30 minutes to make sure no bleeding reoccurred. Vital signs are stable. Supportive care measures were reviewed and discussed. Voices understanding and is agreeable to plan of care. Denies any further questions or concerns at this time. Diagnostics: None Therapeutics: Rhino Rocket removal Prescription: None Impression: Encounter for nasal packing removal Plan: 1. Avoid vigorously blowing your nose or any activities that would put pressure in the sinus cavity. 2. Follow-up with your primary care provider as we discussed. 3. Return to the ED as needed and as discussed. Definitive disposition and diagnosis as appropriate pending reevaluation and review of above. - Related Data Allergies Allergy/AdvReac Type Severity Reaction Status Date / Time adhesive tape Allergy Rash Verified 03/13/20 10:31 amoxicillin Allergy Hives Verified 03/13/20 10:31 latex Allergy Rash Verified 03/13/20 10:31 Penicillins Allergy Hives Verified 03/13/20 10:31 metal Allergy Rash Uncoded 03/13/20 10:31 Home Meds: Home Meds Aspirin [Adult Low Dose Aspirin EC] 4 tab PO DAILY 10/23/16 [History] Furosemide 1 tab PO DAILY 10/23/16 [History] Isosorbide Mononitrate 10 mg PO BID 10/23/16 [History] Lisinopril 1 tab PO DAILY 10/23/16 [History] Sertraline HCl 1 tab PO DAILY 10/23/16 [History] Simvastatin [Zocor] 1 tab PO BEDTIME 10/23/16 [History] Spironolactone [Aldactone] 25 mg PO DAILY 10/23/16 [History] Warfarin [Coumadin] 6 mg PO DAILY 10/23/16 [History] Past Medical History HEENT History: Reports: Cataract Other HEENT History: wears glasses, has upper denture Cardiovascular History: Reports: Afib, CAD, High Cholesterol, Hypertension, [place], Other (See Below) Other Cardiovascular History: History of Bradycardia Respiratory History: Reports: Sleep Apnea Other Respiratory History: uses CPAP Gastrointestinal History: Reports: None 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 History: Reports: None 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: Musculoskeletal History: Reports: Arthritis, Fracture 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, hx of fx left hip and right wrist Neurological History: Reports: None Psychiatric History: Reports: Anxiety, Depression Endocrine/Metabolic History: Reports: None Hematologic History: Reports: Anemia Immunologic History: Reports: None Oncologic (Cancer) History: Reports: None Other Dermatologic History: very sensitive to scented lotions, gets a rash - Infectious Disease History Infectious Disease History: Reports: Measles, Mumps, Rubella - Past Surgical History Head Surgeries/Procedures: Reports: None HEENT Surgical History: Reports: Cataract Surgery Cardiovascular Surgical History: Reports: Coronary Artery Bypass GI Surgical History: Reports: None Female Surgical History: Reports: None Endocrine Surgical History: Reports: None Neurological Surgical History: Reports: None Musculoskeletal Surgical History: Reports: Hip Replacement Oncologic Surgical History: Reports: None Dermatological Surgical History: Reports: None Social & Family History - Family History Family Medical History: Noncontributory - Caffeine Use Caffeine Use: Reports: Coffee - Living Situation & Occupation Living situation: Reports: with Family (lives with daughter in [facility]) ED ROS ENT - Review of Systems Review Of Systems: Comprehensive ROS is negative, except as noted in HPI. ED EXAM, ENT - Physical Exam Exam: See Below (See dictation) Departure - Departure Time of Disposition: 10:33 Disposition: Home, Self-Care 01 Clinical Impression: Encounter for removal of nasal packing - Discharge Information Instructions: Nosebleed, [id number] Referrals: Emanuel Constantino MD [Primary Care Provider] - Additional Instructions: The following information is given to patients seen in the emergency department who are being discharged to home. This information is to outline your options for follow-up care. We provide all patients seen in our emergency department with a follow-up referral. The need for follow-up, as well as the timing and circumstances, are variable depending upon the specifics of your emergency department visit. If you don't have a primary care physician on staff, we will provide you with a referral. We always advise you to contact your personal physician following an emergency department visit to inform them of the circumstance of the visit and for follow-up with them and/or the need for any referrals to a consulting specialist. The emergency department will also refer you to a specialist when appropriate. This referral assures that you have the opportunity for follow-up care with a specialist. All of these measure are taken in an effort to provide you with optimal care, which includes your follow-up. Under all circumstances we always encourage you to contact your private physician who remains a resource for coordinating your care. When calling for follow-up care, please make the office aware that this follow-up is from your recent emergency room visit. If for any reason you are refused follow-up, please contact the [facility] Emergency Department at and asked to speak to the emergency department charge nurse. [facility] [address] [place] [phone] [address] 1. Avoid vigorously blowing your nose or any activities that would put pressure in the sinus cavity. 2. Follow-up with your primary care provider as we discussed. 3. Return to the ED as needed and as discussed. Sepsis Event Note - Focused Exam Date Exam was Performed: 03/13/20 Time Exam was Performed: 10:33
[2020-03-13 10:49] VITALS: BP 145/55; PULSE 73
== END 2020-03-13 10:48 | disposition home or self-care (01) ==
LOC: MW.ED 10:20
DX: Z48.00 Encounter for change or removal of nonsurgical wound dressing (principal); I48.91 Unspecified atrial fibrillation; E78.00 Pure hypercholesterolemia, unspecified; I10 Essential (primary) hypertension; I25.2 Old myocardial infarction; F41.9 Anxiety disorder, unspecified; F32.9 Major depressive disorder, single episode, unspecified; M19.90 Unspecified osteoarthritis, unspecified site; Z79.82 Long term (current) use of aspirin; Z79.01 Long term (current) use of anticoagulants; Z91.048 Other nonmedicinal substance allergy status; Z88.0 Allergy status to penicillin; Z88.1 Allergy status to other antibiotic agents; Z91.09 Other allergy status, other than to drugs and biological substances
CPT/HCPCS: 99281; 99282

== ENCOUNTER 2020-04-20 14:59 | Emergency (ER) | payer MEDICARE, BC ==
--- NOTE | 2020-04-20 15:20 | EDM.PDOC ---
ED HPI GENERAL MEDICAL PROBLEM - General Chief Complaint: ENT Problem Stated Complaint: BLOODY NOSE Time Seen by Provider: 04/20/20 15:08 Source of Information: Reports: Patient History Limitations: Reports: No Limitations - History of Present Illness INITIAL COMMENTS - FREE TEXT/NARRATIVE: 89-year-old female with history of A. fib on Coumadin presents with nosebleed today around noon time. She was scratching/picking her nares and started bleeding from the right nare. She denies dizziness, lightheadedness, wanting to pass out. ROS: A 10-point review of systems, other than pertinent positives and negatives as stated per HPI, is otherwise negative PHYSICAL EXAM General: AOx4, GCS = 15, No distress HEENT: dry mucous membrane, trace dried blood bilateral nares with no active bleeding, trace dried blood in posterior oropharynx. Neck: supple, no meningismus, no Kernig or Brudzinski Cardiac: S1S2 RRR Respiratory: CTAB, no crackles or rales, no wheezing Abdomen: Soft, nontender, no rebound or guarding, nondistended, no pulsatile mass. Back: nontender Musculoskeletal: NVI distally, no deformity Neuro: No focal deficits, CN 2 - 12 WNL. - Related Data Allergies Allergy/AdvReac Type Severity Reaction Status Date / Time adhesive tape Allergy Rash Verified 04/20/20 15:14 amoxicillin Allergy Hives Verified 04/20/20 15:14 latex Allergy Rash Verified 04/20/20 15:14 Penicillins Allergy Hives Verified 04/20/20 15:14 metal Allergy Rash Uncoded 04/20/20 15:14 Home Meds: Home Meds Aspirin [Adult Low Dose Aspirin EC] 4 tab PO DAILY 10/23/16 [History] Furosemide 1 tab PO DAILY 10/23/16 [History] Isosorbide Mononitrate 10 mg PO BID 10/23/16 [History] Lisinopril 1 tab PO DAILY 10/23/16 [History] Sertraline HCl 1 tab PO DAILY 10/23/16 [History] Simvastatin [Zocor] 1 tab PO BEDTIME 10/23/16 [History] Spironolactone [Aldactone] 25 mg PO DAILY 10/23/16 [History] Warfarin [Coumadin] 6 mg PO DAILY 10/23/16 [History] Past Medical History HEENT History: Reports: Cataract, Epistaxis Other HEENT History: wears glasses, has upper denture Cardiovascular History: Reports: Afib, CAD, High Cholesterol, Hypertension, [place], Other (See Below) Other Cardiovascular History: History of Bradycardia Respiratory History: Reports: Sleep Apnea Other Respiratory History: uses CPAP Gastrointestinal History: Reports: None 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 History: Reports: None 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: Musculoskeletal History: Reports: Arthritis, Fracture 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, hx of fx left hip and ri ght wrist Neurological History: Reports: None Psychiatric History: Reports: Anxiety, Depression Endocrine/Metabolic History: Reports: None Hematologic History: Reports: Anemia Immunologic History: Reports: None Oncologic (Cancer) History: Reports: None Other Dermatologic History: very sensitive to scented lotions, gets a rash - Infectious Disease History Infectious Disease History: Reports: None - Past Surgical History Head Surgeries/Procedures: Reports: None HEENT Surgical History: Reports: Cataract Surgery Cardiovascular Surgical History: Reports: Coronary Artery Bypass GI Surgical History: Reports: None Female Surgical History: Reports: Tubal Ligation Endocrine Surgical History: Reports: None Neurological Surgical History: Reports: None Musculoskeletal Surgical History: Reports: Hip Replacement Oncologic Surgical History: Reports: None Dermatological Surgical History: Reports: None Social & Family History - Family History Family Medical History: Noncontributory - Tobacco Use Smoking Status *Q: Never Smoker - Caffeine Use Caffeine Use: Reports: Coffee - Recreational Drug Use Recreational Drug Use: No - Living Situation & Occupation Living situation: Reports: with Family (lives with daughter in [facility]) ED ROS ENT - Review of Systems Review Of Systems: Comprehensive ROS is negative, except as noted in HPI. ED EXAM, ENT - Physical Exam Exam: See Below Course - Vital Signs Last Recorded V/S: Last Vital Signs Temp 98 F 04/20/20 15:11 Pulse 58 L 04/20/20 17:09 Resp 16 04/20/20 17:09 BP 122/61 04/20/20 17:09 Pulse Ox 90 L 04/20/20 17:09 - Orders/Labs/Meds Labs: Laboratory Tests 04/20/20 04/20/20 04/20/20 Range/Units 16:01 16:01 16:01 WBC 6.13 (4.0-11.0) K/uL RBC 3.50 L (4.30-5.90) M/uL Hgb 10.6 L (12.0-16.0) g/dL Hct 34.5 L (36.0-46.0) % MCV 98.6 H (80.0-98.0) fL MCH 30.3 (27.0-32.0) pg MCHC 30.7 L (31.0-37.0) g/dL RDW Std Deviation 52.3 (28.0-62.0) fl RDW Coeff of Aleksandr 15 (11.0-15.0) % Plt Count 161 (150-400) K/uL MPV 9.50 (7.40-12.00) fL Nucleated RBC % 0.0 /100WBC Nucleated RBCs # 0 K/uL INR 2.22 Sodium 139 (136-145) mmol/L Potassium 4.3 (3.5-5.1) mmol/L Chloride 101 (98-107) mmol/L Carbon Dioxide 26.1 (21.0-32.0) mmol/L BUN 25 H (7.0-18.0) mg/dL Creatinine 1.4 H (0.6-1.0) mg/dL Est Cr Clr Drug Dosing 20.96 mL/min Estimated GFR (MDRD) 35.5 ml/min Glucose 125 H (74-106) mg/dL Calcium 9.6 (8.5-10.1) mg/dL Meds: Medications Discontinued Medications Generic Name Dose Route Start Last Admin Trade Name Freq PRN Reason Stop Dose Admin Oxymetazoline HCl 1 ml 04/20/20 15:29 04/20/20 16:14 Afrin Original 0.05% Nasal [place] LYNNE 04/20/20 15:30 1 dose ONETIME ONE Administration - Re-Assessments/Exams Free Text/Narrative Re-Assessment/Exam: 04/20/20 15:32 Ordered Afrin nasal spray. 04/20/20 17:27 After Afrin nasal spray and nasal clamping and a prolonged observation period in the ER, she has no epistaxis and is stable for discharge. I performed a repeat examination and the patient has not demonstrated any new abnormal findings. Patient exhibits normal vital signs. I advised the patient to return to the ER for reevaluation if symptoms worsened, and to follow up with their PCP within 2- 3 days. MEDICAL DECISION MAKING: I reviewed the patients past medical records, lab and radiographic findings. I discussed the case with the patient. My differential diagnosis included: Anterior epistaxis, posterior epistaxis supratherapeutic INR. Her INR is therapeutic. Her epistaxis resolved after nasal clamping and Afrin nasal spray. I do not suspect the need for rapid Rhino at this time. Departure - Departure Time of Disposition: 17:29 Disposition: Home, Self-Care 01 Condition: Good Clinical Impression: Epistaxis - Discharge Information *PRESCRIPTION DRUG MONITORING PROGRAM REVIEWED*: Not Applicable *COPY OF PRESCRIPTION DRUG MONITORING REPORT IN PATIENT BA: Not Applicable Instructions: Nosebleed, Nuet-op-Bsgd Referrals: Emanuel Constantino MD [Primary Care Provider] - Forms: ED Department Discharge Additional Instructions: The following information is given to patients seen in the emergency department who are being discharged to home. This information is to outline your options for follow-up care. We provide all patients seen in our emergency department with a follow-up referral. The need for follow-up, as well as the timing and circumstances, are variable depending upon the specifics of your emergency department visit. If you don't have a primary care physician on staff, we will provide you with a referral. We always advise you to contact your personal physician following an emergency department visit to inform them of the circumstance of the visit and for follow-up with them and/or the need for any referrals to a consulting specialist. The emergency department will also refer you to a specialist when appropriate. This referral assures that you have the opportunity for follow-up care with a specialist. All of these measure are taken in an effort to provide you with optimal care, which includes your follow-up. Under all circumstances we always encourage you to contact your private physician who remains a resource for coordinating your care. When calling for follow-up care, please make the office aware that this follow-up is from your recent emergency room visit. If for any reason you are refused follow-up, please contact the [facility] Emergency Department at and asked to speak to the emergency department charge nurse. If you do not have a primary care doctor, please follow up with the clinics below within 3-5 days. [facility] - Primary Care [address] [place] [address] [id number] [facility] [address] [place] [id number] Sepsis Event Note (ED) - Evaluation Sepsis Screening Result: No Definite Risk - Focused Exam Vital Signs: Vital Signs Temp Pulse Resp BP Pulse Ox 04/20/20 17:09 58 L 16 122/61 90 L 04/20/20 16:15 68 18 139/64 92 L 04/20/20 15:11 98 F 73 18 142/67 H 92 L
[2020-04-20] MEDS ORDERED: Oxymetazoline 0.05% Nasal Spray 15 ML Bottle NAS ONE (15:29)
[2020-04-20 16:30] LABS: CARBON DIOXIDE,CO2 26.1 mmol/L (21.0-32.0); POTASSIUM,K 4.3 mmol/L (3.5-5.1)
[2020-04-20 17:09] VITALS: BP 122/61; PULSE 58
== END 2020-04-20 17:38 | disposition home or self-care (01) ==
LOC: MW.ED 14:59
DX: R04.0 Epistaxis (principal); I48.91 Unspecified atrial fibrillation; E78.00 Pure hypercholesterolemia, unspecified; I10 Essential (primary) hypertension; I25.2 Old myocardial infarction; M19.90 Unspecified osteoarthritis, unspecified site; F41.9 Anxiety disorder, unspecified; F32.9 Major depressive disorder, single episode, unspecified; Z79.899 Other long term (current) drug therapy; Z79.01 Long term (current) use of anticoagulants; Z91.048 Other nonmedicinal substance allergy status; Z88.1 Allergy status to other antibiotic agents; Z91.040 Latex allergy status; Z88.0 Allergy status to penicillin; Z91.09 Other allergy status, other than to drugs and biological substances
CPT/HCPCS: 36415; 80048; 85027; 85610; 99283; A9270; 30901; 99282

== ENCOUNTER 2020-09-20 17:02 | Emergency (ER) | payer MEDICARE, BC ==
[2020-09-20 17:13] VITALS: BP 140/57; PULSE 69
--- NOTE | 2020-09-20 17:47 | EDM.PDOC ---
ED HPI GENERAL MEDICAL PROBLEM - General Chief Complaint: ENT Problem Stated Complaint: NOSE BLEED Time Seen by Provider: 09/20/20 17:09 Source of Information: Reports: Patient History Limitations: Reports: No Limitations - History of Present Illness INITIAL COMMENTS - FREE TEXT/NARRATIVE: HISTORY AND PHYSICAL: History of present illness: Patient is an 89-year-old female who presents to the emergency room with complaints of a right sided nosebleed. She states she does frequently get nosebleeds due to the dry weather and being on Coumadin. Today she believes she was scratching or picking at her nostril when the bleeding started. She denies any significant injury or trauma of the nare. She does see Dr. Emanuel Constantino at [facility], he follows her INRs. Patient denies any fever, chills, headache, change in vision, syncope or near syncope. Denies any chest pain, back pain, shortness of breath or cough. Denies any abdominal pain, nausea, vomiting, diarrhea, constipation or dysuria. Has not noted any blood in urine or stool. Patient has been eating and drinking appropriately. Review of systems: As per history of present illness and below otherwise all systems reviewed and negative. Past medical history: As per history of present illness and as reviewed below otherwise noncontributory. Surgical history: As per history of present illness and as reviewed below otherwise noncontributory. Social history: See social history for further information Family history: As per history of present illness and as reviewed below otherwise noncontributory. Physical exam: General: Well developed and well nourished. Alert and orientated x 3. Nontoxic in appearance and in no acute distress. Vital signs are stable and have been reviewed by me. Nursing notes were reviewed. HEENT: Atraumatic, normocephalic, pupils equal and reactive bilaterally, negative for conjunctival pallor or scleral icterus, mucous membranes moist, TMs normal bilaterally, throat clear, neck supple, nontender, trachea midline. No drooling or trismus noted. No meningeal signs. No hot potato voice noted. Lungs: Clear to auscultation, breath sounds equal bilaterally, chest nontender. Normal work of breathing, no accessory muscles used. Heart: S1S2, regular rate and rhythm without overt murmur Abdomen: Soft, nondistended, nontender. Skin: Intact, warm, dry. No lesions or rashes noted. Hematologic: No petechiae or purpra. Mucosa appropriate color and normal nail bed color and refill. Extremities: Atraumatic, moves all extremities per self without difficulty or deficits, negative for cords or calf pain. Neurovascular unremarkable. Neuro: Awake, alert, oriented. Cranial nerves II through XII unremarkable. Cerebellum unremarkable. Motor and sensory unremarkable throughout. Exam nonfocal. Psychiatric: Mood and affect are appropriate. Normal thought process. Answering questions appropriately. Notes: The patient was asked to vigorously blow her nose, large clot was blown out. Inspection shows she has noted bleeding along the anterior septal wall. 5.5 sized Rhino Rocket inserted without difficulty. Patient was asked to wait for 20 minutes to ensure there is no breakthrough bleeding. Bleeding has subsided; VSS. I have talked with the patient about today's findings, in addition to providing specific details for plan of care. Patient will return on 09/22/20 to have the rhino-rocket removed/re-evaluated. Reassessment at the time of disposition demonstrates that the patient is in no acute distress. The patient is stable for discharge, counseling was provided and we discussed in great detail signs and symptoms that would prompt them to return to the Emergency Department. Medication, follow up and supportive care measures were reviewed and discussed. Voices understanding and is agreeable to plan of care. Denies any further questions or concerns at this time. Diagnostics: INR Therapeutics: Rhino Rocket Prescription: None Impression: Epistaxis, Right Plan: 1. Today your nare was packed with a Rhino-Rocket. Please follow up with Dr Emanuel Constantino or return here on 09/22/20 to have this re-assessed and removed. 2. Try to avoid blowing your nose vigorously or doing anything that would put strain on your nose/face (bending over, etc...) You can take Tylenol and/or Ibuprofen as needed for discomfort. 3. We encourage you to follow up with your primary care provider and/or recommended specialist in the next few days for re-evaluation and further care/management. If your symptoms should worsen, new symptoms develop or any of the signs and symptoms we discussed should arise please return to the emergency room or call 911 (if needed). Definitive disposition and diagnosis as appropriate pending reevaluation and review of above. - Related Data Allergies Allergy/AdvReac Type Severity Reaction Status Date / Time adhesive tape Allergy Rash Verified 09/20/20 17:10 amoxicillin Allergy Hives Verified 09/20/20 17:10 latex Allergy Rash Verified 09/20/20 17:10 Penicillins Allergy Hives Verified 09/20/20 17:10 metal Allergy Rash Uncoded 09/20/20 17:10 Home Meds: Home Meds Aspirin [Adult Low Dose Aspirin EC] 4 tab PO DAILY 10/23/16 [History] Furosemide 1 tab PO DAILY 10/23/16 [History] Isosorbide Mononitrate 10 mg PO BID 10/23/16 [History] Lisinopril 1 tab PO DAILY 10/23/16 [History] Sertraline HCl 1 tab PO DAILY 10/23/16 [History] Simvastatin [Zocor] 1 tab PO BEDTIME 10/23/16 [History] Spironolactone [Aldactone] 25 mg PO DAILY 10/23/16 [History] Warfarin [Coumadin] 6 mg PO DAILY 10/23/16 [History] Past Medical History HEENT History: Reports: Cataract, Epistaxis Other HEENT History: wears glasses, has upper denture Cardiovascular History: Reports: Afib, CAD, High Cholesterol, Hypertension, [place], Other (See Below) Other Cardiovascular History: History of Bradycardia Respiratory History: Reports: Sleep Apnea Other Respiratory History: uses CPAP Gastrointestinal History: Reports: None 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 History: Reports: None [employer] History: Reports: Musculoskeletal History: Reports: Arthritis, Fracture 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, hx of fx left hip and right wrist Neurological History: Reports: None Psychiatric History: Reports: Anxiety, Depression Endocrine/Metabolic History: Reports: None Hematologic History: Reports: Anemia Immunologic History: Reports: None Oncologic (Cancer) History: Reports: None Other Dermatologic History: very sensitive to scented lotions, gets a rash - Infectious Disease History Infectious Disease History: Reports: Measles - Past Surgical History Head Surgeries/Procedures: Reports: None HEENT Surgical History: Reports: Cataract Surgery Cardiovascular Surgical History: Reports: Coronary Artery Bypass Other Cardiovascular Surgeries/Procedures: 3 vessels (2013) denies chest pain and SOB Respiratory Surgical History: Reports: None GI Surgical History: Reports: None Female Surgical History: Reports: Tubal Ligation Endocrine Surgical History: Reports: None Neurological Surgical History: Reports: None Musculoskeletal Surgical History: Reports: Hip Replacement Oncologic Surgical History: Reports: None Dermatological Surgical History: Reports: None Social & Family History - Family History Family Medical History: No Pertinent Family History - Tobacco Use Tobacco Use Status *Q: Never Tobacco User - Caffeine Use Caffeine Use: Reports: None - Recreational Drug Use Recreational Drug Use: No - Living Situation & Occupation Living situation: Reports: with Family (lives with daughter in [place] [facility]) ED ROS ENT - Review of Systems Review Of Systems: Comprehensive ROS is negative, except as noted in HPI. ED EXAM, ENT - Physical Exam Exam: See Below (See dictation) Course - Vital Signs Last Recorded V/S: Last Vital Signs Temp 98.5 F 09/20/20 17:11 Pulse 69 09/20/20 17:11 Resp 16 09/20/20 17:11 BP 140/57 L 09/20/20 17:11 Pulse Ox 94 L 09/20/20 17:11 - Orders/Labs/Meds Labs: Laboratory Tests 09/20/20 Range/Units 17:21 INR 2.06 Departure - Departure Time of Disposition: 17:49 Disposition: Home, Self-Care 01 Clinical Impression: Epistaxis - Discharge Information Instructions: Nosebleed, Ivku-on-Ntuf Referrals: Emanuel Constantino MD [Primary Care Provider] - Forms: ED Department Discharge Additional Instructions: The following information is given to patients seen in the emergency department who are being discharged to home. This information is to outline your options for follow-up care. We provide all patients seen in our emergency department with a follow-up referral. The need for follow-up, as well as the timing and circumstances, are variable depending upon the specifics of your emergency department visit. If you don't have a primary care physician on staff, we will provide you with a referral. We always advise you to contact your personal physician following an emergency department visit to inform them of the circumstance of the visit and for follow-up with them and/or the need for any referrals to a consulting specialist. The emergency department will also refer you to a specialist when appropriate. This referral assures that you have the opportunity for follow-up care with a specialist. All of these measure are taken in an effort to provide you with optimal care, which includes your follow-up. Under all circumstances we always encourage you to contact your private physician who remains a resource for coordinating your care. When calling for follow-up care, please make the office aware that this follow-up is from your recent emergency room visit. If for any reason you are refused follow-up, please contact the [facility] Emergency Department at and asked to speak to the emergency department charge nurse. [facility] Primary Care [address] [place] [address] [facility] [address] [place] [address] Thank you for choosing the [facility] emergency department in [place] for your medical needs today. It was a pleasure caring for you. Today you were seen in the emergency department for nose bleed. 1. Today your nare was packed with a Rhino-Rocket. Please follow up with Dr Emanuel Constantino or return here on 09/22/20 to have this re-assessed and removed. 2. Try to avoid blowing your nose vigorously or doing anything that would put strain on your nose/face (bending over, etc...) You can take Tylenol and/or Ibuprofen as needed for discomfort. 3. We encourage you to follow up with your primary care provider and/or recommended specialist in the next few days for re-evaluation and further care/management. If your symptoms should worsen, new symptoms develop or any of the signs and symptoms we discussed should arise please return to the emergency room or call 911 (if needed). Sepsis Event Note (ED) - Evaluation Sepsis Screening Result: No Definite Risk - Focused Exam Vital Signs: Vital Signs Temp Pulse Resp BP Pulse Ox 09/20/20 17:11 98.5 F 69 16 140/57 L 94 L
== END 2020-09-20 18:22 | disposition home or self-care (01) ==
LOC: MW.ED 17:02
DX: R04.0 Epistaxis (principal); I48.91 Unspecified atrial fibrillation; I25.10 Atherosclerotic heart disease of native coronary artery without angina pectoris; E78.00 Pure hypercholesterolemia, unspecified; I10 Essential (primary) hypertension; I25.2 Old myocardial infarction; M19.90 Unspecified osteoarthritis, unspecified site; F41.9 Anxiety disorder, unspecified; F32.9 Major depressive disorder, single episode, unspecified; Z91.048 Other nonmedicinal substance allergy status; Z88.0 Allergy status to penicillin; Z91.040 Latex allergy status; Z79.899 Other long term (current) drug therapy; Z79.82 Long term (current) use of aspirin; Z79.01 Long term (current) use of anticoagulants
CPT/HCPCS: 30903; 36415; 85610; 99283-25

== ENCOUNTER 2020-09-22 12:12 | Emergency (ER) | payer MEDICARE, BC ==
[2020-09-22 12:44] VITALS: BP 119/56; PULSE 65
--- NOTE | 2020-09-22 12:45 | EDM.PDOC ---
ED HPI GENERAL MEDICAL PROBLEM - General Chief Complaint: ENT Problem Stated Complaint: NOSE BLEED Time Seen by Provider: 09/22/20 12:26 Source of Information: Reports: Patient History Limitations: Reports: No Limitations - History of Present Illness INITIAL COMMENTS - FREE TEXT/NARRATIVE: Patient is a 89-year-old female who presents today for nosebleed. Patient was seen here few days ago for nosebleed and had a Rhino Rocket placed. Patient was told to come back next 2 to 3 days to have the Rhino Rocket evaluated. Patient denies any recurrent bleeding nausea vomiting fever chills or other pains. Patient still currently taking her Coumadin as prescribed. - Related Data Allergies Allergy/AdvReac Type Severity Reaction Status Date / Time adhesive tape Allergy Rash Verified 09/22/20 13:11 amoxicillin Allergy Hives Verified 09/22/20 13:11 latex Allergy Rash Verified 09/22/20 13:11 Penicillins Allergy Hives Verified 09/22/20 13:11 metal Allergy Rash Uncoded 09/22/20 13:11 Home Meds: Home Meds Aspirin [Adult Low Dose Aspirin EC] 4 tab PO DAILY 10/23/16 [History] Furosemide 1 tab PO DAILY 10/23/16 [History] Isosorbide Mononitrate 10 mg PO BID 10/23/16 [History] Lisinopril 1 tab PO DAILY 10/23/16 [History] Sertraline HCl 1 tab PO DAILY 10/23/16 [History] Simvastatin [Zocor] 1 tab PO BEDTIME 10/23/16 [History] Spironolactone [Aldactone] 25 mg PO DAILY 10/23/16 [History] Warfarin [Coumadin] 6 mg PO DAILY 10/23/16 [History] Past Medical History HEENT History: Reports: Cataract, Epistaxis Other HEENT History: wears glasses, has upper denture Cardiovascular History: Reports: Afib, CAD, High Cholesterol, Hypertension, [place], Other (See Below) Other Cardiovascular History: History of Bradycardia Respiratory History: Reports: Sleep Apnea Other Respiratory History: uses CPAP Gastrointestinal History: Reports: None 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 History: Reports: None 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: Musculoskeletal History: Reports: Arthritis, Fracture 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, hx of fx left hip and right wrist Neurological History: Reports: None Psychiatric History: Reports: Anxiety, Depression Endocrine/Metabolic History: Reports: None Hematologic History: Reports: Anemia Immunologic History: Reports: None Oncologic (Cancer) History: Reports: None Other Dermatologic History: very sensitive to scented lotions, gets a rash - Infectious Disease History Infectious Disease History: Reports: Measles - Past Surgical History Head Surgeries/Procedures: Reports: None HEENT Surgical History: Reports: Cataract Surgery Cardiovascular Surgical History: Reports: Coronary Artery Bypass Other Cardiovascular Surgeries/Procedures: 3 vessels (2013) denies chest pain and SOB Respiratory Surgical History: Reports: None GI Surgical History: Reports: None Female Surgical History: Reports: Tubal Ligation Endocrine Surgical History: Reports: None Neurological Surgical History: Reports: None Musculoskeletal Surgical History: Reports: Hip Replacement Oncologic Surgical History: Reports: None Dermatological Surgical History: Reports: None Social & Family History - Family History Family Medical History: No Pertinent Family History - Caffeine Use Caffeine Use: Reports: None - Living Situation & Occupation Living situation: Reports: with Family (lives with daughter in [facility]) ED ROS GENERAL - Review of Systems Review Of Systems: See Below Constitutional: Reports: No Symptoms HEENT: Reports: No Symptoms Respiratory: Reports: No Symptoms Cardiovascular: Reports: No Symptoms Endocrine: Reports: No Symptoms GI/Abdominal: Reports: No Symptoms : Reports: No Symptoms Musculoskeletal: Reports: No Symptoms Skin: Reports: No Symptoms Neurological: Reports: No Symptoms Psychiatric: Reports: No Symptoms Hematologic/Lymphatic: Reports: No Symptoms Immunologic: Reports: No Symptoms ED EXAM, GENERAL - Physical Exam Exam: See Below Exam Limited By: No Limitations General Appearance: Alert, No Apparent Distress Eye Exam: Bilateral Eye: EOMI, PERRL Nose: Normal Inspection, No Blood Head: Atraumatic Respiratory/Chest: No Respiratory Distress Cardiovascular: Normal Peripheral Pulses, Regular Rate, Rhythm GI/Abdominal: Normal Bowel Sounds Neurological: Alert, Oriented Course - Vital Signs Last Recorded V/S: Last Vital Signs Temp 97.5 F 09/22/20 12:26 Pulse 65 09/22/20 12:26 Resp 16 09/22/20 12:26 BP 119/56 L 09/22/20 12:26 Pulse Ox 95 09/22/20 12:26 - Re-Assessments/Exams Free Text/Narrative Re-Assessment/Exam: 09/22/20 13:33 Rudd has been observed in ER for 1 hour and no bleeding of her nose. Patient will be discharged home to still follow-up with ENT as outpatient. Departure - Departure Time of Disposition: 13:34 Disposition: Home, Self-Care 01 Condition: Good Clinical Impression: Epistaxis - Discharge Information *PRESCRIPTION DRUG MONITORING PROGRAM REVIEWED*: Not Applicable *COPY OF PRESCRIPTION DRUG MONITORING REPORT IN PATIENT BA: Not Applicable Referrals: Emanuel Constantino MD [Primary Care Provider] - Forms: ED Department Discharge Additional Instructions: The following information is given to patients seen in the emergency department who are being discharged to home. This information is to outline your options for follow-up care. We provide all patients seen in our emergency department with a follow-up referral. The need for follow-up, as well as the timing and circumstances, are variable depending upon the specifics of your emergency department visit. If you don't have a primary care physician on staff, we will provide you with a referral. We always advise you to contact your personal physician following an emergency department visit to inform them of the circumstance of the visit and for follow-up with them and/or the need for any referrals to a consulting specialist. The emergency department will also refer you to a specialist when appropriate. This referral assures that you have the opportunity for follow-up care with a specialist. All of these measure are taken in an effort to provide you with optimal care, which includes your follow-up. Under all circumstances we always encourage you to contact your private physician who remains a resource for coordinating your care. When calling for follow-up care, please make the office aware that this follow-up is from your recent emergency room visit. If for any reason you are refused follow-up, please contact the [facility] Emergency Department at and asked to speak to the emergency department charge nurse. Please follow up with your primary care physician. If you do not have a primary care physician, see below: [facility] [address] [place] [id number] [facility] [address] [place] [phone] Follow-up with ENT as outpatient please return to the ED if you have any increased nosebleeding or other issues. Sepsis Event Note (ED) - Focused Exam Vital Signs: Vital Signs Temp Pulse Resp BP Pulse Ox 09/22/20 12:26 97.5 F 65 16 119/56 L 95 - Assessment/Plan Plan: 89 year-old female who presents today for evaluation of her nosebleed. Will remove the Rhino Rocket and assess.
== END 2020-09-22 13:39 | disposition home or self-care (01) ==
LOC: MW.ED 12:12
DX: R04.0 Epistaxis (principal); I48.91 Unspecified atrial fibrillation; I25.10 Atherosclerotic heart disease of native coronary artery without angina pectoris; E78.00 Pure hypercholesterolemia, unspecified; I10 Essential (primary) hypertension; I25.2 Old myocardial infarction; M19.90 Unspecified osteoarthritis, unspecified site; F41.9 Anxiety disorder, unspecified; F32.9 Major depressive disorder, single episode, unspecified; Z91.048 Other nonmedicinal substance allergy status; Z88.1 Allergy status to other antibiotic agents; Z91.040 Latex allergy status; Z88.0 Allergy status to penicillin; Z79.82 Long term (current) use of aspirin; Z79.899 Other long term (current) drug therapy; Z79.01 Long term (current) use of anticoagulants
CPT/HCPCS: 99283

== ENCOUNTER 2021-05-12 22:05 | Emergency (ER) | payer MEDICARE, BC ==
[2021-05-12] MEDS ORDERED: Oxymetazoline 0.05% Nasal Spray 15 ML Bottle NAS ONE (22:31)
--- NOTE | 2021-05-12 22:33 | EDM.PDOC ---
ED HPI GENERAL MEDICAL PROBLEM - General Chief Complaint: ENT Problem Stated Complaint: NOSE BLEED AND ON BLOOD THINNERS Time Seen by Provider: 05/12/21 22:31 Source of Information: Reports: Patient History Limitations: Reports: No Limitations - History of Present Illness INITIAL COMMENTS - FREE TEXT/NARRATIVE: Patient is a 80-year-old female on warfarin presents today for nosebleed. Patient dates that she has some in her nose and she went to scratch it and the bleeding started. She tried to compress it without success. She denies any complaints other than the bleeding of her nose. - Related Data Allergies Allergy/AdvReac Type Severity Reaction Status Date / Time adhesive tape Allergy Rash Verified 05/12/21 22:07 amoxicillin Allergy Hives Verified 05/12/21 22:07 latex Allergy Rash Verified 05/12/21 22:07 Penicillins Allergy Hives Verified 05/12/21 22:07 metal Allergy Rash Uncoded 05/12/21 22:07 Home Meds: Home Meds Aspirin [Adult Low Dose Aspirin EC] 4 tab PO DAILY 10/23/16 [History] Furosemide 1 tab PO DAILY 10/23/16 [History] Isosorbide Mononitrate 10 mg PO BID 10/23/16 [History] Lisinopril 1 tab PO DAILY 10/23/16 [History] Sertraline HCl 1 tab PO DAILY 10/23/16 [History] Simvastatin [Zocor] 1 tab PO BEDTIME 10/23/16 [History] Spironolactone [Aldactone] 25 mg PO DAILY 10/23/16 [History] Warfarin [Coumadin] 6 mg PO DAILY 10/23/16 [History] Past Medical History HEENT History: Reports: Cataract, Epistaxis Other HEENT History: wears glasses, has upper denture Cardiovascular History: Reports: Afib, CAD, High Cholesterol, Hypertension, [place], Other (See Below) Other Cardiovascular History: History of Bradycardia Respiratory History: Reports: Sleep Apnea Other Respiratory History: uses CPAP Gastrointestinal History: Reports: None 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 History: Reports: None 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: Musculoskeletal History: Reports: Arthritis, Fracture 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, hx of fx left hip and right wrist Neurological History: Reports: None Psychiatric History: Reports: Anxiety, Depression Endocrine/Metabolic History: Reports: None Hematologic History: Reports: Anemia Immunologic History: Reports: None Oncologic (Cancer) History: Reports: None Dermatologic History: Reports: None Other Dermatologic History: very sensitive to scented lotions, gets a rash - Infectious Disease History Infectious Disease History: Reports: Measles - Past Surgical History Head Surgeries/Procedures: Reports: None HEENT Surgical History: Reports: Cataract Surgery Cardiovascular Surgical History: Reports: Coronary Artery Bypass Other Cardiovascular Surgeries/Procedures: 3 vessels (2013) denies chest pain and SOB Respiratory Surgical History: Reports: None GI Surgical History: Reports: None Female Surgical History: Reports: Tubal Ligation Endocrine Surgical History: Reports: None Neurological Surgical History: Reports: None Musculoskeletal Surgical History: Reports: Hip Replacement Oncologic Surgical History: Reports: None Dermatological Surgical History: Reports: None Social & Family History - Family History Family Medical History: No Pertinent Family History - Tobacco Use Tobacco Use Status *Q: Never Tobacco User - Caffeine Use Caffeine Use: Reports: Coffee - Recreational Drug Use Recreational Drug Use: No - Living Situation & Occupation Living situation: Reports: with Family (lives with daughter in [facility]) ED ROS ENT - Review of Systems Review Of Systems: See Below Constitutional: Reports: No Symptoms HEENT: Reports: Nosebleed Respiratory: Reports: No Symptoms Endocrine: Reports: No Symptoms GI/Abdominal: Reports: No Symptoms : Reports: No Symptoms Musculoskeletal: Reports: No Symptoms Skin: Reports: No Symptoms Neurological: Reports: No Symptoms Psychiatric: Reports: No Symptoms Hematologic/Lymphatic: Reports: No Symptoms Immunologic: Reports: No Symptoms ED EXAM, ENT - Physical Exam Exam: See Below Exam Limited By: No Limitations General Appearance: Alert, WD/WN, No Apparent Distress Nose: Active Bleeding Respiratory/Chest: No Respiratory Distress Neurological: Alert, Oriented Course - Vital Signs Last Recorded V/S: Last Vital Signs Temp 97.8 F 05/12/21 22:09 Pulse 94 05/12/21 22:09 Resp 18 05/12/21 22:09 BP 131/59 L 05/12/21 22:09 Pulse Ox 63 L 05/12/21 22:09 - Orders/Labs/Meds Meds: Medications Discontinued Medications Generic Name Dose Route Start Last Admin Trade Name Freq PRN Reason Stop Dose Admin Oxymetazoline HCl 1 ml 05/12/21 22:31 05/12/21 23:00 Oxymetazoline 0.05% Nasal [place] 15 Ml Bottle LYNNE 05/12/21 22:32 1 ml ONETIME ONE Administration - Re-Assessments/Exams Free Text/Narrative Re-Assessment/Exam: 05/12/21 23:24 Patient was given Afrin and the bleeding has stopped. Patient will be discharged home. Departure - Departure Time of Disposition: 23:24 Disposition: Home, Self-Care 01 Condition: Good Clinical Impression: Bleeding nose - Discharge Information *PRESCRIPTION DRUG MONITORING PROGRAM REVIEWED*: Not Applicable *COPY OF PRESCRIPTION DRUG MONITORING REPORT IN PATIENT BA: Not Applicable Instructions: Nosebleed, [id number] Referrals: Emanuel Constantino MD [Primary Care Provider] - Forms: ED Department Discharge Additional Instructions: The following information is given to patients seen in the emergency department who are being discharged to home. This information is to outline your options for follow-up care. We provide all patients seen in our emergency department with a follow-up referral. The need for follow-up, as well as the timing and circumstances, are variable depending upon the specifics of your emergency department visit. If you don't have a primary care physician on staff, we will provide you with a referral. We always advise you to contact your personal physician following an emergency department visit to inform them of the circumstance of the visit and for follow-up with them and/or the need for any referrals to a consulting specialist. The emergency department will also refer you to a specialist when appropriate. This referral assures that you have the opportunity for follow-up care with a specialist. All of these measure are taken in an effort to provide you with optimal care, which includes your follow-up. Under all circumstances we always encourage you to contact your private physician who remains a resource for coordinating your care. When calling for follow-up care, please make the office aware that this follow-up is from your recent emergency room visit. If for any reason you are refused follow-up, please contact the [facility] Emergency Department at and asked to speak to the emergency department charge nurse. Please follow up with your primary care physician. If you do not have a primary care physician, see below: [facility] [address] [place] [address] [id number] [address] You were seen today for a nosebleed that we were able to stop with compressions and also intranasal medication called Afrin. You can continue to take your Coumadin however try to refrain from blowing your nose or inserting anything into your nose or picking it. If you have any bleeding or concerning symptoms please return to the ED. Sepsis Event Note (ED) - Evaluation Sepsis Screening Result: No Definite Risk - Focused Exam Vital Signs: Vital Signs Temp Pulse Resp BP Pulse Ox 05/12/21 22:09 97.8 F 94 18 131/59 L 63 L - Assessment/Plan Plan: Patient is 89-year-old female presents today for nosebleed. Patient is on warfarin. Will provide Afrin and continue compression to stop bleeding.
[2021-05-13 00:12] VITALS: BP 126/55; PULSE 76
== END 2021-05-12 23:40 | disposition home or self-care (01) ==
LOC: MW.ED 22:05
DX: R04.0 Epistaxis (principal); I48.91 Unspecified atrial fibrillation; I25.10 Atherosclerotic heart disease of native coronary artery without angina pectoris; E78.00 Pure hypercholesterolemia, unspecified; I10 Essential (primary) hypertension; I25.2 Old myocardial infarction; M19.90 Unspecified osteoarthritis, unspecified site; Z91.048 Other nonmedicinal substance allergy status; Z88.0 Allergy status to penicillin; Z91.040 Latex allergy status; Z79.82 Long term (current) use of aspirin; Z79.01 Long term (current) use of anticoagulants; Z79.899 Other long term (current) drug therapy
CPT/HCPCS: 99283

== ENCOUNTER 2021-06-16 19:02 | Emergency (ER) | payer MEDICARE, BC ==
[2021-06-16] MEDS ORDERED: Oxymetazoline 0.05% Nasal Spray 30 ML Bottle NAS ONE (20:23)
--- NOTE | 2021-06-16 20:27 | EDM.PDOC ---
ED HPI GENERAL MEDICAL PROBLEM - General Chief Complaint: ENT Problem Stated Complaint: NOSE BLEED ON BLOOD THINNERS Time Seen by Provider: 06/16/21 20:15 Source of Information: Reports: Patient, Family () History Limitations: Reports: No Limitations - History of Present Illness INITIAL COMMENTS - FREE TEXT/NARRATIVE: HISTORY AND PHYSICAL: History of present illness: The patient is an 89-year-old female who presents to the emergency room after having a nosebleed for several hours. The patient is on Coumadin and has frequent nosebleeds. Patient denies any fever, chills, headache, change in vision, syncope or near syncope. Denies any chest pain, back pain, shortness of breath or cough. Denies any abdominal pain, nausea, vomiting, diarrhea, constipation or dysuria. Has not noted any blood in urine or stool. Patient has been eating and drinking appropriately. Review of systems: As per history of present illness and below otherwise all systems reviewed and negative. Past medical history: As per history of present illness and as reviewed below otherwise noncontributory. Surgical history: As per history of present illness and as reviewed below otherwise noncontributory. Social history: See social history for further information Family history: As per history of present illness and as reviewed below otherwise noncontributory. Physical exam: General: Well developed and well nourished. Alert and orientated x 3. Nontoxic in appearance and in no acute distress. Vital signs are stable and have been reviewed by me. Nursing notes were reviewed. HEENT: Atraumatic, normocephalic, pupils equal and reactive bilaterally, negative for conjunctival pallor or scleral icterus, mucous membranes moist, TMs normal bilaterally, throat clear, neck supple, nontender, trachea midline. Noted blood from right nares. No drooling or trismus noted. No meningeal signs. No hot potato voice noted. Lungs: Clear to auscultation bilaterally. No wheezes, rales, or rhonchi. Chest nontender. Normal work of breathing, no accessory muscles used. Heart: S1S2, regular rate and rhythm without overt murmur, gallops, or rubs. No JVD. No peripheral edema Abdomen: Soft, nondistended, nontender. Normoactive bowel sounds. Negative for masses or costovertebral tenderness. Skin: Intact, warm, dry. No lesions or rashes noted. Neuro: Awake, alert, oriented. Cranial nerves II through XII unremarkable. Cerebellum unremarkable. Motor and sensory unremarkable throughout. Exam nonfocal. Psychiatric: Mood and affect are appropriate. Normal thought process. Answering questions appropriately. Notes: *This patient was seen and evaluated during the 2019 SARS-CoV-2 novel coronavirus pandemic period. Community viral transmission is ongoing at time of this encounter and the emergency department is operating under pandemic response procedures. The patient is an 89-year-old female who presents with a nosebleed. I will check the patient's INR level. Have ordered Afrin and a nasal clip. The patient is agreeable with this plan. Patient's INR level is 4. I have instructed her to skip her dose tomorrow and then to call Friday to talk to her primary care about an appropriate dose. The patient would not let me use a Rhino Rocket, however she did consent to a small packing. The patient decided prior to discharge that she would get the rhino rocket. 7.5 rhino rocket inserted after soaking balloon with water. The balloon was inserted into the right nares slowly and then balloon slowly inflated until the bleeding stopped. The nose was anesthetized with viscous lidocaine. The patient tolerated it well. I have talked with the patient about today's findings, in addition to providing specific details for plan of care. Reassessment at the time of disposition dem onstrates that the patient is in no acute distress. The patient is stable for discharge, counseling was provided and we discussed in great detail signs and symptoms that would prompt them to return to the Emergency Department. Medication, follow up and supportive care measures were reviewed and discussed. Voices understanding and is agreeable to plan of care. Denies any further questions or concerns at this time. Diagnostics: CBC, CMP, INR Therapeutics: Afrin, 7.5 rhino rocket. Impression: Epistaxis Plan: 1. You were evaluated today on an emergent basis. Your nose bleed was evaluated with blood work. Your INR is elevated. You need to not take your coumadin tomorrow and call you doctor Friday before taking it to ask about dosing. You refused to allow insertion of packing into your nose to stop the bleeding. 2. You can alternate Tylenol and ibuprofen as needed for pain and fever management. 3. We encourage you to follow up with your primary care provider and/or recommended specialist in the next few days for re-evaluation and further care/management. 4. If your symptoms should worsen, new symptoms develop or any of the signs and symptoms we discussed should arise please return to the emergency room or call 911 (if needed). Definitive disposition and diagnosis as appropriate pending reevaluation and review of above. - Related Data Allergies Allergy/AdvReac Type Severity Reaction Status Date / Time adhesive tape Allergy Rash Verified 06/16/21 20:16 amoxicillin Allergy Hives Verified 06/16/21 20:16 latex Allergy Rash Verified 06/16/21 20:16 Penicillins Allergy Hives Verified 06/16/21 20:16 metal Allergy Rash Uncoded 06/16/21 20:16 Home Meds: Home Meds Aspirin [Adult Low Dose Aspirin EC] 4 tab PO DAILY 10/23/16 [History] Furosemide 1 tab PO DAILY 10/23/16 [History] Isosorbide Mononitrate 10 mg PO BID 10/23/16 [History] Lisinopril 1 tab PO DAILY 10/23/16 [History] Sertraline HCl 1 tab PO DAILY 10/23/16 [History] Simvastatin [Zocor] 1 tab PO BEDTIME 10/23/16 [History] Spironolactone [Aldactone] 25 mg PO DAILY 10/23/16 [History] Warfarin [Coumadin] 6 mg PO DAILY 10/23/16 [History] Past Medical History HEENT History: Reports: Cataract, Epistaxis Other HEENT History: wears glasses, has upper denture Cardiovascular History: Reports: Afib, CAD, High Cholesterol, Hypertension, [place], Other (See Below) Other Cardiovascular History: History of Bradycardia Respiratory History: Reports: Sleep Apnea Other Respiratory History: uses CPAP Gastrointestinal History: Reports: None 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 History: Reports: None 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: Musculoskeletal History: Reports: Arthritis, Fracture 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, hx of fx left hip and right wrist Neurological History: Reports: None Psychiatric History: Reports: Anxiety, Depression Endocrine/Metabolic History: Reports: None Hematologic History: Reports: Anemia Immunologic History: Reports: None Oncologic (Cancer) History: Reports: None Dermatologic History: Reports: None Other Dermatologic History: very sensitive to scented lotions, gets a rash - Infectious Disease History Infectious Disease History: Reports: Measles - Past Surgical History Head Surgeries/Procedures: Reports: None HEENT Surgical History: Reports: Cataract Surgery Cardiovascular Surgical History: Reports: Coronary Artery Bypass Other Cardiovascular Surgeries/Procedures: 3 vessels (2014) denies chest pain and SOB Respiratory Surgical History: Reports: None GI Surgical History: Reports: None Female Surgical History: Reports: Tubal Ligation Endocrine Surgical History: Reports: None Neurological Surgical History: Reports: None Musculoskeletal Surgical History: Reports: Hip Replacement Oncologic Surgical History: Reports: None Dermatological Surgical History: Reports: None Social & Family History - Family History Family Medical History: No Pertinent Family History - Caffeine Use Caffeine Use: Reports: Coffee - Living Situation & Occupation Living situation: Reports: with Family (lives with daughter in trailer) ED ROS ENT - Review of Systems Review Of Systems: Comprehensive ROS is negative, except as noted in HPI. ED EXAM, ENT - Physical Exam Exam: See Below (See dictation) Course - Vital Signs Last Recorded V/S: Last Vital Signs Temp 97.5 F 06/16/21 22:17 Pulse 60 06/16/21 22:17 Resp 18 06/16/21 22:17 BP 134/45 L 06/16/21 22:17 Pulse Ox 93 L 06/16/21 22:17 - Orders/Labs/Meds Labs: Laboratory Tests 06/16/21 06/16/21 06/16/21 Range/Units 20:44 20:44 20:44 WBC 5.77 (4.0-11.0) K/uL RBC 3.28 L (4.30-5.90) M/uL Hgb 10.3 L (12.0-16.0) g/dL Hct 32.6 L (36.0-46.0) % MCV 99.4 H (80.0-98.0) fL MCH 31.4 (27.0-32.0) pg MCHC 31.6 (31.0-37.0) g/dL RDW Std Deviation 57.1 (28.0-62.0) fl RDW Coeff of Aleksandr 16 H (11.0-15.0) % Plt Count 165 (150-400) K/uL MPV 9.60 (7.40-12.00) fL Neut % (Auto) 68.5 (48.0-80.0) % Lymph % (Auto) 15.9 L (16.0-40.0) % [place] % (Auto) 13.7 (0.0-15.0) % Eos % (Auto) 1.4 (0.0-7.0) % Baso % (Auto) 0.5 (0.0-1.5) % Neut # (Auto) 4.0 (1.4-5.7) K/uL Lymph # (Auto) 0.9 (0.6-2.4) K/uL [place] # (Auto) 0.8 (0.0-0.8) K/uL Eos # (Auto) 0.1 (0.0-0.7) K/uL Baso # (Auto) 0.0 (0.0-0.1) K/uL Nucleated RBC % 0.0 /100WBC Nucleated RBCs # 0 K/uL INR 4.09 Sodium 140 (136-145) mmol/L Potassium 5.2 H (3.5-5.1) mmol/L Chloride 106 (98-107) mmol/L Carbon Dioxide 22.0 (21.0-32.0) mmol/L BUN 40 H (7.0-18.0) mg/dL Creatinine 2.3 H (0.6-1.0) mg/dL Est Cr Clr Drug Dosing 13.72 mL/min Estimated GFR (MDRD) 20.0 ml/min Glucose 102 (74-106) mg/dL Calcium 8.8 (8.5-10.1) mg/dL Total Bilirubin 0.5 (0.2-1.0) mg/dL AST 17 (15-37) IU/L ALT 15 (14-63) IU/L Alkaline Phosphatase 88 (46-116) U/L Total Protein 7.3 (6.4-8.2) g/dL Albumin 3.8 (3.4-5.0) g/dL Globulin 3.5 (2.6-4.0) g/dL Albumin/Globulin Ratio 1.1 (0.9-1.6) Meds: Medications Discontinued Medications Generic Name Dose Route Start Last Admin Trade Name Freq PRN Reason Stop Dose Admin Lidocaine HCl 15 ml 06/16/21 22:25 Lidocaine 2% Viscous Solution 15 Ml Cup PO 06/16/21 22:26 ONETIME ONE Oxymetazoline HCl 1 ml 06/16/21 20:23 08/28/21 20:56 Oxymetazoline 0.05% Nasal [place] 30 Ml Bottle LYNNE 06/16/21 20:24 Not Given ONETIME ONE Oxymetazoline HCl 1 ml 06/16/21 20:55 06/16/21 20:56 Oxymetazoline 0.05% Nasal [place] 15 Ml Bottle LYNNE 06/16/21 20:56 1 ml ONETIME ONE Administration Departure - Departure Time of Disposition: 22:07 Disposition: Home, Self-Care 01 Condition: Good Clinical Impression: Epistaxis - Discharge Information *PRESCRIPTION DRUG MONITORING PROGRAM REVIEWED*: Not Applicable *COPY OF PRESCRIPTION DRUG MONITORING REPORT IN PATIENT BA: Not Applicable Instructions: Nosebleed, Adult Referrals: Emanuel Constantino MD [Primary Care Provider] - Forms: ED Department Discharge Additional Instructions: The following information is given to patients seen in the emergency department who are being discharged to home. This information is to outline your options for follow-up care. We provide all patients seen in our emergency department with a follow-up referral. The need for follow-up, as well as the timing and circumstances, are variable depending upon the specifics of your emergency department visit. If you don't have a primary care physician on staff, we will provide you with a referral. We always advise you to contact your personal physician following an emergency department visit to inform them of the circumstance of the visit and for follow-up with them and/or the need for any referrals to a consulting specialist. The emergency department will also refer you to a specialist when appropriate. This referral assures that you have the opportunity for follow-up care with a specialist. All of these measure are taken in an effort to provide you with optimal care, which includes your follow-up. Under all circumstances we always encourage you to contact your private physician who remains a resource for coordinating your care. When calling for follow-up care, please make the office aware that this follow-up is from your recent emergency room visit. If for any reason you are refused follow-up, please contact the [facility] Emergency Department at and asked to speak to the emergency department charge nurse. [facility] - Primary Care [address] [place] [id number] [address] [address] Plan: 1. You were evaluated today on an emergent basis. Your nose bleed was evaluated with blood work. Your INR is elevated. You need to not take your coumadin tomorrow and call you doctor Friday before taking it to ask about dosing. You refused to allow insertion of packing into your nose to stop the bleeding. 2. You can alternate Tylenol and ibuprofen as needed for pain and fever management. 3. We encourage you to follow up with your primary care provider and/or recommended specialist in the next few days for re-evaluation and further care/management. 4. If your symptoms should worsen, new symptoms develop or any of the signs and symptoms we discussed should arise please return to the emergency room or call 911 (if needed).
[2021-06-16] MEDS ORDERED: Oxymetazoline 0.05% Nasal Spray 15 ML Bottle NAS ONE (20:55)
[2021-06-16 21:15] LABS: POTASSIUM,K 5.2 mmol/L (3.5-5.1)
[2021-06-16] MEDS ORDERED: Lidocaine 2% Viscous Solution 15 ML Cup PO ONE (22:25)
[2021-06-16 23:58] VITALS: BP 134/45; PULSE 60
== END 2021-06-16 22:00 | disposition home or self-care (01) ==
LOC: MW.ED 19:02
DX: R04.0 Epistaxis (principal); I48.91 Unspecified atrial fibrillation; I25.10 Atherosclerotic heart disease of native coronary artery without angina pectoris; E78.00 Pure hypercholesterolemia, unspecified; I10 Essential (primary) hypertension; I25.2 Old myocardial infarction; M19.90 Unspecified osteoarthritis, unspecified site; Z79.82 Long term (current) use of aspirin; Z79.899 Other long term (current) drug therapy; Z91.048 Other nonmedicinal substance allergy status; Z88.8 Allergy status to other drugs, medicaments and biological substances; Z88.0 Allergy status to penicillin; Z79.01 Long term (current) use of anticoagulants
CPT/HCPCS: 30903; 36415; 80053; 85025; 85610; 99283; 99283-25

== ENCOUNTER 2021-07-28 10:22 | Emergency (ER) | payer MEDICARE, BC ==
[2021-07-28 10:49] VITALS: BP 97/61; PULSE 55
[2021-07-28] MEDS ORDERED: Diphtheria,Pertussis(Acell),Tetanus Vaccine 0.5 ML Syringe IM ONE (10:59)
--- NOTE | 2021-07-28 11:02 | EDM.PDOC ---
ED HPI GENERAL MEDICAL PROBLEM - General Chief Complaint: General Stated Complaint: EMS ARRIVAL Time Seen by Provider: 07/28/21 10:52 - History of Present Illness INITIAL COMMENTS - FREE TEXT/NARRATIVE: History of present illness: [] Patient fell this morning knows that she is only injured her left hand. He does not have any other injury. She does not know when her last tetanus shot was. She does not have any functional deficit of the hand and no significant pain but it is bleeding. She is not on a blood thinner. She had been up till 2 weeks ago. Review of systems: As per history of present illness and below otherwise all systems reviewed and negative. Past medical history: As per history of present illness and as reviewed below otherwise noncontributory. Surgical history: As per history of present illness and as reviewed below otherwise noncontributory. Social history: No reported history of drug or alcohol abuse. Family history: As per history of present illness and as reviewed below otherwise nonco ntributory. Physical exam: Constitutional - well developed, well-nourished and in no acute distress HEENT - normocephalic, no evidence of trauma - external nose and mouth normal - no mass in neck and no JVD - mucosae moist EYES - full EOM, PERRL, no icterus - no evidence of inflammation, injection, or drainage Respiratory - no respiratory distress, equal bilateral expansion Musculoskeletal no gross deformity of long bones or joints - no tenderness, swelling or edema Neurologic - Alert and oriented times four - CN II-XII grossly intact - motor sensory and coordination symmetrically normal Psychiatric - appropriate mood and affect with normal thought content Hematologic - No petechiae or purpura - mucosa appropriate color and sclera not pale - normal nail bed color and refill Integument -2 cm laceration in the webspace #4 of the left hand on the dorsum. The laceration has friable skin that could not maintain sutures without tearing. It is very paperthin and there is a hematoma in the surrounding area. No rash or evidence of trauma - normal turgor Diagnostics: [] Therapeutics: [] Impression: [] Plan: [] Definitive disposition and diagnosis as appropriate pending reevaluation and review of above. 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) - Related Data Allergies Allergy/AdvReac Type Severity Reaction Status Date / Time adhesive tape Allergy Rash Verified 06/16/21 20:16 amoxicillin Allergy Hives Verified 06/16/21 20:16 latex Allergy Rash Verified 06/16/21 20:16 Penicillins Allergy Hives Verified 06/16/21 20:16 metal Allergy Rash Uncoded 06/16/21 20:16 Home Meds: Home Meds Aspirin [Adult Low Dose Aspirin EC] 4 tab PO DAILY 10/23/16 [History] Furosemide 1 tab PO DAILY 10/23/16 [History] Isosorbide Mononitrate 10 mg PO BID 10/23/16 [History] Lisinopril 1 tab PO DAILY 10/23/16 [History] Sertraline HCl 1 tab PO DAILY 10/23/16 [History] Simvastatin [Zocor] 1 tab PO BEDTIME 10/23/16 [History] Spironolactone [Aldactone] 25 mg PO DAILY 10/23/16 [History] Warfarin [Coumadin] 6 mg PO DAILY 10/23/16 [History] Past Medical History HEENT History: Reports: Cataract, Epistaxis Other HEENT History: wears glasses, has upper denture Cardiovascular History: Reports: Afib, CAD, High Cholesterol, Hypertension, [place], Other (See Below) Other Cardiovascular History: History of Bradycardia Respiratory History: Reports: Sleep Apnea Other Respiratory History: uses CPAP Gastrointestinal History: Reports: None 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 History: Reports: None 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: Musculoskeletal History: Reports: Arthritis, Fracture 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, hx of fx left hip and right wrist Neurological History: Reports: None Psychiatric History: Reports: Anxiety, Depression Endocrine/Metabolic History: Reports: None Hematologic History: Reports: Anemia Immunologic History: Reports: None Oncologic (Cancer) History: Reports: None Dermatologic History: Reports: None Other Dermatologic History: very sensitive to scented lotions, gets a rash - Infectious Disease History Infectious Disease History: Reports: Measles - Past Surgical History Head Surgeries/Procedures: Reports: None HEENT Surgical History: Reports: Cataract Surgery Cardiovascular Surgical History: Reports: Coronary Artery Bypass Other Cardiovascular Surgeries/Procedures: 3 vessels (2013) denies chest pain and SOB Respiratory Surgical History: Reports: None GI Surgical History: Reports: None Female Surgical History: Reports: Tubal Ligation Endocrine Surgical History: Reports: None Neurological Surgical History: Reports: None Musculoskeletal Surgical History: Reports: Hip Replacement Oncologic Surgical History: Reports: None Dermatological Surgical History: Reports: None Social & Family History - Family History Family Medical History: No Pertinent Family History - Caffeine Use Caffeine Use: Reports: Coffee - Living Situation & Occupation Living situation: Reports: with Family (lives with daughter in trailer) ED ROS GENERAL - Review of Systems Review Of Systems: Comprehensive ROS is negative, except as noted in HPI. ED EXAM, GENERAL - Physical Exam Exam: See Below Free Text/Narrative:: My physical exam is in the HPI Course - Vital Signs Text/Narrative:: X-ray shows a wrist fracture but no hand fracture. Arthritis in calcium deficiency in her bones are obvious. The patient has no tenderness at the wrist and says she broke it in the past. it appears that it has healed healed this way Last Recorded V/S: Last Vital Signs Temp 36.9 C 07/28/21 10:32 Pulse 55 L 07/28/21 10:32 Resp 16 07/28/21 10:32 BP 97/61 07/28/21 10:32 Pulse Ox 92 L 07/28/21 10:32 - Orders/Labs/Meds Orders: Active Orders 24 hr Category Date Time Status Communication Order [RC] STAT Care 07/28/21 10:59 Active Vaccine to be Administered/Admin Charge [RC] ASDIRECTED Care 07/28/21 10:59 Active Hand Comp Min 3V Lt [CR] Stat Exams 07/28/21 10:59 Taken Meds: Medications Discontinued Medications Generic Name Dose Route Start Last Admin Trade Name Freq PRN Reason Stop Dose Admin Diphtheria/Tetanus/Acell Pertussis 0.5 ml 07/28/21 10:59 Diphtheria,Pertussis(Acell),Tetanus Vaccine 0.5 Ml Syringe IM 07/28/21 11:00 .ONCE ONE Departure - Departure Time of Disposition: 11:30 Disposition: Home, Self-Care 01 Condition: Good Clinical Impression: Contusion of left hand, initial encounter, Skin tear of left hand without complication - Discharge Information Instructions: Laceration Care, Adult Referrals: PCP,None [Primary Care Provider] - Forms: ED Department Discharge Additional Instructions: Have your medical doctor recheck this injury in 3 to 4 days. [facility] - Primary Care [address] [place] [id number] [place] [address] You received a booster tetanus diphtheria and pertussis shot in the emergency room today. The following information is given to patients seen in the emergency department who are being discharged to home. This information is to outline your options for follow-up care. We provide all patients seen in our emergency department with a follow-up referral. The need for follow-up, as well as the timing and circumstances, are variable depending upon the specifics of your emergency department visit. If you don't have a primary care physician on staff, we will provide you with a referral. We always advise you to contact your personal physician following an emergency department visit to inform them of the circumstance of the visit and for follow-up with them and/or the need for any referrals to a consulting specialist. The emergency department will also refer you to a specialist when appropriate. This referral assures that you have the opportunity for follow-up care with a specialist. All of these measure are taken in an effort to provide you with optimal care, which includes your follow-up. Under all circumstances we always encourage you to contact your private physician who remains a resource for coordinating your care. When calling for follow-up care, please make the office aware that this follow-up is from your recent emergency room visit. If for any reason you are refused follow-up, please contact the [facility] Emergency Department at and asked to speak to the emergency department charge nurse. Sepsis Event Note (ED) - Focused Exam Vital Signs: Vital Signs Temp Pulse Resp BP Pulse Ox 07/28/21 10:32 36.9 C 55 L 16 97/61 92 L - My Orders Last 24 Hours: My Active Orders 07/28/21 10:59 Communication Order [RC] STAT Vaccine to be Administered/Admin Charge [RC] ASDIRECTED Hand Comp Min 3V Lt [CR] Stat - Assessment/Plan Last 24 Hours: My Active Orders 07/28/21 10:59 Communication Order [RC] STAT Vaccine to be Administered/Admin Charge [RC] ASDIRECTED Hand Comp Min 3V Lt [CR] Stat
--- NOTE | 2021-07-28 11:39 | CR ---
INDICATION: Fall. TECHNIQUE: Left hand radiographs, 3 views. COMPARISON: None available. FINDINGS: Marked diffuse demineralization. No dislocation or displaced fracture. Age-indeterminate distal radius deformity. Mild-moderate joint space narrowing throughout the carpal articulations. Advanced joint space narrowing osteophytosis scattered throughout the interphalangeal joints, including suspected central articular erosions, most pronounced at the index and long finger DIP joints. Surgical clips overlying the radial aspect of the wrist. IMPRESSION: 1. Diffuse demineralization without left hand dislocation or displaced fracture. 2. Age-indeterminate left distal radius deformity, likely chronic. If clinical concern for acute distal radius fracture, consider dedicated wrist radiographs. 3. 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 Dictated by Alvin Garcia MD @ 07/28/2021 11:37:10 AM Dictated by: Alvin Garcia MD @ 07/28/2021 11:37:16 (Electronically Signed)
== END 2021-07-28 11:06 | disposition home or self-care (01) ==
LOC: MW.ED 10:22
DX: S61.412A Laceration without foreign body of left hand, initial encounter (principal); I48.91 Unspecified atrial fibrillation; I25.10 Atherosclerotic heart disease of native coronary artery without angina pectoris; E78.00 Pure hypercholesterolemia, unspecified; I10 Essential (primary) hypertension; I25.2 Old myocardial infarction; M19.90 Unspecified osteoarthritis, unspecified site; Z23 Encounter for immunization; Z91.048 Other nonmedicinal substance allergy status; Z88.0 Allergy status to penicillin; Z91.040 Latex allergy status; Z79.82 Long term (current) use of aspirin; Z79.01 Long term (current) use of anticoagulants; Z79.899 Other long term (current) drug therapy; W19.XXXA Unspecified fall, initial encounter; Y92.009 Unspecified place in unspecified non-institutional (private) residence as the place of occurrence of the external cause
CPT/HCPCS: 73130-26-LT; 73130-LT; 90471; 90715; 99283-25

== ENCOUNTER 2021-07-28 18:22 | Inpatient (IN) | payer MEDICARE, BC ==
[2021-07-28] MEDS ORDERED: Sodium Chloride 0.9% 2.5 ML Syringe FLUSH PRN (19:34)
[2021-07-28] MEDS ORDERED: Sodium Chloride 0.9% 10 ML Syringe FLUSH PRN (19:34)
--- NOTE | 2021-07-28 19:38 | EDM.PDOC ---
ED HPI GENERAL MEDICAL PROBLEM - General Chief Complaint: General Stated Complaint: TROUBLE WALKING Time Seen by Provider: 07/28/21 18:41 Source of Information: Reports: Patient History Limitations: Reports: No Limitations - History of Present Illness INITIAL COMMENTS - FREE TEXT/NARRATIVE: HISTORY AND PHYSICAL: History of present illness: The patient is an 89-year-old female who presents to the emergency department via EMS after falling at home and complaining of left hip pain. The patient had been in the ER earlier today for complaints of a fall and a skin tear of left hand. Upon arriving the patient was placed in the hallway and her SPO2 was noted to be 77% on room air. The patient appeared dusky but was alert and talking without difficulty. The patient was placed on 4 L per nasal cannula of oxygen and her SPO2 is a 90%. While the patient is alert and states that her hip hurts she states that she did not fall. Review of systems: As per history of present illness and below otherwise all systems reviewed and negative. Past medical history: As per history of present illness and as reviewed below otherwise noncontributory. Surgical history: As per history of present illness and as reviewed below otherwise noncontributory. Social history: See social history for further information Family history: As per history of present illness and as reviewed below otherwise noncontributory. Physical exam: General: Well developed and well nourished. Alert and orientated to self. Nursing notes were reviewed. HEENT: Atraumatic, normocephalic, pupils equal and reactive bilaterally, negative for conjunctival pallor or scleral icterus, mucous membranes moist, TMs normal bilaterally, throat clear, neck supple, nontender, trachea midline. No drooling or trismus noted. No meningeal signs. No hot potato voice noted. Lungs: Clear to auscultation bilaterally. No wheezes, rales, or rhonchi. Chest nontender. Normal work of breathing, no accessory muscles used. Heart: S1S2, regular rate and rhythm without overt murmur, gallops, or rubs. No JVD. No peripheral edema Abdomen: Soft, nondistended, nontender. Normoactive bowel sounds. Negative for masses or costovertebral tenderness. Pelvis: Stable nontender. Skin: Left hand bandage from previous injury. Warm & dry. No lesions or rashes noted. Hematologic: No petechiae or purpra. Mucosa appropriate color and normal nail bed color and refill. Extremities: Difficulty in moving but is able to move leg and arms. Neurovascular unremarkable. Neuro: Awake, alert, oriented to self. Cranial nerves II through XII unremarkable. Cerebellum unremarkable. Motor and sensory unremarkable throughout. Psychiatric: Mood and affect are appropriate. Normal thought process. . Notes: *This patient was seen and evaluated during the 2019 SARS-CoV-2 novel coronavirus pandemic period. Community viral transmission is ongoing at time of this encounter and the emergency department is operating under pandemic response procedures. As stated above the patient is an 89-year-old female who presents to the emergency department via EMS after falling and complaining of pain to her left hip. Upon arrival to the emergency department the patient was placed in a hallway bed and her SPO2 was found to be 77%. The patient appeared dusky but was alert and talking. Patient appears to be somewhat confused as the report I received stated that she fell, however she states that she did not fall. Her family is concerned about her oxygen saturation and her falls. The patient was placed on 4 L of oxygen via nasal cannula and her SPO2 increased to 90%. The patient pinked up immediately. I will do a work-up on the patient and let the family know what I find. The patient has begun communicating with staff more effectively. She is hard of hearing and with the mask on make communication even more difficult. But upon asking the patient if she was allergic to penicillin she was able to tell me yes and that she had hives from it. The patient's white blood cell count is 9.80, red blood cell count 3.41, hemoglobin 10.5. 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 The patient is on Coumadin for atrial fibrillation. Her INR is 3.09. The patient's chemistry is significant for a low potassium of 3.2, BUN 29, creatinine 1.7, glucose 131 and a lactate of 2.2. The patient's urinalysis was negative for infection. The patient's chest x-ray IMPRESSION: Opacity in the left mid and lower lung zones which likely reflects a component of pleural fluid with associated compressive atelectasis versus infectious consolidation. I will treat the patient for CAP. I have ordered Cefepime 2gm and Vancomycin 945mg after consulting with Dr. Lopez. I spoke with Dr. Flores regarding admission. Dr. Garcia requested a head CT and chest TC without contrast. I have placed the orders. I have attempted to call the son, Marc Hines and next of kin Rosa Hines. Marc Hines's number rings busy. Rosa Hines's number is disconnected. The patient's son Marc was out in the waiting room and I spoke with him regarding the patient's CODE STATUS. The son wants his mother to be a full code. I informed the son that the patient was going to be admitted to the hospital and that we are still awaiting a head CT results and chest CT. The son verbalized understanding. As we were talking the patient thought the son was her . She was quickly reoriented and said it was that he was wearing a hat that they are off. The patient is Covid negative. Diagnostics: BC, CMP, lactic acid, urinalysis,Blood cultures, INR, chest x-ray, left hip x-ray Therapeutics: Vancomycin, cefepime, IV fluids Impression: Hypoxia, community-acquired pneumonia Definitive disposition and diagnosis as appropriate pending reevaluation and review of above. - Related Data Allergies Allergy/AdvReac Type Severity Reaction Status Date / Time adhesive tape Allergy Rash Verified 06/16/21 20:16 amoxicillin Allergy Hives Verified 06/16/21 20:16 latex Allergy Rash Verified 06/16/21 20:16 Penicillins Allergy Hives Verified 06/16/21 20:16 metal Allergy Rash Uncoded 06/16/21 20:16 Home Meds: Home Meds Aspirin [Adult Low Dose Aspirin EC] 4 tab PO DAILY 10/23/16 [History] Furosemide 1 tab PO DAILY 10/23/16 [History] Isosorbide Mononitrate 10 mg PO BID 10/23/16 [History] Lisinopril 1 tab PO DAILY 10/23/16 [History] Sertraline HCl 1 tab PO DAILY 10/23/16 [History] Simvastatin [Zocor] 1 tab PO BEDTIME 10/23/16 [History] Spironolactone [Aldactone] 25 mg PO DAILY 10/23/16 [History] Warfarin [Coumadin] 6 mg PO DAILY 10/23/16 [History] Past Medical History HEENT History: Reports: Cataract, Epistaxis Other HEENT History: wears glasses, has upper denture Cardiovascular History: Reports: Afib, CAD, High Cholesterol, Hypertension, [place], Other (See Below) Other Cardiovascular History: History of Bradycardia Respiratory History: Reports: Sleep Apnea Other Respiratory History: uses CPAP Gastrointestinal History: Reports: None 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 History: Reports: None [employer] History: Reports: Musculoskeletal History: Reports: Arthritis, Fracture 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, hx of fx left hip and right wrist Neurological History: Reports: None Psychiatric History: Reports: Anxiety, Depression Endocrine/Metabolic History: Reports: None Hematologic History: Reports: Anemia Immunologic History: Reports: None Oncologic (Cancer) History: Reports: None Dermatologic History: Reports: None Other Dermatologic History: very sensitive to scented lotions, gets a rash - Infectious Disease History Infectious Disease History: Reports: Measles - Past Surgical History Head Surgeries/Procedures: Reports: None HEENT Surgical History: Reports: Cataract Surgery Cardiovascular Surgical History: Reports: Coronary Artery Bypass Other Cardiovascular Surgeries/Procedures: 3 vessels (2013) denies chest pain and SOB Respiratory Surgical History: Reports: None GI Surgical History: Reports: None Female Surgical History: Reports: Tubal Ligation Endocrine Surgical History: Reports: None Neurological Surgical History: Reports: None Musculoskeletal Surgical History: Reports: Hip Replacement Oncologic Surgical History: Reports: None Dermatological Surgical History: Reports: None Social & Family History - Family History Family Medical History: No Pertinent Family History - Tobacco Use Tobacco Use Status *Q: Never Tobacco User - Caffeine Use Caffeine Use: Reports: None - Recreational Drug Use Recreational Drug Use: No - Living Situation & Occupation Living situation: Reports: with Family (lives with daughter in [facility]) ED ROS GENERAL - Review of Systems Review Of Systems: Comprehensive ROS is negative, except as noted in HPI. ED EXAM, GENERAL - Physical Exam Exam: See Below (See dictation) Course - Vital Signs Last Recorded V/S: Last Vital Signs Temp 99.2 F 07/29/21 08:00 Pulse 66 07/29/21 08:00 Resp 15 07/29/21 08:00 BP 121/58 L 07/29/21 08:00 Pulse Ox 96 07/29/21 08:00 - Orders/Labs/Meds Orders: Active Orders 24 hr Category Date Time Status CULTURE BLOOD [BC] Stat Lab 07/28/21 19:46 Received CULTURE BLOOD [BC] Stat Lab 07/28/21 20:00 Received Sodium Chloride 0.9% [Saline Flush] Med 07/28/21 19:34 Active 10 ml FLUSH ASDIRECTED PRN Sodium Chloride 0.9% [Saline Flush] Med 07/28/21 19:34 Active 2.5 ml FLUSH ASDIRECTED PRN Blood Culture x2 Reflex Set [OM.PC] Stat Oth 07/28/21 19:37 Ordered Saline Lock Insert [OM.PC] Stat Oth 07/28/21 19:35 Ordered Code Status [Resuscitation Status] Stat Resus Stat 07/28/21 23:09 Ordered Medication Orders Acetaminophen (Acetaminophen 325 Mg Tab) 650 mg PO Q4H PRN PRN Reason: Pain (Mild 1-3)/fever Albuterol/Ipratropium (Albuterol/Ipratropium 3.0-0.5 Mg/3 Ml Neb Soln) 3 ml NEB Q4HRRT PRN PRN Reason: Shortness Of Breath/wheezing Vancomycin HCl 1 gm/ Sodium (Chloride) 250 mls @ 167 mls/hr IV Q24H [place] Cefepime HCl 1 gm/ Premix 50 mls @ 100 mls/hr IV Q8H [place] Morphine Sulfate (Morphine 2 Mg/Ml Syringe) 1 mg IVPUSH Q4H PRN PRN Reason: Pain Ondansetron HCl (Ondansetron 4 Mg/2 Ml Sdv) 4 mg IVPUSH Q4H PRN PRN Reason: Nausea/Vomiting Pantoprazole Sodium (Pantoprazole 40 Mg Vial) 40 mg IV DAILY [place] Sodium Chloride (Sodium Chloride 0.9% 10 Ml Syringe) 10 ml FLUSH ASDIRECTED PRN PRN Reason: Keep Vein Open Sodium Chloride (Sodium Chloride 0.9% 2.5 Ml Syringe) 2.5 ml FLUSH ASDIRECTED PRN PRN Reason: Keep Vein Open Vancomycin HCl (Pharmacy To Dose - Vancomycin) 1 dose .XX ASDIRECTED [facility] Labs: Laboratory Tests 07/28/21 07/28/21 07/28/21 Range/Units 20:00 20:00 20:00 WBC 9.80 (4.0-11.0) K/uL RBC 3.41 L (4.30-5.90) M/uL Hgb 10.5 L (12.0-16.0) g/dL Hct 33.3 L (36.0-46.0) % MCV 97.7 (80.0-98.0) fL MCH 30.8 (27.0-32.0) pg MCHC 31.5 (31.0-37.0) g/dL RDW Std Deviation 53.8 (28.0-62.0) fl RDW Coeff of Aleksandr 15 (11.0-15.0) % Plt Count 135 L (150-400) K/uL MPV 10.30 (7.40-12.00) fL Neut % (Auto) 89.7 H (48.0-80.0) % Lymph % (Auto) 3.2 L (16.0-40.0) % Dubois % (Auto) 7.0 (0.0-15.0) % Eos % (Auto) 0.0 (0.0-7.0) % Baso % (Auto) 0.1 (0.0-1.5) % Neut # (Auto) 8.8 H (1.4-5.7) K/uL Lymph # (Auto) 0.3 L (0.6-2.4) K/uL Dubois # (Auto) 0.7 (0.0-0.8) K/uL Eos # (Auto) 0.0 (0.0-0.7) K/uL Baso # (Auto) 0.0 (0.0-0.1) K/uL Nucleated RBC % 0.0 /100WBC Nucleated RBCs # 0 K/uL INR 3.09 Sodium 145 (136-145) mmol/L Potassium 3.2 L (3.5-5.1) mmol/L Chloride 104 (98-107) mmol/L Carbon Dioxide 28.1 (21.0-32.0) mmol/L BUN 29 H (7.0-18.0) mg/dL Creatinine 1.7 H (0.6-1.0) mg/dL Est Cr Clr Drug Dosing 18.56 mL/min Estimated GFR (MDRD) 28.3 ml/min Glucose 131 H (74-106) mg/dL Lactic Acid (0.4-2.0) mmol/L Calcium 8.8 (8.5-10.1) mg/dL Magnesium (1.8-2.4) mg/dL Total Bilirubin 0.9 (0.2-1.0) mg/dL AST 22 (15-37) IU/L ALT 13 L (14-63) IU/L Alkaline Phosphatase 72 (46-116) U/L Troponin I (0.000-0.056) ng/mL Total Protein 6.5 (6.4-8.2) g/dL Albumin 3.3 L (3.4-5.0) g/dL Globulin 3.2 (2.6-4.0) g/dL Albumin/Globulin Ratio 1.0 (0.9-1.6) Urine Color Urine Appearance Urine pH (5.0-8.0) Ur Specific Sterling (1.001-1.035) Urine Protein (NEGATIVE) mg/dL Urine Glucose (UA) (NEGATIVE) mg/dL Urine Ketones (NEGATIVE) mg/dL Urine Occult Blood (NEGATIVE) Urine Nitrite (NEGATIVE) Urine Bilirubin (NEGATIVE) Urine Urobilinogen (<2.0) EU/dL Ur Leukocyte Esterase (NEGATIVE) Urine RBC (0-2/HPF) Urine WBC (0-5/HPF) Ur Epithelial Cells (NONE-FEW) Urine Bacteria (NEGATIVE) SARS-CoV-2 RNA (USHA) (NEGATIVE) 07/28/21 07/28/21 07/28/21 Range/Units 20:00 20:12 21:58 WBC (4.0-11.0) K/uL RBC (4.30-5.90) M/uL Hgb (12.0-16.0) g/dL Hct (36.0-46.0) % MCV (80.0-98.0) fL MCH (27.0-32.0) pg MCHC (31.0-37.0) g/dL RDW Std Deviation (28.0-62.0) fl RDW Coeff of Aleksandr (11.0-15.0) % Plt Count (150-400) K/uL MPV (7.40-12.00) fL Neut % (Auto) (48.0-80.0) % Lymph % (Auto) (16.0-40.0) % Dubois % (Auto) (0.0-15.0) % Eos % (Auto) (0.0-7.0) % Baso % (Auto) (0.0-1.5) % Neut # (Auto) (1.4-5.7) K/uL Lymph # (Auto) (0.6-2.4) K/uL Dubois # (Auto) (0.0-0.8) K/uL Eos # (Auto) (0.0-0.7) K/uL Baso # (Auto) (0.0-0.1) K/uL Nucleated RBC % /100WBC Nucleated RBCs # K/uL INR Sodium (136-145) mmol/L Potassium (3.5-5.1) mmol/L Chloride (98-107) mmol/L Carbon Dioxide (21.0-32.0) mmol/L BUN (7.0-18.0) mg/dL Creatinine (0.6-1.0) mg/dL Est Cr Clr Drug Dosing mL/min Estimated GFR (MDRD) ml/min Glucose (74-106) mg/dL Lactic Acid 2.2 H* (0.4-2.0) mmol/L Calcium (8.5-10.1) mg/dL Magnesium (1.8-2.4) mg/dL Total Bilirubin (0.2-1.0) mg/dL AST (15-37) IU/L ALT (14-63) IU/L Alkaline Phosphatase (46-116) U/L Troponin I (0.000-0.056) ng/mL Total Protein (6.4-8.2) g/dL Albumin (3.4-5.0) g/dL Globulin (2.6-4.0) g/dL Albumin/Globulin Ratio (0.9-1.6) Urine Color YELLOW Urine Appearance CLEAR Urine pH 5.5 (5.0-8.0) Ur Specific Sterling 1.025 (1.001-1.035) Urine Protein TRACE H (NEGATIVE) mg/dL Urine Glucose (UA) NEGATIVE (NEGATIVE) mg/dL Urine Ketones NEGATIVE (NEGATIVE) mg/dL Urine Occult Blood NEGATIVE (NEGATIVE) Urine Nitrite NEGATIVE (NEGATIVE) Urine Bilirubin NEGATIVE (NEGATIVE) Urine Urobilinogen 0.2 (<2.0) EU/dL Ur Leukocyte Esterase NEGATIVE (NEGATIVE) Urine RBC 0-1 (0-2/HPF) Urine WBC 0-1 (0-5/HPF) Ur Epithelial Cells RARE (NONE-FEW) Urine Bacteria RARE (NEGATIVE) SARS-CoV-2 RNA (USHA) NEGATIVE (NEGATIVE) 07/28/21 07/28/21 Range/Units 23:00 23:03 WBC (4.0-11.0) K/uL RBC (4.30-5.90) M/uL Hgb (12.0-16.0) g/dL Hct (36.0-46.0) % MCV (80.0-98.0) fL MCH (27.0-32.0) pg MCHC (31.0-37.0) g/dL RDW Std Deviation (28.0-62.0) fl RDW Coeff of Aleksandr (11.0-15.0) % Plt Count (150-400) K/uL MPV (7.40-12.00) fL Neut % (Auto) (48.0-80.0) % Lymph % (Auto) (16.0-40.0) % Dubois % (Auto) (0.0-15.0) % Eos % (Auto) (0.0-7.0) % Baso % (Auto) (0.0-1.5) % Neut # (Auto) (1.4-5.7) K/uL Lymph # (Auto) (0.6-2.4) K/uL Dubois # (Auto) (0.0-0.8) K/uL Eos # (Auto) (0.0-0.7) K/uL Baso # (Auto) (0.0-0.1) K/uL Nucleated RBC % /100WBC Nucleated RBCs # K/uL INR Sodium (136-145) mmol/L Potassium (3.5-5.1) mmol/L Chloride (98-107) mmol/L Carbon Dioxide (21.0-32.0) mmol/L BUN (7.0-18.0) mg/dL Creatinine (0.6-1.0) mg/dL Est Cr Clr Drug Dosing mL/min Estimated GFR (MDRD) ml/min Glucose (74-106) mg/dL Lactic Acid (0.4-2.0) mmol/L Calcium (8.5-10.1) mg/dL Magnesium 2.2 (1.8-2.4) mg/dL Total Bilirubin (0.2-1.0) mg/dL AST (15-37) IU/L ALT (14-63) IU/L Alkaline Phosphatase (46-116) U/L Troponin I < 0.050 (0.000-0.056) ng/mL Total Protein (6.4-8.2) g/dL Albumin (3.4-5.0) g/dL Globulin (2.6-4.0) g/dL Albumin/Globulin Ratio (0.9-1.6) Urine Color Urine Appearance Urine pH (5.0-8.0) Ur Specific Sterling (1.001-1.035) Urine Protein (NEGATIVE) mg/dL Urine Glucose (UA) (NEGATIVE) mg/dL Urine Ketones (NEGATIVE) mg/dL Urine Occult Blood (NEGATIVE) Urine Nitrite (NEGATIVE) Urine Bilirubin (NEGATIVE) Urine Urobilinogen (<2.0) EU/dL Ur Leukocyte Esterase (NEGATIVE) Urine RBC (0-2/HPF) Urine WBC (0-5/HPF) Ur Epithelial Cells (NONE-FEW) Urine Bacteria (NEGATIVE) SARS-CoV-2 RNA (USHA) (NEGATIVE) Meds: Medications Generic Name Dose Route Start Last Admin Trade Name Freq PRN Reason Stop Dose Admin Acetaminophen 650 mg 07/29/21 01:21 Acetaminophen 325 Mg Tab PO Q4H PRN Pain (Mild 1-3)/fever Albuterol/Ipratropium 3 ml 07/29/21 01:21 Albuterol/Ipratropium 3.0-0.5 Mg/3 Ml Neb Soln NEB Q4HRRT PRN Shortness Of Breath/wheezing Vancomycin HCl 1 gm/ Sodium 250 mls @ 167 mls/hr 07/29/21 23:00 Chloride IV Q24H [place] Cefepime HCl 1 gm/ Premix 50 mls @ 100 mls/hr 07/29/21 08:30 IV Q8H [place] Morphine Sulfate 1 mg 07/29/21 05:21 Morphine 2 Mg/Ml Syringe IVPUSH Q4H PRN Pain Ondansetron HCl 4 mg 07/29/21 01:21 Ondansetron 4 Mg/2 Ml Sdv IVPUSH Q4H PRN Nausea/Vomiting Pantoprazole Sodium 40 mg 07/29/21 09:00 Pantoprazole 40 Mg Vial IV DAILY [place] Sodium Chloride 10 ml 07/28/21 19:34 Sodium Chloride 0.9% 10 Ml Syringe FLUSH ASDIRECTED PRN Keep Vein Open Sodium Chloride 2.5 ml 07/28/21 19:34 Sodium Chloride 0.9% 2.5 Ml Syringe FLUSH ASDIRECTED PRN Keep Vein Open Vancomycin HCl 1 dose 07/29/21 23:00 Pharmacy To Dose - Vancomycin .XX ASDIRECTED [place] Discontinued Medications Generic Name Dose Route Start Last Admin Trade Name Freq PRN Reason Stop Dose Admin Diphenhydramine HCl 50 mg 07/28/21 22:02 07/28/21 22:12 Diphenhydramine 50 Mg Cap PO 07/28/21 22:03 50 mg ONETIME ONE Administration Furosemide 20 mg 07/29/21 01:30 07/29/21 02:12 Furosemide 40 Mg/4 Ml Vial IVPUSH 07/29/21 01:31 20 mg NOW ONE Administration Cefepime HCl 2 gm/ Premix 50 mls @ 100 mls/hr 07/28/21 21:59 07/28/21 22:12 IV 07/28/21 22:28 100 mls/hr ONETIME ONE Administration Sodium Chloride 1,000 mls @ 75 mls/hr 07/28/21 22:45 07/28/21 23:14 Normal Saline IV 75 mls/hr ASDIRECTED [place] Administration Vancomycin HCl 945 gm/ Sodium 250 mls @ 166 mls/hr 07/28/21 22:48 07/28/21 23:21 Chloride IV 07/29/21 00:18 Not Given ONETIME ONE Sodium Chloride Confirm 07/28/21 23:09 07/28/21 23:58 Normal Saline (Advbag) Administered 07/28/21 23:10 Not Given Dose 250 mls @ as directed .ROUTE .STK-MED ONE Vancomycin HCl 1 gm/ Sodium 250 mls @ 166 mls/hr 07/28/21 23:19 07/28/21 23:23 Chloride IV 07/29/21 00:49 166 mls/hr ONETIME ONE Administration Potassium Chloride 40 meq 07/29/21 01:28 07/29/21 02:12 Potassium Chloride 20 Meq Tab.Er PO 07/29/21 01:29 40 meq ONETIME ONE Administration Departure - Departure Disposition: Admitted As Inpatient 67 - Discharge Information Sepsis Event Note (ED) - Focused Exam Vital Signs: Vital Signs Temp Pulse Resp BP Pulse Ox 07/28/21 23:30 98.1 F 58 L 20 144/69 H 95 07/28/21 22:12 57 L 133/60 99 - My Orders Last 24 Hours: My Active Orders 07/28/21 19:34 Sodium Chloride 0.9% [Saline Flush] 10 ml FLUSH ASDIRECTED PRN Sodium Chloride 0.9% [Saline Flush] 2.5 ml FLUSH ASDIRECTED PRN 07/28/21 19:35 Saline Lock Insert [OM.PC] Stat 07/28/21 19:37 Blood Culture x2 Reflex Set [OM.PC] Stat 07/28/21 19:46 CULTURE BLOOD [BC] Stat 07/28/21 20:00 CULTURE BLOOD [BC] Stat 07/28/21 23:09 Code Status [Resuscitation Status] Stat - Assessment/Plan Last 24 Hours: My Active Orders 07/28/21 19:34 Sodium Chloride 0.9% [Saline Flush] 10 ml FLUSH ASDIRECTED PRN Sodium Chloride 0.9% [Saline Flush] 2.5 ml FLUSH ASDIRECTED PRN 07/28/21 19:35 Saline Lock Insert [OM.PC] Stat 07/28/21 19:37 Blood Culture x2 Reflex Set [OM.PC] Stat 07/28/21 19:46 CULTURE BLOOD [BC] Stat 07/28/21 20:00 CULTURE BLOOD [BC] Stat 07/28/21 23:09 Code Status [Resuscitation Status] Stat
--- NOTE | 2021-07-28 19:42 | PCM.EKG ---
#1 Interpretation EKG Interpretation Comments: Heart rate = 58 bpm, Afib, normal QRS interval, no STEMI. EKG limited secondary to motion artifact. EKG interpreted by me at 1934
[2021-07-28 20:34] LABS: CARBON DIOXIDE,CO2 28.1 mmol/L (21.0-32.0); POTASSIUM,K 3.2 mmol/L (3.5-5.1)
--- NOTE | 2021-07-28 21:44 | CR ---
INDICATION: Pain following fall TECHNIQUE: Chest 1 view. COMPARISON: 11/20/2010 FINDINGS: Allowing for portable AP technique, moderate cardiomegaly is unchanged. There has been interval cardiac surgery and median sternotomy. No pneumothorax. No pleural effusion. The lungs are hypoinflated. Linear scarring versus atelectasis in the right midlung. There is dense opacity in the left mid to lower lung zone. Likely left pleural effusion. No significant right pleural effusion. IMPRESSION: Opacity in the left mid and lower lung zones which likely reflects a component of pleural fluid with associated compressive atelectasis versus infectious consolidation. Dictated by Alex Ashford MD @ 07/28/2021 9:43:43 PM (Electronically Signed)
--- NOTE | 2021-07-28 21:46 | CR ---
INDICATION: Pain following fall. TECHNIQUE: Left hip radiographs two views COMPARISON: None FINDINGS AND IMPRESSION: Two views of the left hip which are essentially both frontal views demonstrate sequelae of total hip arthroplasty. Hardware appears intact and in appropriate alignment. No perihardware lucency to suggest loosening. No acute fracture or dislocation. The pubic symphysis appears intact. No suspicious bone lesion identified. Dictated by Alex Ashford MD @ 07/28/2021 9:45:52 PM (Electronically Signed)
[2021-07-28] MEDS ORDERED: Cefepime 2 GM in Premix Bag 1 BAG IV ONE (21:59)
[2021-07-28] MEDS ORDERED: diphenhydrAMINE 50 MG Cap PO ONE (22:02)
[2021-07-28] MEDS ORDERED: Sodium Chloride 0.9% 1,000 ML IV SCH (22:45)
[2021-07-28] MEDS ORDERED: SODIUM CHLORIDE 0.9% IV ONE (22:48)
[2021-07-28] MEDS ORDERED: VANCOMYCIN IV ONE (22:48)
[2021-07-28] MEDS ORDERED: Sodium Chloride 0.9% 250 ML ONE (23:09)
--- NOTE | 2021-07-28 23:37 | CT ---
Indication: Fall. Hypoxia. Technique: Multiple contiguous axial images were obtained from the thoracic inlet through the upper abdomen without intravenous contrast enhancement. Please note that all CT scans at this facility use dose modulation, iterative reconstruction, and/or weight-based dosing when appropriate to reduce radiation dose to as low as reasonably achievable. Comparison: None Findings: The heart is enlarged. Coronary artery calcifications are identified. No pericardial effusions identified. The visualized portions of the unenhanced liver, spleen, pancreas, right adrenal, and left kidney are grossly normal. Nodularity of the left adrenal gland is identified. Inferior vena cava is dilated, incompletely evaluated. A moderate left pleural effusion is identified. Scar is identified in the right lung base. Scar is identified in the left upper lobe. No pneumothorax is identified. No definite infiltrate is identified. Impression: Moderate pleural effusion. Coronary artery calcifications. Cardiomegaly. Dilatation of the inferior vena cava. Please note that all CT scans at this facility use dose modulation, iterative reconstruction, and/or weight-based dosing when appropriate to reduce radiation dose to as low as reasonably achievable. Dictated by Lottie Sparks MD @ 07/28/2021 11:36:23 PM (Electronically Signed)
--- NOTE | 2021-07-28 23:39 | CT ---
Indication: Fall. Technique: Multiple contiguous axial images were obtained from the skullbase through the vertex without intravenous contrast enhancement. Please note that all CT scans at this facility use dose modulation, iterative reconstruction, and/or weight-based dosing when appropriate to reduce radiation dose to as low as reasonably achievable. Comparison: November 17, 2018. Findings: Ventricles are enlarged consistent with the sizes sulci. Confluent areas of low-attenuation are identified within the periventricular white matter. No intra-axial or extra-axial hemorrhage is identified. No mass, mass effect, midline shift is identified. Encephalomalacia is identified in the right temporal and occipital lobes, right frontal lobe, probably the left frontal lobe, stable. The bony calvarium is intact. The visualized paranasal sinuses and mastoid air cells are clear. Impression: No acute intracranial process. Diffuse volume loss. Changes of chronic small vessel ischemia. Encephalomalacia involving the right frontal lobe, probably the left frontal lobe, and the right occipital parietal lobes, stable. Please note that all CT scans at this facility use dose modulation, iterative reconstruction, and/or weight-based dosing when appropriate to reduce radiation dose to as low as reasonably achievable. Dictated by Lottie Spraks MD @ 07/28/2021 11:38:24 PM (Electronically Signed)
[2021-07-29] MEDS ORDERED: Ondansetron 4 MG/2 ML SDV IVPUSH PRN (01:21)
[2021-07-29] MEDS ORDERED: Albuterol/Ipratropium 3.0-0.5 MG/3 ML Neb Soln NEB PRN (01:21)
[2021-07-29] MEDS ORDERED: Acetaminophen 325 MG Tab PO PRN (01:21)
[2021-07-29] MEDS ORDERED: Potassium Chloride 20 MEQ Tab.ER PO ONE (01:28)
[2021-07-29] MEDS ORDERED: Furosemide 40 MG/4 ML VIAL IVPUSH ONE (01:30)
[2021-07-29] MEDS ORDERED: Cefepime 1 GM in Premix Bag 1 BAG IV SCH (06:00)
--- NOTE | 2021-07-29 07:18 | PCM.HP.2 ---
<Karly Blood - Last Filed: 07/29/21 16:09> H&P History of Present Illness - General Date of Service: 07/29/21 Admit Problem/Dx: Admission Diagnosis/Problem Admission Diagnosis/Problem Pneumonia - History of Present Illness Initial Comments - Free Text/Narative: The patient is an 89-year-old female, on day 1 of service, with a significant past medical history of dementia, CHF, atrial fibrillation, frequent falls, coronary artery disease, hyperlipidemia, hypertension, CA, bradycardia, three-vessel CABG correction, multiple fractures including the left hip and right wrist, who was admitted to the medical floor for pneumonia. 24 hours ago the patient fell at home onto her left hip, subsequently causing her pain which is 7 out of 10 in intensity, throbbing, and nonradiating. Before hand the patient had another fall which was on the left side that caused an injury to the left hand causing abrasions without a fracture. Upon entry to the emergency department the patient was found to be saturating 77% on room air, and then was placed on 4 L of oxygen and is saturating over 90%. Upon interview today, the patient was highly agitated and proclaimed her request to not be in hospital. The patient has dementia and when at home is mostly calm but does have occasional outbursts of agitation when she forgets where and who she is. I had a conversation with the patient's son Ishan today in regards to current treatment, oxygen status, imaging findings, code status, and gave him an update. On CBC, white blood cell count is 9.80, hemoglobin is 10.5, hematocrit is 33.3, and platelet count is 135. INR is 3.09 On CMP, sodium is 145, potassium was 3.2, chloride is 104, carbon dioxide is 20.1, BUN is 29, creatinine is 1.7, GFR 20.3, glucose is 131, AST 22, ALT is 13. On EKG, heart rate is 58 bpm, patient has A. fib, normal QRS interval was seen, no STEMI was seen On hip x-ray, there is a left hip arthroplasty done which shows that the hardware is intact with no loosening, there is no acute fractures or dislocation On chest CT, there is a moderate pleural effusion, scars are seen in the right lung base as well as the left upper lobe, there is also coronary artery calcif ications, cardiomegaly, and inferior vena cava dilation. On CT of the head, there is no acute intracranial process, there is diffuse volume loss without any hemorrhaging or masses. There is also encephalomalacia in the frontal lobes and right occipital lobe which is stable. In the emergency room the patient had 2 blood cultures done, a lactic acid test, troponins, received vancomycin 945 g once via IV route, normal saline 1 L bolus, diphenhydramine 50 mg per oral capsule, and a cefepime 2 g dosage via IV route. . - Related Data Allergies/Adverse Reactions: Allergies Allergy/AdvReac Type Severity Reaction Status Date / Time adhesive tape Allergy Rash Verified 06/16/21 20:16 amoxicillin Allergy Hives Verified 06/16/21 20:16 latex Allergy Rash Verified 06/16/21 20:16 Penicillins Allergy Hives Verified 06/16/21 20:16 metal Allergy Rash Uncoded 06/16/21 20:16 Home Medications: Home Meds Aspirin [Adult Low Dose Aspirin EC] 4 tab PO DAILY 10/23/16 [History] Furosemide 40 mg PO DAILY 10/23/16 [History] Isosorbide Mononitrate 10 mg PO BID 10/23/16 [History] Simvastatin [Zocor] 40 mg PO BEDTIME 10/23/16 [History] Warfarin [Coumadin] 6 mg PO DAILY 10/23/16 [History] ALPRAZolam [Alprazolam] 0.5 mg PO BID PRN 07/30/21 [History] Mirtazapine 45 mg PO BEDTIME 07/30/21 [History] Potassium Chloride 10 meq PO BID 07/30/21 [History] Past Medical History HEENT History: Reports: Cataract, Epistaxis Other HEENT History: wears glasses, has upper denture Cardiovascular History: Reports: Afib, CAD, High Cholesterol, Hypertension, CA, Other (See Below) Other Cardiovascular History: History of Bradycardia Respiratory History: Reports: Sleep Apnea Other Respiratory History: uses CPAP Gastrointestinal History: Reports: None 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 History: Reports: None 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: Reports: Musculoskeletal History: Reports: Arthritis, Fracture 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, hx of fx left hip and right wrist Neurological History: Reports: None Psychiatric History: Reports: Anxiety, Depression Endocrine/Metabolic History: Reports: None Hematologic History: Reports: Anemia Immunologic History: Reports: None Oncologic (Cancer) History: Reports: None Dermatologic History: Reports: None Other Dermatologic History: very sensitive to scented lotions, gets a rash - Infectious Disease History Infectious Disease History: Reports: Measles - Past Surgical History Head Surgeries/Procedures: Reports: None HEENT Surgical History: Reports: Cataract Surgery Cardiovascular Surgical History: Reports: Coronary Artery Bypass Other Cardiovascular Surgeries/Procedures: 3 vessels (2013) denies chest pain and SOB Respiratory Surgical History: Reports: None GI Surgical History: Reports: None Female Surgical History: Reports: Tubal Ligation Endocrine Surgical History: Reports: None Neurological Surgical History: Reports: None Musculoskeletal Surgical History: Reports: Hip Replacement Oncologic Surgical History: Reports: None Dermatological Surgical History: Reports: None Social & Family History - Family History Family Medical History: No Pertinent Family History - Tobacco Use Tobacco Use Status *Q: Unknown Ever Used Tobacco - Caffeine Use Caffeine Use: Reports: None Caffeine Use Comment: Unable to assess due to patient's confusion - Recreational Drug Use Recreational Drug Use: No - Living Situation & Occupation Living situation: Reports: with Family (lives with daughter in [facility]) H&P Review of Systems - Review of Systems: Review Of Systems: See Below General: Reports: Weakness HEENT: Denies: Headaches Pulmonary: Reports: Shortness of Breath. Denies: Cough Cardiovascular: Denies: Chest Pain, Palpitations Gastrointestinal: Denies: Abdominal Pain Musculoskeletal: Reports: Hand Pain, Leg Pain, Joint Pain, Other (Pain of the left hand, left thigh, left hip) Exam - Exam Exam: See Below - Vital Signs Vital Signs: Last Vital Signs Temp 98.1 F 07/29/21 04:45 Pulse 64 07/29/21 04:45 Resp 18 07/29/21 04:45 BP 132/71 07/29/21 04:45 Pulse Ox 98 07/29/21 04:45 Weight: 69.5 kg - Exam General: Alert, Moderate Distress. No: Oriented HEENT: Other (Dry mucous membranes) Neck: Trachea Midline Lungs: Wheezing Cardiovascular: Bradycardia GI/Abdominal Exam: Normal Bowel Sounds, Soft, Non-Tender Extremities: Other (Decreased range of motion of the left hip, SCDs in place bilaterally). No: Normal Range of Motion - Patient Data Lab Results Last 24 hrs: Laboratory Results - last 24 hr 07/28/21 07/28/21 07/28/21 Range/Units 20:00 20:00 20:00 WBC 9.80 (4.0-11.0) K/uL RBC 3.41 L (4.30-5.90) M/uL Hgb 10.5 L (12.0-16.0) g/dL Hct 33.3 L (36.0-46.0) % MCV 97.7 (80.0-98.0) fL MCH 30.8 (27.0-32.0) pg MCHC 31.5 (31.0-37.0) g/dL RDW Std Deviation 53.8 (28.0-62.0) fl RDW Coeff of Aleksandr 15 (11.0-15.0) % Plt Count 135 L (150-400) K/uL MPV 10.30 (7.40-12.00) fL Neut % (Auto) 89.7 H (48.0-80.0) % Lymph % (Auto) 3.2 L (16.0-40.0) % [place] % (Auto) 7.0 (0.0-15.0) % Eos % (Auto) 0.0 (0.0-7.0) % Baso % (Auto) 0.1 (0.0-1.5) % Neut # (Auto) 8.8 H (1.4-5.7) K/uL Lymph # (Auto) 0.3 L (0.6-2.4) K/uL [place] # (Auto) 0.7 (0.0-0.8) K/uL Eos # (Auto) 0.0 (0.0-0.7) K/uL Baso # (Auto) 0.0 (0.0-0.1) K/uL Nucleated RBC % 0.0 /100WBC Nucleated RBCs # 0 K/uL INR 3.09 Sodium 145 (136-145) mmol/L Potassium 3.2 L (3.5-5.1) mmol/L Chloride 104 (98-107) mmol/L Carbon Dioxide 28.1 (21.0-32.0) mmol/L BUN 29 H (7.0-18.0) mg/dL Creatinine 1.7 H (0.6-1.0) mg/dL Est Cr Clr Drug Dosing 18.56 mL/min Estimated GFR (MDRD) 28.3 ml/min Glucose 131 H (74-106) mg/dL Lactic Acid (0.4-2.0) mmol/L Calcium 8.8 (8.5-10.1) mg/dL Magnesium (1.8-2.4) mg/dL Total Bilirubin 0.9 (0.2-1.0) mg/dL AST 22 (15-37) IU/L ALT 13 L (14-63) IU/L Alkaline Phosphatase 72 (46-116) U/L Troponin I (0.000-0.056) ng/mL Total Protein 6.5 (6.4-8.2) g/dL Albumin 3.3 L (3.4-5.0) g/dL Globulin 3.2 (2.6-4.0) g/dL Albumin/Globulin Ratio 1.0 (0.9-1.6) Urine Color Urine Appearance Urine pH (5.0-8.0) Ur Specific [place] (1.001-1.035) Urine Protein (NEGATIVE) mg/dL Urine Glucose (UA) (NEGATIVE) mg/dL Urine Ketones (NEGATIVE) mg/dL Urine Occult Blood (NEGATIVE) Urine Nitrite (NEGATIVE) Urine Bilirubin (NEGATIVE) Urine Urobilinogen (<2.0) EU/dL Ur Leukocyte Esterase (NEGATIVE) Urine RBC (0-2/HPF) Urine WBC (0-5/HPF) Ur Epithelial Cells (NONE-FEW) Urine Bacteria (NEGATIVE) SARS-CoV-2 RNA (USHA) (NEGATIVE) 07/28/21 07/28/21 07/28/21 Range/Units 20:00 20:12 21:58 WBC (4.0-11.0) K/uL RBC (4.30-5.90) M/uL Hgb (12.0-16.0) g/dL Hct (36.0-46.0) % MCV (80.0-98.0) fL MCH (27.0-32.0) pg MCHC (31.0-37.0) g/dL RDW Std Deviation (28.0-62.0) fl RDW Coeff of Aleksandr (11.0-15.0) % Plt Count (150-400) K/uL MPV (7.40-12.00) fL Neut % (Auto) (48.0-80.0) % Lymph % (Auto) (16.0-40.0) % [place] % (Auto) (0.0-15.0) % Eos % (Auto) (0.0-7.0) % Baso % (Auto) (0.0-1.5) % Neut # (Auto) (1.4-5.7) K/uL Lymph # (Auto) (0.6-2.4) K/uL Bladen # (Auto) (0.0-0.8) K/uL Eos # (Auto) (0.0-0.7) K/uL Baso # (Auto) (0.0-0.1) K/uL Nucleated RBC % /100WBC Nucleated RBCs # K/uL INR Sodium (136-145) mmol/L Potassium (3.5-5.1) mmol/L Chloride (98-107) mmol/L Carbon Dioxide (21.0-32.0) mmol/L BUN (7.0-18.0) mg/dL Creatinine (0.6-1.0) mg/dL Est Cr Clr Drug Dosing mL/min Estimated GFR (MDRD) ml/min Glucose (74-106) mg/dL Lactic Acid 2.2 H* (0.4-2.0) mmol/L Calcium (8.5-10.1) mg/dL Magnesium (1.8-2.4) mg/dL Total Bilirubin (0.2-1.0) mg/dL AST (15-37) IU/L ALT (14-63) IU/L Alkaline Phosphatase (46-116) U/L Troponin I (0.000-0.056) ng/mL Total Protein (6.4-8.2) g/dL Albumin (3.4-5.0) g/dL Globulin (2.6-4.0) g/dL Albumin/Globulin Ratio (0.9-1.6) Urine Color YELLOW Urine Appearance CLEAR Urine pH 5.5 (5.0-8.0) Ur Specific [place] 1.025 (1.001-1.035) Urine Protein TRACE H (NEGATIVE) mg/dL Urine Glucose (UA) NEGATIVE (NEGATIVE) mg/dL Urine Ketones NEGATIVE (NEGATIVE) mg/dL Urine Occult Blood NEGATIVE (NEGATIVE) Urine Nitrite NEGATIVE (NEGATIVE) Urine Bilirubin NEGATIVE (NEGATIVE) Urine Urobilinogen 0.2 (<2.0) EU/dL Ur Leukocyte Esterase NEGATIVE (NEGATIVE) Urine RBC 0-1 (0-2/HPF) Urine WBC 0-1 (0-5/HPF) Ur Epithelial Cells RARE (NONE-FEW) Urine Bacteria RARE (NEGATIVE) SARS-CoV-2 RNA (USHA) NEGATIVE (NEGATIVE) 07/28/21 07/28/21 07/29/21 Range/Units 23:00 23:03 00:55 WBC (4.0-11.0) K/uL RBC (4.30-5.90) M/uL Hgb (12.0-16.0) g/dL Hct (36.0-46.0) % MCV (80.0-98.0) fL MCH (27.0-32.0) pg MCHC (31.0-37.0) g/dL RDW Std Deviation (28.0-62.0) fl RDW Coeff of Aleksandr (11.0-15.0) % Plt Count (150-400) K/uL MPV (7.40-12.00) fL Neut % (Auto) (48.0-80.0) % Lymph % (Auto) (16.0-40.0) % [place] % (Auto) (0.0-15.0) % Eos % (Auto) (0.0-7.0) % Baso % (Auto) (0.0-1.5) % Neut # (Auto) (1.4-5.7) K/uL Lymph # (Auto) (0.6-2.4) K/uL [place] # (Auto) (0.0-0.8) K/uL Eos # (Auto) (0.0-0.7) K/uL Baso # (Auto) (0.0-0.1) K/uL Nucleated RBC % /100WBC Nucleated RBCs # K/uL INR Sodium (136-145) mmol/L Potassium (3.5-5.1) mmol/L Chloride (98-107) mmol/L Carbon Dioxide (21.0-32.0) mmol/L BUN (7.0-18.0) mg/dL Creatinine (0.6-1.0) mg/dL Est Cr Clr Drug Dosing mL/min Estimated GFR (MDRD) ml/min Glucose (74-106) mg/dL Lactic Acid 1.5 (0.4-2.0) mmol/L Calcium (8.5-10.1) mg/dL Magnesium 2.2 (1.8-2.4) mg/dL Total Bilirubin (0.2-1.0) mg/dL AST (15-37) IU/L ALT (14-63) IU/L Alkaline Phosphatase (46-116) U/L Troponin I < 0.050 (0.000-0.056) ng/mL Total Protein (6.4-8.2) g/dL Albumin (3.4-5.0) g/dL Globulin (2.6-4.0) g/dL Albumin/Globulin Ratio (0.9-1.6) Urine Color Urine Appearance Urine pH (5.0-8.0) Ur Specific [place] (1.001-1.035) Urine Protein (NEGATIVE) mg/dL Urine Glucose (UA) (NEGATIVE) mg/dL Urine Ketones (NEGATIVE) mg/dL Urine Occult Blood (NEGATIVE) Urine Nitrite (NEGATIVE) Urine Bilirubin (NEGATIVE) Urine Urobilinogen (<2.0) EU/dL Ur Leukocyte Esterase (NEGATIVE) Urine RBC (0-2/HPF) Urine WBC (0-5/HPF) Ur Epithelial Cells (NONE-FEW) Urine Bacteria (NEGATIVE) SARS-CoV-2 RNA (USHA) (NEGATIVE) 07/29/21 Range/Units 05:10 WBC (4.0-11.0) K/uL RBC (4.30-5.90) M/uL Hgb (12.0-16.0) g/dL Hct (36.0-46.0) % MCV (80.0-98.0) fL MCH (27.0-32.0) pg MCHC (31.0-37.0) g/dL RDW Std Deviation (28.0-62.0) fl RDW Coeff of Aleksandr (11.0-15.0) % Plt Count (150-400) K/uL MPV (7.40-12.00) fL Neut % (Auto) (48.0-80.0) % Lymph % (Auto) (16.0-40.0) % [place] % (Auto) (0.0-15.0) % Eos % (Auto) (0.0-7.0) % Baso % (Auto) (0.0-1.5) % Neut # (Auto) (1.4-5.7) K/uL Lymph # (Auto) (0.6-2.4) K/uL Bladen # (Auto) (0.0-0.8) K/uL Eos # (Auto) (0.0-0.7) K/uL Baso # (Auto) (0.0-0.1) K/uL Nucleated RBC % /100WBC Nucleated RBCs # K/uL INR 2.98 Sodium (136-145) mmol/L Potassium (3.5-5.1) mmol/L Chloride (98-107) mmol/L Carbon Dioxide (21.0-32.0) mmol/L BUN (7.0-18.0) mg/dL Creatinine (0.6-1.0) mg/dL Est Cr Clr Drug Dosing mL/min Estimated GFR (MDRD) ml/min Glucose (74-106) mg/dL Lactic Acid (0.4-2.0) mmol/L Calcium (8.5-10.1) mg/dL Magnesium (1.8-2.4) mg/dL Total Bilirubin (0.2-1.0) mg/dL AST (15-37) IU/L ALT (14-63) IU/L Alkaline Phosphatase (46-116) U/L Troponin I (0.000-0.056) ng/mL Total Protein (6.4-8.2) g/dL Albumin (3.4-5.0) g/dL Globulin (2.6-4.0) g/dL Albumin/Globulin Ratio (0.9-1.6) Urine Color Urine Appearance Urine pH (5.0-8.0) Ur Specific [place] (1.001-1.035) Urine Protein (NEGATIVE) mg/dL Urine Glucose (UA) (NEGATIVE) mg/dL Urine Ketones (NEGATIVE) mg/dL Urine Occult Blood (NEGATIVE) Urine Nitrite (NEGATIVE) Urine Bilirubin (NEGATIVE) Urine Urobilinogen (<2.0) EU/dL Ur Leukocyte Esterase (NEGATIVE) Urine RBC (0-2/HPF) Urine WBC (0-5/HPF) Ur Epithelial Cells (NONE-FEW) Urine Bacteria (NEGATIVE) SARS-CoV-2 RNA (USHA) (NEGATIVE) Result Diagrams: 07/29/21 09:24 07/29/21 09:24 Sepsis Event Note - Evaluation Sepsis Screening Result: No Definite Risk - Focused Exam Vital Signs: Vital Signs Temp Pulse Resp BP Pulse Ox 07/29/21 04:45 98.1 F 64 18 132/71 98 07/29/21 02:06 96.6 F L 60 18 135/59 L 97 07/29/21 00:56 58 L 93 L 07/28/21 23:30 98.1 F 58 L 20 144/69 H 95 07/28/21 22:12 57 L 133/60 99 - Problem List (1) Contusion of left hand, initial encounter SNOMED Code(s): 4642593 ICD Code: S60.222A - CONTUSION OF LEFT HAND, INITIAL ENCOUNTER Status: Acute (2) Atrial fibrillation SNOMED Code(s): 31513900 ICD Code: I48.91 - UNSPECIFIED ATRIAL FIBRILLATION Status: Chronic Priority: High Qualifiers: Atrial fibrillation type: chronic (3) Pneumonia SNOMED Code(s): 092547200 ICD Code: J18.9 - PNEUMONIA, UNSPECIFIED ORGANISM Status: Acute (4) TIAGO (acute kidney injury) SNOMED Code(s): 24428182, 00912313 ICD Code: N17.9 - ACUTE KIDNEY FAILURE, UNSPECIFIED Status: Acute (8) Hypokalemia SNOMED Code(s): 60436960 ICD Code: E87.6 - HYPOKALEMIA Status: Acute Problem List Initiated/Reviewed/Updated: Yes Orders Last 24hrs: Active Orders 24 hr Category Date Time Status Patient Status [ADT] Routine ADT 07/28/21 23:55 Active Ambulate [RC] ASDIRECTED Care 07/29/21 01:21 Active Antiembolic Devices [RC] PER UNIT ROUTINE Care 07/29/21 01:22 Active Oxygen Therapy [RC] PRN Care 07/29/21 01:21 Active Pulse Oximetry [RC] PRN Care 07/29/21 01:21 Active RT Aerosol Therapy [RC] ASDIRECTED Care 07/29/21 01:23 Active RT Incentive Spirometry [RC] Q2HWA Care 07/29/21 01:25 Active Telemetry Monitoring [Cardiac Monitoring] [RC] Q8H Care 07/29/21 01:50 Active VTE/DVT Education [RC] PER UNIT ROUTINE Care 07/29/21 01:21 Active Vital Signs [RC] Q4H Care 07/29/21 01:21 Active Heart Healthy Diet [DIET] Diet 07/29/21 Breakfast Active CULTURE BLOOD [BC] Stat Lab 07/28/21 19:46 Received CULTURE BLOOD [BC] Stat Lab 07/28/21 20:00 Received INR,PT,PROTHROMBIN TIME [COAG] AM Lab 07/30/21 05:11 Ordered INR,PT,PROTHROMBIN TIME [COAG] AM Lab 07/31/21 05:11 Ordered VANCOMYCIN TROUGH [CHEM] Timed Lab 08/01/21 22:00 Ordered Acetaminophen [TylenoL] Med 07/29/21 01:21 Active 650 mg PO Q4H PRN Albuterol/Ipratropium [DuoNeb 3.0-0.5 MG/3 ML] Med 07/29/21 01:21 Active 3 ml NEB Q4HRRT PRN Cefepime [Maxipime in D5W 1 GM/50 ML] 1 gm Med 07/29/21 06:00 Active Premix Bag 1 bag IV Q8H Morphine Med 07/29/21 05:21 Active 1 mg IVPUSH Q4H PRN Ondansetron [Zofran] Med 07/29/21 01:21 Active 4 mg IVPUSH Q4H PRN Pantoprazole [ProTONIX IV] Med 07/29/21 09:00 Active 40 mg IV DAILY Pharmacy to Dose - Vancomycin Med 07/29/21 23:00 Active 1 dose .XX ASDIRECTED Sodium Chloride 0.9% [Saline Flush] Med 07/28/21 19:34 Active 10 ml FLUSH ASDIRECTED PRN Sodium Chloride 0.9% [Saline Flush] Med 07/28/21 19:34 Active 2.5 ml FLUSH ASDIRECTED PRN Vancomycin [Vancocin] 1 gm Med 07/29/21 23:00 Active Sodium Chloride 0.9% [Normal Saline (AdvBag)] 250 ml IV Q24H Blood Culture x2 Reflex Set [OM.PC] Stat Oth 07/28/21 19:37 Ordered Saline Lock Insert [OM.PC] Stat Oth 07/28/21 19:35 Ordered Sequential Compression Device [OM.PC] Per Unit Routine Oth 07/29/21 01:21 Ordered Code Status [Resuscitation Status] Stat Resus Stat 07/28/21 23:09 Ordered Medication Orders Acetaminophen (Acetaminophen 325 Mg Tab) 650 mg PO Q4H PRN PRN Reason: Pain (Mild 1-3)/fever Albuterol/Ipratropium (Albuterol/Ipratropium 3.0-0.5 Mg/3 Ml Neb Soln) 3 ml NEB Q4HRRT PRN PRN Reason: Shortness Of Breath/wheezing Cefepime HCl 1 gm/ Premix 50 mls @ 100 mls/hr IV Q8H [place] Vancomycin HCl 1 gm/ Sodium (Chloride) 250 mls @ 167 mls/hr IV Q24H [place] Morphine Sulfate (Morphine 2 Mg/Ml Syringe) 1 mg IVPUSH Q4H PRN PRN Reason: Pain Ondansetron HCl (Ondansetron 4 Mg/2 Ml Sdv) 4 mg IVPUSH Q4H PRN PRN Reason: Nausea/Vomiting Pantoprazole Sodium (Pantoprazole 40 Mg Vial) 40 mg IV DAILY [place] Sodium Chloride (Sodium Chloride 0.9% 10 Ml Syringe) 10 ml FLUSH ASDIRECTED PRN PRN Reason: Keep Vein Open Sodium Chloride (Sodium Chloride 0.9% 2.5 Ml Syringe) 2.5 ml FLUSH ASDIRECTED PRN PRN Reason: Keep Vein Open Vancomycin HCl (Pharmacy To Dose - Vancomycin) 1 dose .XX ASDIRECTED [facility] Assessment/Plan Comment:: Admit the patient to the medical floor, vitals per unit routine, activity up ad javier., heart healthy diet, pantoprazole per IV route 40 mg daily for GI prophylaxis, SCDs for DVT prophylaxis 1. Pneumonia most likely secondary to moderate pleural effusion -The patient has been started on vancomycin 1 g per IV route every 24 hours as well as cefepime 1 g per IV route every 8 hours -The patient has received 2 doses of IV Lasix 20 mg in order to remove fluid from the effusion -The patient is on oxygen, 2 L at the moment, if her requirement continues to decrease we may continue to treat this with medication. If her oxygen requirement does not decrease we may need to get interventional radiology involved to tap this pleural effusion. -a.m. CBC 2. Left hip pain from fall -Patient is on morphine sulfate 1 mg per IV route every 4 hours 3. Acute kidney injury -Patient was given a bolus of normal saline, will monitor a.m. CMP 4. Hypokalemia -Patient was given 40 mEq dose of potassium chloride once, will monitor <Rj Flores - Last Filed: 08/04/21 15:54> H&P History of Present Illness - General Admit Problem/Dx: Admission Diagnosis/Problem Admission Diagnosis/Problem Pneumonia Left Hip Pain Score (Numeric/FACES): 0 Exam - Vital Signs Vital Signs: Last Vital Signs Temp 36.2 C 08/02/21 08:00 Pulse 68 08/02/21 08:00 Resp 22 H 08/02/21 08:00 BP 137/70 08/02/21 08:00 Pulse Ox 93 L 08/02/21 08:00 - Patient Data Result Diagrams: 08/01/21 05:05 08/01/21 05:05 Assessment/Plan Comment:: I have seen and evaluated the patient and agree with the residents note unless specified in my note
[2021-07-29] MEDS ORDERED: Pantoprazole 40 MG Vial IV SCH (09:00)
[2021-07-29] MEDS: Cefepime 1 GM in Premix Bag 1 BAG IV SCH ×2 (09:21→15:52)
[2021-07-29 10:16] LABS: CARBON DIOXIDE,CO2 26.7 mmol/L (21.0-32.0); POTASSIUM,K 3.8 mmol/L (3.5-5.1)
[2021-07-29] MEDS ORDERED: Furosemide 20 MG/2 ML VIAL IVPUSH ONE (15:09)
[2021-07-29] MEDS ORDERED: Sertraline 50 MG Tab PO SCH (19:47)
[2021-07-29] MEDS ORDERED: LORazepam 2 MG/ML SDV IVPUSH ONE (19:49)
[2021-07-29] MEDS ORDERED: Docusate Sodium 100 MG Cap PO PRN (19:51)
[2021-07-29] MEDS: Pantoprazole 40 MG in Sodium Chloride 0.9% 10 ML IV SCH (21:26)
[2021-07-29] MEDS: Simvastatin 40 MG Tab PO SCH (21:29)
[2021-07-30] MEDS: Cefepime 1 GM in Premix Bag 1 BAG IV SCH (01:05)
[2021-07-30 06:49] LABS: CARBON DIOXIDE,CO2 27.1 mmol/L (21.0-32.0); POTASSIUM,K 3.8 mmol/L (3.5-5.1)
[2021-07-30] MEDS ORDERED: Lactated Ringers 1,000 ML IV SCH (08:45)
[2021-07-30] MEDS: Pantoprazole 40 MG in Sodium Chloride 0.9% 10 ML IV SCH ×2 (08:56→21:20)
[2021-07-30] MEDS ORDERED: Pantoprazole 40 MG in Sodium Chloride 0.9% 10 ML IV SCH (09:00)
[2021-07-30] MEDS: Cefepime 50 ML IV SCH (12:32)
--- NOTE | 2021-07-30 14:07 | PCM.PN ---
- General Info Date of Service: 07/30/21 Subjective Update: The patient is an 89-year-old female, on day 2 of service, with a significant past medical history of dementia, CHF, atrial fibrillation, frequent falls, coronary artery disease, hyperlipidemia, hypertension, [place], bradycardia, three-vessel CABG correction, multiple fractures including the left hip and right wrist, who was admitted to the medical floor for pleural effusion most likely secondary to CHF versus pneumonia. Upon interview with the patient today, the patient was falling asleep and could not answer questions thoroughly. The patient received Ativan last night for agitation and slept well throughout the night and much of the early breastfeeding care specialist and afternoon. I had a conversation with the patient's son Ishan who says this is the patient's baseline. At home she is not moving much, sleeps much of the day, and has been prescribed Ativan by her PCP Dr. Constantino for agitation which she takes on a daily basis once orally. We also discussed if the patient would like to be placed in a fdc upon discharge, for which the son replied "that would kill my mother"; the patient is being taken care of at home by her son Ishan and [id number] Cyndie in regards to bathing, grooming, meal preparation, and activities of daily living. Ishan reveals that they do not require any home health care or services at this time, and that the patient's family has everything under control. The patient does have dark stools according to nursing staff, and it was revealed that she takes iron supplementation. As a precautionary measure to make sure the patient is not bleeding via the GI tract, we have ordered a fecal occult blood test to check for any abnormalities. - Review of Systems General: Reports: Other (Could not assess as patient is a poor historian) HEENT: Reports: Other (Could not assess as patient is a poor historian) Pulmonary: Reports: Other (Could not assess as patient is a poor historian) Cardiovascular: Reports: Other (Could not assess this patient is a poor historian) Gastrointestinal: Reports: Other (Could not assess as patient is a poor historian) 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: Reports: Other (Could not assess as patient is a poor historian) Musculoskeletal: Reports: Other (Could not assess as patient is a poor historian) Neurological: Reports: Other (Could not assess as patient is a poor historian) - Patient Data Vitals - Most Recent: Last Vital Signs Temp 97.3 F 07/30/21 11:50 Pulse 51 L 07/30/21 11:50 Resp 16 07/30/21 11:50 BP 112/64 07/30/21 11:50 Pulse Ox 97 07/30/21 11:50 Weight - Most Recent: 153 lb 3.54 oz I&O - Last 24 Hours: Intake & Output 07/29/21 07/30/21 07/30/21 22:59 06:59 14:59 Intake Total 350 685 Output Total 350 450 Balance 0 235 Lab Results Last 24 Hours: Laboratory Results - last 24 hr 07/30/21 07/30/21 07/30/21 Range/Units 05:50 05:50 05:50 WBC 7.53 (4.0-11.0) K/uL RBC 3.09 L (4.30-5.90) M/uL Hgb 9.7 L (12.0-16.0) g/dL Hct 31.2 L (36.0-46.0) % MCV 101.0 H (80.0-98.0) fL MCH 31.4 (27.0-32.0) pg MCHC 31.1 (31.0-37.0) g/dL RDW Std Deviation 52.1 (28.0-62.0) fl RDW Coeff of Aleksandr 15 (11.0-15.0) % Plt Count 103 L (150-400) K/uL MPV 10.90 (7.40-12.00) fL Neut % (Auto) 84.2 H (48.0-80.0) % Lymph % (Auto) 6.4 L (16.0-40.0) % [place] % (Auto) 9.3 (0.0-15.0) % Eos % (Auto) 0.0 (0.0-7.0) % Baso % (Auto) 0.1 (0.0-1.5) % Neut # (Auto) 6.3 H (1.4-5.7) K/uL Lymph # (Auto) 0.5 L (0.6-2.4) K/uL [place] # (Auto) 0.7 (0.0-0.8) K/uL Eos # (Auto) 0.0 (0.0-0.7) K/uL Baso # (Auto) 0.0 (0.0-0.1) K/uL INR 3.04 Sodium 143 (136-145) mmol/L Potassium 3.8 (3.5-5.1) mmol/L Chloride 106 (98-107) mmol/L Carbon Dioxide 27.1 (21.0-32.0) mmol/L BUN 36 H (7.0-18.0) mg/dL Creatinine 1.7 H (0.6-1.0) mg/dL Est Cr Clr Drug Dosing 18.56 mL/min Estimated GFR (MDRD) 28.3 ml/min Glucose 151 H (74-106) mg/dL Calcium 8.1 L (8.5-10.1) mg/dL Total Bilirubin 1.0 (0.2-1.0) mg/dL AST 25 (15-37) IU/L ALT 10 L (14-63) IU/L Alkaline Phosphatase 60 (46-116) U/L Total Protein 5.6 L (6.4-8.2) g/dL Albumin 2.7 L (3.4-5.0) g/dL Globulin 2.9 (2.6-4.0) g/dL Albumin/Globulin Ratio 0.9 (0.9-1.6) Sunil Results Last 24 Hours: Microbiology 07/29/21 20:14 Stool Occult Blood (SUNIL) - Final Stool / Feces NEGATIVE OCCULT BLOOD REFERENCE RANGE: NEGATIVE 07/28/21 19:46 Aerobic Blood Culture - Preliminary Blood - Venous NO GROWTH AFTER 1 DAY Anaerobic Blood Culture - Preliminary NO GROWTH AFTER 1 DAY 07/28/21 20:00 Aerobic Blood Culture - Preliminary Blood - Venous - Lab Draw NO GROWTH AFTER 1 DAY Anaerobic Blood Culture - Preliminary NO GROWTH AFTER 1 DAY Med Orders - Current: Current Medications Acetaminophen (Acetaminophen 325 Mg Tab) 650 mg PO Q4H PRN PRN Reason: Pain (Mild 1-3)/fever Albuterol/Ipratropium (Albuterol/Ipratropium 3.0-0.5 Mg/3 Ml Neb Soln) 3 ml NEB Q4HRRT PRN PRN Reason: Shortness Of Breath/wheezing Docusate Sodium (Docusate Sodium 100 Mg Cap) 100 mg PO DAILY PRN PRN Reason: Constipation Last Admin: 07/29/21 21:29 Dose: 100 mg Documented by: Vancomycin HCl 1 gm/ Sodium (Chloride) 250 mls @ 167 mls/hr IV Q24H [facility] Last Admin: 07/29/21 23:21 Dose: 167 mls/hr Documented by: Pantoprazole Sodium 40 mg/ (Sodium Chloride) 10 mls @ 300 mls/hr IV BID [facility] Last Admin: 07/30/21 08:56 Dose: 300 mls/hr Documented by: Cefepime HCl (Maxipime In D5w 1 Gm/50 Ml) 50 mls @ 100 mls/hr IV Q12H [facility] Last Admin: 07/30/21 12:32 Dose: 100 mls/hr Documented by: Morphine Sulfate (Morphine 2 Mg/Ml Syringe) 1 mg IVPUSH Q4H PRN PRN Reason: Pain Ondansetron HCl (Ondansetron 4 Mg/2 Ml Sdv) 4 mg IVPUSH Q4H PRN PRN Reason: Nausea/Vomiting Isosorbide Mononitrate 10 Mg Tablet 1 each PO BID [facility] Last Admin: 07/30/21 09:03 Dose: Not Given Documented by: Simvastatin (Simvastatin 40 Mg Tab) 40 mg PO BEDTIME [facility] Last Admin: 07/29/21 21:29 Dose: 40 mg Documented by: Sodium Chloride (Sodium Chloride 0.9% 10 Ml Syringe) 10 ml FLUSH ASDIRECTED PRN PRN Reason: Keep Vein Open Sodium Chloride (Sodium Chloride 0.9% 2.5 Ml Syringe) 2.5 ml FLUSH ASDIRECTED PRN PRN Reason: Keep Vein Open Vancomycin HCl (Pharmacy To Dose - Vancomycin) 1 dose .XX ASDIRECTED [facility] Discontinued Medications Diphenhydramine HCl (Diphenhydramine 50 Mg Cap) 50 mg PO ONETIME ONE Stop: 07/28/21 22:03 Last Admin: 07/28/21 22:12 Dose: 50 mg Documented by: Furosemide (Furosemide 40 Mg/4 Ml Vial) 20 mg IVPUSH NOW ONE Stop: 07/29/21 01:31 Last Admin: 07/29/21 02:12 Dose: 20 mg Documented by: Furosemide (Furosemide 20 Mg/2 Ml Vial) 20 mg IVPUSH NOW ONE Stop: 07/29/21 15:10 Last Admin: 07/29/21 15:52 Dose: 20 mg Documented by: Cefepime HCl 2 gm/ Premix 50 mls @ 100 mls/hr IV ONETIME ONE Stop: 07/28/21 22:28 Last Admin: 07/28/21 22:12 Dose: 100 mls/hr Documented by: Sodium Chloride (Normal Saline) 1,000 mls @ 75 mls/hr IV ASDIRECTED [facility] Last Admin: 07/28/21 23:14 Dose: 75 mls/hr Documented by: Vancomycin HCl 945 gm/ Sodium (Chloride) 250 mls @ 166 mls/hr IV ONETIME ONE Stop: 07/29/21 00:18 Last Admin: 07/28/21 23:21 Dose: Not Given Documented by: Sodium Chloride (Normal Saline (Advbag)) Confirm Administered Dose 250 mls @ as directed .ROUTE .STK-MED ONE Stop: 07/28/21 23:10 Last Admin: 07/28/21 23:58 Dose: Not Given Documented by: Vancomycin HCl 1 gm/ Sodium (Chloride) 250 mls @ 166 mls/hr IV ONETIME ONE Stop: 07/29/21 00:49 Last Admin: 07/28/21 23:23 Dose: 166 mls/hr Documented by: Cefepime HCl 1 gm/ Premix 50 mls @ 100 mls/hr IV Q8H [facility] Last Admin: 07/30/21 01:05 Dose: 100 mls/hr Documented by: Pantoprazole Sodium 40 mg/ (Sodium Chloride) 10 mls @ 300 mls/hr IV DAILY [facility] Lactated Ringer's (Ringers, Lactated) 1,000 mls @ 100 mls/hr IV ASDIRECTED [facility] Stop: 07/30/21 18:44 Last Admin: 07/30/21 08:56 Dose: 100 mls/hr Documented by: Lorazepam (Lorazepam 2 Mg/Ml Sdv) 1 mg IVPUSH ONETIME ONE Stop: 07/29/21 19:50 Last Admin: 07/29/21 21:17 Dose: 1 mg Documented by: Pantoprazole Sodium (Pantoprazole 40 Mg Vial) 40 mg IV DAILY [facility] Last Admin: 07/29/21 09:21 Dose: 40 mg Documented by: Potassium Chloride (Potassium Chloride 20 Meq Tab.Er) 40 meq PO ONETIME ONE Stop: 07/29/21 01:29 Last Admin: 07/29/21 02:12 Dose: 40 meq Documented by: Sertraline HCl (Sertraline 50 Mg Tab) 50 mg PO DAILY [place] Last Admin: 07/29/21 21:29 Dose: 50 mg Documented by: - Exam General: Obtunded HEENT: Other (Dry mucous membranes) Lungs: Decreased Breath Sounds Cardiovascular: Bradycardia GI/Abdominal Exam: Normal Bowel Sounds, Soft, Non-Tender, No Organomegaly Extremities: Limited Range of Motion - Patient Data Lab Results Last 24 hrs: Laboratory Results - last 24 hr 07/30/21 07/30/21 07/30/21 Range/Units 05:50 05:50 05:50 WBC 7.53 (4.0-11.0) K/uL RBC 3.09 L (4.30-5.90) M/uL Hgb 9.7 L (12.0-16.0) g/dL Hct 31.2 L (36.0-46.0) % MCV 101.0 H (80.0-98.0) fL MCH 31.4 (27.0-32.0) pg MCHC 31.1 (31.0-37.0) g/dL RDW Std Deviation 52.1 (28.0-62.0) fl RDW Coeff of Aleksandr 15 (11.0-15.0) % Plt Count 103 L (150-400) K/uL MPV 10.90 (7.40-12.00) fL Neut % (Auto) 84.2 H (48.0-80.0) % Lymph % (Auto) 6.4 L (16.0-40.0) % [place] % (Auto) 9.3 (0.0-15.0) % Eos % (Auto) 0.0 (0.0-7.0) % Baso % (Auto) 0.1 (0.0-1.5) % Neut # (Auto) 6.3 H (1.4-5.7) K/uL Lymph # (Auto) 0.5 L (0.6-2.4) K/uL [place] # (Auto) 0.7 (0.0-0.8) K/uL Eos # (Auto) 0.0 (0.0-0.7) K/uL Baso # (Auto) 0.0 (0.0-0.1) K/uL INR 3.04 Sodium 143 (136-145) mmol/L Potassium 3.8 (3.5-5.1) mmol/L Chloride 106 (98-107) mmol/L Carbon Dioxide 27.1 (21.0-32.0) mmol/L BUN 36 H (7.0-18.0) mg/dL Creatinine 1.7 H (0.6-1.0) mg/dL Est Cr Clr Drug Dosing 18.56 mL/min Estimated GFR (MDRD) 28.3 ml/min Glucose 151 H (74-106) mg/dL Calcium 8.1 L (8.5-10.1) mg/dL Total Bilirubin 1.0 (0.2-1.0) mg/dL AST 25 (15-37) IU/L ALT 10 L (14-63) IU/L Alkaline Phosphatase 60 (46-116) U/L Total Protein 5.6 L (6.4-8.2) g/dL Albumin 2.7 L (3.4-5.0) g/dL Globulin 2.9 (2.6-4.0) g/dL Albumin/Globulin Ratio 0.9 (0.9-1.6) Result Diagrams: 07/30/21 05:50 07/30/21 05:50 Sunil Results Last 24 hrs: Microbiology 07/29/21 20:14 Stool Occult Blood (SUNIL) - Final Stool / Feces NEGATIVE OCCULT BLOOD REFERENCE RANGE: NEGATIVE 07/28/21 19:46 Aerobic Blood Culture - Preliminary Blood - Venous NO GROWTH AFTER 1 DAY Anaerobic Blood Culture - Preliminary NO GROWTH AFTER 1 DAY 07/28/21 20:00 Aerobic Blood Culture - Preliminary Blood - Venous - Lab Draw NO GROWTH AFTER 1 DAY Anaerobic Blood Culture - Preliminary NO GROWTH AFTER 1 DAY Sepsis Event Note - Evaluation Sepsis Screening Result: No Definite Risk - Focused Exam Vital Signs: Vital Signs Temp Pulse Resp BP Pulse Ox 07/30/21 11:50 97.3 F 51 L 16 112/64 97 07/30/21 07:25 98 F 63 16 132/80 95 07/30/21 06:51 19 93 L 07/30/21 05:05 97.7 F 54 L 18 - Problem List & Annotations (1) Contusion of left hand, initial encounter SNOMED Code(s): 6680981 Code(s): S60.222A - CONTUSION OF LEFT HAND, INITIAL ENCOUNTER Status: Acute Current Visit: No (2) Atrial fibrillation SNOMED Code(s): 89053126 Code(s): I48.91 - UNSPECIFIED ATRIAL FIBRILLATION Status: Chronic Priority: High Current Visit: No Qualifiers: Atrial fibrillation type: chronic (3) Pneumonia SNOMED Code(s): 674486320 Code(s): J18.9 - PNEUMONIA, UNSPECIFIED ORGANISM Status: Acute Current Visit: Yes (4) TIAGO (acute kidney injury) SNOMED Code(s): 04266197, 30642366 Code(s): N17.9 - ACUTE KIDNEY FAILURE, UNSPECIFIED Status: Acute Current Visit: Yes (5) Pleural effusion SNOMED Code(s): 37087677 Code(s): J90 - PLEURAL EFFUSION, NOT ELSEWHERE CLASSIFIED Status: Acute Current Visit: Yes (6) CHF (congestive heart failure) SNOMED Code(s): 30689479 Code(s): I50.9 - HEART FAILURE, UNSPECIFIED Status: Acute Current Visit: Yes - Problem List Review Problem List Initiated/Reviewed/Updated: Yes - My Orders Last 24 Hours: My Active Orders 07/29/21 16:30 Code Status [Resuscitation Status] Routine 07/29/21 18:53 Consult to Physical Therapy [PT Evaluation and Treatment] [CONS] Routine 07/30/21 13:37 Fecal Occult Blood Collection [RC] ASDIRECTED 07/31/21 05:11 CBC WITH AUTO DIFF [HEME] AM CMP [COMPREHENSIVE METABOLIC PN,CMP] [CHEM] AM 08/01/21 05:11 CBC WITH AUTO DIFF [HEME] AM CMP [COMPREHENSIVE METABOLIC PN,CMP] [CHEM] AM 08/02/21 05:11 CBC WITH AUTO DIFF [HEME] AM CMP [COMPREHENSIVE METABOLIC PN,CMP] [CHEM] AM 08/03/21 05:11 CBC WITH AUTO DIFF [HEME] AM CMP [COMPREHENSIVE METABOLIC PN,CMP] [CHEM] AM - Plan Plan:: 1. Pleural effusion most likely secondary to CHF versus pneumonia -The patient has been given varying doses of Lasix to decrease fluid accumulation around her lungs -Continue on vancomycin 1 g per IV route every 24 hours as well as cefepime 1 g per IV route every 8 hours -The patient is on oxygen, 2 L at the moment, if her requirement continues to decrease we may continue to treat with medication. If her oxygen requirement does not decrease we may need to get IR for a thoracentesis procedure. Nonetheless, based on the patient's age and physical stature, a tap at this point may not be the best management. We are hoping medical management at this time helps alleviate her symptoms and brings her back to her baseline. -Daily CBC 2. Left hip pain from fall -Patient is on morphine sulfate 1 mg per IV route every 4 hours, currently she is not complaining of pain 3. Acute kidney injury -Daily CMP, will treat as appropriate but do not want to give fluids due to the patient's pleural effusion 4. Agitation -The patient was given Ativan last night, and receives the same medication per oral route daily while at home
[2021-07-30] MEDS: Simvastatin 40 MG Tab PO SCH (21:20)
[2021-07-30] MEDS ORDERED: Vancomycin 1 GM SDV ONE (22:51)
[2021-07-30] MEDS ORDERED: Sodium Chloride 0.9% 250 ML ONE (22:52)
[2021-07-31] MEDS: Cefepime 50 ML IV SCH ×2 (00:51→12:32)
[2021-07-31] MEDS: Morphine 2 MG/ML SYRINGE IVPUSH PRN ×2 (01:43→12:46)
[2021-07-31 07:52] LABS: CARBON DIOXIDE,CO2 26.2 mmol/L (21.0-32.0); POTASSIUM,K 3.9 mmol/L (3.5-5.1)
[2021-07-31] MEDS: Pantoprazole 40 MG in Sodium Chloride 0.9% 10 ML IV SCH ×2 (09:17→21:41)
[2021-07-31] MEDS ORDERED: Furosemide 20 MG/2 ML VIAL IVPUSH ONE (10:47)
--- NOTE | 2021-07-31 11:55 | PCM.PN ---
- General Info Date of Service: 07/31/21 Subjective Update: The patient is an 89-year-old female, on day 3 of service, with a significant past medical history of dementia, CHF, atrial fibrillation, frequent falls, coronary artery disease, hyperlipidemia, hypertension, [place], bradycardia, three-vessel CABG correction, multiple fractures including the left hip and right wrist, who was admitted to the medical floor for pleural effusion most likely secondary to CHF versus pneumonia. Upon interview, the patient is still obtunded and could not answer questions. According to the family, more specifically her son Ishan, this is the patient's baseline where she does not move much and takes naps throughout the day. The patient does take Ativan once a day per oral route for agitation which may be an additive factor into why she is obtunded. Dennis from [employer] school social science teacher recently spoke with the patient's daughter Rosa, who revealed that she would like home health services to be in place after discharge to help with nursing and activities of daily living. According to nursing staff, last night the patient was complaining of being uncomfortable with her bilateral SCDs and as a result we will switch that over to Rafael bandage application to both lower extremities. Physical therapy is also working with this patient in order to build up her strength and make her more independent. According to her son Ishan, the patient's baseline is that she is able to move around the house independently but requires help with grooming, bathing, and meal preparation. Currently the patient requires 1-2 people assist ambulating within her room here at the hospital. The goal is for physical therapy to work with this patient so she can get back to her baseline. - Review of Systems General: Reports: Other (Could not assess as patient is a poor historian) HEENT: Reports: Other (Could not assess as patient is a poor historian) Pulmonary: Reports: Other (Could not assess as patient is a poor historian) Cardiovascular: Reports: Other (Could not assess as patient is a poor historian) Gastrointestinal: Reports: Other (Could not assess as patient is a poor historian) 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: Reports: Other (Cannot assess as patient is a poor historian) Musculoskeletal: Reports: Other (Could not assess as patient is a poor histori an) Skin: Reports: Other (Could not assess as patient is a poor historian) Neurological: Reports: Other (Could not assess as patient is a poor historian) - Patient Data Vitals - Most Recent: Last Vital Signs Temp 98.3 F 07/31/21 11:33 Pulse 58 L 07/31/21 11:33 Resp 12 07/31/21 11:33 BP 116/65 07/31/21 07:50 Pulse Ox 95 07/31/21 11:33 Weight - Most Recent: 153 lb 3.54 oz I&O - Last 24 Hours: Intake & Output 07/30/21 07/31/21 07/31/21 22:59 06:59 14:59 Intake Total 250 600 Output Total 500 Balance -250 600 Lab Results Last 24 Hours: Laboratory Results - last 24 hr 07/30/21 07/31/21 07/31/21 Range/Units 13:54 06:20 06:20 WBC 8.27 (4.0-11.0) K/uL RBC 3.26 L (4.30-5.90) M/uL Hgb 10.0 L (12.0-16.0) g/dL Hct 33.4 L (36.0-46.0) % MCV 102.5 H (80.0-98.0) fL MCH 30.7 (27.0-32.0) pg MCHC 29.9 L (31.0-37.0) g/dL RDW Std Deviation 54.4 (28.0-62.0) fl RDW Coeff of Aleksandr 15 (11.0-15.0) % Plt Count 120 L (150-400) K/uL MPV 10.90 (7.40-12.00) fL Neut % (Auto) 83.1 H (48.0-80.0) % Lymph % (Auto) 6.8 L (16.0-40.0) % [place] % (Auto) 10.0 (0.0-15.0) % Eos % (Auto) 0.0 (0.0-7.0) % Baso % (Auto) 0.1 (0.0-1.5) % Neut # (Auto) 6.9 H (1.4-5.7) K/uL Lymph # (Auto) 0.6 (0.6-2.4) K/uL [place] # (Auto) 0.8 (0.0-0.8) K/uL Eos # (Auto) 0.0 (0.0-0.7) K/uL Baso # (Auto) 0.0 (0.0-0.1) K/uL INR 2.31 ABG pH 7.36 (7.35-7.45) ABG pCO2 43 (35-45) mmHG ABG pO2 44 L (80-105) mmHG ABG HCO3 24 (22-26) mEq/L ABG Total CO2 22.6 L (23-27) mmol/L ABG Base Excess -1.4 (-2.0-3.0) Sodium (136-145) mmol/L Potassium (3.5-5.1) mmol/L Chloride (98-107) mmol/L Carbon Dioxide (21.0-32.0) mmol/L BUN (7.0-18.0) mg/dL Creatinine (0.6-1.0) mg/dL Est Cr Clr Drug Dosing mL/min Estimated GFR (MDRD) ml/min Glucose (74-106) mg/dL Calcium (8.5-10.1) mg/dL Total Bilirubin (0.2-1.0) mg/dL AST (15-37) IU/L ALT (14-63) IU/L Alkaline Phosphatase (46-116) U/L Total Protein (6.4-8.2) g/dL Albumin (3.4-5.0) g/dL Globulin (2.6-4.0) g/dL Albumin/Globulin Ratio (0.9-1.6) Vitamin B12 (193-986) pg/mL Folate (8.60-58.90) ng/mL 07/31/21 07/31/21 Range/Units 06:20 06:20 WBC (4.0-11.0) K/uL RBC (4.30-5.90) M/uL Hgb (12.0-16.0) g/dL Hct (36.0-46.0) % MCV (80.0-98.0) fL MCH (27.0-32.0) pg MCHC (31.0-37.0) g/dL RDW Std Deviation (28.0-62.0) fl RDW Coeff of Aleksandr (11.0-15.0) % Plt Count (150-400) K/uL MPV (7.40-12.00) fL Neut % (Auto) (48.0-80.0) % Lymph % (Auto) (16.0-40.0) % [place] % (Auto) (0.0-15.0) % Eos % (Auto) (0.0-7.0) % Baso % (Auto) (0.0-1.5) % Neut # (Auto) (1.4-5.7) K/uL Lymph # (Auto) (0.6-2.4) K/uL [place] # (Auto) (0.0-0.8) K/uL Eos # (Auto) (0.0-0.7) K/uL Baso # (Auto) (0.0-0.1) K/uL INR ABG pH (7.35-7.45) ABG pCO2 (35-45) mmHG ABG pO2 (80-105) mmHG ABG HCO3 (22-26) mEq/L ABG Total CO2 (23-27) mmol/L ABG Base Excess (-2.0-3.0) Sodium 144 (136-145) mmol/L Potassium 3.9 (3.5-5.1) mmol/L Chloride 106 (98-107) mmol/L Carbon Dioxide 26.2 (21.0-32.0) mmol/L BUN 40 H (7.0-18.0) mg/dL Creatinine 1.9 H (0.6-1.0) mg/dL Est Cr Clr Drug Dosing 16.60 mL/min Estimated GFR (MDRD) 24.9 ml/min Glucose 104 (74-106) mg/dL Calcium 8.1 L (8.5-10.1) mg/dL Total Bilirubin 0.9 (0.2-1.0) mg/dL AST 24 (15-37) IU/L ALT 14 (14-63) IU/L Alkaline Phosphatase 55 (46-116) U/L Total Protein 5.8 L (6.4-8.2) g/dL Albumin 2.8 L (3.4-5.0) g/dL Globulin 3.0 (2.6-4.0) g/dL Albumin/Globulin Ratio 0.9 (0.9-1.6) Vitamin B12 4968 H (193-986) pg/mL Folate 40.70 (8.60-58.90) ng/mL Sunil Results Last 24 Hours: Microbiology 07/28/21 19:46 Aerobic Blood Culture - Preliminary Blood - Venous NO GROWTH AFTER 2 DAYS Anaerobic Blood Culture - Preliminary NO GROWTH AFTER 2 DAYS 07/28/21 20:00 Aerobic Blood Culture - Preliminary Blood - Venous - Lab Draw NO GROWTH AFTER 2 DAYS Anaerobic Blood Culture - Preliminary NO GROWTH AFTER 2 DAYS Med Orders - Current: Current Medications Acetaminophen (Acetaminophen 325 Mg Tab) 650 mg PO Q4H PRN PRN Reason: Pain (Mild 1-3)/fever Albuterol/Ipratropium (Albuterol/Ipratropium 3.0-0.5 Mg/3 Ml Neb Soln) 3 ml NEB Q4HRRT PRN PRN Reason: Shortness Of Breath/wheezing Docusate Sodium (Docusate Sodium 100 Mg Cap) 100 mg PO DAILY PRN PRN Reason: Constipation Last Admin: 07/29/21 21:29 Dose: 100 mg Documented by: Pantoprazole Sodium 40 mg/ (Sodium Chloride) 10 mls @ 300 mls/hr IV BID [facility] Last Admin: 07/31/21 09:17 Dose: 300 mls/hr Documented by: Cefepime HCl (Maxipime In D5w 1 Gm/50 Ml) 50 mls @ 100 mls/hr IV Q12H [facility] Last Admin: 07/31/21 00:51 Dose: 100 mls/hr Documented by: Vancomycin HCl 1 gm/ Sodium (Chloride) 250 mls @ 167 mls/hr IV Q24H [facility] Morphine Sulfate (Morphine 2 Mg/Ml Syringe) 1 mg IVPUSH Q4H PRN PRN Reason: Pain Last Admin: 07/31/21 01:43 Dose: 1 mg Documented by: Ondansetron HCl (Ondansetron 4 Mg/2 Ml Sdv) 4 mg IVPUSH Q4H PRN PRN Reason: Nausea/Vomiting Isosorbide Mononitrate 10 Mg Tablet 1 each PO BID [facility] Last Admin: 07/31/21 09:17 Dose: Not Given Documented by: Simvastatin (Simvastatin 40 Mg Tab) 40 mg PO BEDTIME [facility] Last Admin: 07/30/21 21:20 Dose: 40 mg Documented by: Sodium Chloride (Sodium Chloride 0.9% 10 Ml Syringe) 10 ml FLUSH ASDIRECTED PRN PRN Reason: Keep Vein Open Sodium Chloride (Sodium Chloride 0.9% 2.5 Ml Syringe) 2.5 ml FLUSH ASDIRECTED PRN PRN Reason: Keep Vein Open Vancomycin HCl (Pharmacy To Dose - Vancomycin) 1 dose .XX ASDIRECTED [place] Discontinued Medications Diphenhydramine HCl (Diphenhydramine 50 Mg Cap) 50 mg PO ONETIME ONE Stop: 07/28/21 22:03 Last Admin: 07/28/21 22:12 Dose: 50 mg Documented by: Furosemide (Furosemide 40 Mg/4 Ml Vial) 20 mg IVPUSH NOW ONE Stop: 07/29/21 01:31 Last Admin: 07/29/21 02:12 Dose: 20 mg Documented by: Furosemide (Furosemide 20 Mg/2 Ml Vial) 20 mg IVPUSH NOW ONE Stop: 07/29/21 15:10 Last Admin: 07/29/21 15:52 Dose: 20 mg Documented by: Furosemide (Furosemide 20 Mg/2 Ml Vial) 20 mg IVPUSH NOW ONE Stop: 07/31/21 10:48 Last Admin: 07/31/21 11:21 Dose: 20 mg Documented by: Cefepime HCl 2 gm/ Premix 50 mls @ 100 mls/hr IV ONETIME ONE Stop: 07/28/21 22:28 Last Admin: 07/28/21 22:12 Dose: 100 mls/hr Documented by: Sodium Chloride (Normal Saline) 1,000 mls @ 75 mls/hr IV ASDIRECTED [facility] Last Admin: 07/28/21 23:14 Dose: 75 mls/hr Documented by: Vancomycin HCl 945 gm/ Sodium (Chloride) 250 mls @ 166 mls/hr IV ONETIME ONE Stop: 07/29/21 00:18 Last Admin: 07/28/21 23:21 Dose: Not Given Documented by: Sodium Chloride (Normal Saline (Advbag)) Confirm Administered Dose 250 mls @ as directed .ROUTE .STK-MED ONE Stop: 07/28/21 23:10 Last Admin: 07/28/21 23:58 Dose: Not Given Documented by: Vancomycin HCl 1 gm/ Sodium (Chloride) 250 mls @ 166 mls/hr IV ONETIME ONE Stop: 07/29/21 00:49 Last Admin: 07/28/21 23:23 Dose: 166 mls/hr Documented by: Vancomycin HCl 1 gm/ Sodium (Chloride) 250 mls @ 167 mls/hr IV Q24H [facility] Last Admin: 07/30/21 23:06 Dose: 167 mls/hr Documented by: Cefepime HCl 1 gm/ Premix 50 mls @ 100 mls/hr IV Q8H [facility] Last Admin: 07/30/21 01:05 Dose: 100 mls/hr Documented by: Pantoprazole Sodium 40 mg/ (Sodium Chloride) 10 mls @ 300 mls/hr IV DAILY [facility] Lactated Ringer's (Ringers, Lactated) 1,000 mls @ 100 mls/hr IV ASDIRECTED [facility] Stop: 07/30/21 18:44 Last Admin: 07/30/21 08:56 Dose: 100 mls/hr Documented by: Sodium Chloride (Normal Saline (Advbag)) Confirm Administered Dose 250 mls @ as directed .ROUTE .STK-MED ONE Stop: 07/30/21 22:53 Last Admin: 07/30/21 23:07 Dose: 167 mls/hr Documented by: Lorazepam (Lorazepam 2 Mg/Ml Sdv) 1 mg IVPUSH ONETIME ONE Stop: 07/29/21 19:50 Last Admin: 07/29/21 21:17 Dose: 1 mg Documented by: Pantoprazole Sodium (Pantoprazole 40 Mg Vial) 40 mg IV DAILY [facility] Last Admin: 07/29/21 09:21 Dose: 40 mg Documented by: Potassium Chloride (Potassium Chloride 20 Meq Tab.Er) 40 meq PO ONETIME ONE Stop: 07/29/21 01:29 Last Admin: 07/29/21 02:12 Dose: 40 meq Documented by: Sertraline HCl (Sertraline 50 Mg Tab) 50 mg PO DAILY [facility] Last Admin: 07/29/21 21:29 Dose: 50 mg Documented by: Vancomycin HCl (Vancomycin 1 Gm Sdv) Confirm Administered Dose 1 gm .ROUTE .STK- MED ONE Stop: 07/30/21 22:52 Last Admin: 07/30/21 23:05 Dose: 1 gm Documented by: - Exam General: Obtunded HEENT: Other (Dry mucous membranes) Neck: No: Trachea Midline Lungs: Decreased Breath Sounds Cardiovascular: Regular Rate, Regular Rhythm, No Murmurs GI/Abdominal Exam: Normal Bowel Sounds, Soft, Non-Tender, No Organomegaly Extremities: No Pedal Edema - Patient Data Lab Results Last 24 hrs: Laboratory Results - last 24 hr 07/30/21 07/31/21 07/31/21 Range/Units 13:54 06:20 06:20 WBC 8.27 (4.0-11.0) K/uL RBC 3.26 L (4.30-5.90) M/uL Hgb 10.0 L (12.0-16.0) g/dL Hct 33.4 L (36.0-46.0) % MCV 102.5 H (80.0-98.0) fL MCH 30.7 (27.0-32.0) pg MCHC 29.9 L (31.0-37.0) g/dL RDW Std Deviation 54.4 (28.0-62.0) fl RDW Coeff of Aleksandr 15 (11.0-15.0) % Plt Count 120 L (150-400) K/uL MPV 10.90 (7.40-12.00) fL Neut % (Auto) 83.1 H (48.0-80.0) % Lymph % (Auto) 6.8 L (16.0-40.0) % [place] % (Auto) 10.0 (0.0-15.0) % Eos % (Auto) 0.0 (0.0-7.0) % Baso % (Auto) 0.1 (0.0-1.5) % Neut # (Auto) 6.9 H (1.4-5.7) K/uL Lymph # (Auto) 0.6 (0.6-2.4) K/uL [place] # (Auto) 0.8 (0.0-0.8) K/uL Eos # (Auto) 0.0 (0.0-0.7) K/uL Baso # (Auto) 0.0 (0.0-0.1) K/uL INR 2.31 ABG pH 7.36 (7.35-7.45) ABG pCO2 43 (35-45) mmHG ABG pO2 44 L (80-105) mmHG ABG HCO3 24 (22-26) mEq/L ABG Total CO2 22.6 L (23-27) mmol/L ABG Base Excess -1.4 (-2.0-3.0) Sodium (136-145) mmol/L Potassium (3.5-5.1) mmol/L Chloride (98-107) mmol/L Carbon Dioxide (21.0-32.0) mmol/L BUN (7.0-18.0) mg/dL Creatinine (0.6-1.0) mg/dL Est Cr Clr Drug Dosing mL/min Estimated GFR (MDRD) ml/min Glucose (74-106) mg/dL Calcium (8.5-10.1) mg/dL Total Bilirubin (0.2-1.0) mg/dL AST (15-37) IU/L ALT (14-63) IU/L Alkaline Phosphatase (46-116) U/L Total Protein (6.4-8.2) g/dL Albumin (3.4-5.0) g/dL Globulin (2.6-4.0) g/dL Albumin/Globulin Ratio (0.9-1.6) Vitamin B12 (193-986) pg/mL Folate (8.60-58.90) ng/mL 07/31/21 07/31/21 Range/Units 06:20 06:20 WBC (4.0-11.0) K/uL RBC (4.30-5.90) M/uL Hgb (12.0-16.0) g/dL Hct (36.0-46.0) % MCV (80.0-98.0) fL MCH (27.0-32.0) pg MCHC (31.0-37.0) g/dL RDW Std Deviation (28.0-62.0) fl RDW Coeff of Aleksandr (11.0-15.0) % Plt Count (150-400) K/uL MPV (7.40-12.00) fL Neut % (Auto) (48.0-80.0) % Lymph % (Auto) (16.0-40.0) % [place] % (Auto) (0.0-15.0) % Eos % (Auto) (0.0-7.0) % Baso % (Auto) (0.0-1.5) % Neut # (Auto) (1.4-5.7) K/uL Lymph # (Auto) (0.6-2.4) K/uL [place] # (Auto) (0.0-0.8) K/uL Eos # (Auto) (0.0-0.7) K/uL Baso # (Auto) (0.0-0.1) K/uL INR ABG pH (7.35-7.45) ABG pCO2 (35-45) mmHG ABG pO2 (80-105) mmHG ABG HCO3 (22-26) mEq/L ABG Total CO2 (23-27) mmol/L ABG Base Excess (-2.0-3.0) Sodium 144 (136-145) mmol/L Potassium 3.9 (3.5-5.1) mmol/L Chloride 106 (98-107) mmol/L Carbon Dioxide 26.2 (21.0-32.0) mmol/L BUN 40 H (7.0-18.0) mg/dL Creatinine 1.9 H (0.6-1.0) mg/dL Est Cr Clr Drug Dosing 16.60 mL/min Estimated GFR (MDRD) 24.9 ml/min Glucose 104 (74-106) mg/dL Calcium 8.1 L (8.5-10.1) mg/dL Total Bilirubin 0.9 (0.2-1.0) mg/dL AST 24 (15-37) IU/L ALT 14 (14-63) IU/L Alkaline Phosphatase 55 (46-116) U/L Total Protein 5.8 L (6.4-8.2) g/dL Albumin 2.8 L (3.4-5.0) g/dL Globulin 3.0 (2.6-4.0) g/dL Albumin/Globulin Ratio 0.9 (0.9-1.6) Vitamin B12 4968 H (193-986) pg/mL Folate 40.70 (8.60-58.90) ng/mL Result Diagrams: 07/31/21 06:20 07/31/21 06:20 Sunil Results Last 24 hrs: Microbiology 07/28/21 19:46 Aerobic Blood Culture - Preliminary Blood - Venous NO GROWTH AFTER 2 DAYS Anaerobic Blood Culture - Preliminary NO GROWTH AFTER 2 DAYS 07/28/21 20:00 Aerobic Blood Culture - Preliminary Blood - Venous - Lab Draw NO GROWTH AFTER 2 DAYS Anaerobic Blood Culture - Preliminary NO GROWTH AFTER 2 DAYS Sepsis Event Note - Evaluation Sepsis Screening Result: No Definite Risk - Focused Exam Vital Signs: Vital Signs Temp Pulse Resp BP Pulse Ox 07/31/21 11:33 98.3 F 58 L 12 95 07/31/21 07:50 98.2 F 60 14 116/65 97 07/31/21 04:00 99.1 F 63 20 144/64 H 92 L 07/31/21 01:00 92 L 07/31/21 00:00 99.0 F 65 14 115/80 97 - Problem List & Annotations (1) Contusion of left hand, initial encounter SNOMED Code(s): 4687217 Code(s): S60.222A - CONTUSION OF LEFT HAND, INITIAL ENCOUNTER Status: Acute Current Visit: No (2) Atrial fibrillation SNOMED Code(s): 85017276 Code(s): I48.91 - UNSPECIFIED ATRIAL FIBRILLATION Status: Chronic Priority: High Current Visit: No Qualifiers: Atrial fibrillation type: chronic (3) Pneumonia SNOMED Code(s): 589408554 Code(s): J18.9 - PNEUMONIA, UNSPECIFIED ORGANISM Status: Acute Current Visit: Yes (4) TIAGO (acute kidney injury) SNOMED Code(s): 33675185, 56239702 Code(s): N17.9 - ACUTE KIDNEY FAILURE, UNSPECIFIED Status: Acute Current Visit: Yes (5) Pleural effusion SNOMED Code(s): 98303083 Code(s): J90 - PLEURAL EFFUSION, NOT ELSEWHERE CLASSIFIED Status: Acute Current Visit: Yes (6) CHF (congestive heart failure) SNOMED Code(s): 56750875 Code(s): I50.9 - HEART FAILURE, UNSPECIFIED Status: Acute Current Visit: Yes (7) Ambulatory dysfunction SNOMED Code(s): 696337845 Code(s): R26.2 - DIFFICULTY IN WALKING, NOT ELSEWHERE CLASSIFIED Status: Acute Current Visit: Yes - Problem List Review Problem List Initiated/Reviewed/Updated: Yes - My Orders Last 24 Hours: My Active Orders 07/30/21 13:37 Fecal Occult Blood Collection [RC] ASDIRECTED 07/31/21 10:08 Communication Order [RC] ROUTINE Do Not Use Sequential Compression Device [AST] Click to Edit 08/01/21 05:11 CBC WITH AUTO DIFF [HEME] AM CMP [COMPREHENSIVE METABOLIC PN,CMP] [CHEM] AM 08/02/21 05:11 CBC WITH AUTO DIFF [HEME] AM CMP [COMPREHENSIVE METABOLIC PN,CMP] [CHEM] AM 08/03/21 05:11 CBC WITH AUTO DIFF [HEME] AM CMP [COMPREHENSIVE METABOLIC PN,CMP] [CHEM] AM - Plan Plan:: 1. Pleural effusion most likely secondary to CHF versus pneumonia -The patient has been given a one-time dose of Lasix 20 mg per IV route -Continue on vancomycin 1 g per IV route every 24 hours as well as cefepime 1 g per IV route every 12 hours -The patient is on oxygen, 1 L at the moment, saturating at 97%, continue to wean as appropriate -Duo nebs every 4 hours as needed are also on board for shortness of breath -Daily CBC 2. Left hip pain from fall -Patient is on morphine sulfate 1 mg per IV route every 4 hours, Colace 100 mg per oral route is also on board to prevent constipation. 3. Acute kidney injury -Daily CMP, will treat as appropriate but do not want to give fluids due to the patient's pleural effusion 4. Agitation -The patient was given Ativan last night, and receives the same medication per oral route daily while at home 5. Macrocytosis -We have ordered folic acid and B12 level to decipher the cause of the patient's increased MCV 6. Ambulatory dysfunction -PT is working with this patient in order to build up her strength and get her back to her baseline
[2021-07-31] MEDS: Simvastatin 40 MG Tab PO SCH (21:46)
[2021-08-01] MEDS: Cefepime 50 ML IV SCH ×2 (00:44→13:07)
[2021-08-01 06:37] LABS: CARBON DIOXIDE,CO2 20.6 mmol/L (21.0-32.0); POTASSIUM,K 4.5 mmol/L (3.5-5.1)
[2021-08-01] MEDS: Pantoprazole 40 MG in Sodium Chloride 0.9% 10 ML IV SCH (08:21)
--- NOTE | 2021-08-01 16:00 | PCM.PN ---
- General Info Date of Service: 08/01/21 Subjective Update: The patient is an 89-year-old female, on day 4 of service, with a significant past medical history of dementia, CHF, atrial fibrillation, frequent falls, coronary artery disease, hyperlipidemia, hypertension, [place], bradycardia, three-vessel CABG correction, multiple fractures including the left hip and right wrist, who was admitted to the medical floor for pleural effusion most likely secondary to CHF versus pneumonia. Upon interview, the patient is still obtunded and could not answer questions. The patient has refused to work with physical therapy. She is repeated on multiple counts that she would like it all to end. I spoke with the patient's son Ishan today who said that his mother usually does not do well in hospital settings, and would do better with physical therapy at home. We discussed the prospect of hospice and Ishan agreed it would be beneficial to his mother. I had a conversation with hospice, more specifically Mir[facility], who will have the patient set up for hospice tomorrow after discharge. Mirlande also spoke to the patient's family and laid out what hospice was, the different comfort measures that will be given, and the family agreed for it to be initiated. - Review of Systems General: Reports: Other (Patient is a poor historian) HEENT: Reports: Other Pulmonary: Reports: Other (Patient is a poor historian) Cardiovascular: Reports: Other ( patient is a poor historian) Gastrointestinal: Reports: Other ( patient is a poor historian) 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: Reports: Other ( patient is a poor historian) Musculoskeletal: Reports: Other ( patient is a poor historian patient is a poor historian) Neurological: Reports: Other (Patient is a poor historian) - Patient Data Vitals - Most Recent: Last Vital Signs Temp 98.3 F 08/01/21 12:00 Pulse 78 08/01/21 12:00 Resp 16 08/01/21 12:00 BP 155/21 H 08/01/21 12:00 Pulse Ox 94 L 08/01/21 12:00 Weight - Most Recent: 153 lb 3.54 oz Lab Results Last 24 Hours: Laboratory Results - last 24 hr 08/01/21 08/01/21 08/01/21 Range/Units 05:05 05:05 05:05 WBC 11.10 H (4.0-11.0) K/uL RBC 3.78 L (4.30-5.90) M/uL Hgb 11.8 L (12.0-16.0) g/dL Hct 37.9 (36.0-46.0) % MCV 100.3 H (80.0-98.0) fL MCH 31.2 (27.0-32.0) pg MCHC 31.1 (31.0-37.0) g/dL RDW Std Deviation 56.9 (28.0-62.0) fl RDW Coeff of Aleksandr 16 H (11.0-15.0) % Plt Count 153 (150-400) K/uL MPV 11.00 (7.40-12.00) fL Add Manual Diff YES Neutrophils % (Manual) 86 H (48.0-80.0) % Lymphocytes % (Manual) 9 L (16.0-40.0) % Monocytes % (Manual) 5 (0.0-15.0) % Nucleated RBC % 3.2 /100WBC Absolute Seg Neuts 9.5 H (1.4-5.7) Lymphocytes # (Manual) 1.0 (0.6-2.4) Monocytes # (Manual) 0.6 (0.0-0.8) Nucleated RBCs # 0 K/uL INR 2.80 Sodium 144 (136-145) mmol/L Potassium 4.5 (3.5-5.1) mmol/L Chloride 105 (98-107) mmol/L Carbon Dioxide 20.6 L (21.0-32.0) mmol/L BUN 49 H (7.0-18.0) mg/dL Creatinine 2.1 H (0.6-1.0) mg/dL Est Cr Clr Drug Dosing 15.02 mL/min Estimated GFR (MDRD) 22.2 ml/min Glucose 121 H (74-106) mg/dL Calcium 8.6 (8.5-10.1) mg/dL Total Bilirubin 1.3 H (0.2-1.0) mg/dL AST 35 (15-37) IU/L ALT 20 (14-63) IU/L Alkaline Phosphatase 64 (46-116) U/L Total Protein 6.7 (6.4-8.2) g/dL Albumin 3.1 L (3.4-5.0) g/dL Globulin 3.6 (2.6-4.0) g/dL Albumin/Globulin Ratio 0.9 (0.9-1.6) Sunil Results Last 24 Hours: Microbiology 07/28/21 19:46 Aerobic Blood Culture - Preliminary Blood - Venous NO GROWTH AFTER 3 DAYS Anaerobic Blood Culture - Preliminary NO GROWTH AFTER 3 DAYS 07/28/21 20:00 Aerobic Blood Culture - Preliminary Blood - Venous - Lab Draw NO GROWTH AFTER 3 DAYS Anaerobic Blood Culture - Preliminary NO GROWTH AFTER 3 DAYS Med Orders - Current: Current Medications Acetaminophen (Acetaminophen 325 Mg Tab) 650 mg PO Q4H PRN PRN Reason: Pain (Mild 1-3)/fever Albuterol/Ipratropium (Albuterol/Ipratropium 3.0-0.5 Mg/3 Ml Neb Soln) 3 ml NEB Q4HRRT PRN PRN Reason: Shortness Of Breath/wheezing Docusate Sodium (Docusate Sodium 100 Mg Cap) 100 mg PO DAILY PRN PRN Reason: Constipation Last Admin: 07/29/21 21:29 Dose: 100 mg Documented by: Pantoprazole Sodium 40 mg/ (Sodium Chloride) 10 mls @ 300 mls/hr IV BID [facility] Last Admin: 08/01/21 08:21 Dose: 300 mls/hr Documented by: Cefepime HCl (Maxipime In D5w 1 Gm/50 Ml) 50 mls @ 100 mls/hr IV Q12H [facility] Last Admin: 08/01/21 13:07 Dose: 100 mls/hr Documented by: Vancomycin HCl 1 gm/ Sodium (Chloride) 250 mls @ 167 mls/hr IV Q24H [facility] Last Admin: 07/31/21 22:49 Dose: 167 mls/hr Documented by: Morphine Sulfate (Morphine 2 Mg/Ml Syringe) 1 mg IVPUSH Q4H PRN PRN Reason: Pain Last Admin: 07/31/21 12:46 Dose: 1 mg Documented by: Ondansetron HCl (Ondansetron 4 Mg/2 Ml Sdv) 4 mg IVPUSH Q4H PRN PRN Reason: Nausea/Vomiting Isosorbide Mononitrate 10 Mg Tablet 1 each PO BID [facility] Last Admin: 08/01/21 08:21 Dose: Not Given Documented by: Simvastatin (Simvastatin 40 Mg Tab) 40 mg PO BEDTIME [facility] Last Admin: 07/31/21 21:46 Dose: 40 mg Documented by: Sodium Chloride (Sodium Chloride 0.9% 10 Ml Syringe) 10 ml FLUSH ASDIRECTED PRN PRN Reason: Keep Vein Open Sodium Chloride (Sodium Chloride 0.9% 2.5 Ml Syringe) 2.5 ml FLUSH ASDIRECTED PRN PRN Reason: Keep Vein Open Vancomycin HCl (Pharmacy To Dose - Vancomycin) 1 dose .XX ASDIRECTED [place] Discontinued Medications Diphenhydramine HCl (Diphenhydramine 50 Mg Cap) 50 mg PO ONETIME ONE Stop: 07/28/21 22:03 Last Admin: 07/28/21 22:12 Dose: 50 mg Documented by: Furosemide (Furosemide 40 Mg/4 Ml Vial) 20 mg IVPUSH NOW ONE Stop: 07/29/21 01:31 Last Admin: 07/29/21 02:12 Dose: 20 mg Documented by: Furosemide (Furosemide 20 Mg/2 Ml Vial) 20 mg IVPUSH NOW ONE Stop: 07/29/21 15:10 Last Admin: 07/29/21 15:52 Dose: 20 mg Documented by: Furosemide (Furosemide 20 Mg/2 Ml Vial) 20 mg IVPUSH NOW ONE Stop: 07/31/21 10:48 Last Admin: 07/31/21 11:21 Dose: 20 mg Documented by: Cefepime HCl 2 gm/ Premix 50 mls @ 100 mls/hr IV ONETIME ONE Stop: 07/28/21 22:28 Last Admin: 07/28/21 22:12 Dose: 100 mls/hr Documented by: Sodium Chloride (Normal Saline) 1,000 mls @ 75 mls/hr IV ASDIRECTED [facility] Last Admin: 07/28/21 23:14 Dose: 75 mls/hr Documented by: Vancomycin HCl 945 gm/ Sodium (Chloride) 250 mls @ 166 mls/hr IV ONETIME ONE Stop: 07/29/21 00:18 Last Admin: 07/28/21 23:21 Dose: Not Given Documented by: Sodium Chloride (Normal Saline (Advbag)) Confirm Administered Dose 250 mls @ as directed .ROUTE .STK-MED ONE Stop: 07/28/21 23:10 Last Admin: 07/28/21 23:58 Dose: Not Given Documented by: Vancomycin HCl 1 gm/ Sodium (Chloride) 250 mls @ 166 mls/hr IV ONETIME ONE Stop: 07/29/21 00:49 Last Admin: 07/28/21 23:23 Dose: 166 mls/hr Documented by: Vancomycin HCl 1 gm/ Sodium (Chloride) 250 mls @ 167 mls/hr IV Q24H [facility] Last Admin: 07/30/21 23:06 Dose: 167 mls/hr Documented by: Cefepime HCl 1 gm/ Premix 50 mls @ 100 mls/hr IV Q8H [facility] Last Admin: 07/30/21 01:05 Dose: 100 mls/hr Documented by: Pantoprazole Sodium 40 mg/ (Sodium Chloride) 10 mls @ 300 mls/hr IV DAILY [facility] Lactated Ringer's (Ringers, Lactated) 1,000 mls @ 100 mls/hr IV ASDIRECTED [facility] Stop: 07/30/21 18:44 Last Admin: 07/30/21 08:56 Dose: 100 mls/hr Documented by: Sodium Chloride (Normal Saline (Advbag)) Confirm Administered Dose 250 mls @ as directed .ROUTE .STK-MED ONE Stop: 07/30/21 22:53 Last Admin: 07/30/21 23:07 Dose: 167 mls/hr Documented by: Lorazepam (Lorazepam 2 Mg/Ml Sdv) 1 mg IVPUSH ONETIME ONE Stop: 07/29/21 19:50 Last Admin: 07/29/21 21:17 Dose: 1 mg Documented by: Pantoprazole Sodium (Pantoprazole 40 Mg Vial) 40 mg IV DAILY [facility] Last Admin: 07/29/21 09:21 Dose: 40 mg Documented by: Potassium Chloride (Potassium Chloride 20 Meq Tab.Er) 40 meq PO ONETIME ONE Stop: 07/29/21 01:29 Last Admin: 07/29/21 02:12 Dose: 40 meq Documented by: Sertraline HCl (Sertraline 50 Mg Tab) 50 mg PO DAILY [facility] Last Admin: 07/29/21 21:29 Dose: 50 mg Documented by: Vancomycin HCl (Vancomycin 1 Gm Sdv) Confirm Administered Dose 1 gm .ROUTE .STK- MED ONE Stop: 07/30/21 22:52 Last Admin: 07/30/21 23:05 Dose: 1 gm Documented by: - Exam General: Obtunded HEENT: Other (Dry mucous membranes) Neck: Trachea Midline Lungs: Decreased Breath Sounds Cardiovascular: No Murmurs GI/Abdominal Exam: Normal Bowel Sounds, Soft, Non-Tender - Patient Data Lab Results Last 24 hrs: Laboratory Results - last 24 hr 08/01/21 08/01/21 08/01/21 Range/Units 05:05 05:05 05:05 WBC 11.10 H (4.0-11.0) K/uL RBC 3.78 L (4.30-5.90) M/uL Hgb 11.8 L (12.0-16.0) g/dL Hct 37.9 (36.0-46.0) % MCV 100.3 H (80.0-98.0) fL MCH 31.2 (27.0-32.0) pg MCHC 31.1 (31.0-37.0) g/dL RDW Std Deviation 56.9 (28.0-62.0) fl RDW Coeff of Aleksandr 16 H (11.0-15.0) % Plt Count 153 (150-400) K/uL MPV 11.00 (7.40-12.00) fL Add Manual Diff YES Neutrophils % (Manual) 86 H (48.0-80.0) % Lymphocytes % (Manual) 9 L (16.0-40.0) % Monocytes % (Manual) 5 (0.0-15.0) % Nucleated RBC % 3.2 /100WBC Absolute Seg Neuts 9.5 H (1.4-5.7) Lymphocytes # (Manual) 1.0 (0.6-2.4) Monocytes # (Manual) 0.6 (0.0-0.8) Nucleated RBCs # 0 K/uL INR 2.80 Sodium 144 (136-145) mmol/L Potassium 4.5 (3.5-5.1) mmol/L Chloride 105 (98-107) mmol/L Carbon Dioxide 20.6 L (21.0-32.0) mmol/L BUN 49 H (7.0-18.0) mg/dL Creatinine 2.1 H (0.6-1.0) mg/dL Est Cr Clr Drug Dosing 15.02 mL/min Estimated GFR (MDRD) 22.2 ml/min Glucose 121 H (74-106) mg/dL Calcium 8.6 (8.5-10.1) mg/dL Total Bilirubin 1.3 H (0.2-1.0) mg/dL AST 35 (15-37) IU/L ALT 20 (14-63) IU/L Alkaline Phosphatase 64 (46-116) U/L Total Protein 6.7 (6.4-8.2) g/dL Albumin 3.1 L (3.4-5.0) g/dL Globulin 3.6 (2.6-4.0) g/dL Albumin/Globulin Ratio 0.9 (0.9-1.6) Result Diagrams: 08/01/21 05:05 08/01/21 05:05 Sunil Results Last 24 hrs: Microbiology 07/28/21 19:46 Aerobic Blood Culture - Preliminary Blood - Venous NO GROWTH AFTER 3 DAYS Anaerobic Blood Culture - Preliminary NO GROWTH AFTER 3 DAYS 07/28/21 20:00 Aerobic Blood Culture - Preliminary Blood - Venous - Lab Draw NO GROWTH AFTER 3 DAYS Anaerobic Blood Culture - Preliminary NO GROWTH AFTER 3 DAYS Sepsis Event Note - Evaluation Sepsis Screening Result: No Definite Risk - Focused Exam Vital Signs: Vital Signs Temp Pulse Resp BP Pulse Ox 08/01/21 12:00 98.3 F 78 16 155/21 H 94 L 08/01/21 08:20 99.2 F 67 16 151/81 H 93 L 08/01/21 04:10 98.8 F 76 18 164/77 H 88 L - Problem List & Annotations (1) Contusion of left hand, initial encounter SNOMED Code(s): 3964699 Code(s): S60.222A - CONTUSION OF LEFT HAND, INITIAL ENCOUNTER Status: Acute Current Visit: No (2) Atrial fibrillation SNOMED Code(s): 09732038 Code(s): I48.91 - UNSPECIFIED ATRIAL FIBRILLATION Status: Chronic Priority: High Current Visit: No Qualifiers: Atrial fibrillation type: chronic (3) Pneumonia SNOMED Code(s): 343984071 Code(s): J18.9 - PNEUMONIA, UNSPECIFIED ORGANISM Status: Acute Current Visit: Yes (4) TIAGO (acute kidney injury) SNOMED Code(s): 87647922, 73466274 Code(s): N17.9 - ACUTE KIDNEY FAILURE, UNSPECIFIED Status: Acute Current Visit: Yes (5) Pleural effusion SNOMED Code(s): 42454934 Code(s): J90 - PLEURAL EFFUSION, NOT ELSEWHERE CLASSIFIED Status: Acute Current Visit: Yes (6) CHF (congestive heart failure) SNOMED Code(s): 08439499 Code(s): I50.9 - HEART FAILURE, UNSPECIFIED Status: Acute Current Visit: Yes (7) Ambulatory dysfunction SNOMED Code(s): 674619557 Code(s): R26.2 - DIFFICULTY IN WALKING, NOT ELSEWHERE CLASSIFIED Status: Acute Current Visit: Yes - Problem List Review Problem List Initiated/Reviewed/Updated: Yes - My Orders Last 24 Hours: My Active Orders 08/01/21 14:36 Consult to Hospice [CONS] Routine 08/02/21 05:11 CBC WITH AUTO DIFF [HEME] AM CMP [COMPREHENSIVE METABOLIC PN,CMP] [CHEM] AM 08/03/21 05:11 CBC WITH AUTO DIFF [HEME] AM CMP [COMPREHENSIVE METABOLIC PN,CMP] [CHEM] AM - Plan Plan:: 1. Pleural effusion most likely secondary to CHF versus pneumonia -Continue on vancomycin 1 g per IV route every 24 hours as well as cefepime 1 g per IV route every 12 hours -The patient is on oxygen, 1 L at the moment, saturating at 97%, continue to wean as appropriate -Duo nebs every 4 hours as needed are also on board for shortness of breath -Daily CBC 2. Left hip pain from fall -Patient is on morphine sulfate 1 mg per IV route every 4 hours, Colace 100 mg per oral route is also on board to prevent constipation. 3. Acute kidney injury -Daily CMP Patient is deteriorating clinically, discussions have been made with the patient's family to initiate hospice for which they agreed. The patient will be discharged tomorrow and hospice will be arranged at home.
[2021-08-01] MEDS ORDERED: Morphine 2 MG/ML SYRINGE IVPUSH PRN (18:28)
[2021-08-01] MEDS: Atropine 1% Ophth Soln 5 ML BOTTLE SL SCH ×3 (19:19→23:16)
[2021-08-01] MEDS: LORazepam 2 MG/ML SDV IVPUSH PRN (23:17)
[2021-08-02] MEDS: Atropine 1% Ophth Soln 5 ML BOTTLE SL SCH ×7 (01:07→12:45)
[2021-08-02] MEDS: LORazepam 2 MG/ML SDV IVPUSH PRN (03:32)
[2021-08-02 08:05] VITALS: BP 137/70; PULSE 68
--- NOTE | 2021-08-02 09:51 | PCM.DCSUM1 ---
Discharge Summary - Hospital Course Free Text/Narrative:: The patient is an 89-year-old female, on day 5 of service, with a significant past medical history of dementia, CHF, atrial fibrillation, frequent falls, coronary artery disease, hyperlipidemia, hypertension, [place], bradycardia, three-vessel CABG correction, multiple fractures including the left hip and right wrist, who was admitted to the medical floor for pleural effusion most likely secondary to CHF versus pneumonia. Throughout her hospital stay, the patient was obtunded and could not answer questions. The patient also refused to work with physical therapy. She has repeated on multiple accounts that she would like it all to end. For her pleural effusion most likely secondary to see CHF versus pneumonia she was treated with Lasix via IV route as well as two different antibiotics including vancomycin and cefepime per IV. She was also given duo nebs and for pain related to frequent falls on her left side she was given morphine via IV route and Colace to prevent any constipation. Nonetheless, the patient's clinical picture deteriorated and talks with her family and other clinicians here at the hospital led to the decision to put the patient on hospice care. She will be sent home in a hospice bed and will receive medications through her PCP. Her expected life expectancy is less than 6 months. The patient is now ready to be discharged. - Discharge Data Discharge Date: 08/02/21 Discharge Disposition: DC/Tfer to Hospice - Home 51 Condition: Stable - Referral to Home Health Primary Care Physician: PCP None - Discharge Diagnosis/Problem(s) (1) Contusion of left hand, initial encounter SNOMED Code(s): 7200056 ICD Code: S60.222A - CONTUSION OF LEFT HAND, INITIAL ENCOUNTER Status: Acute Current Visit: No (2) Atrial fibrillation SNOMED Code(s): 42810480 ICD Code: I48.91 - UNSPECIFIED ATRIAL FIBRILLATION Status: Chronic Priority: High Current Visit: No Qualifiers: Atrial fibrillation type: chronic (3) Pneumonia SNOMED Code(s): 900087869 ICD Code: J18.9 - PNEUMONIA, UNSPECIFIED ORGANISM Status: Acute Current Visit: Yes (4) TIAGO (acute kidney injury) SNOMED Code(s): 81871403, 13159870 ICD Code: N17.9 - ACUTE KIDNEY FAILURE, UNSPECIFIED Status: Acute Current Visit: Yes (5) Pleural effusion SNOMED Code(s): 55311084 ICD Code: J90 - PLEURAL EFFUSION, NOT ELSEWHERE CLASSIFIED Status: Acute Current Visit: Yes (6) CHF (congestive heart failure) SNOMED Code(s): 39208073 ICD Code: I50.9 - HEART FAILURE, UNSPECIFIED Status: Acute Current Visit: Yes (7) Ambulatory dysfunction SNOMED Code(s): 739086319 ICD Code: R26.2 - DIFFICULTY IN WALKING, NOT ELSEWHERE CLASSIFIED Status: Acute Current Visit: Yes - Patient Summary/Data Consults: Consultations 07/29/21 18:53 Consult to Physical Therapy [PT Evaluation and Treatment] [CONS] Routine 08/01/21 14:36 Consult to Hospice [CONS] Routine - Patient Instructions Diet: Usual Diet as Tolerated, Regular Diet as Tolerated Activity: As Tolerated Showering/Bathing: May Shower Other/Special Instructions: -Patient is on hospice care. -PCP will write all required prescriptions - Discharge Plan Home Medications: Home Meds Aspirin [Adult Low Dose Aspirin EC] 4 tab PO DAILY 10/23/16 [History] Furosemide 40 mg PO DAILY 10/23/16 [History] Isosorbide Mononitrate 10 mg PO BID 10/23/16 [History] Simvastatin [Zocor] 40 mg PO BEDTIME 10/23/16 [History] Warfarin [Coumadin] 6 mg PO DAILY 10/23/16 [History] ALPRAZolam [Alprazolam] 0.5 mg PO BID PRN 07/30/21 [History] Mirtazapine 45 mg PO BEDTIME 07/30/21 [History] Potassium Chloride 10 meq PO BID 07/30/21 [History] Patient Handouts: Acute Kidney Injury, Adult, Heart Failure, Self Care, [id number], Pleural Effusion, Heart Failure, Diagnosis, [id number], Community-Acquired Pneumonia, Adult, [id number] Referrals: Emanuel Constantino MD [Ordering Only Provider] - 08/07/21 1:45 pm - Discharge Summary/Plan Comment DC Time >30 min.: Yes Total # of Minutes for Discharge Time: 35 minutes - Review of Systems General: Reports: Other (Patient is a poor historian) HEENT: Reports: Other (Patient is a poor historian) Pulmonary: Reports: Other (Patient is a poor historian) Cardiovascular: Reports: Other (Patient is a poor historian) Gastrointestinal: Reports: Other (Patient is a poor historian) 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: Reports: Other (Patient is a poor historian) Musculoskeletal: Reports: Other (Patient is a poor historian) Skin: Reports: Other (Patient is a poor historian) Neurological: Reports: Other (Patient is a poor historian) - Patient Data Vitals - Most Recent: Last Vital Signs Temp 97.2 F 08/02/21 08:00 Pulse 68 08/02/21 08:00 Resp 22 H 08/02/21 08:00 BP 137/70 08/02/21 08:00 Pulse Ox 93 L 08/02/21 08:00 Weight - Most Recent: 153 lb 3.54 oz I&O - Last 24 hours: Intake & Output 08/01/21 08/02/21 08/02/21 22:59 06:59 14:59 Intake Total 100 Balance 100 NILE Results - Last 24 hrs: Microbiology 07/28/21 19:46 Aerobic Blood Culture - Preliminary Blood - Venous NO GROWTH AFTER 4 DAYS Anaerobic Blood Culture - Preliminary NO GROWTH AFTER 4 DAYS 07/28/21 20:00 Aerobic Blood Culture - Preliminary Blood - Venous - Lab Draw NO GROWTH AFTER 4 DAYS Anaerobic Blood Culture - Preliminary NO GROWTH AFTER 4 DAYS Med Orders - Current: Current Medications Albuterol/Ipratropium (Albuterol/Ipratropium 3.0-0.5 Mg/3 Ml Neb Soln) 3 ml NEB Q4HRRT PRN PRN Reason: Shortness Of Breath/wheezing Atropine Sulfate (Atropine 1% Ophth Soln 5 Ml Bottle) 0 ml SL Q2H [place] Last Admin: 08/02/21 08:30 Dose: 5 ml Documented by: Lorazepam (Lorazepam 2 Mg/Ml Sdv) 1 mg IVPUSH Q1H PRN PRN Reason: Agitation Last Admin: 08/02/21 03:32 Dose: 1 mg Documented by: Morphine Sulfate (Morphine 2 Mg/Ml Syringe) 1 mg IVPUSH Q1H PRN PRN Reason: Pain Discontinued Medications Acetaminophen (Acetaminophen 325 Mg Tab) 650 mg PO Q4H PRN PRN Reason: Pain (Mild 1-3)/fever Diphenhydramine HCl (Diphenhydramine 50 Mg Cap) 50 mg PO ONETIME ONE Stop: 07/28/21 22:03 Last Admin: 07/28/21 22:12 Dose: 50 mg Documented by: Docusate Sodium (Docusate Sodium 100 Mg Cap) 100 mg PO DAILY PRN PRN Reason: Constipation Last Admin: 07/29/21 21:29 Dose: 100 mg Documented by: Furosemide (Furosemide 40 Mg/4 Ml Vial) 20 mg IVPUSH NOW ONE Stop: 07/29/21 01:31 Last Admin: 07/29/21 02:12 Dose: 20 mg Documented by: Furosemide (Furosemide 20 Mg/2 Ml Vial) 20 mg IVPUSH NOW ONE Stop: 07/29/21 15:10 Last Admin: 07/29/21 15:52 Dose: 20 mg Documented by: Furosemide (Furosemide 20 Mg/2 Ml Vial) 20 mg IVPUSH NOW ONE Stop: 07/31/21 10:48 Last Admin: 07/31/21 11:21 Dose: 20 mg Documented by: Cefepime HCl 2 gm/ Premix 50 mls @ 100 mls/hr IV ONETIME ONE Stop: 07/28/21 22:28 Last Admin: 07/28/21 22:12 Dose: 100 mls/hr Documented by: Sodium Chloride (Normal Saline) 1,000 mls @ 75 mls/hr IV ASDIRECTED [facility] Last Admin: 07/28/21 23:14 Dose: 75 mls/hr Documented by: Vancomycin HCl 945 gm/ Sodium (Chloride) 250 mls @ 166 mls/hr IV ONETIME ONE Stop: 07/29/21 00:18 Last Admin: 07/28/21 23:21 Dose: Not Given Documented by: Sodium Chloride (Normal Saline (Advbag)) Confirm Administered Dose 250 mls @ as directed .ROUTE .STK-MED ONE Stop: 07/28/21 23:10 Last Admin: 07/28/21 23:58 Dose: Not Given Documented by: Vancomycin HCl 1 gm/ Sodium (Chloride) 250 mls @ 166 mls/hr IV ONETIME ONE Stop: 07/29/21 00:49 Last Admin: 07/28/21 23:23 Dose: 166 mls/hr Documented by: Vancomycin HCl 1 gm/ Sodium (Chloride) 250 mls @ 167 mls/hr IV Q24H [facility] Last Admin: 07/30/21 23:06 Dose: 167 mls/hr Documented by: Cefepime HCl 1 gm/ Premix 50 mls @ 100 mls/hr IV Q8H [facility] Last Admin: 07/30/21 01:05 Dose: 100 mls/hr Documented by: Pantoprazole Sodium 40 mg/ (Sodium Chloride) 10 mls @ 300 mls/hr IV DAILY [facility] Pantoprazole Sodium 40 mg/ (Sodium Chloride) 10 mls @ 300 mls/hr IV BID [facility] Last Admin: 08/01/21 08:21 Dose: 300 mls/hr Documented by: Cefepime HCl (Maxipime In D5w 1 Gm/50 Ml) 50 mls @ 100 mls/hr IV Q12H [facility] Last Admin: 08/01/21 13:07 Dose: 100 mls/hr Documented by: Lactated Ringer's (Ringers, Lactated) 1,000 mls @ 100 mls/hr IV ASDIRECTED [facility] Stop: 07/30/21 18:44 Last Admin: 07/30/21 08:56 Dose: 100 mls/hr Documented by: Sodium Chloride (Normal Saline (Advbag)) Confirm Administered Dose 250 mls @ as directed .ROUTE .STK-MED ONE Stop: 07/30/21 22:53 Last Admin: 07/30/21 23:07 Dose: 167 mls/hr Documented by: Vancomycin HCl 1 gm/ Sodium (Chloride) 250 mls @ 167 mls/hr IV Q24H [facility] Last Admin: 07/31/21 22:49 Dose: 167 mls/hr Documented by: Lorazepam (Lorazepam 2 Mg/Ml Sdv) 1 mg IVPUSH ONETIME ONE Stop: 07/29/21 19:50 Last Admin: 07/29/21 21:17 Dose: 1 mg Documented by: Morphine Sulfate (Morphine 2 Mg/Ml Syringe) 1 mg IVPUSH Q4H PRN PRN Reason: Pain Last Admin: 07/31/21 12:46 Dose: 1 mg Documented by: Ondansetron HCl (Ondansetron 4 Mg/2 Ml Sdv) 4 mg IVPUSH Q4H PRN PRN Reason: Nausea/Vomiting Pantoprazole Sodium (Pantoprazole 40 Mg Vial) 40 mg IV DAILY [facility] Last Admin: 07/29/21 09:21 Dose: 40 mg Documented by: Isosorbide Mononitrate 10 Mg Tablet 1 each PO BID [facility] Last Admin: 08/01/21 08:21 Dose: Not Given Documented by: Potassium Chloride (Potassium Chloride 20 Meq Tab.Er) 40 meq PO ONETIME ONE Stop: 07/29/21 01:29 Last Admin: 07/29/21 02:12 Dose: 40 meq Documented by: Sertraline HCl (Sertraline 50 Mg Tab) 50 mg PO DAILY [facility] Last Admin: 07/29/21 21:29 Dose: 50 mg Documented by: Simvastatin (Simvastatin 40 Mg Tab) 40 mg PO BEDTIME [facility] Last Admin: 07/31/21 21:46 Dose: 40 mg Documented by: Sodium Chloride (Sodium Chloride 0.9% 10 Ml Syringe) 10 ml FLUSH ASDIRECTED PRN PRN Reason: Keep Vein Open Sodium Chloride (Sodium Chloride 0.9% 2.5 Ml Syringe) 2.5 ml FLUSH ASDIRECTED PRN PRN Reason: Keep Vein Open Vancomycin HCl (Pharmacy To Dose - Vancomycin) 1 dose .XX ASDIRECTED [place] Vancomycin HCl (Vancomycin 1 Gm Sdv) Confirm Administered Dose 1 gm .ROUTE .STK- MED ONE Stop: 07/30/21 22:52 Last Admin: 07/30/21 23:05 Dose: 1 gm Documented by: - Exam General: Reports: Obtunded HEENT: Reports: Other (Dry mucous membranes) Neck: Reports: Trachea Midline Lungs: Reports: Other (Increased respiratory effort) Cardiovascular: Reports: Regular Rhythm GI/Abdominal Exam: Normal Bowel Sounds, Soft, Non-Tender
== END 2021-08-02 14:00 | disposition hospice, home (50) | DRG 291 ==
LOC: MW.ED 18:22 → MW.MS 23:55
PROVIDERS: ADMIT Student in an Organized Health Care Education/Training Program; ATTEND Student in an Organized Health Care Education/Training Program
DX: I50.9 Heart failure, unspecified (principal); R09.02 Hypoxemia; J18.9 Pneumonia, unspecified organism; I48.20 Chronic atrial fibrillation, unspecified; I48.91 Unspecified atrial fibrillation; N17.9 Acute kidney failure, unspecified; R26.2 Difficulty in walking, not elsewhere classified; E87.6 Hypokalemia; M25.552 Pain in left hip; I10 Essential (primary) hypertension; Z20.822 Contact with and (suspected) exposure to COVID-19; F32.9 Major depressive disorder, single episode, unspecified; I25.10 Atherosclerotic heart disease of native coronary artery without angina pectoris; D64.9 Anemia, unspecified; E78.5 Hyperlipidemia, unspecified; F03.90 Unspecified dementia, unspecified severity, without behavioral disturbance, psychotic disturbance, mood disturbance, and anxiety; E78.00 Pure hypercholesterolemia, unspecified; G47.30 Sleep apnea, unspecified; F41.9 Anxiety disorder, unspecified; F32.A Depression, unspecified; M19.90 Unspecified osteoarthritis, unspecified site; Z96.649 Presence of unspecified artificial hip joint; I25.2 Old myocardial infarction; Z95.1 Presence of aortocoronary bypass graft; Z88.0 Allergy status to penicillin; Z91.040 Latex allergy status; Z91.09 Other allergy status, other than to drugs and biological substances; Z79.82 Long term (current) use of aspirin; Z79.01 Long term (current) use of anticoagulants; Z98.49 Cataract extraction status, unspecified eye; Z97.3 Presence of spectacles and contact lenses; Z88.1 Allergy status to other antibiotic agents; Z91.048 Other nonmedicinal substance allergy status; Z79.899 Other long term (current) drug therapy
CPT/HCPCS: 36415; 70450; 71045; 71250; 73502; 80053; 81001; 83605; 83735; 84484; 85025; 85610; 87040 ×2; 93005; A9270; J0692; J3370; J7030; J7050; U0002; 36600; 51798; 80048; 82270; 82272; 82607; 82746; 82803; 84100; 97161-GP; C9113; J1940; J2060; J2270; J7120